=== PATIENT | female | born 1950 | race Caucasian/White ===

== ENCOUNTER → 2019-10-30 | Outpatient (CLI) | payer MEDICARE, OTHER ==
--- NOTE | 2019-10-30 09:54 | FL ---
EXAMINATION TYPE: FL barium swallow DATE OF EXAM: 10/30/2019 CLINICAL HISTORY: History of lap band for years removed 2015 after slippage presents with dysphagia f or 6 months with reflux and heartburn-like symptoms. TECHNIQUE: A double contrast esophagram is performed utilizing air and barium. A total of 37 second s of fluoroscopic time was utilized during procedure. 44 spot images are saved to PACS. COMPARISON: None FINDINGS: The esophagus shows some mild dysmotility with mild diffuse dilatation. There is small to m oderate size sliding type hiatal hernia noted. No stricture or suspicious intraluminal mass. Mild to moderate gastroesophageal reflux noted during real-time performance of study into the distal one half of the esophagus. IMPRESSION: Mild underlying esophageal dysmotility. Small to moderate-sized sliding-type hiatal ty ia. [id number] distal gastroesophageal reflux.
== END | disposition home or self-care (01) ==
LOC: RADUSWWP 08:43
PROVIDERS: ATTEND Surgery
DX: K21.9 Gastro-esophageal reflux disease without esophagitis (principal); K22.4 Dyskinesia of esophagus
CPT/HCPCS: 74220

== ENCOUNTER → 2020-09-21 | Outpatient (CLI) | payer MEDICARE, OTHER ==
--- NOTE | 2020-09-22 09:02 | BD ---
EXAMINATION TYPE: Axial Bone Density DATE OF EXAM: 09/21/2020 COMPARISON: NONE CLINICAL HISTORY: Height: 5 FT 2 IN Weight: 208 FRAX RISK QUESTIONS: Alcohol (3 or more units per day): Family History (Parent hip fracture): NO Glucocorticoids (More than 3mos): NO (Ex: prednisone, prednisolone, methylprednisolone, dexamethasone, and hydrocortisone). History of Fracture in Adulthood: NO Secondary Osteoporosis: 1. Type 1 Diabetes: NO 2. Hyperthyroidism: NO 3. Menopause before 45: YES 4. Malnutrition: NO 5. Chronic liver disease: NO Rheumatoid Arthritis: NO Current Tobacco Use: NO RISK FACTORS HISTORY OF: Surgery to Spine/Hip(right/left)/Wrist (right/left): NO Family History of Osteoporosis: NO Active: YES Diet low in dairy products/other sources of calcium: NO Postmenopausal woman: PART HYST AGE 42 SYMPTOMS THEN ALSO Take estrogen and/or progesterone medications: NONE Lost more than 2 inches in height since high school: NO Poor Health: FAIR MEDICATIONS: Thyroid Medications: YES Which medication: UNSURE NAME How Long: ONE MONTH Additional Medications: METFORMIN, SIMVASTATIN, DULOXETINE, LISINOPRIL,INSULIN, PRILOSEC, THYROID MED S Additional History: GANGLION CYST REMOVED LONG AGO EXAM MEASUREMENTS: Bone mineral densitometry was performed using the salgomed System. Bone mineral density as measured about the Lumbar spine is: ----- L1-L4(G/cm2): 2.004 T Score Values are as follows: ----- L2: 4.8 ----- L3: 8.5 ----- L4: 8.5 ----- L1-L4: 6.9 Bone mineral density has: INCREASED 1.5 % since study of: 2010 Bone mineral density about the R hip (g/cm2): 1.210 Bone mineral density about the L hip (g/cm2): 1.195 T Score values are as follows: -----R Neck: 1.2 -----L Neck: 1.1 -----R Total: 2.3 -----L Total: 2.4 Bone mineral density has: DECREASED -5.2 % since study of: 2010 IMPRESSION: No evidence for osteoporosis or osteopenia. NOTE: T-SCORE=SD OF THE YOUNG ADULT MEAN.
--- NOTE | 2020-09-22 13:30 | MM ---
Reason for exam: screening (asymptomatic). Last mammogram was performed 5 years and 2 months ago. History: Patient is postmenopausal. Family history of breast cancer in maternal aunt, breast cancer in paternal aunt, and breast cancer in maternal cousin. Physical Findings: A clinical breast exam by your physician is recommended on an annual basis and results should be correlated with mammographic findings. MG 3D Screening Mammo W/Cad Bilateral CC and MLO view(s) were taken. Prior study comparison: August 05, 2015, bilateral MG screening mammo w CAD. April 24, 2014, bilateral MG screening mammo w CAD. There are scattered fibroglandular densities. There is no discrete abnormality. No significant changes when compared with prior studies. ASSESSMENT: Negative, BI-RAD 1 RECOMMENDATION: Routine screening mammogram of both breasts in 1 year.
== END | disposition home or self-care (01) ==
LOC: RADMAMWWP 14:57
PROVIDERS: ATTEND Internal Medicine
DX: Z12.31 Encounter for screening mammogram for malignant neoplasm of breast (principal); Z13.820 Encounter for screening for osteoporosis; Z78.0 Asymptomatic menopausal state; Z80.3 Family history of malignant neoplasm of breast
CPT/HCPCS: 77063; 77067; 77080

== ENCOUNTER → 2021-09-13 | Outpatient (CLI) | payer MEDICARE, OTHER ==
--- NOTE | 2021-09-13 12:04 | NM ---
EXAMINATION TYPE: NM gastric emptying static DATE OF EXAM: 09/13/2021 COMPARISON: NONE HISTORY: Following administration of 2.0 mCi Tc 99m Sulfur Colloid with 4 OZ. EGG BEATERS, 1 PC. TOAST W/BUTTE R & JAM, 6 OZ WATER, projection images of the abdomen were obtained 10 minutes post ingestion. Patient Emptying Values 1 Hour 34 % 2 Hours 70 % 3 Hours 96 % 4 Hours 100 % Gastroesophagel reflux: None IMPRESSION: 1. Normal gastric emptying exam. Gastric emptying normal percentage values: 30 minutes: <70% of retention (> 30% emptying) suggests abnormally fast emptying. 60 minutes: <90% retention (>10% emptying) is normal; less than 30% retention (>70% emptying) suggest s abnormally rapid empying. 90 minutes: <65% retention (> 35% emptying) is normal. 120 minutes: <60% retention (> 40% emptying) is normal. 180 minutes: <30% retention (> 70% emptying) is normal. Gastric emptying T-1/2: Solid: The normal range is 60-105 minutes Liquid only: Normal range is 10-45 minutes. Liquid only-children: At 60 minutes, normal range is 44-58 % . Liquid only-infants: At 60 minutes, normal range is 32-64 %. Additional references: Gastric Emptying Scintigraphy [email or web address]://[email or web address]
== END | disposition home or self-care (01) ==
LOC: RADNMMAIN 06:44
PROVIDERS: ATTEND Internal Medicine
DX: R11.2 Nausea with vomiting, unspecified (principal); N18.9 Chronic kidney disease, unspecified
CPT/HCPCS: 78264; A9541

== ENCOUNTER → 2021-09-16 | Outpatient (CLI) | payer MEDICARE, OTHER ==
--- NOTE | 2021-09-16 14:07 | US ---
EXAMINATION TYPE: US kidneys/renal and bladder DATE OF EXAM: 09/16/2021 COMPARISON: NONE CLINICAL HISTORY: R11.2 NAUSEA N18.9 CKD. Abnormal renal labs EXAM MEASUREMENTS: Right Kidney: 8.9 x 4.2 x 4.5 cm Left Kidney: 9.7 x 4.7 x 4.3 cm Right Kidney: Small in size, otherwise appeared wnl Left Kidney: Cyst mid= 2.1 x 1.8 x 2.3 cm Bladder: wnl Bilateral Jets seen: only left jet visualized There is no evidence for hydronephrosis at this point in time. No nephrolithiasis is seen. No solid masses are identified. The urinary bladder is anechoic. Bilateral ureteral jets are seen. IMPRESSION: Diminutive kidneys. Cyst left kidney.
== END | disposition home or self-care (01) ==
LOC: RADUSWWP 13:12
PROVIDERS: ATTEND Internal Medicine
DX: N18.9 Chronic kidney disease, unspecified (principal); N28.1 Cyst of kidney, acquired; N27.1 Small kidney, bilateral
CPT/HCPCS: 76770

== ENCOUNTER 2021-11-24 07:00 | Day surgery (SDC) | payer MEDICARE, OTHER ==
[2021-11-21 14:49] VITALS: BMI 35.8
[~2021-11-24 07:00] MED LIST: LACTATED RINGERS 1,000 ML IV SCH; LIDOCAINE 1% (10MG/ML) FOR IV START INTRADERMA PRN
[2021-11-24 07:35] VITALS: TEMP 97
--- NOTE | 2021-11-24 07:39 | P.GSHP ---
History of Present Illness H&P Date: 11/24/21 CHIEF COMPLAINT: GERD and colon screen HISTORY OF PRESENT ILLNESS: The patient is a 70-year-old female who presents with gastroesophageal reflux disease and need for colon screen. Upper and lower endoscopy were offered for further evaluation and management. PAST MEDICAL HISTORY: Please see list. PAST SURGICAL HISTORY: Please see list. MEDICATIONS: Please see list. ALLERGIES: Please see list. SOCIAL HISTORY: No illicit drug use FAMILY HISTORY: No reports of Crohn disease or ulcerative colitis. REVIEW OF ORGAN SYSTEMS: CONSTITUTIONAL: No reports of fevers or chills. GI: Denies any blood in stools or constipation. PHYSICAL EXAM: VITAL SIGNS: Stable GENERAL: Well-developed pleasant in no acute distress. HEENT: No scleral icterus. Extraocular movements grossly intact. Moist buccal mucosa. NECK: Supple without lymphadenopathy. CHEST: Unlabored respirations. Equal bilateral excursions. CARDIOVASCULAR: Regular rate and rhythm. Distal 2+ pulses. ABDOMEN: Soft, nondistended. MUSCULOSKELETAL: No clubbing, cyanosis, or edema. ASSESSMENT: 1. Gastroesophageal reflux disease 2. Colon screen. PLAN: 1. Recommend proceeding with an upper and lower endoscopy Past Medical History Past Medical History: CVA/TIA, Diabetes Mellitus, Hyperlipidemia, Hypertension, Myocardial Infarction ([place]), Sleep Apnea/CPAP/BIPAP, Thyroid Disorder Last Myocardial Infarction Date:: 2017 History of Any Multi-Drug Resistant Organisms: None Reported Past Surgical History: Bariatric Surgery, Heart Catheterization, Hysterectomy, Orthopedic Surgery Additional Past Surgical History / Comment(s): left ganglion cyst removed. abdominoplasty. D&C Past Anesthesia/Blood Transfusion Reactions: No Reported Reaction Past Psychological History: Depression Smoking Status: Never smoker Past Alcohol Use History: None Reported Past Drug Use History: None Reported Medications and Allergies Home Medications Medication Instructions Recorded Confirmed Type Aspirin [Adult Low Dose Aspirin EC] 81 mg PO DAILY 11/21/21 11/24/21 History Atorvastatin [Lipitor] 80 mg PO HS 11/21/21 11/24/21 History DULoxetine HCL [Cymbalta] 60 mg PO DAILY 11/21/21 11/24/21 History Dapagliflozin Propanediol [Farxiga] 5 mg PO DAILY 11/21/21 11/24/21 History INSULIN LISPRO (humaLOG) [humaLOG] 0 units SQ DIRECTED 11/21/21 11/24/21 History Insulin Glargine [Lantus Vial] 26 unit SQ HS 11/21/21 11/24/21 History Levothyroxine Sodium [Synthroid] 75 mcg PO DAILY 11/21/21 11/24/21 History lisinopriL [Zestril] 20 mg PO DAILY 11/21/21 11/24/21 History Allergies Allergy/AdvReac Type Severity Reaction Status Date / Time amoxicillin Allergy Rash/Hives Verified 11/24/21 07:21 Surgical - Exam Vital Signs Temp Pulse Resp BP Pulse Ox 97.0 F L 75 14 163/75 96 11/24/21 07:29 11/24/21 07:29 11/24/21 07:29 11/24/21 07:29 11/24/21 07:29
[2021-11-24 07:40] LABS: Glucose,Whole Blood 100 mg/dL (70-110)
[2021-11-24] MEDS ORDERED: LIDOCAINE 2% INJ 20 MG/ML (2 ML VIAL) ONE (08:09)
[2021-11-24] MEDS ORDERED: PROPOFOL 10 MG/ML 20 ML VIAL IV ONE (08:09)
--- NOTE | 2021-11-24 08:45 | P.PCN ---
Date of Procedure: 11/24/21 Description of Procedure: PREOPERATIVE DIAGNOSIS: Colonoscopy screening POSTOPERATIVE DIAGNOSIS: Tubular adenoma at cecum Tubular adenoma ascending colon Internal hemorrhoids, grade 3 OPERATION: Colonoscopy to the ileocecal valve and appendiceal orifice, cecum Colonoscopy with cold forceps biopsy SURGEON: Keke Carrasco MD. ANESTHESIA: MAC. INDICATIONS: The patient is an 70-year-old male who presents colonoscopy screening. Last colonoscopy over 10 years ago. Benefits and risks were described and informed consent was obtained. DESCRIPTION OF PROCEDURE: The patient had undergone Sutab prep. The patient had been brought into the operating room and laid in the left lateral decubitus position. After adequate intravenous sedation, the rectum was examined with 2% lidocaine jelly. The prostate was unremarkable. External hemorrhoids were encountered. The rectal tone was within normal limits. No lesions were palpated in the rectal vault. An Olympus colonoscope was advanced until the cecum, ileocecal valve and appendiceal orifice were clearly viewed. The prep was fair. No sigmoid dive rticulosis was encountered. Colonic polyps were found and removed. No evidence of focal colitis was found. Retroflexion of the scope demonstrated grade 2 internal hemorrhoids without active bleeding or inflammation. The colon was desufflated. The patient had tolerated the procedure well. Withdrawal time was over 6 minutes. FINDINGS: Aronchick preparation quality scale 3+ (1-5) Internal hemorrhoids, grade 3 External hemorrhoids, grade 3 No sigmoid diverticulosis Removal of 2 polyps: - Cold forceps biopsy at cecum, 4 mm polyp. - Cold forceps biopsy at ascending colon, 5 mm polyp. No focal colitis. RECOMMENDATIONS: Repeat colonoscopy in one year, 2022 due to high risk polyps and poor prep
--- NOTE | 2021-11-24 08:48 | P.PCN ---
Date of Procedure: 11/24/21 Description of Procedure: PREOPERATIVE DIAGNOSIS: Gastroesophageal reflux disease. Morbid obesity. POSTOPERATIVE DIAGNOSIS: Gastroesophageal reflux disease. Morbid obesity. Gastritis. Diaphragmatic hiatal hernia Erosive esophagitis with esophageal ulcer Duodenal ulcer OPERATION: Esophagogastroduodenoscopy with biopsies along antrum, distal esophagus, duodenum SURGEON: Keke Carrasco MD ANESTHESIA: MAC. INDICATIONS: The patient is a 70-year-old female who presents with reflux disease. Benefits and risks of the procedure were described. Informed consent was obtained. DESCRIPTION: The patient was brought into the endoscopy suite and laid in the left lateral decubitus position. An Olympus gastroscope was passed along the posterior oropharynx down to the distal esophagus where the squamocolumnar junction was encountered at 35 cm from the incisors. The stomach was entered and no bile reflux was found. Additional findings are listed below. Biopsies with cold forceps were obtained of the antrum. The first through third portion of the duodenum was examined. Retroflexion of the scope confirmed Hill grade 2 lower esophageal valve. The squamocolumnar junction demonstrated LA grade B erosive esophagitis. The stomach was desufflated. The patient tolerated the procedure well. FINDINGS: Squamocolumnar junction 35 cm from the incisors. Diaphragmatic hiatus at 38 cm. Hiatal hernia, 3 cm Hill grade 2 lower esophageal valve. LA grade D erosive esophagitis, with active esophageal ulcer, 30 cm to 35 cm 3 columnar erosion. Biopsies obtained Chronic gastritis with biopsies obtained Punctate duodenal ulcer without bleeding at the first portion, 3 mm. Biopsies obtained RECOMMENDATIONS: Omeprazole 40 mg twice a day Carafate 1 g twice a day
[2021-11-24 09:26] VITALS: BP 153/68; PULSE 55; RESP 18
== END 2021-11-24 09:56 | disposition home or self-care (01) ==
LOC: ORWHC2ENDO 07:00
PROVIDERS: ATTEND Surgery Plastic and Reconstructive Surgery
DX: Z12.11 Encounter for screening for malignant neoplasm of colon (principal); D12.2 Benign neoplasm of ascending colon; D12.0 Benign neoplasm of cecum; K21.9 Gastro-esophageal reflux disease without esophagitis; K29.80 Duodenitis without bleeding; K63.89 Other specified diseases of intestine; K29.50 Unspecified chronic gastritis without bleeding; K22.10 Ulcer of esophagus without bleeding; K64.2 Third degree hemorrhoids; K64.4 Residual hemorrhoidal skin tags; E66.01 Morbid (severe) obesity due to excess calories; Z68.35 Body mass index [BMI] 35.0-35.9, adult; K44.9 Diaphragmatic hernia without obstruction or gangrene; I10 Essential (primary) hypertension; E78.5 Hyperlipidemia, unspecified; E11.9 Type 2 diabetes mellitus without complications; E07.9 Disorder of thyroid, unspecified; Z86.73 Personal history of transient ischemic attack (TIA), and cerebral infarction without residual deficits; I25.2 Old myocardial infarction; G47.33 Obstructive sleep apnea (adult) (pediatric); Z98.84 Bariatric surgery status; Z90.710 Acquired absence of both cervix and uterus; Z98.890 Other specified postprocedural states; F32.A Depression, unspecified; Z79.82 Long term (current) use of aspirin; Z79.890 Hormone replacement therapy; Z79.4 Long term (current) use of insulin; Z79.899 Other long term (current) drug therapy; Z88.0 Allergy status to penicillin
CPT/HCPCS: 88305; 88312; 45380; 43239; J2704; J2001

== ENCOUNTER → 2021-11-30 | Outpatient (CLI) | payer MEDICARE, OTHER ==
--- NOTE | 2021-11-30 08:29 | US ---
EXAMINATION TYPE: US gallbladder DATE OF EXAM: 11/30/2021 COMPARISON: NONE CLINICAL HISTORY: R10.11 Right upper quadrant pain. EXAM MEASUREMENTS: Liver Length: 13.2 cm Gallbladder Wall: 0.2 cm CBD: 0.2 cm Right Kidney: 9.9 x 4.0 x 4.6 cm Pancreas: Obscured by bowel gas Liver: Increased attenuation, decreased visualization of vessels suggestive of fatty infiltrate Gallbladder: wnl Evidence for sonographic He's sign: No CBD: wnl Right Kidney: No hydronephrosis or masses seen IMPRESSION: 1. Hepatic steatosis.
== END | disposition home or self-care (01) ==
LOC: RADUSWWP 07:54
PROVIDERS: ATTEND Surgery Plastic and Reconstructive Surgery
DX: K76.0 Fatty (change of) liver, not elsewhere classified (principal)
CPT/HCPCS: 76705

== ENCOUNTER → 2022-02-02 | Day surgery (SDC) | payer MEDICARE, OTHER ==
[2022-01-31 16:16] VITALS: BMI 36.0
[~2022-02-02] MED LIST changes: -LIDOCAINE 1% (10MG/ML) FOR IV START INTRADERMA PRN; +LIDOCAINE 2% INJ 20 MG/ML (2 ML VIAL) ONE; +PROPOFOL 10 MG/ML 20 ML VIAL IV ONE
[2022-02-02 07:08] VITALS: RESP 16; TEMP 97.6
[2022-02-02 07:11] LABS: Glucose,Whole Blood 112 mg/dL (70-110)
--- NOTE | 2022-02-02 07:35 | P.GSHP ---
History of Present Illness H&P Date: 02/02/22 CHIEF COMPLAINT: GERD HISTORY OF PRESENT ILLNESS: The patient is a 71-year-old female who presents reports gastroesophageal reflux disease. Upper endoscopy was offered for further evaluation and management. PAST MEDICAL HISTORY: Please see list. PAST SURGICAL HISTORY: Please see list. MEDICATIONS: Please see list. ALLERGIES: Please see list. SOCIAL HISTORY: No illicit drug use FAMILY HISTORY: No reports of Crohn disease or ulcerative colitis. REVIEW OF ORGAN SYSTEMS: CONSTITUTIONAL: No reports of fevers or chills. GI: Denies any blood in stools or constipation. PHYSICAL EXAM: VITAL SIGNS: Stable GENERAL: Well-developed and pleasant in no acute distress. HEENT: No scleral icterus. Extraocular movements grossly intact. Moist buccal mucosa. NECK: Supple without lymphadenopathy. CHEST: Unlabored respirations. Equal bilateral excursions. CARDIOVASCULAR: Regular rate and rhythm. Distal 2+ pulses. ABDOMEN: Soft, nondistended. MUSCULOSKELETAL: No clubbing, cyanosis, or edema. ASSESSMENT: 1. Gastroesophageal reflux disease PLAN: 1. Recommend proceeding with an upper endoscopy Past Medical History Past Medical History: CVA/TIA, Diabetes Mellitus, GERD/Reflux, Hyperlipidemia, Hypertension, Myocardial Infarction ([place]), Osteoarthritis ([place]), Sleep Apnea/CPAP/BIPAP, Thyroid Disorder Additional Past Medical History / Comment(s): CVA 2009- NO RESIDUAL AFFECTS, C- PAP MACHINE , ARTHRITIS HIPS, EGD 11/24/21 - ESOPHAGEAL & DUODENAL ULCER. Last Myocardial Infarction Date:: 2007 History of Any Multi-Drug Resistant Organisms: None Reported Past Surgical History: Bariatric Surgery, Heart Catheterization, Hysterectomy, Orthopedic Surgery Additional Past Surgical History / Comment(s): left ganglion cyst removed, LAP BAND INSERTED AND REMOVED. abdominoplasty. D&C X2 Past Anesthesia/Blood Transfusion Reactions: No Reported Reaction Past Psychological History: Depression Smoking Status: Never smoker Past Alcohol Use History: None Reported Past Drug Use History: None Reported Medications and Allergies Home Medications Medication Instructions Recorded Confirmed Type Aspirin [Adult Low Dose Aspirin EC] 81 mg PO DAILY 11/21/21 01/31/22 History Atorvastatin [Lipitor] 80 mg PO HS 11/21/21 02/02/22 History DULoxetine HCL [Cymbalta] 60 mg PO DAILY 11/21/21 02/02/22 History Dapagliflozin Propanediol [Farxiga] 5 mg PO DAILY 11/21/21 02/02/22 History INSULIN LISPRO (humaLOG) [humaLOG] 10 units SQ AC-TID 11/21/21 02/02/22 History Insulin Glargine [Lantus Vial] 26 unit SQ HS 11/21/21 02/02/22 History Levothyroxine Sodium [Synthroid] 75 mcg PO DAILY 11/21/21 02/02/22 History lisinopriL [Zestril] 30 mg PO DAILY 11/21/21 02/02/22 History Omeprazole [PriLOSEC] 40 mg PO BID #30 cap 11/24/21 02/02/22 Rx Sucralfate [Carafate] 1 gm PO BID #60 tablet 11/24/21 02/02/22 Rx Allergies Allergy/AdvReac Type Severity Reaction Status Date / Time amoxicillin Allergy Rash/Hives Verified 01/31/22 15:51 Surgical - Exam Vital Signs Temp Pulse Resp BP Pulse Ox 97.6 F 60 16 188/86 98 02/02/22 06:59 02/02/22 06:59 02/02/22 06:59 02/02/22 06:59 02/02/22 06:59 Results - Labs Abnormal Lab Results - Last 24 Hours (Table) 02/02/22 Range/Units 07:06 POC Glucose (mg/dL) 112 H (70-110) mg/dL
--- NOTE | 2022-02-02 07:45 | P.PCN ---
Date of Procedure: 02/02/22 Description of Procedure: PREOPERATIVE DIAGNOSIS: Gastroesophageal reflux disease. Morbid obesity. History of gastric ulcers POSTOPERATIVE DIAGNOSIS: Gastroesophageal reflux disease. Morbid obesity. Gastritis. Diaphragmatic hiatal hernia History of gastric ulcer OPERATION: Esophagogastroduodenoscopy with biopsies along antrum and duodenum SURGEON: Keke Carrasco MD ANESTHESIA: MAC. INDICATIONS: The patient is a 71-year-old female who presents with reflux disease and gastric ulcers. Benefits and risks of the procedure were described. Informed consent was obtained. DESCRIPTION: The patient was brought into the endoscopy suite and laid in the left lateral decubitus position. An Olympus gastroscope was passed along the posterior oropharynx down to the distal esophagus where the squamocolumnar junction was encountered at 35 cm from the incisors. The stomach was entered and no bile reflux was found. Additional findings are listed below. Biopsies with cold forceps were obtained of the antrum. The first through third portion of the duodenum was examined. Retroflexion of the scope confirmed Hill grade 3 lower esophageal valve. The squamocolumnar junction demonstrated LA grade B erosive esophagitis. The stomach was desufflated. The patient tolerated the procedure well. FINDINGS: Squamocolumnar junction 35 cm from the incisors. Diaphragmatic hiatus at 37 cm. Hiatal hernia, 2 cm, sliding diaphragmatic hiatal hernia Hill grade 3+ lower esophageal valve. LA grade B erosive esophagitis. Biopsies obtained of duodenum for celiac disease Chronic gastritis RECOMMENDATIONS: Upper endoscopy as needed Recommend diaphragmatic hiatal hernia repair. Plan - Discharge Summary New Discharge Prescriptions: Continue INSULIN LISPRO (humaLOG) [humaLOG] 10 units SQ AC-TID Dapagliflozin Propanediol [Farxiga] 5 mg PO DAILY Levothyroxine Sodium [Synthroid] 75 mcg PO DAILY Omeprazole [PriLOSEC] 40 mg PO BID #30 cap Insulin Glargine [Lantus Vial] 26 unit SQ HS lisinopriL [Zestril] 30 mg PO DAILY Atorvastatin [Lipitor] 80 mg PO HS DULoxetine HCL [Cymbalta] 60 mg PO DAILY Aspirin [Adult Low Dose Aspirin EC] 81 mg PO DAILY Sucralfate [Carafate] 1 gm PO BID #60 tablet Discharge Medication List Aspirin [Adult Low Dose Aspirin EC] 81 mg PO DAILY 11/21/21 [History] Atorvastatin [Lipitor] 80 mg PO HS 11/21/21 [History] DULoxetine HCL [Cymbalta] 60 mg PO DAILY 11/21/21 [History] Dapagliflozin Propanediol [Farxiga] 5 mg PO DAILY 11/21/21 [History] INSULIN LISPRO (humaLOG) [humaLOG] 10 units SQ AC-TID 11/21/21 [History] Insulin Glargine [Lantus Vial] 26 unit SQ HS 11/21/21 [History] Levothyroxine Sodium [Synthroid] 75 mcg PO DAILY 11/21/21 [History] lisinopriL [Zestril] 30 mg PO DAILY 11/21/21 [History] Omeprazole [PriLOSEC] 40 mg PO BID #30 cap 11/24/21 [Rx] Sucralfate [Carafate] 1 gm PO BID #60 tablet 11/24/21 [Rx] Follow up Appointment(s)/Referral(s): Keke Carrasco MD [STAFF PHYSICIAN] - 02/21/22 Patient Instructions/Handouts: GERD (Gastroesophageal Reflux Disease) (DC) Discharge Disposition: HOME SELF-CARE
[2022-02-02 08:04] VITALS: BP 132/57; PULSE 51
== END | disposition home or self-care (01) ==
LOC: ORWHC2ENDO 06:40
PROVIDERS: ATTEND Surgery Plastic and Reconstructive Surgery
DX: K29.50 Unspecified chronic gastritis without bleeding (principal); K44.9 Diaphragmatic hernia without obstruction or gangrene; K21.00 Gastro-esophageal reflux disease with esophagitis, without bleeding; K90.0 Celiac disease; E66.01 Morbid (severe) obesity due to excess calories; E11.9 Type 2 diabetes mellitus without complications; E78.5 Hyperlipidemia, unspecified; I10 Essential (primary) hypertension; F32.A Depression, unspecified; I25.2 Old myocardial infarction; M19.90 Unspecified osteoarthritis, unspecified site; E07.9 Disorder of thyroid, unspecified; G47.33 Obstructive sleep apnea (adult) (pediatric); Z90.710 Acquired absence of both cervix and uterus; Z98.84 Bariatric surgery status; Z95.1 Presence of aortocoronary bypass graft; Z98.890 Other specified postprocedural states; Z79.82 Long term (current) use of aspirin; Z79.4 Long term (current) use of insulin; Z79.890 Hormone replacement therapy; Z79.891 Long term (current) use of opiate analgesic; Z88.0 Allergy status to penicillin; Z68.41 Body mass index [BMI] 40.0-44.9, adult; Z87.11 Personal history of peptic ulcer disease; Z86.73 Personal history of transient ischemic attack (TIA), and cerebral infarction without residual deficits
CPT/HCPCS: 88305; 43239; J2704; J2001

== ENCOUNTER → 2022-03-20 | Outpatient (CLI) | payer MEDICARE, OTHER ==
--- NOTE | 2022-03-21 16:35 | MM ---
Reason for Exam: Screening (asymptomatic). Last mammogram was performed 1 year(s) and 6 month(s) ago. Patient History: Menarche at age 13. First Full-Term at age 30. Hysterectomy at age 44. Postmenopausal. Maternal cousin had breast cancer. Paternal aunt had breast cancer. Maternal aunt had breast cancer. Risk Values: Darshana 5 year model risk: 2.1%. NCI Lifetime model risk: 6.4%. Prior Study Comparison: 04/24/2014 Bilateral Screening Mammogram, [facility]. 08/05/2015 Bilateral Screening Mammogram, [facility]. 09/21/2020 Bilateral Screening Mammogram, [facility]. Tissue Density: There are scattered fibroglandular densities. Findings: Analyzed By CAD. Benign calcifications in the left breast. No suspicious groups of microcalcifications, spiculated or lobular masses, architectural distortion or other secondary signs of malignancy are mammographically apparent. Overall Assessment: Benign, BI-RAD 2 Management: Screening Mammogram of both breasts in 1 year. A negative mammogram report should not preclude additional follow up of suspicious palpable abnormalities. Patient should continue monthly self breast exam. A clinical breast exam by your physician is recommended on an annual basis and results should be correlated with mammographic findings. Electronically signed and approved by: Noel Adam D.O. Radiologis
== END | disposition home or self-care (01) ==
LOC: RADMAMWWP 07:52
PROVIDERS: ATTEND Internal Medicine
DX: Z12.31 Encounter for screening mammogram for malignant neoplasm of breast (principal); Z78.0 Asymptomatic menopausal state; Z80.3 Family history of malignant neoplasm of breast
CPT/HCPCS: 77063; 77067

== ENCOUNTER → 2022-12-28 | Outpatient (CLI) | payer MEDICARE, OTHER ==
--- NOTE | 2022-12-28 09:34 | US ---
EXAMINATION TYPE: US kidneys/renal and bladder DATE OF EXAM: 12/28/2022 COMPARISON: US CLINICAL INDICATION: Female, 72 years old with history of N18.32 CHRONIC KIDNEY DISEASE, STAGE 3B; CK D EXAM MEASUREMENTS: Right Kidney: 9.1 x 4.7 x 4.9 cm Left Kidney: 9.1 x 5.4 x 4.6 cm Right Kidney: No hydronephrosis or masses seen Left Kidney: No hydronephrosis, cyst mid= 2.4 x 2.1 x 2.5 cm- visualized on prior Bladder: wnl Bilateral Jets seen: No Increased echogenicity of the renal cortex. IMPRESSION: 1. Medical renal disease. 2. No obstructive uropathy. 3. Left renal cyst. Pelvic cyst.
--- NOTE | 2022-12-28 10:30 | XR ---
EXAMINATION TYPE: XR lumbar spine 2 or 3V DATE OF EXAM: 12/28/2022 10:19 AM INDICATION: Patient age:Female; 72 years old; Reason for study: PAIN; COMPARISON: None TECHNIQUE: Frontal, lateral and coned in L5-S1 lateral views of the spine. FINDINGS: No evidence of any acute osseous pathology. No evidence of loss of vertebral body height i s seen. There is normal grade 2 anterolisthesis of L4 and L5 alignment of the lumbar vertebral bodies . Mild scattered disc space narrowing. Multilevel marginal osteophyte formation throughout the visual ized spine. There is facet joint arthropathy throughout the spine. Scattered at least mild neural for aminal stenosis worse at L5-S1. IMPRESSION: 1. No acute fracture. 2. Moderate multilevel disc degeneration. 3. Grade 2 anterolisthesis of L4 and L5 there is at least [id number] spinal canal stenosis. Fu rther evaluation with MRI is recommended.
--- NOTE | 2022-12-28 10:31 | XR ---
EXAMINATION TYPE: XR Hip Bilateral Complete DATE OF EXAM: 12/28/2022 10:19 AM INDICATION: Patient age:Female; 72 years old; Reason for study: PAIN; PHH. COMPARISON: None. TECHNIQUE: The bilateral hips were examined in the frontal and lateral projections and a AP pelvis. FINDINGS: No evidence for acute process, joint dislocation or significant soft tissue swelling. Osteo phyte formation of the superior acetabulum of the hip. Moderate to severe atherosclerosis of the scar rial vasculature. IMPRESSION: 1. No evidence for acute process. 2. Mild to moderate hip osteoarthrosis.
== END | disposition home or self-care (01) ==
LOC: RADUSWWP 08:42
PROVIDERS: ATTEND Internal Medicine
DX: N18.32 Chronic kidney disease, stage 3b (principal); N28.1 Cyst of kidney, acquired; M51.36 Other intervertebral disc degeneration, lumbar region; M43.16 Spondylolisthesis, lumbar region; M48.061 Spinal stenosis, lumbar region without neurogenic claudication; M16.0 Bilateral primary osteoarthritis of hip
CPT/HCPCS: 72100; 73521; 76770

== ENCOUNTER 2023-02-22 17:21 | Emergency (ER) | payer MEDICARE, OTHER ==
[2023-02-22] MEDS ORDERED: ORPHENADRINE 30 MG/ML 2 ML VIAL IM STA (19:21)
[2023-02-22] MEDS ORDERED: DEXAMETHASONE SOD PHOSPHATE 10 MG/ML 1 ML VIAL IM STA (19:21)
[2023-02-22] MEDS ORDERED: LIDOCAINE 5% PATCH TOPICAL SCH (19:30)
--- NOTE | 2023-02-22 20:20 | ED ---
Back Pain HPI - General Chief Complaint: Back Pain/Injury Stated Complaint: Lt side pain Time Seen by Provider: 02/22/23 19:05 Source: patient Limitations: physical limitation - History of Present Illness Initial Comments: 72-year-old female presenting with chief complaint of back pain. Pain is located in the lower back. She has history of chronic lower back pain. Pain radiates into the left leg. No injury or trauma. No loss of bowel or bladder control or saddle paresthesia. Patient states that she recently had x-rays performed and did not find out the results. No dysuria, hematuria, fever, chills, nausea, vomiting. She has been taking Tylenol for her symptoms which has not alleviated the pain. - Related Data Home Medications Medication Instructions Recorded Confirmed Aspirin [Adult Low Dose Aspirin EC] 81 mg PO DAILY 11/21/21 06/16/22 Atorvastatin [Lipitor] 80 mg PO HS 11/21/21 06/16/22 DULoxetine HCL [Cymbalta] 60 mg PO DAILY 11/21/21 06/16/22 INSULIN LISPRO (humaLOG) [humaLOG] 10 units SQ AC-TID 11/21/21 06/16/22 Insulin Glargine [Lantus Vial] 26 unit SQ HS 11/21/21 06/16/22 Levothyroxine Sodium [Synthroid] 75 mcg PO DAILY 11/21/21 06/16/22 lisinopriL [Zestril] 15 mg PO BID 11/21/21 06/16/22 Previous Rx's Medication Instructions Recorded Omeprazole [PriLOSEC] 40 mg PO BID #30 cap 11/24/21 Acetaminophen Tab [Tylenol Tab] 1,000 mg PO Q6HR PRN #30 tablet 06/16/22 Ibuprofen [Motrin] 600 mg PO Q8HR PRN #30 tab 06/16/22 Simethicone [Gas-X] 125 mg PO AC-TID PRN #20 capsule 06/16/22 Cyclobenzaprine [Flexeril] 10 mg PO TID PRN #15 tab 02/22/23 Lidocaine 5% Patch [Lidoderm 5% 1 patch TOPICAL DAILY PRN #30 patch 02/22/23 Patch] Allergies Allergy/AdvReac Type Severity Reaction Status Date / Time amoxicillin Allergy Rash/Hives Verified 02/22/23 17:38 Review of Systems ROS Statement: Those systems with pertinent positive or pertinent negative responses have been documented in the HPI. ROS Other: All systems not noted in ROS Statement are negative. Past Medical History Past Medical History: CVA/TIA, Diabetes Mellitus, Hyperlipidemia, Hypertension, Myocardial Infarction (NM), Sleep Apnea/CPAP/BIPAP, Thyroid Disorder Additional Past Medical History / Comment(s): CVA 2009- NO RESIDUAL AFFECTS, C- PAP MACHINE , ARTHRITIS HIPS, EGD 11/24/21 - ESOPHAGEAL & DUODENAL ULCER. Last Myocardial Infarction Date:: 2007 History of Any Multi-Drug Resistant Organisms: None Reported Past Surgical History: Bariatric Surgery, Heart Catheterization, Hysterectomy, Orthopedic Surgery Additional Past Surgical History / Comment(s): left ganglion cyst removed lap band placed and removed. abdominoplasty. D&C Past Anesthesia/Blood Transfusion Reactions: No Reported Reaction Past Psychological History: Depression Smoking Status: Never smoker General Exam Limitations: physical limitation General appearance: alert, in no apparent distress Head exam: Present: atraumatic, normocephalic, normal inspection Eye exam: Present: normal appearance, EOMI Neck exam: Present: normal inspection, full ROM Respiratory exam: Absent: respiratory distress Back exam: Present: normal inspection Neurological exam: Present: alert, oriented X3 Psychiatric exam: Present: normal affect, normal mood Skin exam: Present: warm, dry Course Vital Signs 02/22/23 02/22/23 17:35 20:38 Temperature 97.5 F L 97.8 F Pulse Rate 67 79 Respiratory 18 16 Rate Blood Pressure 170/73 154/78 O2 Sat by Pulse 98 97 Oximetry Medical Decision Making - Medical Decision Making Was pt. sent in by a medical professional or institution (NEELA Olivares, ROPE CLEANER, urgent care, hospital, or detention...) When possible be specific @ -No Did you speak to anyone other than the patient for history (EMS, parent, family, police, friend...)? What history was obtained from this source @ -No Did you review nursing and triage notes (agree or disagree)? Why? @ -I reviewed and agree with nursing and triage notes Were old charts reviewed (outside hosp., previous admission, EMS record, old EKG, old radiological studies, urgent care reports/EKG's, detention records)? Report findings @ -Recent lumbar spine x-ray reviewed which showed no acute process Differential Diagnosis (chest pain, altered mental status, abdominal pain women, abdominal pain men, vaginal bleeding, weakness, fever, dyspnea, syncope, headache, dizziness, GI bleed, back pain, seizure, CVA, palpatations, mental health, musculoskeletal)? @ - [facility] Differential Back Pain: Strain, zoster, cauda equina syndrome, epidural abscess, vertebral osteomyelitis, discitis, fracture, subluxation, disc herniation, DJD, spinal stenosis, dissection, AAA, pancreatitis, peptic ulcer disease, pyelonephritis, kidney stone… this is not meant to be an all-inclusive list. EKG interpreted by me (3pts min.). @ -As above X-rays interpreted by me (1pt min.). @ -None done CT interpreted by me (1pt min.). @ -None done U/S interpreted by me (1pt. min.). @ -None done What testing was considered but not performed or refused? (CT, X-rays, U/S, labs)? Why? @ -None What meds were considered but not given or refused? Why? @ -None Did you discuss the management of the patient with other professionals (professionals i.e. , PA, ROPE CLEANER, lab, RT, psych nurse, rn social services, battery test engineer, teacher, program officer, case finisher)? Give summary @ -No Was smoking cessation discussed for >3mins.? @ -No Was critical care preformed (if so, how long)? @ -No Were there social determinants of health that impacted care today? How? (Homelessness, low income, unemployed, alcoholism, drug addiction, transportation, low edu. Level, literacy, decrease access to med. care, [facility], rehab)? @ -No Was there de-escalation of care discussed even if they declined (Discuss DNR or withdrawal of care, Hospice)? DNR status @ -No What co-morbidities impacted this encounter? (DM, HTN, Smoking, COPD, CAD, Cancer, CVA, ARF, Chemo, Hep., AIDS, mental health diagnosis, sleep apnea, morbid obesity)? @ -None Was patient admitted / discharged? Hospital course, mention meds given and route, prescriptions, significant lab abnormalities, going to OR and other pertinent info. @ -72-year-old female presenting with chief complaint of back pain. No injury or trauma. No red flag symptoms. There is radiation down the leg. Recent x- rays are reviewed which showed no acute process. Patient reports improvement after pain medication. Follow-up with PCP. Report back to ER with any new or worsening symptoms. Discussed return parameters and answered all questions. Patient conveyed verbal understanding and agreed to the plan. I discussed this case in detail with my attending Dr. Zamudio Undiagnosed new problem with uncertain prognosis? @ -No Drug Therapy requiring intensive monitoring for toxicity (Heparin, Nitro, Insulin, Cardizem)? @ -No Were any procedures done? @ -No Diagnosis/symptom? @ -Mechanical back pain Acute, or Chronic, or Acute on Chronic? @ -Acute Uncomplicated (without systemic symptoms) or Complicated (systemic symptoms)? @ -Uncomplicated Side effects of treatment? @ -No Exacerbation, Progression, or Severe Exacerbation? @ -No Poses a threat to life or bodily function? How? (Chest pain, USA, NM, pneumonia, PE, COPD, DKA, ARF, appy, cholecystitis, CVA, Diverticulitis, Homicidal, Suicidal, threat to staff... and all critical care pts) @ -No Disposition Clinical Impression: Mechanical back pain Disposition: HOME SELF-CARE Condition: Good Instructions (If sedation given, give patient instructions): Acute Low Back Pain (ED) Additional Instructions: Follow-up with PCP. Report back to ER with any new or worsening symptoms. Take medication as prescribed, do not take cyclobenzaprine before driving or operating heavy machinery as it may cause drowsiness Prescriptions: Cyclobenzaprine [Flexeril] 10 mg PO TID PRN #15 tab PRN Reason: Spasms Lidocaine 5% Patch [Lidoderm 5% Patch] 1 patch TOPICAL DAILY PRN #30 patch PRN Reason: Pain Is patient prescribed a controlled substance at d/c from ED?: No Referrals: Deng Church MD [Primary Care Provider] - 1-2 days Time of Disposition: 20:20
[2023-02-22 20:45] VITALS: BP 154/78; PULSE 79; RESP 16; TEMP 97.8
== END 2023-02-22 20:39 | disposition home or self-care (01) ==
LOC: EC 17:21
DX: M54.50 Low back pain, unspecified (principal); E11.9 Type 2 diabetes mellitus without complications; E78.5 Hyperlipidemia, unspecified; G47.30 Sleep apnea, unspecified; I10 Essential (primary) hypertension; I25.2 Old myocardial infarction; F32.A Depression, unspecified; Z79.4 Long term (current) use of insulin; Z79.899 Other long term (current) drug therapy; Z79.82 Long term (current) use of aspirin; Z88.0 Allergy status to penicillin
CPT/HCPCS: 99284; 96372 ×2; J1100; J2360

== ENCOUNTER → 2023-03-03 | Outpatient (CLI) | payer MEDICARE, OTHER ==
--- NOTE | 2023-03-03 20:59 | MR ---
EXAMINATION TYPE: MR lumbar spine wo con DATE OF EXAM: 03/03/2023 1:06 PM CLINICAL INDICATION:Female, 72 years old with history of M51.36 INTERVERTEBRAL DISC DEGENERATION; , Sudden onset lower back pain, radiates into front of left thigh. COMPARISON: None TECHNIQUE: Multi planar, multi sequence imaging was performed utilizing: T1-weighted, T2-weighted, a nd turbo inversion recovery imaging of the lumbar spine. IV Contrast: (None if empty) FINDINGS: Alignment: The lumbar vertebral bodies have preserved heights with grade 2 anterolisthesis of L4 on L 5. Cord: The conus medullaris and the distal spinal cord appear unremarkable with regards to their signa l intensity and morphology. Bones/Discs: Degeneration changes throughout the spine with osteophyte formation and facet arthropath y. There is bony edema at the adjoining endplates of L4 and L5 more pronounced in the L5 superior end plate. T12-L1: No evidence of significant spinal canal stenosis or neural foraminal stenosis. L1-L2: No evidence of significant spinal canal stenosis or neural foraminal stenosis. L2-L3: No evidence of significant spinal canal stenosis or neural foraminal stenosis. L3-L4: Disc material at the level of the L3 vertebral body at in the left subarticular/foraminal hemanth on suggestive extruded sequestrated disc material series 411 image 8 overall this material measures 1 8 x 6 mm and extends near the L2-L3 vertebral disc level. Disc bulge and facet joint arthropathy resu lt in mild spinal canal and moderate to severe bilateral neural foraminal stenosis. L4-L5: Disc uncovering from grade 1 anterolisthesis and facet joint arthropathy with mild spinal siddhartha l stenosis and moderate to severe bilateral neural foraminal stenosis. L5-S1: The disc is rounded posterior morphology without significant spinal canal stenosis. Facet join t arthropathy with mild bilateral neural foraminal stenosis. No significant spinal canal or neural foraminal stenosis in the remainder of the visualized levels. Other findings: None. IMPRESSION: 1. No definitive evidence of significant spinal canal stenosis. 2. Grade 2 anterolisthesis of L4 and L5 reactive bony edema of the L5 superior endplate and to a les ser extent L4 inferior endplate. This results in moderate to severe bilateral neural foraminal stenos is. 3. Sequestered disc material at the level of L3 on the left including the left subarticular left fora alexia locations along with Disc degeneration changes resulting in moderate to severe L3-L4 neural for aminal stenosis bilaterally.
== END | disposition home or self-care (01) ==
LOC: RADMRIMAIN 12:01
PROVIDERS: ATTEND Internal Medicine
DX: M51.16 Intervertebral disc disorders with radiculopathy, lumbar region (principal); M43.16 Spondylolisthesis, lumbar region; M99.73 Connective tissue and disc stenosis of intervertebral foramina of lumbar region
CPT/HCPCS: 72148

== ENCOUNTER 2023-03-05 10:23 | Emergency (ER) | payer MEDICARE, OTHER ==
[2023-03-05 10:45] VITALS: RESP 18; TEMP 98
--- NOTE | 2023-03-05 11:02 | ED ---
General Adult HPI - General Chief complaint: Fall Stated complaint: FALL Time Seen by Provider: 03/05/23 10:46 Source: patient, family, RN notes reviewed Mode of arrival: ambulatory Limitations: no limitations - History of Present Illness Initial comments: Patient is a pleasant 72-year-old female presenting to the emergency department with concerns for fall. Patient states she was getting into her car and put her weight on her left leg when he gave out. Patient states she has had that problem previously. Patient fell and believe she did hit her head. No loss of consciousness. Patient has discomfort left posterior head. Patient also has some neck discomfort. Patient states she did land on her left upper leg and has discomfort there as well. Patient also hurt her ankle. No chest pain. No back pain. No dyspnea or abdominal pain. - Related Data Home Medications Medication Instructions Recorded Confirmed Aspirin [Adult Low Dose Aspirin EC] 81 mg PO DAILY 11/21/21 06/16/22 Atorvastatin [Lipitor] 80 mg PO HS 11/21/21 06/16/22 DULoxetine HCL [Cymbalta] 60 mg PO DAILY 11/21/21 06/16/22 INSULIN LISPRO (humaLOG) [humaLOG] 10 units SQ AC-TID 11/21/21 06/16/22 Insulin Glargine [Lantus Vial] 26 unit SQ HS 11/21/21 06/16/22 Levothyroxine Sodium [Synthroid] 75 mcg PO DAILY 11/21/21 06/16/22 lisinopriL [Zestril] 15 mg PO BID 11/21/21 06/16/22 Previous Rx's Medication Instructions Recorded Omeprazole [PriLOSEC] 40 mg PO BID #30 cap 11/24/21 Acetaminophen Tab [Tylenol Tab] 1,000 mg PO Q6HR PRN #30 tablet 06/16/22 Ibuprofen [Motrin] 600 mg PO Q8HR PRN #30 tab 06/16/22 Simethicone [Gas-X] 125 mg PO AC-TID PRN #20 capsule 06/16/22 Cyclobenzaprine [Flexeril] 10 mg PO TID PRN #15 tab 02/22/23 Lidocaine 5% Patch [Lidoderm 5% 1 patch TOPICAL DAILY PRN #30 patch 02/22/23 Patch] Allergies Allergy/AdvReac Type Severity Reaction Status Date / Time amoxicillin Allergy Rash/Hives Verified 03/05/23 10:26 Review of Systems ROS Statement: Those systems with pertinent positive or pertinent negative responses have been documented in the HPI. ROS Other: All systems not noted in ROS Statement are negative. Constitutional: Denies: fever Eyes: Denies: eye pain ENT: Denies: ear pain Respiratory: Denies: cough, dyspnea Cardiovascular: Denies: chest pain Musculoskeletal: Reports: as per HPI Skin: Denies: rash Neurological: Reports: as per HPI. Denies: weakness, confusion Past Medical History Past Medical History: CVA/TIA, Diabetes Mellitus, Hyperlipidemia, Hypertension, Myocardial Infarction (MT), Sleep Apnea/CPAP/BIPAP, Thyroid Disorder Additional Past Medical History / Comment(s): CVA 2009- NO RESIDUAL AFFECTS, C- PAP MACHINE , ARTHRITIS HIPS, EGD 11/24/21 - ESOPHAGEAL & DUODENAL ULCER. Last Myocardial Infarction Date:: 2007 History of Any Multi-Drug Resistant Organisms: None Reported Past Surgical History: Bariatric Surgery, Heart Catheterization, Hysterectomy, Orthopedic Surgery Additional Past Surgical History / Comment(s): left ganglion cyst removed lap band placed and removed. abdominoplasty. D&C Past Anesthesia/Blood Transfusion Reactions: No Reported Reaction Past Psychological History: Depression Smoking Status: Never smoker Past Alcohol Use History: None Reported Past Drug Use History: None Reported General Exam Limitations: no limitations General appearance: alert, in no apparent distress Head exam: Present: atraumatic Eye exam: Present: normal appearance, PERRL, EOMI Neck exam: Present: normal inspection, tenderness (Mild diffuse cervical spine tenderness) Respiratory exam: Present: normal lung sounds bilaterally Cardiovascular Exam: Present: regular rate, normal rhythm Expanded Peripheral pulses: 2+: Dorsalis Pedis (R), Dorsalis Pedis (L) GI/Abdominal exam: Present: soft. Absent: tenderness Extremities exam: Present: full ROM, tenderness (Mild to moderate tenderness left upper thigh and posterior hip. Mild tenderness left ankle.) Back exam: Present: normal inspection Neurological exam: Present: alert, oriented X3, CN II-XII intact. Absent: motor sensory deficit Psychiatric exam: Present: normal affect, normal mood Skin exam: Present: normal color Course Vital Signs 03/05/23 10:26 Temperature 98 F Pulse Rate 92 Respiratory 18 Rate Blood Pressure 168/98 O2 Sat by Pulse 96 Oximetry Procedures - Orthopedic Splinting/Casting Injury #1 Side: left Lower Extremity Injury Location: short leg Lower Extremity Immobilizer: posterior splint Medical Decision Making - Medical Decision Making Was pt. sent in by a medical professional or institution (NEELA Olivares, FR[employer] WORK INSPECTOR, urgent care, hospital, or assisted...) When possible be specific @ -[No] Did you speak to anyone other than the patient for history (EMS, parent, family, police, friend...)? What history was obtained from this source @ -Family is present and helps provide history. Did you review nursing and triage notes (agree or disagree)? Why? @ -[I reviewed and agree with nursing and triage notes] Were old charts reviewed (outside hosp., previous admission, EMS record, old EKG, old radiological studies, urgent care reports/EKG's, assisted records)? Report findings @ -[No old charts were reviewed] Differential Diagnosis (chest pain, altered mental status, abdominal pain women, abdominal pain men, vaginal bleeding, weakness, fever, dyspnea, syncope, headache, dizziness, GI bleed, back pain, seizure, CVA, palpatations, mental health, musculoskeletal)? @ -Differential Musculoskeletal Muscular strain, contusion, ligament sprain, fracture, arthritis, septic arthritis, bursitis, cellulitis, muscle spasm, nerve compression, DVT, arterial occlusion, herpes zoster, electrolyte abnormality, tumor.... This is not meant to be in all inclusive list EKG interpreted by me (3pts min.). @ -[As above] X-rays interpreted by me (1pt min.). @ -Left femur x-ray shows no evidence of fracture. Left ankle x-ray does show a distal left fibula fracture. CT interpreted by me (1pt min.). @ -[None done] U/S interpreted by me (1pt. min.). @ -[None done] What testing was considered but not performed or refused? (CT, X-rays, U/S, labs)? Why? @ -[None] What meds were considered but not given or refused? Why? @ -[None] Did you discuss the management of the patient with other professionals (prof tabbys i.e. NEELA Olivares, FRESH WORK INSPECTOR, lab, RT, psych nurse, addiction social worker, blasting gang miner, teacher, systems support officer, rn field case manager)? Give summary @ -[No] Was smoking cessation discussed for >3mins.? @ -[No] Was critical care preformed (if so, how long)? @ -[No] Were there social determinants of health that impacted care today? How? (Homelessness, low income, unemployed, alcoholism, drug addiction, transportation, low edu. Level, literacy, decrease access to med. care, [facility], rehab)? @ -[No] Was there de-escalation of care discussed even if they declined (Discuss DNR or withdrawal of care, Hospice)? DNR status @ -[No] What co-morbidities impacted this encounter? (DM, HTN, Smoking, COPD, CAD, Cancer, CVA, ARF, Chemo, Hep., AIDS, mental health diagnosis, sleep apnea, morbid obesity)? @ -[None] Was patient admitted / discharged? Hospital course, mention meds given and route, prescriptions, significant lab abnormalities, going to OR and other pertinent info. @ -Patient reevaluated. Patient and family are updated. Patient is now receptive to medication for pain and will be provided with a shot. Patient will need follow-up with orthopedics. Number provided. Undiagnosed new problem with uncertain prognosis? @ -[No] Drug Therapy requiring intensive monitoring for toxicity (Heparin, Nitro, Insulin, Cardizem)? @ -[No] Were any procedures done? @ -Splint, see above Diagnosis/symptom? @ -Fall, left distal fibula fracture Acute, or Chronic, or Acute on Chronic? @ - acute Uncomplicated (without systemic symptoms) or Complicated (systemic symptoms)? @ -[default] Side effects of treatment? @ -[No] Exacerbation, Progression, or Severe Exacerbation? @ -[No] Poses a threat to life or bodily function? How? (Chest pain, USA, MT, pneumonia, PE, COPD, DKA, ARF, appy, cholecystitis, CVA, Diverticulitis, Homicidal, Suicidal, threat to staff... and all critical care pts) @ -[No] Disposition Clinical Impression: Fall, Fracture of distal fibula Disposition: HOME SELF-CARE Condition: Stable Instructions (If sedation given, give patient instructions): Ankle Fracture (ED) Additional Instructions: Use your crutches. No weightbearing left leg. Please do follow-up with orthopedics in the next couple days for recheck. Ice to affected area. Return for increased pain, foot problems, worsening symptoms or other concerns. Is patient prescribed a controlled substance at d/c from ED?: No Referrals: Deng Church MD [Primary Care Provider] - 1-2 days Marvel Wong DO [Doctor of Osteopathic Medicine] - 1-2 days Time of Disposition: 12:19
--- NOTE | 2023-03-05 11:36 | XR ---
EXAMINATION TYPE: XR ankle complete LT DATE OF EXAM: 03/05/2023 COMPARISON: NONE HISTORY: Trauma TECHNIQUE: 3 views of the left ankle are submitted for evaluation. FINDINGS: Acute nondisplaced oblique fracture of the distal fibular diaphysis. There is surrounding s oft tissue swelling. No dislocation. Tiny plantar calcaneal enthesophyte. IMPRESSION: Acute nondisplaced fracture of the distal fibula.
--- NOTE | 2023-03-05 11:37 | XR ---
EXAMINATION TYPE: XR femur LT DATE OF EXAM: 03/05/2023 11:29 AM INDICATION: Patient age:Female; 72 years old; Reason for study: trauma; COMPARISON: None TECHNIQUE: The left femur was examined in AP and lateral projections. FINDINGS: No evidence of acute osseous pathology, joint dislocation, or soft tissue swelling. Vascul ar sclerosis. IMPRESSION: No acute osseous pathology.
--- NOTE | 2023-03-05 12:01 | CT ---
EXAMINATION TYPE: CT brain cspine wo con CT DLP: 1519.9 mGycm, Automated exposure control for dose reduction was used. DATE OF EXAM: 03/05/2023 11:51 AM COMPARISON: None.. CLINICAL INDICATION:Female, 72 years old with history of trauma; fall TECHNIQUE: Brain: Multiple axial CT images of the brain were obtained without IV contrast. Cspine: Axial CT images from the skull base to the inferior aspect of T2 we obtained without intraven ous contrast. Coronal and sagittal reformatted images were also reviewed. FINDINGS: Brain: Extra-axial spaces: No abnormal extra-axial fluid collections. Ventricular system: Within normal limits Cerebral parenchyma: No acute intraparenchymal hemorrhage or mass effect. The moscoso-white junction is well differentiated. Scattered hypoattenuating areas are seen within the white matter. Cerebellum: Unremarkable. Mass effect: No evidence of midline shift. Intracranial vasculature: Atherosclerotic calcifications of the intracranial vessels. Soft tissues: Normal. Calvarium/osseous structures: No depressed skull fracture. Paranasal sinuses and mastoid air cells: Clear. Visualized orbits: Orbital contents are intact. Cervical spine: Fracture: None. Osseous structures: Multilevel degenerative disc disease changes with endplate spurring and disc oste ophyte complex's. Vertebral alignment: Straightening of the normal lumbar lordosis which may be due to patient position versus muscle spasm. Spinal canal/Neural Foramina: Disc osteophyte complexes at C3-C4, C4-C5, and C6-C7, and C7-T1 with at least mild spinal canal stenosis. Facet joint uncovertebral joint arthropathy scattered throughout t he cervical spine with varying degrees of neural foraminal stenosis. Neck soft tissues: Prevertebral soft tissues are within normal limits. Other: The airway is patent. The lung apices are clear. IMPRESSION: 1. No acute intracranial process. 2. Nonspecific white matter changes, likely secondary to chronic small vessel ischemic disease. 3. No evidence of cervical spine fracture. 4. Mild to moderate multilevel degenerative disc disease.
[2023-03-05] MEDS ORDERED: HYDROmorphone 1 MG/ML 1 ML SYRINGE IM STA (12:16)
[2023-03-05] MEDS ORDERED: ACET/COD 300 MG/30 MG STARTER PACK 6 TAB BTL PO STA (12:19)
[2023-03-05 14:00] VITALS: BP 170/64; PULSE 88
== END 2023-03-05 13:19 | disposition home or self-care (01) ==
LOC: EC 10:23
DX: S82.402A Unspecified fracture of shaft of left fibula, initial encounter for closed fracture (principal); E11.9 Type 2 diabetes mellitus without complications; E78.5 Hyperlipidemia, unspecified; I10 Essential (primary) hypertension; I25.2 Old myocardial infarction; G47.30 Sleep apnea, unspecified; E07.9 Disorder of thyroid, unspecified; Z86.73 Personal history of transient ischemic attack (TIA), and cerebral infarction without residual deficits; Z86.59 Personal history of other mental and behavioral disorders; Z79.890 Hormone replacement therapy; Z79.82 Long term (current) use of aspirin; Z79.4 Long term (current) use of insulin; Z79.899 Other long term (current) drug therapy; Z88.0 Allergy status to penicillin; X50.0XXA Overexertion from strenuous movement or load, initial encounter
CPT/HCPCS: 73552; 73610; 72125; 70450; 99284; 96372; 29515; J1170

== ENCOUNTER → 2023-03-27 | Outpatient (CLI) | payer MEDICARE, OTHER ==
[2023-03-27 19:04] LABS: Basophils # (A) 0.06 X 10*3/uL (0.00-0.10); Eosinophils # (A) 0.14 X 10*3/uL (0.04-0.35); Eosinophils % (A) 2.3 %; HCT 31.7 % (37.2-46.3); HGB 9.7 g/dL (12.0-15.0); Lymphocytes # (A) 1.04 X 10*3/uL (0.90-5.00); Lymphocytes % (A) 16.9 %; MCH 25.4 pg (27.0-32.0); MCHC 30.6 g/dL (32.0-37.0); Mean Platelet Volume 10.3 FL (9.5-12.2); Monocytes % (A) 9.8 %; NRBC Per 100 WBC 0 X 10*3/uL (0.00-0.01); Neutrophils # (A) 4.29 X 10*3/uL (1.80-7.70); Neutrophils % (A) 69.7 %; Platelet Count 332 X 10*3/uL (140-440); RBC 3.82 X 10*6/uL (4.10-5.20); RDW 16.3 % (11.5-14.5); WBC 6.15 X 10*3/uL (4.50-10.00)
[2023-03-28 01:29] LABS: Anion Gap 12.6 mmol/L (4.00-12.00); Carbon Dioxide 23.4 mmol/L (21.6-31.8); Potassium 5.1 mmol/L (3.5-5.5)
== END | disposition home or self-care (01) ==
LOC: LABPAT 11:58
PROVIDERS: ATTEND Orthopaedic Surgery
DX: Z01.812 Encounter for preprocedural laboratory examination (principal); S82.62XA Displaced fracture of lateral malleolus of left fibula, initial encounter for closed fracture; I49.8 Other specified cardiac arrhythmias; I21.09 ST elevation (STEMI) myocardial infarction involving other coronary artery of anterior wall; R94.31 Abnormal electrocardiogram [ECG] [EKG]; Y99.9 Unspecified external cause status
CPT/HCPCS: 80051; 85025; 93005

== ENCOUNTER 2023-03-29 08:33 | Day surgery (SDC) | payer MEDICARE, OTHER ==
--- NOTE | 2023-03-29 01:31 | HP ---
HISTORY AND PHYSICAL DATE OF SURGERY: 03/29/2023. HISTORY OF PRESENT ILLNESS: Amara Pandya is a 72-year-old patient, seen with a displaced left ankle lateral malleolar fracture. I recommended open reduction and internal fixation. I reviewed the procedure, risks, complications, benefits, procedures, the patient was agreeable, consent was obtained. PAST MEDICAL HISTORY: Insulin-dependent diabetes, hypertension, hyperlipidemia, and gastroesophageal reflux disease. PAST SURGICAL HISTORY: Hysterectomy, lap band surgery. MEDICATIONS: 1. Insulin. 2. Lisinopril. 3. Omeprazole. 4. Rosuvastatin. 5. Tylenol. ALLERGIES: Amoxicillin. SOCIAL HISTORY: She denies tobacco use. PHYSICAL EXAMINATION: Physical evaluation of the left ankle, she has limited range of motion. Tenderness along the lateral malleolus. She has a good pulse. Able to move her toes with no pain. Her distal neurovascular exam is intact. IMAGING STUDIES: Radiographs of the left ankle revealed a displaced lateral malleolar fracture. IMPRESSION: 1. Left ankle displaced lateral malleolar fracture. 2. Insulin-dependent diabetes. 3. Hypertension. 4. Hyperlipidemia. PLAN: Open reduction and internal fixation of left ankle lateral malleolus fracture. MMODL / IJN: [id number] /
[2023-03-29] MEDS ORDERED: LACTATED RINGERS 1,000 ML IV ONE (09:39)
[2023-03-29] MEDS ORDERED: ONDANSETRON 4 MG/2 ML VIAL IVP ONE (09:41)
[2023-03-29] MEDS ORDERED: DEXAMETHASONE SOD PHOSPHATE 4 MG/ML 1 ML VIAL IVP ONE (09:41)
[2023-03-29] MEDS ORDERED: ONDANSETRON 4 MG/2 ML VIAL ONE (09:42)
[2023-03-29 09:44] LABS: Glucose,Whole Blood 203 mg/dL (70-110)
[2023-03-29] MEDS ORDERED: MIDAZOLAM 2 MG/2 ML VIAL IVP ONE (09:54)
[2023-03-29] MEDS ORDERED: fentaNYL (PF) 50 MCG/ML 2 ML AMP IVP ONE (09:54)
[2023-03-29] MEDS ORDERED: WATER FOR INJECTION, STERILE 10 ML VIAL IV ONE (10:42)
[2023-03-29] MEDS ORDERED: SODIUM CHLORIDE 0.9% (PF) 10 ML VIAL ONE (10:42)
[2023-03-29] MEDS ORDERED: ePHEDrine 50 MG/ML 1 ML VIAL ONE (10:42)
[2023-03-29] MEDS ORDERED: ROPIVACAINE 5 MG/ML 30 ML VIAL ONE (10:42)
[2023-03-29] MEDS ORDERED: fentaNYL (PF) 50 MCG/ML 2 ML AMP ONE (10:42)
[2023-03-29] MEDS ORDERED: PROPOFOL 10 MG/ML 20 ML VIAL IV ONE (10:42)
[2023-03-29] MEDS ORDERED: LIDOCAINE 1% INJ 10MG/ML (20 ML MDV) ONE (10:42)
[2023-03-29] MEDS ORDERED: SUCCINYLCHOLINE CHLORIDE 200 MG/10 ML VIAL IV ONE (10:42)
[2023-03-29] MEDS ORDERED: PHENYLEPHRINE-0.9% NACL SYG 1,000 MCG/10 ML SYRINGE ONE (10:42)
[2023-03-29] MEDS ORDERED: ROCURONIUM 10 MG/ML (5 ML VIAL) IV ONE (10:42)
[2023-03-29] MEDS ORDERED: SODIUM CHLORIDE 0.9% 100 ML with ceFAZolin 2,000 MG IV ONE ×2 (10:47)
[2023-03-29] MEDS ORDERED: ceFAZolin 1,000 MG VIAL ONE (11:00)
[2023-03-29] MEDS ORDERED: SODIUM CHLORIDE 0.9% 100 ML BAG ONE (11:00)
[2023-03-29] MEDS ORDERED: hydrOXYzine pamoate 25 MG CAP PO PRN (11:50)
[2023-03-29] MEDS ORDERED: HYDROmorphone 0.5 MG/0.5 ML SYRINGE IVP PRN ×3 (11:50)
[2023-03-29] MEDS ORDERED: HYDROcodone/APAP 5-325MG 1 EACH TAB PO PRN (11:50)
--- NOTE | 2023-03-29 11:50 | P.OP ---
Date of Procedure: 03/29/23 Preoperative Diagnosis: Left ankle displaced lateral malleolar fracture Postoperative Diagnosis: Left ankle displaced lateral malleolar fracture Procedure(s) Performed: Open reduction and internal fixation left ankle lateral malleolar fracture Implants: Arthrex one third semitubular 6-hole plate with 3 proximal appropriate length cortical screws and 2 distal appropriate length cancellous screws Anesthesia: LETICIA local Surgeon: Marvel Wong Vacuum Drier Operator #1: Jesus Webster Estimated Blood Loss (ml): 11 Pathology: none sent Condition: stable Disposition: PACU Indications for Procedure: 72-year-old patient who was seen with a displaced left ankle lateral malleolar fracture. After having treatment options discussed, she elected to proceed with open reduction and internal fixation left ankle lateral malleolar fracture. Consent was obtained. Operative Findings: See description of procedure Description of Procedure: Patient was taken to the operative suite. She underwent a general anesthetic by the department of anesthesia. She received preoperative IV antibiotics. A well-padded tourniquet was placed on the proximal left thigh. Left lower extremity was prepped and draped in normal sterile orthopedic fashion. The extremity was elevated and tourniquet was insufflated to 300. I made a standard lateral incision over the area of the lateral malleolus sharply through skin. I dissected down to the lateral malleolus. I used a periosteal elevator to expose the fracture site and lateral malleolus itself. I identified the displaced fracture. I removed some hematoma and scar tissue around the fracture. I reduced the fracture and held in position with a reduction forceps clamp. I now chose a 6-hole one third semitubular plate and appropriate contour at the to fit the contour the lateral malleolus. I secured it to lateral malleolus. I drilled 2 holes distally and 3 holes proximally and introduced 3 proximal appropriate length cortical screws and 2 appropriate length distal cancellus screws which all had good purchase. The clamp was removed. There was reasonable reduction of the fracture and good position of the plate. I brought the C-arm into the operative field and under fluoroscopy noted adequate alignment of the fracture with good positioning of our hardware. The mortise appeared congruent. Spot films were obtained to document this. The C-arm was pulled back. Wound was irrigated with antibiotic irrigant. The subcu soft tissues were approximated with Vicryl suture. The skin repair with skin elissa. The area was infiltrated with quarter percent plain Marcaine for postoperative pain management. Sterile dressings were applied. The tourniquet was now released and immediate capillary refill noted of all the foot and toes. She was now placed into a modified bulky Signh splint with the ankle in neutral position. The patient transferred to a bed and recovery stable condition. Adi KEITA assisted in this procedure.
--- NOTE | 2023-03-29 12:01 | XR ---
Fluoroscopy History: ORIF Left Ankle ORIF LEFT ANKLE FT: 16.7 SECONDS DAP: 0.04242 mGym2
--- NOTE | 2023-03-29 12:05 | P.ANPRN ---
Procedure Note - Anesthesia - Nerve Block Performed Left Popliteal Single Time Out Performed: Yes (0953) Date of Procedure: 03/29/23 Procedure Start Time: 09:54 Procedure Stop Time: 09:57 Location of Patient: PreOp Indication: Acute Post-Operative Pain, Requested by Surgeon Specifically requested for management of pain by DrPeggy: Marvel Wong Sedation Type: Sedate with meaningful contact maintained Preparation: Sterile Prep Position: Right Lateral Catheter: None Needle Types: Pajunk Needle Gauge: 21 Ultrasound used to visualize needle placement: Yes Ultrasound used to observe medication spread: Yes Injectate: 0.5% Ropivacaine (see comment for volume) (15cc +5cc nacl pf) Blood Aspirated: No Pain Paresthesia on Injection Noted: No Resistance on Injection: Normal Image Stored and Saved: Yes Events: Uneventful and Well Tolerated
--- NOTE | 2023-03-29 12:05 | P.ANPRN ---
Procedure Note - Anesthesia - Nerve Block Performed Left Adductor Canal Single Time Out Performed: Yes (0953) Date of Procedure: 03/29/23 Procedure Start Time: 09:58 Procedure Stop Time: 10:00 Location of Patient: PreOp Indication: Acute Post-Operative Pain, Requested by Surgeon Specifically requested for management of pain by DrPeggy: Marvel Wong Sedation Type: Sedate with meaningful contact maintained Preparation: Sterile Prep Position: Supine Catheter: None Needle Types: Pajunk Needle Gauge: 21 Ultrasound used to visualize needle placement: Yes Ultrasound used to observe medication spread: Yes Injectate: 0.5% Ropivacaine (see comment for volume) (15cc +5cc nacl pf) Blood Aspirated: No Pain Paresthesia on Injection Noted: No Resistance on Injection: Normal Image Stored and Saved: Yes Events: Uneventful and Well Tolerated
[2023-03-29 12:44] LABS: Glucose,Whole Blood 204 mg/dL (70-110)
[2023-03-29] MEDS ORDERED: HYDROmorphone 0.5 MG/0.5 ML SYRINGE IVP ONE (12:55)
[2023-03-29] MEDS: LACTATED RINGERS 1,000 ML IV SCH ×2 (13:35→21:30)
[2023-03-29] MEDS: lisinopriL 20 MG TAB PO SCH ×2 (16:52→21:28)
[2023-03-29 16:57] LABS: Glucose,Whole Blood 344 mg/dL (70-110)
[2023-03-29] MEDS: PANTOPRAZOLE 40 MG TABLET PO SCH (17:01)
[2023-03-29] MEDS: INSULIN ASPART (NovoLOG) 100 UNIT/ML VIAL SQ SCH (17:01)
[2023-03-29 20:26] LABS: Glucose,Whole Blood 396 mg/dL (70-110)
[2023-03-29] MEDS ORDERED: lisinopriL 5 MG TAB PO SCH (21:00)
[2023-03-29] MEDS ORDERED: ATORVASTATIN 80 MG TAB PO SCH (21:00)
[2023-03-29] MEDS ORDERED: INSULIN DETEMIR (LEVEMIR) 100 UNIT/ML SYR SQ SCH (21:00)
[2023-03-30] MEDS: HYDROcodone/APAP 5-325MG 1 EACH TAB PO PRN ×2 (05:08→11:43)
[2023-03-30 05:59] LABS: Glucose,Whole Blood 242 mg/dL (70-110)
[2023-03-30] MEDS: INSULIN ASPART (NovoLOG) 100 UNIT/ML VIAL SQ SCH ×2 (06:30→11:44)
[2023-03-30] MEDS: PANTOPRAZOLE 40 MG TABLET PO SCH (06:31)
[2023-03-30] MEDS: lisinopriL 20 MG TAB PO SCH (08:03)
[2023-03-30 08:17] VITALS: BP 124/68; PULSE 63; RESP 14; TEMP 98.1
[2023-03-30] MEDS ORDERED: ENOXAPARIN 40 MG/0.4 ML SYRINGE SQ SCH (09:00)
[2023-03-30] MEDS ORDERED: DEXTROSE 50% SYRINGE 50 ML IVP PRN ×2 (11:10)
[2023-03-30 11:38] LABS: Glucose,Whole Blood 187 mg/dL (70-110)
[2023-03-30] MEDS ORDERED: INSULIN ASPART (NovoLOG) 100 UNIT/ML VIAL SQ SCH (12:30)
--- NOTE | 2023-03-30 13:54 | P.PN ---
Subjective Progress Note Date: 03/30/23 Principal diagnosis: Status post ORIF left ankle lateral malleolus fracture Patient was evaluated today at bedside, she is resting comfortably in her hospital chair. Patient does note some discomfort on the lateral aspect of the ankle. She denies any headaches, lightheadedness, chest pain or shortness of breath Objective - Vital Signs Vital signs: Vital Signs Temp 98.1 F 03/30/23 07:49 Pulse 63 03/30/23 07:49 Resp 14 03/30/23 07:49 BP 124/68 03/30/23 07:49 Pulse Ox 98 03/30/23 07:49 FiO2 Intake & Output 03/29/23 03/30/23 03/30/23 18:59 06:59 18:59 Intake Total 1100 Output Total 11 Balance 1089 Weight 105.1 kg Intake: IV 1100 Output: Estimated Blood Loss 11 Other: # Voids 1 2 - Exam Left lower extremity: Postop splint is in good position and condition. She is able to wiggle the toes is no difficulty. Sensation to light touch both proximal and distal to the splint are intact. - Labs Labs: Abnormal Lab Results - Last 24 Hours (Table) 03/29/23 03/29/23 03/30/23 Range/Units 16:55 20:24 05:57 POC Glucose (mg/dL) 344 H 396 H 242 H (70-110) mg/dL 03/30/23 Range/Units 11:36 POC Glucose (mg/dL) 187 H (70-110) mg/dL Assessment and Plan Assessment: Postoperative day #1 status post ORIF left ankle lateral malleolus fracture Plan: Pain control, plan for discharge home on [place] and stool softeners DVT prophylaxis, aspirin 325 mg daily Nonweightbearing left lower extremity Icing and elevating techniques discussed Stable for discharged home today Time with Patient: Less than 30
--- NOTE | 2023-03-30 13:58 | P.DS ---
Providers Date of admission: 03/29/2023 Expected date of discharge: 03/30/23 Attending physician: Marvel Wong Consults: 03/29/23 11:50 Consult Physician Routine Consulting Provider: Deng Church Consult Reason/Comments: Medical management Do you want consulting provider notified?: Yes Primary care physician: Deng Church Hospital Course: Date of admission: 03/29/2023 Date of discharge: 03/30/2023 Admission diagnosis: Status post ORIF left ankle lateral malleolus fracture Discharge diagnosis: Same Attending physician: Marvin Surgical procedures: ORIF left ankle lateral malleolus fracture Brief history: Patient is a 72-year-old female with a history of a previous fall that resulted in a lateral malleolus fracture of her left ankle. Initial conservative measures were tried, displacement worsened of the fracture, she was scheduled for an elective ORIF of the left ankle. Hospital course: Details of patient's surgery can be found in operative report. Patient tolerated the procedure well and was subsequently transported to orthopedic floor. Patient's orthopeidc and medical care was provided daily. Patient had daily laboratory tests performed for evaluation of overall blood counts. Patient had daily physical therapy to include strengthening range of motion as well as education with walker ambulation. Patient was treated with Lovenox for their postoperative DVT prophylaxis during their inpatient stay. Patient was noted to have a relatively uneventful postoperative course. Patient reported satisfactory pain control with oral pain medications by postoperative day 0. Patient showed satisfactory progress with physical therapy. Patient moved steadily through the program and had no difficulty meeting the goals by postoperative day 1. Given patient's otherwise satisfactory course and having met physical therapy goals, plan is to discharge patient home on postoperative day 1. Discharge condition/disposition: Patient will be discharged home in stable condition. Discharge medications: Instructions are given on resumption of patient's normal daily medications per primary care recommendation, in addition patient will be prescribed [place] 10 mg/325 mg, Keflex 500 mg, aspirin 325 mg. Discharge instructions: 1. Nonweightbearing left lower extremity 2. Keep splint covered while showering 3. Do not remove splint 4. Ice and elevate often 5. Plan [facility] Procedures: Open reduction internal fixation left ankle lateral malleolus fracture Patient Condition at Discharge: Good Plan - Discharge Summary Discharge Rx Participant: No New Discharge Prescriptions: New Aspirin 325 mg PO DAILY #30 tab HYDROcodone/APAP 10-325MG [[place] 10-325] 1 tab PO Q6HR PRN 7 Days #28 tab PRN Reason: Pain Cephalexin [Keflex] 500 mg PO Q6HR 5 Days #20 cap No Action INSULIN LISPRO (humaLOG) [humaLOG] 5 units SQ AC-TID Omeprazole [PriLOSEC] 40 mg PO BID #30 cap Biotin(Unk) 1,000 mg PO DAILY Insulin Glargine [Lantus Vial] 26 unit SQ HS lisinopriL [Zestril] 15 mg PO BID Atorvastatin [Lipitor] 80 mg PO HS DULoxetine HCL [Cymbalta] 60 mg PO DAILY Aspirin [Adult Low Dose Aspirin EC] 60 mg PO DAILY Acetaminophen Tab [Tylenol Tab] 1,000 mg PO Q6HR PRN #30 tablet PRN Reason: Pain Discharge Medication List Aspirin [Adult Low Dose Aspirin EC] 60 mg PO DAILY 11/21/21 [History] Atorvastatin [Lipitor] 80 mg PO HS 11/21/21 [History] DULoxetine HCL [Cymbalta] 60 mg PO DAILY 11/21/21 [History] INSULIN LISPRO (humaLOG) [humaLOG] 5 units SQ AC-TID 11/21/21 [History] Insulin Glargine [Lantus Vial] 26 unit SQ HS 11/21/21 [History] lisinopriL [Zestril] 15 mg PO BID 11/21/21 [History] Omeprazole [PriLOSEC] 40 mg PO BID #30 cap 11/24/21 [Rx] Acetaminophen Tab [Tylenol Tab] 1,000 mg PO Q6HR PRN #30 tablet 06/16/22 [Rx] Biotin(Unk) 1,000 mg PO DAILY 03/27/23 [History] Aspirin 325 mg PO DAILY #30 tab 03/30/23 [Rx] Cephalexin [Keflex] 500 mg PO Q6HR 5 Days #20 cap 03/30/23 [Rx] HYDROcodone/APAP 10-325MG [[place] 10-325] 1 tab PO Q6HR PRN 7 Days #28 tab 03/30/23 [Rx] Follow up Appointment(s)/Referral(s): Jesus Webster PAC [PHYSICIAN QUALITY CONTROL COORDINATOR] - 2 Weeks Activity/Diet/Wound Care/Special Instructions: Orthopedic discharge instructions: 1. Nonweightbearing left lower extremity 2. Do not remove splint 3. Keep covered while showering 4. Ice and elevate often 5. Pain medication as needed 6. Plan for [facility]-up at [facility] weeks, contact office with any acute issues or questions Discharge Disposition: HOME SELF-CARE
== END 2023-03-30 15:14 | disposition home or self-care (01) ==
LOC: OR 08:33 → 4SSUR 11:53 → OR 03-30 15:14
PROVIDERS: ATTEND Orthopaedic Surgery
DX: S82.62XA Displaced fracture of lateral malleolus of left fibula, initial encounter for closed fracture (principal); I10 Essential (primary) hypertension; E78.5 Hyperlipidemia, unspecified; E11.9 Type 2 diabetes mellitus without complications; K21.9 Gastro-esophageal reflux disease without esophagitis; Z79.4 Long term (current) use of insulin; Z88.0 Allergy status to penicillin; X58.XXXA Exposure to other specified factors, initial encounter
CPT/HCPCS: 27792; 94760; 97161; 64447; 64445; 73600; C1713; J2250; J0330; J1100; J0690 ×2; J2405; J2001; J1650; J3010; J2795; J2704; J1170; J2371

== ENCOUNTER → 2023-04-30 | Outpatient (CLI) | payer MEDICARE, OTHER ==
[2023-04-30 14:26] VITALS: BP 164/75; PULSE 81; RESP 16
--- NOTE | 2023-04-30 14:46 | P.PAINPG ---
PQRS Measure Charge Sheet Comment: HISTORY OF PRESENT ILLNESS: A 72 yr old female w at side as a referral from Dr Church presents today w severe and chronic LBP x 2 yrs secondary to DDD, spondylosis and facet arthropathy without myelopathy for evaluation. Pt states pain level is provoked at 10/10 in intensity, constant, localized in the lumbar spine, predominantly axial, sharp in character w occasional shooting pain towards LLE. Pain is provoked by laying supine. Pain is alleviated by heat, ice, medications ([place], Tyl, Ibu), Lidoderm patches, chiropractic treatments x 6 wks until Nov 2022, repositioning and rest. Oswestry axial pain score at 32. PMH: OA, CVA, NIDDM II, Hyperlipidemia, HTN, [place] (2007), ABDULKADIR, Hypothyroid Diso rder, MDD PSH: L Ankle ORIF (Mar 2023), EGD (2021), Bariatric Surgery Lap Band Removal, Heart Catheterization, Hysterectomy, Orthopedic Surgery, Abdominoplasty, D &C, L Ganglion Cystectomy SH: Negative x3 FH: Non contributory All: See list Meds: See list REVIEW OF ORGAN SYSTEMS: CONSTITUTIONAL: No fevers or chills. No recent weight loss. NEUROLOGICAL: + numbness and tingling along the distal extremities. No seizure disorders or headaches. MUSCULOSKELETAL: + pain PSYCHIATRIC: Denies current depression or suicidal thoughts. Physical Examinations : Constitutional : Cooperative , not in acute distress . Neurologic : Cranial nerve II to XII intact. No focal neurological deficits. Psychiatric : alert & oriented x 3. Matching mood & appropriate affect. Judgment & insight intact. Musculoskeletal : Cervical Spine Motor strength in the deltoid and biceps: Normal right side. Normal Left side Motor strength biceps and the wrist extensors: Normal right side . Normal left side Motor strength in the triceps muscle: Normal right side. Normal left side Deep tendon reflexes: Normal at the biceps. Normal at Brachioradialis. Normal at triceps Vertebral body tenderness to deep palpation over Cervical facet loading test: positive bilaterally Spurling test: positive bilaterally Neck distraction test: positive bilaterally Aly sign: positive bilaterally Lumbar spine Motor strength lower extremities ,thigh and legs 5/5 Right side , 5/5 Left side Deep tendon reflexes : Normal Knee Jerk. Normal Ankle Jerk Vertebral body tenderness over L4 Figueroa Test positive Lumbar facet Loading Test: positive Rig ht / positive Left Range of motion of the lumbar spine Flexion 30 degrees, extension 10 degrees Straight Leg Raise test: Left/ Right positive at < 35 degrees Corry test: positive right / positive left. Severe tenderness over the Sacroiliac joint on the Right / Left sides Gaenslen test: positive bilaterally Seated flexion test: positive bilaterally. Sacral spine : Severe tenderness over the Sacroiliac joint: right side / left side Range of motion: Flexion of the lumbar spine <60 degrees Range of motion: Extension of the l umbar spine <20 degrees Gaenslen's Test positive Corry test: positive right side / left side Thigh Thrust Test Sacral Thrust Test Imaging: MRI noncontrast of the lumbar spine from 03/03/23 reviewed Assessment/ Plan : Lumbar DDD Recommendation of EARLINE L4- L5 #1 but will need clearance from orthopedic surgery once L Ankle heals from ORIF from Mar 2023. May need a series of injections for optimal pain relief. Risks, benefits of procedure discussed and patient verbalized understanding. Admits to anti- coagulant use or medical history of diabetes. Protocol for discontinuation/ continuation of medications laura procedure discussed. All questions answered. I have spent greater than 30 minutes on patient care today. Dr Donato was available by phone for the evaluation of this patient. The time was used to review the medical records including relevant urine studies and Prescription history (MAPs), review of the available imaging, evaluation and examination of the patient, coordination of care with the medical staff and if applicable referring physicians, as well as creation of the medical record Home Medications: Ambulatory Orders Aspirin [Adult Low Dose Aspirin EC] 60 mg PO DAILY 11/21/21 Atorvastatin [Lipitor] 80 mg PO HS 11/21/21 DULoxetine HCL [Cymbalta] 60 mg PO DAILY 11/21/21 INSULIN LISPRO (humaLOG) [humaLOG] 5 units SQ AC-TID 11/21/21 Insulin Glargine [Lantus Vial] 26 unit SQ HS 11/21/21 lisinopriL [Zestril] 15 mg PO BID 11/21/21 Omeprazole [PriLOSEC] 40 mg PO BID #30 cap 11/24/21 Acetaminophen Tab [Tylenol Tab] 1,000 mg PO Q6HR PRN #30 tablet 06/16/22 Biotin(Unk) 1,000 mg PO DAILY 11/14/23 Aspirin 325 mg PO DAILY #30 tab 03/30/23 Cephalexin [Keflex] 500 mg PO Q6HR 5 Days #20 cap 03/30/23 HYDROcodone/APAP 10-325MG [[place] 10-325] 1 tab PO Q6HR PRN 7 Days #28 tab Controlled Substance Measures - Controlled Substance Measures Is patient prescribed a controlled substance at discharge?: No
== END ==
LOC: PNWHC3 13:03
PROVIDERS: ATTEND Specialist
DX: M51.36 Other intervertebral disc degeneration, lumbar region (principal); E11.9 Type 2 diabetes mellitus without complications; I10 Essential (primary) hypertension; I25.2 Old myocardial infarction; E78.5 Hyperlipidemia, unspecified; Z79.4 Long term (current) use of insulin; Z79.899 Other long term (current) drug therapy; Z88.0 Allergy status to penicillin; Z79.82 Long term (current) use of aspirin
CPT/HCPCS: 99211

== ENCOUNTER → 2023-10-11 | Outpatient (CLI) | payer MEDICARE, OTHER ==
--- NOTE | 2023-10-11 16:54 | BD ---
EXAMINATION TYPE: Axial Bone Density DATE OF EXAM: 10/11/2023 CLINICAL HISTORY: 72 years old Female. ICD-10 CODE: M810 AGE-RELATED OSTEO Height: 62 Weight: 240 FRAX RISK QUESTIONS: Alcohol (3 or more units per day): no Family History (Parent hip fracture): no Glucocorticoids (More than 3mos): no (Ex: prednisone, prednisolone, methylprednisolone, dexamethasone, and hydrocortisone). History of Fracture in Adulthood: ankle Secondary Osteoporosis: 1. Type 1 Diabetes: no 2. Hyperthyroidism: no 3. Menopause before 45: no 4. Malnutrition: no 5. Chronic liver disease: no Rheumatoid Arthritis: no Current Tobacco Use: no RISK FACTORS HISTORY OF: Hip Fracture (Right/Left): no Spine Fracture: no History of Wrist Fracture: no Surgery to Spine/Hip(right/left)/Wrist (right/left): no MEDICATIONS: Thyroid Medications: no Osteoporosis Medications: no EXAM MEASUREMENTS: Bone mineral densitometry was performed using the [employer] System. Bone mineral density as measured about the Lumbar spine is: ----- L1-L4(G/cm2): 1.946 T Score Values are as follows: ----- L1: 4.0 ----- L2: 4.7 ----- L3: 6.7 ----- L4: 8.6 ----- L1-L4: 6.4 Z Score Values are as follows: ----- L1: 4.5 ----- L2: 5.2 ----- L3: 7.2 ----- L4: 9.1 ----- L1-L4: 6.9 Bone mineral density has: DECREASED -2.9 % since study of: 09/21/2020 Bone mineral density about the R hip (g/cm2): 1.215 Bone mineral density about the L hip (g/cm2): 1.290 T Score values are as follows: -----R Neck: 0.4 -----L Neck: 0.7 -----R Total: 1.6 -----L Total: 2.2 Z Score values are as follows: -----R Neck: 1.4 -----L Neck: 1.6 -----R Total: 2.3 -----L Total: 2.9 Bone mineral density has: decreased -4.1 % since study of: 09/21/2020 FRAX%s: The graph provided illustrates a 9.1 % chance for a major osteoporotic fx and a 0.3% chance f or the hips probability for fx in 10 years time. IMPRESSION: Normal (Values between +1 and -1 indicate normal bone mass). Consider repeating this study in 5 year s or sooner if there is some new clinical indication. NOTE: T-SCORE=SD OF THE YOUNG ADULT MEAN.
--- NOTE | 2023-10-12 17:18 | MM ---
Reason for Exam: Screening (asymptomatic). Last mammogram was performed 1 year(s) and 6 month(s) ago. Patient History: Menarche at age 13. First Full-Term at age 30. Hysterectomy at age 44. Postmenopausal. Maternal cousin had breast cancer. Paternal aunt had breast cancer. Maternal aunt had breast cancer. Risk Values: Darshana 5 year model risk: 2.1%. NCI Lifetime model risk: 6.1%. Prior Study Comparison: 08/05/2015 Bilateral Screening Mammogram, [facility]. 09/21/2020 Bilateral Screening Mammogram, [facility]. 03/20/2022 Bilateral MG 3D screening mammo w/cad, [facility]. Tissue Density: The breasts are almost entirely fatty. Findings: Analyzed By CAD. The pattern is symmetrical. Couple of scattered benign calcifications are within the left breast. No suspicious groups of microcalcifications, spiculated or lobular masses, architectural distortion or other secondary signs of malignancy are mammographically apparent. Overall Assessment: Benign, BI-RAD 2 Management: Screening Mammogram of both breasts in 1 year. A negative mammogram report should not preclude additional follow up of suspicious palpable abnormalities. Patient should continue monthly self breast exam. A clinical breast exam by your physician is recommended on an annual basis and results should be correlated with mammographic findings. Note on Darshana scores and lifetime risk: 1. A Darshana score greater than 3% is considered moderate risk. If this is the case, consider specialist referral to assess eligibility for a risk reducing agent. 2. If overall lifetime risk for the development of breast cancer is 20% or higher, the patient may qualify for future screening with alternating mammogram and breast MRI. Electronically signed and approved by: Noel Adam D.O. Radiologis
== END | disposition home or self-care (01) ==
LOC: RADMAMWWP 13:38
PROVIDERS: ATTEND Internal Medicine
DX: Z12.31 Encounter for screening mammogram for malignant neoplasm of breast (principal); Z78.0 Asymptomatic menopausal state; Z80.3 Family history of malignant neoplasm of breast; M81.0 Age-related osteoporosis without current pathological fracture
CPT/HCPCS: 77063; 77067; 77080

== ENCOUNTER → 2023-10-24 | Outpatient (CLI) | payer MEDICARE, OTHER ==
[2023-10-24 13:39] VITALS: BP 160/63; PULSE 93; RESP 16
--- NOTE | 2023-10-24 14:56 | P.PAINPG ---
PQRS Measure Charge Sheet Comment: HISTORY OF PRESENT ILLNESS: A 72 yr old wheelchair bound female w at side presents today w severe and chronic LBP x 2 yrs secondary to DDD, spondylosis and facet arthropathy without myelopathy for evaluation. Pt states pain level is provoked at 10/10 in intensity, constant, localized in the lumbar spine, predominantly axial, sharp in character w occasional shooting pain towards LLE. Pain is provoked by laying supine. Pain is alleviated by heat, ice, medications, topical, chiropractic treatments x 6 wks until Nov 2022, physician guided stretches daily since Nov 2022, repositioning and rest. Oswestry axial pain score at 33. Interventional procedures include Medications include [place], Tyl, Ibu, Lidoderm REVIEW OF ORGAN SYSTEMS: CONSTITUTIONAL: No fevers or chills. No recent weight loss. NEUROLOGICAL: + numbness and tingling along the distal extremities. No seizure disorders or headaches. MUSCULOSKELETAL: + pain PSYCHIATRIC: Denies current depression or suicidal thoughts. Physical Examinations : Constitutional : Cooperative , not in acute distress . Neurologic : Cranial nerve II to XII intact. No focal neurological deficits. Psychiatric : alert & oriented x 3. Matching mood & appropriate affect. Judgment & insight intact. Musculoskeletal : Cervical Spine Motor strength in the deltoid and bicep s: Normal right side. Normal Left side Motor strength biceps and the wrist extensors: Normal right side . Normal left side Motor strength in the triceps muscle: Normal right side. Normal left side Deep tendon reflexes: Normal at the biceps. Normal at Brachioradialis. Normal at triceps Vertebral body tenderness to deep palpation over Cervical facet loading test: positive bilaterally Spurling test: positive bilaterally Neck distraction test: positive bilaterally Aly sign: positive bilaterally Lumbar spine Motor strength lower extremities ,thigh and legs 5/5 Right side , 5/5 Left side Deep tendon reflexes : Normal Knee Jerk. Normal Ankle Jerk Vertebral body tenderness over L4 Figueroa Test positive Lumbar facet Loading Test: positive Right / positive Left Range of motion of the lumbar spine Flexion 30 degrees, extension 10 degrees Straight Leg Raise test: Left/ Right positive at < 35 degrees Corry test: positive right / positive left. Severe tenderness over the Sacroiliac joint on the Right / Left sides Gaenslen test: positive bilaterally Seated flexion test: positive bilaterally. Sacral spine : Severe tenderness over the Sacroiliac joint: right side / left side Range of motion: Flexion of the lumbar spine <60 degrees Range of motion: Extension of the lumbar spine <20 degrees Gaenslen's Test positive Corry test: positive right side / left side Thigh Thrust Test Sacral Thrust Test Imaging: MRI noncontrast of the lumbar spine from 03/03/23 reviewed Assessment/ Plan : Lumbar DDD Recommendation of EARLINE L4- L5 #1. May need a series of injections for optimal pain relief. Risks, benefits of procedure discussed and patient verbalized understanding. Admits to anti- coagulant use or medical history of diabetes. Protocol for discontinuation/ continuation of medications laura procedure discussed. All questions answered. I have spent greater than 30 minutes on patient care today. Dr Donato was available by phone for the evaluation of this patient. The time was used to review the medical records including relevant urine studies and Prescription history (MAPs), review of the available imaging, evaluation and examination of the patient, coordination of care with the medical staff and if applicable referring physicians, as well as creation of the medical record PQRS Narrative: Hx Alcohol Use (MH) No Home Medications: Ambulatory Orders Aspirin [Adult Low Dose Aspirin EC] 60 mg PO DAILY 11/21/21 Atorvastatin [Lipitor] 80 mg PO HS 11/21/21 DULoxetine HCL [Cymbalta] 60 mg PO DAILY 11/21/21 INSULIN LISPRO (humaLOG) [humaLOG] 5 units SQ AC-TID 11/21/21 Insulin Glargine [Lantus Vial] 26 unit SQ HS 11/21/21 lisinopriL [Zestril] 15 mg PO BID 11/21/21 Omeprazole [PriLOSEC] 40 mg PO BID #30 cap 11/24/21 Acetaminophen Tab [Tylenol Tab] 1,000 mg PO Q6HR PRN #30 tablet 06/16/22 Biotin(Unk) 1,000 mg PO DAILY 03/27/23 Aspirin 325 mg PO DAILY #30 tab 03/30/23 Cephalexin [Keflex] 500 mg PO Q6HR 5 Days #20 cap 03/30/23 HYDROcodone/APAP 10-325MG [[place] 10-325] 1 tab PO Q6HR PRN 7 Days #28 tab 03/30/23 Controlled Substance Measures - Controlled Substance Measures Is patient prescribed a controlled substance at discharge?: No
== END ==
LOC: PNWHC3 13:20
PROVIDERS: ATTEND Specialist
DX: M51.36 Other intervertebral disc degeneration, lumbar region (principal); Z88.0 Allergy status to penicillin
CPT/HCPCS: 99211

== ENCOUNTER 2023-10-30 08:18 | Day surgery (SDC) | payer MEDICARE, OTHER ==
[2023-10-30 08:40] LABS: Glucose,Whole Blood 167 mg/dL (70-110)
[2023-10-30 08:49] VITALS: TEMP 97.7
[2023-10-30] MEDS ORDERED: IOPAMIDOL M200 10 ML VIAL ONE (09:06)
[2023-10-30] MEDS ORDERED: methylPREDNISolone ACETATE 40 MG/ML 1 ML VIAL ONE (09:06)
--- NOTE | 2023-10-30 09:15 | P.PCN ---
Date of Procedure: 10/30/23 Procedure(s) Performed: PREOPERATIVE DIAGNOSIS: 1- Lumbar Degenerative Disc Diseases 2-Lumbar spondylosis with Facet arthropathy without myelopathy. 3-lumbar spinal stenosis POSTOPERATIVE DIAGNOSIS: 1-lumbar degenerative disc disease. 2-lumbar spondylosis with facet arthropathy without myelopathy. 3-lumbar spinal stenosis. PROCEDURE 1. Lumbar epidural steroid injection under fluoroscopic guidance at the L4-5 level. (Fluoroscopy imaging was available in radiology department) 2. Lumbar epidurogram. ANESTHESIA: Lidocaine 1% 3 and then only. EBL: Minimal PROCEDURE INDICATION: The patient with low back pain and radiculitis symptoms unresponsive to conservative treatment. Fluoroscopy was used to optimize visualization of the needle placement and to maximize safety. PROCEDURE DESCRIPTION / TECHNIQUE: The patient was seen and identified in the preoperative area. Risks, benefits, complications including but not limited to infections ,bleeding ,allergic reaction to the medications ,nerve damage and not complete pain releife , and alternatives were discussed with the patient. The patient agreed to proceed with the procedure and signed the consent, and vital signs were stable. Patient was taken to the OR and time out was completed. The patient was placed in the prone position on procedure table and a pillow was placed under the abdomen to reduce lumbar lordosis. The lumbosacral area was prepped and draped in the usual sterile fashion.ere closely monitored during the procedure. Vital signs was monitered during the entire procedure. Using anterior-posterior fluoroscopy, the L4-5 interlaminar space was identified and the skin over this site was marked and then infiltrated with 1% lidocaine subcutaneously. Subsequently, a 20-gauge Tuohy epidural needle was inserted and advanced toward the epidural space using the ``Loss of resistance technique and guided by AP and lateral fluoroscopy. The correct needle position in the epidural space was verified with the injection of 2 mL of the water soluble contrast dye Isovue 200 contrast and observing an excellent epidurogram with the epidural spread of the dye, after negative aspiration for blood and CSF and in the absence of paresthesias. Again after negative aspiration, a 5 ml mixture containing 40 mg of Depo-medrol ( Preservetive Free ), and 2 ml of preservative free Normal Saline, and 2 ml of preservative free lidocaine 1% solution was injected and a washout of epidurogram was seen. Needle was withdrawn intact, ski n was cleansed, and bandages were applied. COMPLICATIONS: None DISPOSITION / PLANS: The patient was placed in a supine position and transferred to the recovery area in a stable condition for observation. There was no evidence of lower extremity motor or sensory deficit after the procedure. Patient was discharged from the recovery room after meeting discharge criteria. Home discharge instructions were given to the patient by the staff. The patient was reexamined prior to discharge. The patient will schedule a follow up in the clinic in 2-4 weeks. lumbar epidural
[2023-10-30 09:37] VITALS: BP 147/84; PULSE 59; RESP 16
--- NOTE | 2023-10-30 10:46 | FL ---
EXAMINATION TYPE: FL guided pain mgmt statistic Intraoperative/procedural fluoroscopic services were provided. Total fluoroscopy time is 3.6 seconds with a total of 1 submitted images to PACS. Please se e the operative/procedural note for further details. DAP: [id number] mGym2
== END 2023-10-30 10:25 | disposition home or self-care (01) ==
LOC: ORPAIN 08:18
PROVIDERS: ATTEND Specialist
DX: M48.061 Spinal stenosis, lumbar region without neurogenic claudication (principal); M47.816 Spondylosis without myelopathy or radiculopathy, lumbar region; M51.36 Other intervertebral disc degeneration, lumbar region; Z79.82 Long term (current) use of aspirin; Z88.0 Allergy status to penicillin
CPT/HCPCS: 62323; Q9966; J1010

== ENCOUNTER → 2023-11-21 | Outpatient (CLI) | payer MEDICARE, OTHER ==
[2023-11-21 12:08] VITALS: BP 149/79; PULSE 92; RESP 16; TEMP 97.6
--- NOTE | 2023-11-21 14:03 | P.PAINPG ---
PQRS Measure Charge Sheet Comment: HISTORY OF PRESENT ILLNESS: A 72 yr old wheelchair bound female w at side presents today w severe and chronic LBP x 2 yrs secondary to DDD, spondylosis and facet arthropathy without myelopathy for evaluation s/p EARLINE L4- L5 #1. Pt states she experienced 80 % pain relief x 1 wks s/p procedure. Pt states pain level is provoked at 8 /10 in intensity, constant, localized in the lumbar spine, predominantly axial, sharp in character without shooting pain. Pain is provoked by walking for periods > 15 min. Pain is alleviated by heat, ice, medications, topical, chiropractic treatments x 6 wks until Nov 2022, physician guided stretches daily since Nov 2022, repositioning and rest. Oswestry axial pain score at 32. Interventional procedures include EARLINE L4- L5 x1 Medications include [place], Tyl, Ibu, Lidoderm, Salon Pas REVIEW OF ORGAN SYSTEMS: CONSTITUTIONAL: No fevers or chills. No recent weight loss. NEUROLOGICAL: + numbness and tingling along the distal extremities. No seizure disorders or headaches. MUSCULOSKELETAL: + pain PSYCHIATRIC: Denies current depression or suicidal thoughts. Physical Examinations : Constitutional : Cooperative , not in acute distress . Neurologic : Cranial nerve II to XII intact. No focal neurological deficits. Psychiatric : alert & oriented x 3. Matching mood & appropriate affect. Judgment & insight intact. Musculoskeletal : Cervical Spine Motor strength in the deltoid and biceps: Normal right side. Normal Left side Motor strength biceps and the wrist extensors: Normal right side . Normal left side Motor strength in the triceps muscle: Normal right side. Normal left side Deep tendon reflexes: Normal at the biceps. Normal at Brachioradialis. Normal at triceps Vertebral body tenderness to deep palpation over Cervical facet loading test: positive bilaterally Spurling test: positive bilaterally Neck distraction test: positive bilaterally Aly sign: positive bilaterally Lumbar spine Motor strength lower extremities ,thigh and legs 5/5 Right side , 5/5 Left side Deep tendon reflexes : Normal Knee Jerk. Normal Ankle Jerk Vertebral body tenderness over L3 Figueroa Test positive L L3-L4 Lumbar facet Loading Test: positive Right / positive Left Range of motion of the lumbar spine Fl exion 30 degrees, extension 10 degrees Straight Leg Raise test: Left/ Right positive at < 35 degrees Corry test: positive right / positive left. Severe tenderness over the Sacroiliac joint on the Right / Left sides Gaenslen test: positive bilaterally Seated flexion test: positive bilaterally. Sacral spine : Severe tenderness over the Sacroiliac joint: right side / left side Range of motion: Flexion of the lumbar spine <60 degrees Range of motion: Extension of the lumbar spine <20 degrees Gaenslen's Test positive Corry test: positive right side / left side Thigh Thrust Test Sacral Thrust Test Imaging: MRI noncontrast of the lumbar spine from 03/03/23 reviewed Assessment/ Plan : Lumbar DDD Recommendation of L TFESI L3-L4. May need a series of injections for optimal pain relief. Risks, benefits of procedure discussed and patient verbalized und erstanding. Admits to anti- coagulant use or medical history of diabetes. Protocol for discontinuation/ continuation of medications laura procedure discussed. All questions answered. I have spent greater than 30 minutes on patient care today. Dr Donato was available by phone for the evaluation of this patient. The time was used to review the medical records including relevant urine studies and Prescription history (MAPs), review of the available imaging, evaluation and examination of the patient, coordination of care with the medical staff and if applicable referring physicians, as well as creation of the medical record PQRS Narrative: Hx Alcohol Use (MH) No Home Medications: Ambulatory Orders Aspirin [Adult Low Dose Aspirin EC] 81 mg PO DAILY 11/21/21 Atorvastatin [Lipitor] 80 mg PO HS 11/21/21 DULoxetine HCL [Cymbalta] 60 mg PO DAILY 11/21/21 INSULIN LISPRO (humaLOG) [humaLOG] 5 units SQ AC-TID 11/21/21 Insulin Glargine [Lantus Vial] 30 unit SQ HS 11/21/21 lisinopriL [Zestril] 15 mg PO BID 11/21/21 Acetaminophen Tab [Tylenol Tab] 1,000 mg PO Q6HR PRN #30 tablet 06/16/22 Biotin(Unk) 500 mg PO DAILY 03/27/23 Cephalexin [Keflex] 500 mg PO Q6HR 5 Days #20 cap 03/30/23 Cholecalciferol [Vitamin D3 (10 Mcg = 400 Iu)] 10 mcg PO DAILY 10/30/23 Omeprazole [PriLOSEC] 40 mg PO DAILY 10/30/23 Tirzepatide [Mounjaro] 2.5 mg SQ WEEKLY 10/30/23 Controlled Substance Measures - Controlled Substance Measures Is patient prescribed a controlled substance at discharge?: Yes When asked, does pt state using other controlled substances?: Yes If prescribed controlled substance>3 days was MAPS reviewed?: Prescribed <3 Days
== END ==
LOC: PNWHC3 11:07
PROVIDERS: ATTEND Specialist
DX: M51.36 Other intervertebral disc degeneration, lumbar region (principal); Z88.0 Allergy status to penicillin
CPT/HCPCS: 99211

== ENCOUNTER 2023-12-07 08:14 | Day surgery (SDC) | payer MEDICARE, OTHER ==
[2023-12-06 09:38] VITALS: BMI 19.5
[~2023-12-07 08:14] MED LIST changes: -LIDOCAINE 2% INJ 20 MG/ML (2 ML VIAL) ONE; -PROPOFOL 10 MG/ML 20 ML VIAL IV ONE
[2023-12-07 08:37] VITALS: TEMP 96.9
[2023-12-07 08:41] LABS: Glucose,Whole Blood 144 mg/dL (70-110)
[2023-12-07] MEDS ORDERED: IOPAMIDOL M200 10 ML VIAL ONE (09:29)
[2023-12-07] MEDS ORDERED: DEXAMETHASONE SOD PHOSPHATE 10 MG/ML 1 ML VIAL ONE (09:29)
--- NOTE | 2023-12-07 09:41 | P.PCN ---
Date of Procedure: 12/07/23 Surgeon: Miranda Guo Pathology: none sent Condition: stable Disposition: PACU Description of Procedure: PREOPERATIVE DIAGNOSIS: Lumbar radiculopathy POSTOPERATIVE DIAGNOSIS: Lumbar radiculopathy PROCEDURE 1. Transforaminal epidural steroid injection under fluoroscopic guidance at L3-4 level on the left side 2. Lumbar epidurogram. SURGEON: Miranda Guo MD ANESTHESIA: Local only with 1% lidocaine EBL: Minimal PROCEDURE INDICATION: The patient with low back pain and radiculopathy symptoms unresponsive to conservative treatment. PROCEDURE DESCRIPTION / TECHNIQUE: The patient was seen and identified in the preoperative area. Risks, benefits, complications, and alternatives were discussed with the patient. The patient agreed to proceed with the procedure and signed the consent. IV was started, and vital signs were stable. Patient was taken to the OR and time out was completed. The patient was placed in the prone position on procedure table and a pillow was placed under the abdomen to reduce lumbar lordosis. The lumbosacral area was prepped and draped in the usual sterile fashion. Critical pause was taken. Vital signs were closely monitored during the procedure. Conscious sedation was used during the procedure to decrease patients anxiety. The vertebral body of the lumbar vertebra L3 was squared off by tilting the C-arm cephalad then the C-arm was tilted to the left oblique position and the target point was at the 6 o'clock position of the pedicle of L3 then skin and deeper tissues were localized with 1% lidocaine. Subsequently, a 22-gauge 5-inch spinal needle was advanced under a tunneled view fluoroscopic guidance just underneath the chin of the Km dog at the . Under lateral fluoroscopy, the needle was then advanced to the middle of the upper one third of the foramen between(L3- L4 ). After negative aspiration of CSF and blood and with no paresthesias, 1 mL of omnipaque contrast dye was injected excellent epidurogram and outlining of the L3 nerve root was identified. Subsequently, 2 mL of block solution containing 10 mg of Decadron and 1 mL of Lidocaine 1% PF was injected. Needle was removed intact . At the end of the procedure, skin was cleansed, and bandages were applied. COMPLICATIONS: None DISPOSITION / PLANS: The patient was placed in a supine position and transferred to the recovery area in a stable condition for observation. There was no evidence of lower extremity motor or sensory deficit after the procedure. Patient was discharged from the recovery room after meeting discharge criteria. Home discharge instructions were given to the patient by the staff.
--- NOTE | 2023-12-07 09:51 | FL ---
Intraoperative/procedural fluoroscopic services were provided for transforaminal epidural steroid inj ection. Total fluoroscopy time is 11.1 seconds with a total of 3 submitted images to PACS. Total DAP [id number] mGym2. Please see the operative note for further details.
[2023-12-07 10:05] VITALS: BP 139/81; PULSE 74; RESP 18
== END 2023-12-07 10:17 | disposition home or self-care (01) ==
LOC: ORPAIN 08:14
PROVIDERS: ATTEND Anesthesiology
DX: M54.16 Radiculopathy, lumbar region (principal); E11.9 Type 2 diabetes mellitus without complications; I10 Essential (primary) hypertension; Z79.82 Long term (current) use of aspirin; Z79.899 Other long term (current) drug therapy; Z88.0 Allergy status to penicillin
CPT/HCPCS: 64483; J1100; Q9966

== ENCOUNTER → 2023-12-26 | Outpatient (CLI) | payer MEDICARE, OTHER ==
--- NOTE | 2024-01-15 12:34 | XR ---
EXAMINATION TYPE: XR Hip Complete LT DATE OF EXAM: 12/26/2023 INDICATION: Patient age:Female; 73 years old; Reason for study: M16.10; [facility]. COMPARISON: Left hip radiograph 12/26/2023 TECHNIQUE: The left hip was examined in the frontal and lateral projections . FINDINGS: No evidence of any acute osseous pathology, joint dislocation, or soft tissue swelling. Med ial joint space narrowing with acetabular sclerosis of the left hip. Vascular sclerosis. IMPRESSION: 1. No acute osseous pathology. 2. Mild osteoarthritic change of the left hip.
== END | disposition home or self-care (01) ==
LOC: RADXRMAIN 14:57
PROVIDERS: ATTEND Specialist
DX: M16.12 Unilateral primary osteoarthritis, left hip (principal)
CPT/HCPCS: 73502

== ENCOUNTER → 2023-12-26 | Outpatient (CLI) | payer MEDICARE, OTHER | LOC: PNWHC3 13:30 | PROVIDERS: ATTEND Specialist | DX: M47.26 Other spondylosis with radiculopathy, lumbar region (principal); Z88.0 Allergy status to penicillin | CPT/HCPCS: 99211 ==

== ENCOUNTER 2024-03-10 07:53 | Day surgery (SDC) | payer MEDICARE, OTHER ==
[2024-03-06 13:44] VITALS: BMI 38.4
[2024-03-10] MEDS ORDERED: LACTATED RINGERS 1,000 ML IV SCH (08:09)
--- NOTE | 2024-03-10 08:17 | P.GSHP ---
History of Present Illness H&P Date: 03/10/24 CHIEF COMPLAINT: GERD and colon screen HISTORY OF PRESENT ILLNESS: The patient is a 73-year-old female who presents with gastroesophageal reflux disease and need for colon screen. Upper and lower endoscopy were offered for further evaluation and management. PAST MEDICAL HISTORY: Please see list. PAST SURGICAL HISTORY: Please see list. MEDICATIONS: Please see list. ALLERGIES: Please see list. SOCIAL HISTORY: No illicit drug use FAMILY HISTORY: No reports of Crohn disease or ulcerative colitis. REVIEW OF ORGAN SYSTEMS: CONSTITUTIONAL: No reports of fevers or chills. GI: Denies any blood in stools or constipation. PHYSICAL EXAM: VITAL SIGNS: Stable GENERAL: Well-developed pleasant in no acute distress. HEENT: No scleral icterus. Extraocular movements grossly intact. Moist buccal mucosa. NECK: Supple without lymphadenopathy. CHEST: Unlabored respirations. Equal bilateral excursions. CARDIOVASCULAR: Regular rate and rhythm. Distal 2+ pulses. ABDOMEN: Soft, nondistended. MUSCULOSKELETAL: No clubbing, cyanosis, or edema. ASSESSMENT: 1. Gastroesophageal reflux disease 2. Colon screen. PLAN: 1. Recommend proceeding with an upper and lower endoscopy Past Medical History Past Medical History: CVA/TIA, Diabetes Mellitus, GERD/Reflux, Hyperlipidemia, Hypertension, Myocardial Infarction (FL), Sleep Apnea/CPAP/BIPAP, Thyroid Disorder Additional Past Medical History / Comment(s): CVA 2009- NO RESIDUAL AFFECTS, C- PAP MACHINE , ARTHRITIS HIPS, EGD 11/24/21 - ESOPHAGEAL & DUODENAL ULCER, leg leg weakness and pain, urinary incontinence, Last Myocardial Infarction Date:: 2007 History of Any Multi-Drug Resistant Organisms: None Reported Past Surgical History: Bariatric Surgery, Heart Catheterization, Hysterectomy, Orthopedic Surgery Additional Past Surgical History / Comment(s): left ganglion cyst left wrist, removed lap band placed and removed. abdominoplasty. broken foot repair to left foot with pins, screws and plate. D&C Past Anesthesia/Blood Transfusion Reactions: Previous Problems w/ Anesthesia Additional Past Anesthesia/Blood Transfusion Reaction / Comment(s): reports "has stopped breathing again after procedures" reintubted once after procedure and SOB after surgery Past Psychological History: Depression Smoking Status: Never smoker Past Alcohol Use History: None Reported Past Drug Use History: None Reported - Past Family History Father Family Medical History: Cancer Additional Family Medical History / Comment(s): colon Mother Family Medical History: Cancer Additional Family Medical History / Comment(s): small cell lung CA Brother(s) Family Medical History: Cancer Additional Family Medical History / Comment(s): lung cancer spread to lymph nodes Sister(s) Family Medical History: Cancer Additional Family Medical History / Comment(s): small cell lung CA Medications and Allergies Home Medications Medication Instructions Recorded Confirmed Type Aspirin [Adult Low Dose Aspirin EC] 81 mg PO DAILY 11/21/21 03/06/24 History Atorvastatin [Lipitor] 80 mg PO HS 11/21/21 03/06/24 History DULoxetine HCL [Cymbalta] 60 mg PO DAILY 11/21/21 03/06/24 History INSULIN LISPRO (humaLOG) [humaLOG] 5 units SQ AC-TID PRN 11/21/21 03/06/24 History lisinopriL [Zestril] 15 mg PO BID 11/21/21 03/06/24 History Biotin 5,000 mcg PO DAILY 03/27/23 03/06/24 History Omeprazole [PriLOSEC] 40 mg PO DAILY 10/30/23 03/06/24 History diazePAM [Valium] 5 mg PO DAILY PRN 1 Days #2 tab 11/21/23 03/06/24 Rx Dapagliflozin Propanediol [Farxiga] 10 mg PO DAILY 12/06/23 03/06/24 History Ezetimibe [Zetia] 10 mg PO DAILY 12/06/23 03/06/24 History Ferrous Sulfate [Feosol] 325 mg PO DAILY 12/06/23 03/06/24 History Tirzepatide [Mounjaro] 5 mg SQ WEEKLY 12/06/23 03/06/24 History Levothyroxine Sodium [Synthroid] 88 mcg PO DAILY 03/06/24 03/06/24 History Vibegron [Gemtesa] 75 mg PO DAILY 03/06/24 03/06/24 History Allergies Allergy/AdvReac Type Severity Reaction Status Date / Time amoxicillin Allergy Rash/Hives Verified 03/06/24 13:46
[2024-03-10] MEDS ORDERED: PROPOFOL 10 MG/ML 20 ML VIAL IV ONE (08:41)
[2024-03-10] MEDS ORDERED: LIDOCAINE 1% INJ 10MG/ML (20 ML MDV) ONE (08:41)
[2024-03-10] MEDS: LACTATED RINGERS 1,000 ML IV ONE ×2 (08:41→08:49)
[2024-03-10 08:42] LABS: Glucose,Whole Blood 157 mg/dL (70-110)
[2024-03-10 08:45] VITALS: TEMP 97.2
--- NOTE | 2024-03-10 09:29 | P.PCN ---
Date of Procedure: 03/10/24 Description of Procedure: PREOPERATIVE DIAGNOSIS: Gastroesophageal reflux disease. Morbid obesity. POSTOPERATIVE DIAGNOSIS: Gastroesophageal reflux disease. Morbid obesity. Gastritis. Diaphragmatic hiatal hernia Wooten's esophagus OPERATION: Esophagogastroduodenoscopy with biopsies along esophagus, antrum and duodenum SURGEON: Keke Carrasco MD ANESTHESIA: MAC. INDICATIONS: The patient is a 73-year-old female who presents with reflux disease. Benefits and risks of the procedure were described. Informed consent was obtained. DESCRIPTION: The patient was brought into the endoscopy suite and laid in the left lateral decubitus position. An Olympus gastroscope was passed along the posterior o ropharynx down to the distal esophagus where the squamocolumnar junction was encountered at 35 cm from the incisors. The stomach was entered and no bile reflux was found. Additional findings are listed below. Biopsies with cold forceps were obtained of the antrum. The first through third portion of the duodenum was examined. Retroflexion of the scope confirmed Hill grade 3 lower esophageal valve. The squamocolumnar junction demonstrated LA grade B erosive esophagitis. The stomach was desufflated. The patient tolerated the procedure well. FINDINGS: Squamocolumnar junction 35 cm from the incisors. Diaphragmatic hiatus at 40 cm. Hiatal hernia, 5 cm Hill grade 2 lower esophageal valve. LA grade D erosive esophagitis with biopsies obtained for Wooten's esophagus Biopsies obtained of the duodenum. Chronic gastritis with biopsies obtained. RECOMMENDATIONS: Repeat upper endoscopy in 3 years, 2026.
--- NOTE | 2024-03-10 09:46 | P.PCN ---
Date of Procedure: 03/10/24 Description of Procedure: PREOPERATIVE DIAGNOSIS: Personal history of colon polyps Colonoscopy screening POSTOPERATIVE DIAGNOSIS: Tubular adenoma ascending colon Internal hemorrhoids, grade 2 OPERATION: Colonoscopy to the ileocecal valve and appendiceal orifice, cecum Colonoscopy with hot snare polypectomy SURGEON: Keke Carrasco MD. ANESTHESIA: MAC. INDICATIONS: The patient is an 73-year-old female who presents personal history of colon polyps. Last colonoscopy 5 years. Benefits and risks were described and informed consent was obtained. DESCRIPTION OF PROCEDURE: The patient had undergone Suprep. The patient had been brought into the operating room and laid in the left lateral decubitus position. After adequate intravenous sedation, the rectum was examined with 2% lidocaine jelly. External hemorrhoids were encountered. The rectal tone was within normal limits. No lesions were palpated in the rectal vault. An Olympus colonoscope was advanced until the cecum was viewed. The prep was good. No large sigmoid diverticulosis was encountered. Colonic polyps were found and removed. No evidence of focal colitis was found. Retroflexion of the scope demonstrated grade 2 internal hemorrhoids without active bleeding or inflammation. The colon was desufflated. The patient had tolerated the procedure well. Withdrawal time was over 6 minutes. FINDINGS: Aronchick preparation quality scale 2 (1-5) Internal hemorrhoids, grade 2 External hemorrhoids, grade 2. No arteriovenous malformations. Moderate retained stool within the cecum prohibiting view of the appendiceal orifice. No large sigmoid diverticulosis Removal of 1 polyps: - Snare polypectomy ascending colon, 6 mm villous adenoma No focal colitis. RECOMMENDATIONS: Repeat colonoscopy 3 years, 2026 Plan - Discharge Summary New Discharge Prescriptions: Continue RX: INSULIN LISPRO (humaLOG) [humaLOG] 5 units SQ AC-TID PRN PRN Reason: scale RX: Biotin 5,000 mcg PO DAILY RX: Ezetimibe [Zetia] 10 mg PO DAILY RX: Levothyroxine Sodium [Synthroid] 88 mcg PO DAILY RX: lisinopriL [Zestril] 15 mg PO BID RX: Atorvastatin [Lipitor] 80 mg PO HS RX: DULoxetine HCL [Cymbalta] 60 mg PO DAILY RX: Aspirin [Adult Low Dose Aspirin EC] 81 mg PO DAILY RX: Omeprazole [PriLOSEC] 40 mg PO DAILY RX: diazePAM [Valium] 5 mg PO DAILY PRN 1 Days #2 tab PRN Reason: Agitation Or Acute Anxiety RX: Dapagliflozin Propanediol [Farxiga] 10 mg PO DAILY RX: Ferrous Sulfate [Feosol] 325 mg PO DAILY RX: Tirzepatide [Mounjaro] 5 mg SQ WEEKLY RX: Vibegron [Gemtesa] 75 mg PO DAILY Discharge Medication List RX: Aspirin [Adult Low Dose Aspirin EC] 81 mg PO DAILY 11/21/21 [History] RX: Atorvastatin [Lipitor] 80 mg PO HS 11/21/21 [History] RX: DULoxetine HCL [Cymbalta] 60 mg PO DAILY 11/21/21 [History] RX: INSULIN LISPRO (humaLOG) [humaLOG] 5 units SQ AC-TID PRN 11/21/21 [History] RX: lisinopriL [Zestril] 15 mg PO BID 11/21/21 [History] RX: Biotin 5,000 mcg PO DAILY 03/27/23 [History] RX: Omeprazole [PriLOSEC] 40 mg PO DAILY 10/30/23 [History] RX: diazePAM [Valium] 5 mg PO DAILY PRN 1 Days #2 tab 11/21/23 [Rx] RX: Dapagliflozin Propanediol [Farxiga] 10 mg PO DAILY 12/06/23 [History] RX: Ezetimibe [Zetia] 10 mg PO DAILY 12/06/23 [History] RX: Ferrous Sulfate [Feosol] 325 mg PO DAILY 12/06/23 [History] RX: Tirzepatide [Mounjaro] 5 mg SQ WEEKLY 12/06/23 [History] RX: Levothyroxine Sodium [Synthroid] 88 mcg PO DAILY 03/06/24 [History] RX: Vibegron [Gemtesa] 75 mg PO DAILY 03/06/24 [History] Follow up Appointment(s)/Referral(s): Keke Carrasco MD [STAFF PHYSICIAN] - 04/01/24 11:00 am Patient Instructions/Handouts: Hiatal Hernia (DC), Colorectal Polyps (GEN) Activity/Diet/Wound Care/Special Instructions: Repeat colonoscopy in 3 years, 2026 Discharge Disposition: HOME SELF-CARE
[2024-03-10 09:52] VITALS: BP 124/79; PULSE 62; RESP 16
== END 2024-03-10 10:18 | disposition home or self-care (01) ==
LOC: ORWHC2ENDO 07:53
PROVIDERS: ATTEND Surgery Plastic and Reconstructive Surgery
CPT/HCPCS: 43239; 45385; 88305

== ENCOUNTER → 2024-03-31 | Outpatient (CLI) | payer MEDICARE, OTHER ==
[2024-03-31 10:07] VITALS: BP 129/62; PULSE 99; RESP 16; TEMP 97.1
--- NOTE | 2024-03-31 15:06 | P.PAINPG ---
PQRS Measure Charge Sheet Comment: HISTORY OF PRESENT ILLNESS: A 73 yr old wheelchair bound female w at side presents today w severe and chronic LBP x 2 yrs secondary to radiculopathy, spondylosis and facet arthropathy without myelopathy, L hip DJD for evaluation s/p L TFESI L3-L4 #2 and review of recent MRI. Pt states she experienced >60 % pain relief x 3 mo s/p procedure. Pt states pain level is provoked at 8 /10 in intensity, constant, localized in the lumbar spine, predominantly axial, sharp in character w occasional LLE shooting pain. Pain is provoked by walking for periods > 15 min. Pain is alleviated by heat, ice, medications, topical, chiropractic treatments x 6 wks until Nov 2022, physician guided stretches daily since Nov 2022, repositioning and rest. Interventional procedures include EARLINE L4- L5 x1, L TFESI L3-L4 x1 Medications include [place], Tyl, Ibu, Lidoderm, Salon Pas REVIEW OF ORGAN SYSTEMS: CONSTITUTIONAL: No fevers or chills. No recent weight loss. NEUROLOGICAL: + numbness and tingling along the distal extremities. No seizure disorders or headaches. MUSCULOSKELETAL: + pain PSYCHIATRIC: Denies current depression or suicidal thoughts. Physical Examinations : Constitutional : Cooperative , not in acute distress . Neurologic : Cranial nerve II to XII intact. No focal neurological deficits. Psychiatric : alert & oriented x 3. Matching mood & appropriate affect. Judgment & insight intact. Musculoskeletal : Cervical Spine Motor strength in the deltoid and biceps: Normal right side. Normal Left side Motor strength biceps and the wrist extensors: Normal right side . Normal left side Motor strength in the triceps muscle: Normal right side. Normal left side Deep tendon reflexes: Normal at the biceps. Normal at Brachioradialis. Normal at triceps Vertebral body tenderness to deep palpation over Cervical facet loading test: positive bilaterally Spurling test: positive bilaterally Neck distraction test: positive bilaterally Aly sign: positive bilaterally Lumbar spine +L Trendelenburg Motor strength lower extremities ,thigh and legs 5/5 Right side , 5/5 Left side Deep tendon reflexes : Normal Knee Jerk. Normal Ankle Jerk Vertebral body tenderness over L3 Figueroa Test positive L L3-L4 Lumbar facet Loading Test: positive Right / positive Left Range of motion of the lumbar spine Flexion 30 degrees, extension 10 degrees Straight Leg Raise test: Left/ Right positive at < 35 degrees Corry test: positive right / positive left. Severe tenderness over the Sacroiliac joint on the Right / Left sides Gaenslen test: positive bilaterally Seated flexion test: positive bilaterally. Sacral spine : Severe tenderness over the Sacroiliac joint: right side / left side Range of motion: Flexion of the lumbar spine <60 degrees Range of motion: Extension of the lumbar spine <20 degrees Gaenslen's Test positive Corry test: positive right side / left side Thigh Thrust Test Sacral Thrust Test Imaging: MRI noncontrast of the lumbar spine from 03/03/23 reviewed MRI non contrast of the R hip from 02/25/24 reviewed Assessment/ Plan : Lumbar radiculopathy, mod L Hip DJD w bursitis Recommendation of L Hip Bursa injection #1. May need a series of injections for optimal pain relief. Risks, benefits of procedure discussed and patient verbalized understanding. Admits to anti- coagulant use or medical history of di abetes. Protocol for discontinuation/ continuation of medications laura procedure discussed. All questions answered. I have spent greater than 30 minutes on patient care today. Dr Donato was available by phone for the evaluation of this patient. The time was used to review the medical records including relevant urine studies and Prescription history (MAPs), review of the available imaging, evaluation and examination of the patient, coordination of care with the medical staff and if applicable referring physicians, as well as creation of the medical record - Pain Location Left Hip Non-Pharmacological Interventions: Elevation, Heat, Ice, Inactivity, Position/Reposition, Relaxation Technique, Sitting PQRS Narrative: Hx Alcohol Use (MH) No Home Medications: Ambulatory Orders Aspirin [Adult Low Dose Aspirin EC] 81 mg PO DAILY 11/21/21 Atorvastatin [Lipitor] 80 mg PO HS 11/21/21 DULoxetine HCL [Cymbalta] 60 mg PO DAILY 11/21/21 INSULIN LISPRO (humaLOG) [humaLOG] 5 units SQ AC-TID PRN 11/21/21 lisinopriL [Zestril] 15 mg PO BID 11/21/21 Biotin 5,000 mcg PO DAILY 03/27/23 Omeprazole [PriLOSEC] 40 mg PO DAILY 10/30/23 diazePAM [Valium] 5 mg PO DAILY PRN 1 Days #2 tab 11/21/23 Dapagliflozin Propanediol [Farxiga] 10 mg PO DAILY 12/06/23 Ezetimibe [Zetia] 10 mg PO DAILY 12/06/23 Ferrous Sulfate [Feosol] 325 mg PO DAILY 12/06/23 Tirzepatide [Mounjaro] 5 mg SQ WEEKLY 12/06/23 Levothyroxine Sodium [Synthroid] 88 mcg PO DAILY 03/06/24 Vibegron [Gemtesa] 75 mg PO DAILY 03/06/24 Controlled Substance Measures - Controlled Substance Measures Is patient prescribed a controlled substance at discharge?: No
== END ==
LOC: PNWHC3 09:34
PROVIDERS: ATTEND Specialist
DX: M51.16 Intervertebral disc disorders with radiculopathy, lumbar region (principal); M16.12 Unilateral primary osteoarthritis, left hip; M70.72 Other bursitis of hip, left hip; Z88.0 Allergy status to penicillin
CPT/HCPCS: 99211

== ENCOUNTER → 2024-04-25 | Outpatient (CLI) | payer MEDICARE, OTHER ==
--- NOTE | 2024-04-29 22:41 | P.PCN ---
Date of Procedure: 04/25/24 Operative Findings: Home sleep study report Date of service is 05/12/2024 History A 73-year-old female patient with known history of obstructive sleep apnea diagnosed many years back and had original diagnosis established in 2001. The patient has been treated with CPAP at a pressure of 12 cm of water. During her last evaluation, the patient was interested in updating her CPAP unit. She was interested in obtaining a newer generation ResMed 11. She was losing weight and she had lost approximately 30 pounds since her original evaluation back in 2001. She is using Mounjaro and she has been successful in losing weight. Based on that, a home sleep study was ordered to reestablish diagnosis and proceed with further treatment if ongoing sleep apnea still present. Comorbid conditions include CAD, CVA, hyperlipidemia, depression, hypertension, osteoarthritis and diabetes mellitus type 2. Physical findings The patient's weight is 212 pounds with a body mass index of 38.8 Technical description The ResMed ApneaLink system was used to complete his home sleep study. This is a type III home sleep study evaluation. The total recording duration was 10 hours and 52 minutes. The study started at 9:52 PM and ended at 8:45 AM. There was a total of 10 hours and 37 minutes of flow monitoring and 9 hours and 5 minutes of oxygen saturation monitoring Results The respiratory analysis showed a total of 34 obstructive apneas and a total of 164 obstructive hypopneas and the resulting AHI was 18.6 consistent with moderate severe ABDULKADIR. Oxygenation analysis The baseline pulse ox while awake was 98%, average pulse ox during sleep was 93% and the lowest pulse ox was 73% and the patient spent approximate 12 minutes of the sleep time with a pulse ox of below 89% Cardiac summary Average heart rate was 60 with a minimum heart rate of 51 and a maximum heart rate of 126 Assessment Obstructive sleep apnea, moderate in severity with an AHI of 18 Mild nocturnal oxygen desaturations Obesity with a BMI of 38.8 Coronary artery disease Hypertension Hyperlipidemia Diabetes mellitus type 2 Depression Previous history of CVA. Plan The patient will be offered a new CPAP unit. The patient will be offered the ResMed 11 model and the patient will be set on APAP mode pressures of 5/15 cm of water. The patient is currently using the dream wisp medium size nasal mask. I also offered her the AirFit P10 small size nasal pillows. The patient was seen back in the office in 30 to 90 days after obtaining her CPAP unit for a compliancy check Encouraged further weight loss and the patient is currently on Mounjaro Optimize sleep hygiene measures Maintain good sleep hygiene principles Will continue to follow
== END ==
LOC: 3 N SLEEP 10:58
PROVIDERS: ATTEND Internal Medicine Critical Care Medicine
DX: G47.33 Obstructive sleep apnea (adult) (pediatric) (principal); G47.36 Sleep related hypoventilation in conditions classified elsewhere; I10 Essential (primary) hypertension; E66.9 Obesity, unspecified; Z68.38 Body mass index [BMI] 38.0-38.9, adult; I25.10 Atherosclerotic heart disease of native coronary artery without angina pectoris; E78.5 Hyperlipidemia, unspecified; E11.9 Type 2 diabetes mellitus without complications; F32.A Depression, unspecified; Z88.0 Allergy status to penicillin; Z79.899 Other long term (current) drug therapy; Z79.85 Long-term (current) use of injectable non-insulin antidiabetic drugs; Z79.4 Long term (current) use of insulin; Z86.73 Personal history of transient ischemic attack (TIA), and cerebral infarction without residual deficits

== ENCOUNTER 2024-05-02 06:57 | Day surgery (SDC) | payer MEDICARE, OTHER ==
[2024-05-01 10:34] VITALS: BMI 36.6
[2024-05-02] MEDS ORDERED: LACTATED RINGERS 1,000 ML IV SCH (07:14)
[2024-05-02 07:38] LABS: Glucose,Whole Blood 128 mg/dL (70-110)
[2024-05-02 07:40] VITALS: TEMP 97.5
[2024-05-02] MEDS ORDERED: methylPREDNISolone ACETATE 80 MG/ML 1 ML VIAL ONE (08:19)
[2024-05-02] MEDS ORDERED: IOPAMIDOL M300 15ML VIAL ONE (08:19)
[2024-05-02] MEDS ORDERED: ROPIVACAINE 5MG/ML 20ML VIAL ONE (08:19)
[2024-05-02 08:39] VITALS: RESP 16
--- NOTE | 2024-05-02 08:43 | P.PCN ---
Description of Procedure: Procedure diagnosis. He had joint osteoarthritis. Postprocedure diagnosis. As above. Procedure done. Left hip joint injection with IV contrast, injection of local anesthetic and steroid under fluoroscopic guidance. Anesthesia. Local anesthetic infiltration in the subcutaneous tissue. Continuous pulse ox, EKG, blood pressure and verbal communication was maintained with the patient. Blood loss. None. Indication. Discussed with the patient the procedure alternatives and possible complications which may include infection bleeding nerve damage blood vessel puncture. Patient understands and all questions were answered. Procedure note. After getting consent patient in OR in supine position. Under fluoroscopic guidance, after infiltration of 5 mL of 1% lidocaine subcutaneously, a 22-gauge spinal needle was introduced under tunnel vision of the fluoroscope at the superior lateral part of the neck of the femur near the junction of the head of the femur. After needle position information with fluoroscopy, and after negative aspiration 1 cc of Isovue-300 contrast was injected which was noted to be inside the hip joint capsule. After negative aspiration 3 cc solution was injected which consists of 2 cc of 0.5% ropivacaine mixed with 1 cc of 80 mg Depo-Medrol. Spinal needle was taken out and bandage was applied. Disposition. Patient tolerated the procedure well. No complication from the procedure. Patient was discharged in stable condition from outpatient.
[2024-05-02 08:50] VITALS: BP 155/65; PULSE 83
--- NOTE | 2024-05-02 09:32 | FL ---
EXAMINATION TYPE: FL guided pain mgmt statistic DATE OF EXAM: 05/02/2024 8:36 AM COMPARISON: Pre Operative Images if available both CT/MRI or plain film CLINICAL INDICATION: Female, 73 years old with history of ERIKA; TECHNIQUE: FL guided pain mgmt statistic, multiple fluoroscopic images provided for procedure. Total fluoroscopy time: 11.8 seconds Total submitted images to PACS: 2 DAP: 0.2767 mGym2 Gycm2 uGym2 cGycm2 or equivalent. FINDINGS: Fluoroscopic images during injection for pain management demonstrate multilevel degeneration changes throughout the spine. No evidence for fracture. No acute process identified. IMPRESSION: 1. No evidence for intraoperative complication. 2. Please see the operative/procedural note for further details. [facility], , 05/02/2024 9:29 AM
== END 2024-05-02 09:09 | disposition home or self-care (01) ==
LOC: ORPAIN 06:57
PROVIDERS: ATTEND Pain Medicine Interventional Pain Medicine
DX: M16.12 Unilateral primary osteoarthritis, left hip (principal); Z88.0 Allergy status to penicillin
CPT/HCPCS: 20610; Q9967; J2795; J1010

== ENCOUNTER → 2024-05-28 | Outpatient (CLI) | payer MEDICARE, OTHER ==
[2024-05-28 10:04] VITALS: BP 108/73; PULSE 73; RESP 18; TEMP 97.6
--- NOTE | 2024-05-28 16:04 | P.PAINPG ---
PQRS Measure Charge Sheet Comment: HISTORY OF PRESENT ILLNESS: A 73 yr old wheelchair bound female w at side presents today w severe and chronic LBP x 2 yrs secondary to radiculopathy, spondylosis and facet arthropathy without myelopathy, L hip DJD for evaluation s/p L Hip Bursa injection #1. Pt states she experienced 100 % pain relief x 1 mo s/p procedure. Pt states pain level is provoked at 8 /10 in intensity, intermittent, localized in the L hip, predominantly axial, sharp in character without shooting pain. Pain is provoked by walking for periods > 20 min. Pain is alleviated by heat, ice, medications, topical, chiropractic treatments x 6 wks until Nov 2022, physician guided stretches daily since Nov 2022, repositioning and rest. Interventional procedures include EARLINE L4- L5 x1, L TFESI L3-L4 x1, L Hip Bursa x1 Medications include [place], Tyl, Ibu, Lidoderm, Salon Pas REVIEW OF ORGAN SYSTEMS: CONSTITUTIONAL: No fevers or chills. No recent weight loss. NEUROLOGICAL: + numbness and tingling along the distal extremities. No seizure disorders or headaches. MUSCULOSKELETAL: + pain PSYCHIATRIC: Denies current depression or suicidal thoughts. Physical Examinations : Constitutional : Cooperative , not in acute distress . Neurologic : Cranial nerve II to XII intact. No focal neurological deficits. Psychiatric : alert & oriented x 3. Matching mood & appropriate affect. Judgment & insight intact. Musculoskeletal : Cervical Spine Motor strength in the deltoid and biceps: Normal right side. Normal Left side Motor strength biceps and the wrist extensors: Normal right side . Normal left side Motor strength in the triceps muscle: Normal right side. Normal left side Deep tendon reflexes: Normal at the biceps. Normal at Brachioradialis. Normal at triceps Vertebral body tenderness to deep palpation over Cervical facet loading test: positive bilaterally Spurling test: positive bilaterally Neck distraction test: positive bilaterally Aly sign: positive bilaterally Lumbar spine +L Trendelenburg Motor strength lower extremities ,thigh and legs 5/5 Right side , 5/5 Left side Deep tendon reflexes : Normal Knee Jerk. Normal Ankle Jerk Vertebral body tenderness over L3 Figueroa Test positive L L3-L4 Lumbar facet Loading Test: positive Right / positive Left Range of motion of the lumbar spine Flexion 30 degrees, extension 10 degrees Straight Leg Raise test: Left/ Right positive at < 35 degrees Corry test: positive right / positive left. Severe tenderness over the Sacroiliac joint on the Right / Left sides Gaenslen test: positive bilaterally Seated flexion test: positive bilaterally. Sacral spine : Severe tenderness over the Sacroiliac joint: right side / left side Range of motion: Flexion of the lumbar spine <60 degrees Range of motion: Extension of the lumbar spine <20 degrees Gaenslen's Test positive Corry test: positive right side / left side Thigh Thrust Test Sacral Thrust Test Imaging: MRI noncontrast of the lumbar spine from 03/03/23 reviewed MRI non contrast of the R hip from 02/25/24 reviewed Assessment/ Plan : Lumbar radiculopathy, mod L Hip DJD w bursitis Recommendation of L Hip Trochanteric injection #2. Risks, benefits of procedure discussed and pt verbalized understanding. All questions answered. I have spent greater than 30 minutes on patient care today. Dr Donato was available by phone for the evaluation of this patient. The time was used to review the medical records including relevant urine studies and Prescription history (MAPs), review of the available imaging, evaluation and examination of the patient, coordination of care with the medical staff and if applicable referring physicians, as well as creation of the medical record - Pain Location Left Hip Non-Pharmacological Interventions: Position/Reposition PQRS Narrative: Hx Alcohol Use (MH) No Home Medications: Ambulatory Orders Aspirin [Adult Low Dose Aspirin EC] 81 mg PO DAILY 11/21/21 Atorvastatin [Lipitor] 80 mg PO HS 11/21/21 DULoxetine HCL [Cymbalta] 60 mg PO DAILY 11/21/21 INSULIN LISPRO (humaLOG) [humaLOG] 5 units SQ AC-TID PRN 11/21/21 lisinopriL [Zestril] 15 mg PO BID 11/21/21 Biotin 5,000 mcg PO DAILY 03/27/23 Omeprazole [PriLOSEC] 40 mg PO DAILY 10/30/23 Dapagliflozin Propanediol [Farxiga] 10 mg PO DAILY 12/06/23 Ezetimibe [Zetia] 10 mg PO DAILY 12/06/23 Tirzepatide [Mounjaro] 7.5 mg SQ TU 12/06/23 diazePAM [Valium] 5 tab PO PRN 05/02/24 Controlled Substance Measures - Controlled Substance Measures Is patient prescribed a controlled substance at discharge?: No
== END ==
LOC: PNWHC3 09:02
PROVIDERS: ATTEND Specialist
DX: M54.16 Radiculopathy, lumbar region (principal); M16.12 Unilateral primary osteoarthritis, left hip; Z88.0 Allergy status to penicillin
CPT/HCPCS: 99211

== ENCOUNTER 2024-06-12 07:30 | Day surgery (SDC) | payer MEDICARE, OTHER ==
[2024-06-10 11:36] VITALS: BMI 35.6
[2024-06-12] MEDS ORDERED: LACTATED RINGERS 1,000 ML IV SCH (07:42)
[2024-06-12 07:55] VITALS: TEMP 97
[2024-06-12 07:58] LABS: Glucose,Whole Blood 145 mg/dL (70-110)
[2024-06-12] MEDS ORDERED: methylPREDNISolone ACETATE 80 MG/ML 1 ML VIAL ONE (09:23)
[2024-06-12] MEDS ORDERED: ROPIVACAINE 5MG/ML 20ML VIAL ONE (09:23)
--- NOTE | 2024-06-12 09:33 | P.PCN ---
Description of Procedure: Pre operative Diagnosis: left Trochanteric Bursitis Postprocedure diagnosis: As above. Procedure: left greater Trochanteric Bursa injection under fluoroscopic guidance Anesthesia: Local: 1% Lidocaine . Complications: none Indications for Procedure: Patient had a history of greater trochanteric bursitis. Tried conservative therapy with minimal response. Came here for intervention procedure. Procedure and Findings: The patient was seen and examined. The written informed consent was obtained after explaining the risks, benefits and alternatives of the procedure to the patient. Patient agreed to proceed for the procedure signed the informed consent. The patient was brought to the procedure room and was placed in lateral position on the operating table. The skin preparation was done with ChloraPrep 1, and draping was done in usual sterile fashion. Sterile technique was observed throughout the procedure. Using fluoroscope in the AP/lateral view, the greater trochanter was identified. The middle of the greater trochanter was targeted for needle placement. 3 ml of 1% Lidocaine was injected with a 25 gauge needle to achieve adequate local anesthesia of the skin and subcutaneous tissue. then 22 gauge 3.5 inch needle was introduced and advanced into the target area under direct fluoroscopic guidance. A bony contact was felt and the needle was withdrawn for about two millimeters. A negative aspiration was confirmed. then total of 10ml solution containing depo-medrol 80 mg and 9 ml of 0.5% preservative-free ropivacaine was injected slowly. The needle was removed intact, area was cleaned and bandage was applied. The patient tolerated the procedure very well. Additional comments: None Disposition : The patient was transferred to the recovery room and remained stable until discharged home. The patient was given detailed discharge instructions for infection, bleeding, increased pain at the injection site, and was advised to seek immediate medical attention should significant side effects develop. Patient was routinely examined by RN before discharging home. The patient will be followed up with Pain Clinic within 3 weeks.
[2024-06-12 09:42] VITALS: RESP 16
[2024-06-12 09:54] VITALS: BP 130/67; PULSE 59
--- NOTE | 2024-06-12 10:05 | FL ---
EXAMINATION TYPE: FL guided pain mgmt statistic DATE OF EXAM: 06/12/2024 FLUOROSCOPY left hip joint inj with pain services. fl time 11.5 secs dap [id number] 1 image is submitted. [facility], , 06/12/2024 10:03 AM
== END 2024-06-12 10:10 | disposition home or self-care (01) ==
LOC: ORPAIN 07:30
PROVIDERS: ATTEND Pain Medicine Interventional Pain Medicine
DX: M70.62 Trochanteric bursitis, left hip (principal); Z88.0 Allergy status to penicillin
CPT/HCPCS: 20610; J2795; J1010

== ENCOUNTER → 2024-07-10 | Outpatient (CLI) | payer MEDICARE, OTHER ==
[2024-07-10 09:51] VITALS: BP 124/82; PULSE 99; RESP 18; TEMP 98.1
--- NOTE | 2024-07-10 14:54 | P.PAINPG ---
PQRS Measure Charge Sheet Comment: HISTORY OF PRESENT ILLNESS: A 73 yr old wheelchair bound female w at side presents today w severe and chronic LBP x 2 yrs secondary to radiculopathy, spondylosis and facet arthropathy without myelopathy, L hip DJD for evaluation s/p L Hip Trochanteric injection #2. Pt states she experienced 0 % pain relief x 1 mo s/p procedure. Pt states pain level is provoked at 8 /10 in intensity, intermittent, localized in the L hip, predominantly axial, sharp in character without shooting pain. Pain is provoked by walking for periods > 20 min. Pain is alleviated by heat, ice, medications, topical, chiropractic treatments x 6 wks until Nov 2022, physician guided stretches daily since Nov 2022, repositioning and rest. Interventional procedures include EARLINE L4- L5 x1, L TFESI L3-L4 x1, L Hip Bursa x2 Medications include [place], Tyl, [place]bu, Lidoderm, Salon Pas REVIEW OF ORGAN SYSTEMS: CONSTITUTIONAL: No fevers or chills. No recent weight loss. NEUROLOGICAL: + numbness and tingling along the distal extremities. No seizure disorders or headaches. MUSCULOSKELETAL: + pain PSYCHIATRIC: Denies current depression or suicidal thoughts. Physical Examinations : Constitutional : Cooperative , not in acute distress . Neurologic : Cranial nerve II to XII intact. No focal neurological deficits. Psychiatric : alert & oriented x 3. Matching mood & appropriate affect. Judgment & insight intact. Musculoskeletal : Cervical Spine Motor strength in the deltoid and biceps: Normal right side. Normal Left side Motor strength biceps and the wrist extensors: Normal right side . Normal left side Motor strength in the triceps muscle: Normal right side. Normal left side Deep tendon reflexes: Normal at the biceps. Normal at Brachioradialis. Normal at triceps Vertebral body tenderness to deep palpation over Cervical facet loading test: positive bilaterally Spurling test: positive bilaterally Neck distraction test: positive bilaterally Aly sign: positive bilaterally Lumbar spine +L Trendelenburg Motor strength lower extremities ,thigh and legs 5/5 Right side , 5/5 Left side Deep tendon reflexes : Normal Knee Jerk. Normal Ankle Jerk Vertebral body tenderness over L3 Figueroa Test positive L L3-L4 Lumbar facet Loading Test: positive Right / positive Left Range of motion of the lumbar spine Flexion 30 degrees, extension 10 degrees Straight Leg Raise test: Left/ Right positive at < 35 degrees Corry test: positive right / positive left. Severe tenderness over the Sacroiliac joint on the Right / Left sides Gaenslen test: positive bilaterally Seated flexion test: positive bilaterally. Sacral spine : Severe tenderness over the Sacroiliac joint: right side / left side Range of motion: Flexion of the lumbar spine <60 degrees Range of motion: Extension of the lumbar spine <20 degrees Gaenslen's Test positive Corry test: positive right side / left side Thigh Thrust Test Sacral Thrust Test Imaging: MRI noncontrast of the lumbar spine from 03/03/23 reviewed MRI non contrast of the R hip from 02/25/24 reviewed Assessment/ Plan : Lumbar radiculopathy, mod L Hip DJD w bursitis Recommendation of PT x 6 wks M54.16, M16.10. All questions answered. , [place] have spent greater than 30 minutes on patient care today. Dr Donato was available by phone for the evaluation of this patient. The time was used to eview the medical records including relevant urine studies and Prescription history (MAPs), review of the available imaging, evaluation and examination of the patient, coordination of care with the medical staff and if applicable referring physicians, as well as creation of the medical record PQRS Narrative: Narcotic Agreement Date Signed 05/28/24 Hx Alcohol Use (MH) No Home Medications: Ambulatory Orders Aspirin [Adult Low Dose Aspirin EC] 81 mg PO DAILY 11/21/21 Atorvastatin [Lipitor] 80 mg PO HS 11/21/21 DULoxetine HCL [Cymbalta] 60 mg PO BID 11/21/21 INSULIN LISPRO (humaLOG) [humaLOG] 5 units SQ AC-TID PRN 11/21/21 lisinopriL [Zestril] 15 mg PO BID 11/21/21 Biotin 5,000 mcg PO DAILY 03/27/23 Omeprazole [PriLOSEC] 40 mg PO DAILY 10/30/23 Dapagliflozin Propanediol [Farxiga] 10 mg PO DAILY 12/06/23 Ezetimibe [Zetia] 10 mg PO DAILY 12/06/23 Tirzepatide [Mounjaro] 7.5 mg SQ MO 12/06/23 diazePAM [Valium] 5 tab PO ONCE 1 Days #2 tab 06/11/24 Controlled Substance Measures - Controlled Substance Measures Is patient prescribed a controlled substance at discharge?: No
== END ==
LOC: PNWHC3 09:27
PROVIDERS: ATTEND Specialist
DX: M54.16 Radiculopathy, lumbar region (principal); M16.12 Unilateral primary osteoarthritis, left hip; M70.72 Other bursitis of hip, left hip; Z88.0 Allergy status to penicillin
CPT/HCPCS: 99211

== ENCOUNTER 2024-07-30 20:49 | Inpatient (IN) | payer MEDICARE, OTHER ==
[2024-07-30 21:04] LABS: Glucose,Whole Blood 164 mg/dL (70-110)
[2024-07-30 21:37] LABS: Prothrombin Time 10.6 sec (10.0-12.5)
[2024-07-30 21:39] LABS: ALT 27 U/L (4-34); AST 57 U/L (14-36); Acetaminophen <10.0 ug/mL; African American GFR (CKD) 49 (>60 ml/min/1.73 sqM); Alcohol <10 mg/dL; Alkaline Phosphatase 108 U/L (38-126); Anion Gap 15 mmol/L; Blood Urea Nitrogen 21 mg/dL (7-17); Calcium 9.9 mg/dL (8.4-10.2); Carbon Dioxide 20 mmol/L (22-30); Chloride 104 mmol/L (98-107); Glucose 178 mg/dL (74-99); Non-African American GFR(CKD) 42 (>60 ml/min/1.73 sqM); Partial Thromboplastin Time 18.5 sec (22.0-30.0); Potassium 3.3 mmol/L (3.5-5.1); Salicylate <1.0 mg/dL; Sodium 139 mmol/L (137-145); Total Bilirubin 1.5 mg/dL (0.2-1.3); Total Protein 7.1 g/dL (6.3-8.2)
--- NOTE | 2024-07-30 21:43 | CT ---
EXAMINATION TYPE: CT brain wo con DATE OF EXAM: 07/30/2024 9:37 PM COMPARISON: Previous CT study dated 03/05/2023. CLINICAL INDICATION: Female, 73 years old with history of Altered mental status, ams, cva TECHNIQUE: Brain: Axial CT images of the brain were obtained with coronal and sagittal reformats created and rev iewed. Contrast used: None. Oral contrast used: None. CT DLP: 2376 mGycm, Automated exposure control for dose reduction was used. FINDINGS: Brain: Extra-axial spaces: No abnormal extra-axial fluid collections. Ventricular system: Dilatation in proportion to cerebral atrophy. Cerebral parenchyma: No acute intraparenchymal hemorrhage or mass effect. Scattered hypoattenuating areas are seen within the white matter. Cerebellum: Unremarkable. Mass effect: No evidence of midline shift. Intracranial vasculature: unremarkable Soft tissues: Normal. Calvarium/osseous structures: No depressed skull fracture. Paranasal sinuses and mastoid air cells: Mild scattered paranasal sinus disease. Visualized orbits: The lenses are surgically removed from the globes. IMPRESSION: No acute intracranial process. [facility], , 07/30/2024 9:41 PM
[2024-07-30 21:44] LABS: Basophils % (A) 0 %; Eosinophils # (A) 0.1 k/uL (0-0.7); Eosinophils % (A) 1 %; HGB 13.1 gm/dL (11.4-16.0); Lymphocytes # (A) 1.5 k/uL (1.0-4.8); Lymphocytes % (A) 17 %; MCH 30.1 pg (25.0-35.0); MCHC 33.6 g/dL (31.0-37.0); MCV 89.5 fL (80.0-100.0); Mean Platelet Volume 8.4; Monocytes # (A) 0.4 k/uL (0-1.0); Monocytes % (A) 5 %; Neutrophils # (A) 6.3 k/uL (1.3-7.7); Neutrophils % (A) 75 %; Platelet Count 253 k/uL (150-450); RBC 4.36 m/uL (3.80-5.40); RDW 14.5 % (11.5-15.5); WBC 8.4 k/uL (3.8-10.6)
--- NOTE | 2024-07-30 21:52 | CT ---
EXAMINATION TYPE: CT angio head neck DATE OF EXAM: 07/30/2024 9:37 PM COMPARISON: None. CLINICAL INDICATION: Female, 73 years old with history of ams; PHH, ams, cva TECHNIQUE: Axially acquired helical CT angiogram of the head and neck was obtained with contrast. Axi al images are supplemented with 3D reconstructions and MIP images which were post-processed at an in dependent workstation. NASCET criteria used. Contrast used:65cc mL of Isovue 370 with IV Contrast, Oral contrast used: None. CT DLP: 620.8 mGycm, Automated exposure control for dose reduction was used. FINDINGS: CTA HEAD: No evidence of acute intracranial hemorrhage, mass effect, or midline shift. The ventricles, sulci, a nd cisterns are unremarkable. Vertebral arteries: Moderate to severe stenosis of the right vertebral artery origin (series 2 image 46) due to dense calcified plaque. The vertebral arteries are otherwise patent. Vertebral artery dominance: Codominant Basilar artery: The basilar artery is intact. The basilar artery bifurcation is normal. Internal Carotid arteries: The cervical, petrous, cavernous and supraclinoid segments are without noemí w-limiting stenosis. ISABELLA: Patent with no evidence of aneurysm. ACOM: Present without evidence of aneurysm. MCA: Patent with no evidence of aneurysm. COGNOS: Patent with no evidence of aneurysm. PCOM: origin of the right COGNOS via large P-comm. Left P-comm is hypoplastic. Dural sinuses: Patent. CTA NECK: Right Carotid System: The common carotid and external carotid arteries are patent. Calcified plaque at the right carotid bi furcation extending into the right proximal ICA causing approximately 50-60 % stenosis. The rest of t he internal carotid artery is patent. Left Carotid System: The common carotid and external carotid arteries are patent. There is less than 25% stenosis at the c arotid bifurcation secondary to calcified/noncalcified plaque. The rest of the internal carotid arter y is patent. Vertebral arteries are patent without evidence hemodynamically significant stenosis. There is a three-vessel aortic arch. The origins of the great vessels are patent. No evidence of hemo dynamically significant stenosis. Upper thorax: IMPRESSION: 1. Approximately 50-60 % stenosis of the right proximal internal carotid artery due to calcified marnie que. 2. No evidence of flow-limiting stenosis in the left common carotid or internal carotid artery. 3. No evidence of intracranial high-grade stenosis or intracranial aneurysm. 4. Partially visualized bulky mediastinal and hilar lymphadenopathy with wall thickening of the thor acic esophagus highly suspicious for malignancy. Recommend CT chest with IV contrast and/or endoscopy for further evaluation. [facility], Workstation: [id number], 07/30/2024 9:49 PM
[2024-07-30 22:00] LABS: Appearance,Urine Clear (Clear); Bilirubin,Urine Negative (Negative); Blood,Urine Trace (Negative); Calcium Oxalate Crystals,Urine Rare /hpf; Color,Urine Colorless; Glucose,Urine (UA) Negative (Negative); Ketones,Urine 1+ (Negative); Leukocyte Esterase,Urine Negative (Negative); Mucus,Urine Rare /hpf; Nitrite,Urine Negative (Negative); PH, Urine 6.5 (5.0-8.0); Protein,Urine Trace (Negative); RBC,Urine 1 /hpf (0-5); Specific Gravity,Urine 1.016 (1.001-1.035); Squamous Epithelial Cell,Urine 1 /hpf (0-4); Urobilinogen,Urine <2.0 mg/dL (<2.0); WBC,Urine 2 /hpf (0-5)
[2024-07-30 22:07] LABS: Amphetamine Screen,Urine Not Detected (NotDetected); Barbiturate Screen,Urine Not Detected (NotDetected); Benzodiazepines Screen,Urine Detected (NotDetected); Cocaine Screen,Urine Not Detected (NotDetected); Methadone Screen, Urine Not Detected (NotDetected); Opiate Screen,Urine Not Detected (NotDetected); Oxycodone Screen, Urine Not Detected (NotDetected); Phencyclidine Screen,Urine Not Detected (NotDetected); Tricyclic Antidepressant,Urine Not Detected (NotDetected); Urn Cannabinoid Scrn Not Detected (NotDetected)
[2024-07-30] MEDS: LORazepam 2 MG/ML INJ IV STA (22:45)
--- NOTE | 2024-07-30 22:58 | XR ---
EXAM: XR Chest, 1 View CLINICAL HISTORY: ITS.REASON XR Reason: altered mental status TECHNIQUE: Frontal view of the chest. COMPARISON: No relevant prior studies available. FINDINGS: Lungs: No consolidation. Pleural space: No pleural effusion or pneumothorax. Heart: No cardiomegaly or pulmonary vascular congestion. Bones/joints: No acute fracture. No dislocation. IMPRESSION: No evidence of acute cardiopulmonary disease.
[2024-07-30] MEDS ORDERED: NALOXONE 0.4 MG/ML 1 ML VIAL IV PRN (22:59)
--- NOTE | 2024-07-30 22:59 | ED ---
Altered Mental Status HPI - General Chief Complaint: Altered Mental Status Stated Complaint: AMS Time Seen by Provider: 07/30/24 20:55 Source: EMS Mode of arrival: EMS Limitations: no limitations - History of Present Illness Initial Comments: 73-year-old female with past medical history of diabetes, CVA in 2009 with no residual deficits, hypertension, hyperlipidemia who presents emergency department with altered mental status. According to EMS the patient has been altered since for the past 4-1/2 hours. Last known well around 430 pm. Family had noted that the patient was demonstrating expressive aphasia. Patient would not follow any commands. does arrive to the hospital and states that the patient had cataract surgery on her left eye 2 days ago. She had a follow- up appointment with her brake drum molder today. She had a normal postop visit. Later in the evening the patient began complaining of a headache and pain behind her eye. She then started having some confusion. She wanted to go lay down. The then checked on her and the patient was completely confused with nonsensical speech. EMS was called at this time. Patient does have a history of stroke without residual deficits. She cannot provide any history at this time. She does have expressive aphasia without lateralizing symptoms. reports that she took 4 Tylenol today and typically she does not take any ismu-jlf-sronofp medications. Remainder of HPI is limited - Related Data Home Medications Medication Instructions Recorded Confirmed Aspirin [Adult Low Dose Aspirin EC] 81 mg PO DAILY 11/21/21 07/31/24 Atorvastatin [Lipitor] 80 mg PO DAILY 11/21/21 07/31/24 DULoxetine HCL [Cymbalta] 60 mg PO BID 11/21/21 07/31/24 Omeprazole [PriLOSEC] 40 mg PO DAILY 10/30/23 07/31/24 Dapagliflozin Propanediol [Farxiga] 10 mg PO DAILY 12/06/23 07/31/24 Biotin [Biotin Disolve] 5,000 mcg PO DAILY 07/31/24 07/31/24 Ergocalciferol (Vitamin D2) 1,250 mcg PO Q7D 07/31/24 07/31/24 [Drisdol (50,000 Iu)] Insulin Aspart [NovoLOG Flexpen] 5 units SQ TID 07/31/24 07/31/24 Ketorolac 0.5% Ophth Soln [Acular 1 drops LEFT EYE BID 07/31/24 07/31/24 0.5%] Levothyroxine Sodium [Synthroid] 88 mcg PO DAILY 07/31/24 07/31/24 Tirzepatide [Mounjaro] 10 mg SQ Q7D 07/31/24 07/31/24 lisinopriL [Zestril] 15 mg PO BID 07/31/24 07/31/24 prednisoLONE ACETATE 1% OPHTH 1 drops LEFT EYE BID 07/31/24 07/31/24 [Pred Forte 1%] Allergies Allergy/AdvReac Type Severity Reaction Status Date / Time amoxicillin Allergy Rash/Hives Verified 07/31/24 09:49 Review of Systems ROS Statement: Those systems with pertinent positive or pertinent negative responses have been documented in the HPI. ROS Other: All systems not noted in ROS Statement are negative. Past Medical History Past Medical History: CVA/TIA, Diabetes Mellitus, GERD/Reflux, Hyperlipidemia, Hypertension, Myocardial Infarction ([place]), Sleep Apnea/CPAP/BIPAP, Thyroid Disorder Additional Past Medical History / Comment(s): CVA 2009, NO RESIDUAL EFFECTS, CPAP MACHINE, ARTHRITIS HIPS, ESOPHAGEAL AND DUODENAL ULCER, leg weakness and pain, urinary incontinence. Last Myocardial Infarction Date:: 2007 History of Any Multi-Drug Resistant Organisms: None Reported Past Surgical History: Bariatric Surgery, Heart Catheterization, Hysterectomy, Orthopedic Surgery Additional Past Surgical History / Comment(s): Left ganglion cyst left wrist, lap band placed and removed, abdominoplasty, broken foot repair to left foot with pins, screws and plate, D&C, EGD, Pain Clinic Procedure. Past Anesthesia/Blood Transfusion Reactions: Previous Problems w/ Anesthesia Additional Past Anesthesia/Blood Transfusion Reaction / Comment(s): "Has stopped breathing after procedures"; reintubted once after procedure and SOB after ruiz rgery. Past Psychological History: Depression Smoking Status: Never smoker Past Alcohol Use History: None Reported Past Drug Use History: None Reported - Past Family History Father Family Medical History: Cancer Additional Family Medical History / Comment(s): Colon cancer. Mother Family Medical History: Cancer Additional Family Medical History / Comment(s): Small cell lung cancer. Brother(s) Family Medical History: Cancer Additional Family Medical History / Comment(s): Lung cancer spread to lymph nodes. Sister(s) Family Medical History: Cancer Additional Family Medical History / Comment(s): Small cell lung cancer. General Exam Limitations: altered mental status General appearance: in distress, other (Agitated) Head exam: Present: atraumatic, normocephalic, normal inspection Eye exam: Present: normal appearance, PERRL, other (Patient appears to have neglect to the right. She does have some ecchymosis underneath both eyes). Absent: scleral icterus, conjunctival injection, periorbital swelling ENT exam: Present: normal exam, mucous membranes moist Neck exam: Present: normal inspection. Absent: tenderness, meningismus, lymphadenopathy Respiratory exam: Present: normal lung sounds bilaterally Cardiovascular Exam: Present: regular rate, normal rhythm, normal heart sounds. Absent: systolic murmur, diastolic murmur, rubs, gallop, clicks GI/Abdominal exam: Present: soft, normal bowel sounds. Absent: distended, tenderness, guarding, rebound, rigid Extremities exam: Present: normal inspection, full ROM, normal capillary refill. Absent: tenderness, pedal edema, joint swelling, calf tenderness Neurological exam: Present: altered, other (Patient is agitated, combative. She does not follow any commands. Patient is moving all 4 extremities spontaneously. She has significant expressive aphasia) Psychiatric exam: Present: agitated Skin exam: Present: warm, dry, intact, normal color. Absent: rash Course Vital Signs 07/30/24 07/30/24 07/30/24 20:51 21:29 22:00 Temperature 97.9 F Pulse Rate 94 90 96 Respiratory 24 18 20 Rate Blood Pressure 135/107 130/108 132/117 O2 Sat by Pulse 100 100 100 Oximetry 07/30/24 07/31/24 07/31/24 23:18 05:00 11:00 Temperature Pulse Rate 116 H 93 81 Respiratory 18 18 18 Rate Blood Pressure 200/138 161/95 136/72 O2 Sat by Pulse 98 94 L 100 Oximetry 07/31/24 07/31/24 07/31/24 16:01 18:11 22:21 Temperature 97.7 F 99.1 F Pulse Rate 72 67 82 Respiratory 19 20 19 Rate Blood Pressure 141/84 118/76 141/78 O2 Sat by Pulse 100 98 96 Oximetry 08/01/24 08/01/24 08/01/24 00:45 03:43 06:41 Temperature 98.7 F Pulse Rate 81 69 80 Respiratory 19 18 18 Rate Blood Pressure 150/67 147/54 131/74 O2 Sat by Pulse 97 96 97 Oximetry 08/01/24 08/01/24 08/01/24 09:01 12:59 17:19 Temperature Pulse Rate 64 81 65 Respiratory 18 18 16 Rate Blood Pressure 132/67 134/61 180/76 O2 Sat by Pulse 97 96 95 Oximetry Medical Decision Making - Medical Decision Making Was pt. sent in by a medical professional or institution (, PA, BOX BUILDER, urgent care, hospital, or long-term...) When possible be specific @ -No Did you speak to anyone other than the patient for history (EMS, parent, family, police, friend...)? What history was obtained from this source @ -Spoke with EMS and for history Did you review nursing and triage notes (agree or disagree)? Why? @ -I reviewed and agree with nursing and triage notes Were old charts reviewed (outside hosp., previous admission, EMS record, old EKG, old radiological studies, urgent care reports/EKG's, long-term records)? Report findings @ -No old charts were reviewed Differential Diagnosis (chest pain, altered mental status, abdominal pain women, abdominal pain men, vaginal bleeding, weakness, fever, dyspnea, syncope, headache, dizziness, GI bleed, back pain, seizure, CVA, palpatations, mental health, musculoskeletal)? @ -Differential Altered Mental Status: Hypoglycemia, DKA, hypercapnia, ETOH, overdose, CO poisoning, trauma, myxedema coma, HTN encephalopathy, infection, encephalitis, psychosis, intercranial hemorrhage, hepatic encephalopathy, meningitis, CVA, this is not meant to be an all-inclusive list EKG interpreted by me (3pts min.). @ -Yes and demonstrates sinus rhythm with a rate of 82. Parable 161. QRS 110. QTc of 402. Intraventricular conduction delay. No acute ST segment elevation X-rays interpreted by me (1pt min.). @ -Yes which demonstrates no acute process CT interpreted by me (1pt min.). @ -Yes which demonstrates no acute process U/S interpreted by me (1pt. min.). @ -None done What testing was considered but not performed or refused? (CT, X-rays, U/S, labs)? Why? @ -None What meds were considered but not given or refused? Why? @ -TNKase was considered however patient presents at 4.5 hours from last known well. Patient also had eye surgery 2 days ago Did you discuss the management of the patient with other professionals (professionals i.e. , PA, BOX BUILDER, lab, RT, psych nurse, social science teacher, test operator, teacher, chief green officer, case management associate)? Give summary @ -Dr. Benitez was made aware of the patient - does not recommend TnKase at the patient is at 4.5 hours of last known well. She also has recent eye surgery 2 days ago Was smoking cessation discussed for >3mins.? @ -No Was critical care preformed (if so, how long)? @ -yes, 40 minutes for code thrombolytic Were there social determinants of health that impacted care today? How? (Homelessness, low income, unemployed, alcoholism, drug addiction, transportation, low edu. Level, literacy, decrease access to med. care, half-way, rehab)? @ -No Was there de-escalation of care discussed even if they declined (Discuss DNR or withdrawal of care, Hospice)? DNR status @ -No What co-morbidities impacted this encounter? (DM, HTN, Smoking, COPD, CAD, Cancer, CVA, ARF, Chemo, Hep., AIDS, mental health diagnosis, sleep apnea, morbid obesity)? @ -previous Cva Was patient admitted / discharged? Hospital course, mention meds given and route, prescriptions, significant lab abnormalities, going to OR and other pertinent info. @ -Upon arrival patient seen and evaluated in trauma 1. Thorough history and physical exam was performed. NIH was assessed and is 11. Last known well was 4.5 hours ago. Patient is taken over for CT. Patient is significantly agitated and combative and therefore she does require 5 mg of Versed for sedation. Patient was taken back to the trauma bay where the family does see the patient. Laboratory studies are conducted. Results of the CT and lab results are discussed with the family. Spoke with Dr. Benitez who does not recommend TNKase due to onset of symptoms being 4.5 hours ago. Patient does require every 2 hours dosing of Ativan for her agitation. She does not return to baseline. Family is notified that there is still a high concern for strokelike symptoms. Recommended admission. I spoke with Dr. Church for the admission. Patient was given rectal aspirin. She is awaiting a bed on the floor with a very guarded prognosis Undiagnosed new problem with uncertain prognosis? @ -Yes Drug Therapy requiring intensive monitoring for toxicity (Heparin, Nitro, Insulin, Cardizem)? @ -No Were any procedures done? @ -No Diagnosis/symptom? @ -Acute expressive aphasia, acute encephalopathy, suspected CVA Acute, or Chronic, or Acute on Chronic? @ -Acute Uncomplicated (without systemic symptoms) or Complicated (systemic symptoms)? @ -Complicated Side effects of treatment? @ -No Exacerbation, Progression, or Severe Exacerbation? @ -No Poses a threat to life or bodily function? How? (Chest pain, [place], [place], pneumonia, PE, COPD, DKA, ARF, appy, cholecystitis, CVA, Diverticulitis, Homicidal, Suicidal, threat to staff... and all critical care pts) @ -Yes this patient was significantly altered from her baseline - Lab Data Result diagrams: 08/02/24 05:58 08/02/24 05:58 Lab Results 07/30/24 07/30/24 07/30/24 Range/Units 21:03 21:05 21:05 WBC 8.4 (3.8-10.6) k/uL RBC 4.36 (3.80-5.40) m/uL Hgb 13.1 (11.4-16.0) gm/dL Hct 39.0 (34.0-46.0) % MCV 89.5 (80.0-100.0) fL MCH 30.1 (25.0-35.0) pg MCHC 33.6 (31.0-37.0) g/dL RDW 14.5 (11.5-15.5) % Plt Count 253 (150-450) k/uL MPV 8.4 Neutrophils % 75 % Lymphocytes % 17 % Monocytes % 5 % Eosinophils % 1 % Basophils % 0 % Neutrophils # 6.3 (1.3-7.7) k/uL Lymphocytes # 1.5 (1.0-4.8) k/uL Monocytes # 0.4 (0-1.0) k/uL Eosinophils # 0.1 (0-0.7) k/uL Basophils # 0.0 (0-0.2) k/uL PT 10.6 (10.0-12.5) sec INR 1.0 (<1.2) APTT 18.5 L (22.0-30.0) sec Sodium (137-145) mmol/L Potassium (3.5-5.1) mmol/L Chloride (98-107) mmol/L Carbon Dioxide (22-30) mmol/L Anion Gap mmol/L BUN (7-17) mg/dL Creatinine (0.52-1.04) mg/dL Est GFR (CKD-EPI)AfAm (>60 ml/min/1.73 sqM) Est GFR (CKD-EPI)NonAf (>60 ml/min/1.73 sqM) Glucose (74-99) mg/dL POC Glucose (mg/dL) 164 H (70-110) mg/dL POC Glu Patent Legal Assistant ID [employer] Calcium (8.4-10.2) mg/dL Total Bilirubin (0.2-1.3) mg/dL AST (14-36) U/L ALT (4-34) U/L Alkaline Phosphatase (38-126) U/L Ammonia (<30) umol/L Troponin I (0.000-0.034) ng/mL Total Protein (6.3-8.2) g/dL Albumin (3.5-5.0) g/dL Urine Color Urine Appearance (Clear) Urine pH (5.0-8.0) Ur Specific [place] (1.001-1.035) Urine Protein (Negative) Urine Glucose (UA) (Negative) Urine Ketones (Negative) Urine Blood (Negative) Urine Nitrite (Negative) Urine Bilirubin (Negative) Urine Urobilinogen (<2.0) mg/dL Ur Leukocyte Esterase (Negative) Urine RBC (0-5) /hpf Urine WBC (0-5) /hpf Ur Squamous Epith Cells (0-4) /hpf Calcium Oxalate Crystal (None) /hpf Urine Mucus (None) /hpf Salicylates mg/dL Urine Opiates Screen (NotDetected) Ur Oxycodone Screen (NotDetected) Urine Methadone Screen (NotDetected) Acetaminophen ug/mL Ur Barbiturates Screen (NotDetected) U Tricyclic Antidepress (NotDetected) Ur Phencyclidine Scrn (NotDetected) Ur Amphetamines Screen (NotDetected) U Methamphetamines Scrn (NotDetected) U Benzodiazepines Scrn (NotDetected) Urine Cocaine Screen (NotDetected) U Marijuana (THC) Screen (NotDetected) Serum Alcohol mg/dL 07/30/24 07/30/24 07/30/24 Range/Units 21:05 21:05 21:28 WBC (3.8-10.6) k/uL RBC (3.80-5.40) m/uL Hgb (11.4-16.0) gm/dL Hct (34.0-46.0) % MCV (80.0-100.0) fL MCH (25.0-35.0) pg MCHC (31.0-37.0) g/dL RDW (11.5-15.5) % Plt Count (150-450) k/uL MPV Neutrophils % % Lymphocytes % % Monocytes % % Eosinophils % % Basophils % % Neutrophils # (1.3-7.7) k/uL Lymphocytes # (1.0-4.8) k/uL Monocytes # (0-1.0) k/uL Eosinophils # (0-0.7) k/uL Basophils # (0-0.2) k/uL PT (10.0-12.5) sec INR (<1.2) APTT (22.0-30.0) sec Sodium 139 (137-145) mmol/L Potassium 3.3 L (3.5-5.1) mmol/L Chloride 104 (98-107) mmol/L Carbon Dioxide 20 L (22-30) mmol/L Anion Gap 15 mmol/L BUN 21 H (7-17) mg/dL Creatinine 1.28 H (0.52-1.04) mg/dL Est GFR (CKD-EPI)AfAm 49 (>60 ml/min/1.73 sqM) Est GFR (CKD-EPI)NonAf 42 (>60 ml/min/1.73 sqM) Glucose 178 H (74-99) mg/dL POC Glucose (mg/dL) (70-110) mg/dL POC Glu Patent Legal Assistant ID Calcium 9.9 (8.4-10.2) mg/dL Total Bilirubin 1.5 H (0.2-1.3) mg/dL AST 57 H (14-36) U/L ALT 27 (4-34) U/L Alkaline Phosphatase 108 (38-126) U/L Ammonia <9 (<30) umol/L Troponin I 0.017 (0.000-0.034) ng/mL Total Protein 7.1 (6.3-8.2) g/dL Albumin 4.0 (3.5-5.0) g/dL Urine Color Urine Appearance (Clear) Urine pH (5.0-8.0) Ur Specific [place] (1.001-1.035) Urine Protein (Negative) Urine Glucose (UA) (Negative) Urine Ketones (Negative) Urine Blood (Negative) Urine Nitrite (Negative) Urine Bilirubin (Negative) Urine Urobilinogen (<2.0) mg/dL Ur Leukocyte Esterase (Negative) Urine RBC (0-5) /hpf Urine WBC (0-5) /hpf Ur Squamous Epith Cells (0-4) /hpf Calcium Oxalate Crystal (None) /hpf Urine Mucus (None) /hpf Salicylates <1.0 mg/dL Urine Opiates Screen (NotDetected) Ur Oxycodone Screen (NotDetected) Urine Methadone Screen (NotDetected) Acetaminophen <10.0 ug/mL Ur Barbiturates Screen (NotDetected) U Tricyclic Antidepress (NotDetected) Ur Phencyclidine Scrn (NotDetected) Ur Amphetamines Screen (NotDetected) U Methamphetamines Scrn (NotDetected) U Benzodiazepines Scrn (NotDetected) Urine Cocaine Screen (NotDetected) U Marijuana (THC) Screen (NotDetected) Serum Alcohol <10 mg/dL 07/30/24 Range/Units 21:47 WBC (3.8-10.6) k/uL RBC (3.80-5.40) m/uL Hgb (11.4-16.0) gm/dL Hct (34.0-46.0) % MCV (80.0-100.0) fL MCH (25.0-35.0) pg MCHC (31.0-37.0) g/dL RDW (11.5-15.5) % Plt Count (150-450) k/uL MPV Neutrophils % % Lymphocytes % % Monocytes % % Eosinophils % % Basophils % % Neutrophils # (1.3-7.7) k/uL Lymphocytes # (1.0-4.8) k/uL Monocytes # (0-1.0) k/uL Eosinophils # (0-0.7) k/uL Basophils # (0-0.2) k/uL PT (10.0-12.5) sec INR (<1.2) APTT (22.0-30.0) sec Sodium (137-145) mmol/L Potassium (3.5-5.1) mmol/L Chloride (98-107) mmol/L Carbon Dioxide (22-30) mmol/L Anion Gap mmol/L BUN (7-17) mg/dL Creatinine (0.52-1.04) mg/dL Est GFR (CKD-EPI)AfAm (>60 ml/min/1.73 sqM) Est GFR (CKD-EPI)NonAf (>60 ml/min/1.73 sqM) Glucose (74-99) mg/dL POC Glucose (mg/dL) (70-110) mg/dL POC Glu Patent Legal Assistant ID Calcium (8.4-10.2) mg/dL Total Bilirubin (0.2-1.3) mg/dL AST (14-36) U/L ALT (4-34) U/L Alkaline Phosphatase (38-126) U/L Ammonia (<30) umol/L Troponin I (0.000-0.034) ng/mL Total Protein (6.3-8.2) g/dL Albumin (3.5-5.0) g/dL Urine Color Colorless Urine Appearance Clear (Clear) Urine pH 6.5 (5.0-8.0) Ur Specific [place] 1.016 (1.001-1.035) Urine Protein Trace H (Negative) Urine Glucose (UA) Negative (Negative) Urine Ketones 1+ H (Negative) Urine Blood Trace H (Negative) Urine Nitrite Negative (Negative) Urine Bilirubin Negative (Negative) Urine Urobilinogen <2.0 (<2.0) mg/dL Ur Leukocyte Esterase Negative (Negative) Urine RBC 1 (0-5) /hpf Urine WBC 2 (0-5) /hpf Ur Squamous Epith Cells 1 (0-4) /hpf Calcium Oxalate Crystal Rare H (None) /hpf Urine Mucus Rare H (None) /hpf Salicylates mg/dL Urine Opiates Screen Not Detected (NotDetected) Ur Oxycodone Screen Not Detected (NotDetected) Urine Methadone Screen Not Detected (NotDetected) Acetaminophen ug/mL Ur Barbiturates Screen Not Detected (NotDetected) U Tricyclic Antidepress Not Detected (NotDetected) Ur Phencyclidine Scrn Not Detected (NotDetected) Ur Amphetamines Screen Not Detected (NotDetected) U Methamphetamines Scrn Not Detected (NotDetected) U Benzodiazepines Scrn Detected H (NotDetected) Urine Cocaine Screen Not Detected (NotDetected) U Marijuana (THC) Screen Not Detected (NotDetected) Serum Alcohol mg/dL Disposition Clinical Impression: CVA (cerebral vascular accident), Expressive aphasia, Dysarthria Disposition[facility] Condition: Serious Is patient prescribed a controlled substance at d/c from ED?: No Time of Disposition: 22:59 Decision to Admit Reason: Admit from EC Decision Date: 07/30/24 Decision Time: 22:59
[2024-07-30] MEDS: ASPIRIN 300 MG SUPP RECTAL SCH (23:15)
[2024-07-31] MEDS ORDERED: LORazepam 2 MG/ML INJ IV PRN (00:39)
[2024-07-31] MEDS: MIDAZOLAM 2 MG/2 ML VIAL IV STA (01:12)
[2024-07-31] MEDS: prednisoLONE ACETATE 1% OPHTH DROPS 5 ML BTL LEFT EYE SCH (01:13)
[2024-07-31] MEDS: MORPHINE SULFATE 4 MG/ML SYRINGE IV PRN (02:28)
[2024-07-31 06:01] LABS: Glucose,Whole Blood 182 mg/dL (70-110)
[2024-07-31 07:54] LABS: African American GFR (CKD) 46 (>60 ml/min/1.73 sqM); Anion Gap 14 mmol/L; Blood Urea Nitrogen 21 mg/dL (7-17); Calcium 9.7 mg/dL (8.4-10.2); Carbon Dioxide 17 mmol/L (22-30); Chloride 106 mmol/L (98-107); Glucose 176 mg/dL (74-99); Non-African American GFR(CKD) 40 (>60 ml/min/1.73 sqM); Potassium 3.6 mmol/L (3.5-5.1); Sodium 137 mmol/L (137-145)
[2024-07-31 08:24] LABS: Basophils % (A) 1 %; Eosinophils % (A) 0 %; HCT 39.4 % (34.0-46.0); HGB 12.6 gm/dL (11.4-16.0); Lymphocytes # (A) 1.3 k/uL (1.0-4.8); Lymphocytes % (A) 15 %; MCH 29.8 pg (25.0-35.0); Mean Platelet Volume 8.1; Monocytes # (A) 0.5 k/uL (0-1.0); Monocytes % (A) 6 %; Neutrophils # (A) 6.9 k/uL (1.3-7.7); Neutrophils % (A) 78 %; Platelet Count 238 k/uL (150-450); RBC 4.24 m/uL (3.80-5.40); RDW 15.1 % (11.5-15.5); WBC 8.9 k/uL (3.8-10.6)
--- NOTE | 2024-07-31 09:38 | US ---
EXAMINATION TYPE: US carotid duplex BILAT DATE OF EXAM: 07/31/2024 COMPARISON: CT 2024 CLINICAL INDICATION: Female, 73 years old with history of Altered mental status changes, rule out CVA ; TECHNIQUE: Grayscale, color Doppler and spectral Doppler evaluation of the bilateral carotid systems and vertebral arteries. Indirect Doppler criteria was utilized. FINDINGS: EXAM MEASUREMENTS: RIGHT: Peak Systolic Velocity (PSV) cm/sec ----- Right CCA: 69.9 ----- Right ICA: 123.6 ----- Right ECA: 130.8 ICA/CCA ratio: 1.8 RIGHT: End Diastole cm/sec ----- Right CCA: 8.4 ----- Right ICA: 18.2 ----- Right ECA: 0.0 LEFT: Peak Systolic Velocity (PSV) cm/sec ----- Left CCA: 55.1 ----- Left ICA: 81.0 ----- Left ECA: 123.1 ICA/CCA ratio: 1.5 LEFT: End Diastole cm/sec ----- Left CCA: 7.0 ----- Left ICA: 15.5 ----- Left ECA: 4.9 VERTEBRALS (direction of flow): Right Vertebral: Antegrade Left Vertebral: Antegrade Rhythm: Normal IMPRESSION: no evidence for hemodynamically significant stenosis Criteria for Assigning % of Stenosis / Diameter reduction (Estimation based on the indirect measurements of the internal carotid artery velocities (ICA PSV). 1. Normal (no stenosis)=ICA PSV < 125 cm/s: ratio < 2.0: ICA EDV<40 cm/s. 2. Less than 50% stenosis=ICA PSV < 125 cm/s: ratio < 2.0: ICA EDV<40 cm/s. 3. 50 to 69% stenosis=ICA PSV of 125 to 230 cm/s: ration 2.0 ? 4.0: ICA EDV 40-100 cm/s. 4. Greater than 70% stenosis to near occlusion= ICA PSV > 230 cm/s: ratio > 4.0: ICA EDV > 100 cm/s. 5. Near occlusion= ICA PSV velocities may be low or undetectable: variable ratio and ICA EDV. 6. Total occlusion=unable to detect flow. [facility], , 07/31/2024 9:36 AM
[2024-07-31] MEDS: SODIUM CHLORIDE 0.9% 1,000 ML IV SCH (11:15)
--- NOTE | 2024-07-31 12:24 | P.GSCN ---
History of Present Illness Consult date: 07/31/24 Reason for Consult: Carotid stenosis Requesting physician: Kaylah Byers History of present illness: This is a 73-year-old female who apparently was brought into the hospital for altered mental status changes. History is being obtained from the chart as patient is alert and oriented to self only. Past medical history includes history of CVA in 2009 with reported no residual effects, diabetes mellitus, GERD, hyperlipidemia, hypertension, myocardial infarction, sleep apnea and thyroid disease. Unclear of patient's symptoms which had brought her in as there is no documentation from the ED report. There is no family present at the bedside. When entering patient's room she was standing up with her Nicole rae ter wrapped around her very disoriented. Patient would respond to her name however when asked what her last name was she was unable to state that or her birthdate. She did not know where she was at. Patient was not following any commands. She had a brain CT with no acute findings. She had a CT angiogram head and neck that reported 50 to 60% stenosis of the right proximal internal carotid artery secondary to plaque. Vascular surgery was consulted for carotid stenosis. Review of Systems ROS unobtainable: due to mental status Past Medical History Past Medical History: CVA/TIA, Diabetes Mellitus, GERD/Reflux, Hyperlipidemia, Hypertension, Myocardial Infarction (MS), Sleep Apnea/CPAP/BIPAP, Thyroid Disorder Additional Past Medical History / Comment(s): CVA 2009, NO RESIDUAL EFFECTS, CPAP MACHINE, ARTHRITIS HIPS, ESOPHAGEAL AND DUODENAL ULCER, leg weakness and pain, urinary incontinence. Last Myocardial Infarction Date:: 2007 History of Any Multi-Drug Resistant Organisms: None Reported Past Surgical History: Bariatric Surgery, Heart Catheterization, Hysterectomy, Orthopedic Surgery Additional Past Surgical History / Comment(s): Left ganglion cyst left wrist, lap band placed and removed, abdominoplasty, broken foot repair to left foot with pins, screws and plate, D&C, EGD, Pain Clinic Procedure. Past Anesthesia/Blood Transfusion Reactions: Previous Problems w/ Anesthesia Additional Past Anesthesia/Blood Transfusion Reaction / Comm: "Has stopped breathing after procedures"; reintubted once after procedure and SOB after ruiz rgery. Past Psychological History: Depression Smoking Status: Never smoker Past Alcohol Use History: None Reported Past Drug Use History: None Reported - Past Family History Father Family Medical History: Cancer Additional Family Medical History / Comment(s): Colon cancer. Mother Family Medical History: Cancer Additional Family Medical History / Comment(s): Small cell lung cancer. Brother(s) Family Medical History: Cancer Additional Family Medical History / Comment(s): Lung cancer spread to lymph nodes. Sister(s) Family Medical History: Cancer Additional Family Medical History / Comment(s): Small cell lung cancer. Medications and Allergies Home Medications Medication Instructions Recorded Confirmed Type Aspirin [Adult Low Dose Aspirin EC] 81 mg PO DAILY 11/21/21 07/31/24 History Atorvastatin [Lipitor] 80 mg PO DAILY 11/21/21 07/31/24 History DULoxetine HCL [Cymbalta] 60 mg PO BID 11/21/21 07/31/24 History Omeprazole [PriLOSEC] 40 mg PO DAILY 10/30/23 07/31/24 History Dapagliflozin Propanediol [Farxiga] 10 mg PO DAILY 12/06/23 07/31/24 History Biotin [Biotin Disolve] 5,000 mcg PO DAILY 07/31/24 07/31/24 History Ergocalciferol (Vitamin D2) 1,250 mcg PO Q7D 07/31/24 07/31/24 History [Drisdol (50,000 Iu)] Insulin Aspart [NovoLOG Flexpen] 5 units SQ TID 07/31/24 07/31/24 History Ketorolac 0.5% Ophth Soln [Acular 1 drops LEFT EYE BID 07/31/24 07/31/24 History 0.5%] Levothyroxine Sodium [Synthroid] 88 mcg PO DAILY 07/31/24 07/31/24 History Tirzepatide [Mounjaro] 10 mg SQ Q7D 07/31/24 07/31/24 History lisinopriL [Zestril] 15 mg PO BID 07/31/24 07/31/24 History prednisoLONE ACETATE 1% OPHTH 1 drops LEFT EYE BID 07/31/24 07/31/24 History [Pred Forte 1%] Allergies Allergy/AdvReac Type Severity Reaction Status Date / Time amoxicillin Allergy Rash/Hives Verified 07/31/24 09:49 Surgical - Exam Vital Signs Temp Pulse Resp BP Pulse Ox 97.9 F 94 24 135/107 100 07/30/24 20:51 07/30/24 20:51 07/30/24 20:51 07/30/24 20:51 07/30/24 20:51 General appearance: The patient is alert, oriented to self, disoriented. HET: Head is normocephalic and atraumatic. Pupils are equal and reactive. Neck: Supple. No audible carotid bruit. Heart: Regular. Lungs: Equal expansion, normal respiratory effort. Abdomen: Soft, nontender, nondistended. Extremities: Normal skin color and turgor. Neurological: Patient is disoriented, confused. Was found standing at end of bed with multiple monitors on. Alert and oriented to first name. Was not following any commands. Results - Labs 07/31/24 07:13 07/31/24 07:13 Abnormal Lab Results - Last 24 Hours (Table) 07/30/24 07/30/24 07/30/24 Range/Units 21:03 21:05 21:05 APTT 18.5 L (22.0-30.0) sec Potassium 3.3 L (3.5-5.1) mmol/L Carbon Dioxide 20 L (22-30) mmol/L BUN 21 H (7-17) mg/dL Creatinine 1.28 H (0.52-1.04) mg/dL Glucose 178 H (74-99) mg/dL POC Glucose (mg/dL) 164 H (70-110) mg/dL Total Bilirubin 1.5 H (0.2-1.3) mg/dL AST 57 H (14-36) U/L Urine Protein (Negative) Urine Ketones (Negative) Urine Blood (Negative) Calcium Oxalate Crystal (None) /hpf Urine Mucus (None) /hpf U Benzodiazepines Scrn (NotDetected) 07/30/24 07/31/24 07/31/24 Range/Units 21:47 05:59 07:13 APTT (22.0-30.0) sec Potassium (3.5-5.1) mmol/L Carbon Dioxide 17 L (22-30) mmol/L BUN 21 H (7-17) mg/dL Creatinine 1.35 H (0.52-1.04) mg/dL Glucose 176 H (74-99) mg/dL POC Glucose (mg/dL) 182 H (70-110) mg/dL Total Bilirubin (0.2-1.3) mg/dL AST (14-36) U/L Urine Protein Trace H (Negative) Urine Ketones 1+ H (Negative) Urine Blood Trace H (Negative) Calcium Oxalate Crystal Rare H (None) /hpf Urine Mucus Rare H (None) /hpf U Benzodiazepines Scrn Detected H (NotDetected) Diabetes panel 07/30/24 07/31/24 Range/Units 21:05 07:13 Sodium 139 137 (137-145) mmol/L Potassium 3.3 L 3.6 (3.5-5.1) mmol/L Chloride 104 106 (98-107) mmol/L Carbon Dioxide 20 L 17 L (22-30) mmol/L BUN 21 H 21 H (7-17) mg/dL Creatinine 1.28 H 1.35 H (0.52-1.04) mg/dL Glucose 178 H 176 H (74-99) mg/dL Calcium 9.9 9.7 (8.4-10.2) mg/dL AST 57 H (14-36) U/L ALT 27 (4-34) U/L Alkaline Phosphatase 108 (38-126) U/L Total Protein 7.1 (6.3-8.2) g/dL Albumin 4.0 (3.5-5.0) g/dL Calcium panel 07/30/24 07/31/24 Range/Units 21:05 07:13 Calcium 9.9 9.7 (8.4-10.2) mg/dL Albumin 4.0 (3.5-5.0) g/dL Pituitary panel 07/30/24 07/31/24 Range/Units 21:05 07:13 Sodium 139 137 (137-145) mmol/L Potassium 3.3 L 3.6 (3.5-5.1) mmol/L Chloride 104 106 (98-107) mmol/L Carbon Dioxide 20 L 17 L (22-30) mmol/L BUN 21 H 21 H (7-17) mg/dL Creatinine 1.28 H 1.35 H (0.52-1.04) mg/dL Glucose 178 H 176 H (74-99) mg/dL Calcium 9.9 9.7 (8.4-10.2) mg/dL Adrenal panel 07/30/24 07/31/24 Range/Units 21:05 07:13 Sodium 139 137 (137-145) mmol/L Potassium 3.3 L 3.6 (3.5-5.1) mmol/L Chloride 104 106 (98-107) mmol/L Carbon Dioxide 20 L 17 L (22-30) mmol/L BUN 21 H 21 H (7-17) mg/dL Creatinine 1.28 H 1.35 H (0.52-1.04) mg/dL Glucose 178 H 176 H (74-99) mg/dL Calcium 9.9 9.7 (8.4-10.2) mg/dL Total Bilirubin 1.5 H (0.2-1.3) mg/dL AST 57 H (14-36) U/L ALT 27 (4-34) U/L Alkaline Phosphatase 108 (38-126) U/L Total Protein 7.1 (6.3-8.2) g/dL Albumin 4.0 (3.5-5.0) g/dL - Imaging Comments: CT angiogram head and neck reports approximately 50 to 60% stenosis of the right proximal internal carotid artery due to calcified plaque. No evidence of flow-limiting stenosis in the left common carotid or internal carotid artery. No evidence of intracranial high-grade stenosis or intracranial aneurysm. Partially visualized bulky mediastinal and hilar lymphadenopathy with wall thickening of the thoracic esophagus highly suspicious for malignancy. Recommend CT chest with IV contrast and or endoscopy for further evaluation. Brain CT with no acute intracranial process Assessment and Plan Assessment: 1. Altered mental status changes 2. No evidence of hemodynamically significant stenosis in bilateral internal carotid arteries 3. History of prior CVA 4. Hypertension 5. Hyperlipidemia 6. Diabetes mellitus Plan: 1. Continue symptomatic and supportive care 2. Discussed with primary care physician recommend sitter at bedside for patient's safety CT angiogram head and neck imaging independently reviewed, right internal carotid artery stenosis closer to 50%. Carotid duplex ordered and reviewed. Again right ICA stenosis more consistent with less than 50% stenosis. Carotid duplex reports no hemodynamically significant stenosis. Continue with workup from medical team. No indication for any vascular surgical intervention. Patient can follow-up as an outpatient with vascular surgery. Thank you for this consultation, we will sign off at this time. The impression and plan of care has been dictated as directed. Dr. Nicole I performed a history and examination of this patient, discussed the same with the dictator. I agree with the dictator's note ,documented as a scribe. Any additional findings or plans will be noted.
[2024-07-31 13:09] LABS: Chol/HDL Ratio 2.62 Ratio; LDL Cholesterol,Calculated 57.2 mg/dL (0.0-131.0)
--- NOTE | 2024-07-31 13:29 | P.HPIM ---
History of Present Illness H&P Date: 07/31/24 Chief Complaint: Acute CVA HISTORY OF PRESENT ILLNESS: This is a 73-year-old female with a previous medical history significant for hypertension and hypertensive cardiovascular disease, mixed hyperlipidemia, diabetes mellitus type 2, insulin requiring, diabetic po lyneuropathy, chronic kidney disease stage IIIb, has been under the care of nephrology, history of hypothyroidism, history of GERD with esophagitis, history of major depressive disorder, patient was brought into the emergency department at [facility] last night because of increased confusion with slurred speech and patient not able to respond very well, initially she was quite combative and agitated in the emergency department, she did receive quite a bit of medication to try to calm her down, she underwent CT scan of the brain without contrast that was negative for acute infarct or bleed, she underwent CT angiography of the carotid and the brain, that was negative as well I did show evidence about 50 to 60% stenosis of the right internal carotid artery, because of the presentation patient was admitted to the hospital for suspicious of an acute ischemic event, she was started on Plavix 75 mg once every day, she was admitted to the hospital with neurology consultation, she was also started on IV fluid resuscitation in the form of normal saline at 100 cc an hour, monitor the patient very closely, neurocheck [id number], she will be admitted to telemetry unit. REVIEW OF SYSTEMS: Constitutional: No documented fever, no chills, no night sweats. No weight change. No weakness, fatigue or lethargy. No daytime sleepiness. EENT: No headache. No blurred vision or double vision, no loss of vision. No loss of Hearing, no ringing in the ears, no dizziness. No nasal drainage or congestion. No epistaxis. No sore throat. Lungs: No shortness of breath, no cough, no sputum production. No wheezing. Reports dyspnea with activity. Cardiovascular: No chest pain, no lower extremity edema. No palpitations. No paroxysmal nocturnal dyspnea. No orthopnea. No lightheadedness or dizziness. No syncopal episodes. Abdominal: Reports no abdominal pain. No nausea, vomiting. No diarrhea. No constipation. No bloody or tarry stools reports loss of appetite. Genitourinary: No dysuria, increased frequency, urgency. No urinary retention. Musculoskeletal: No myalgias. No muscle weakness, no gait dysfunction, no frequent falls. No back pain. No neck pain. Integumentary: No wounds, no lesions. No rash or pruritus. No unusual bruising. No change in hair or nails. Neurologic: No aphasia. No facial droop. positive for change in mentation. No head injury. No headache. No paralysis. No paresthesia. Psychiatric: positive for depression. positive for anxiety. No mood swings. Endocrine: No abnormal blood sugars. No weight change. PAST MEDICAL HISTORY: Hypertension and hypertensive cardiovascular disease. Mixed hyperlipidemia. Diabetes mellitus type 2. Diabetic polyneuropathy. Hypothyroidism. Major depressive disorder. GERD with esophagitis. Chronic kidney disease stage IIIb. Wooten esophagus PAST SURGICAL HISTORY: Lap band placement and removal. Tummy tuck. Lap band insertion. Partial hysterectomy. Left wrist ganglionic cyst removed EGD and colonoscopy 01/22/2017 EGD colonoscopy 11/24/2021 Hernia surgery 07/03/2022 Bilateral cataract surgery last 1 was on Sunday of the left eye. EGD/Colonoscoopy 03/10/2024 SOCIAL HISTORY: Patient is a lifelong non-smoker, she drinks occasionally, she denies any drug use or abuse, she was with her . FAMILY HISTORY: Father at age 66 from colon cancer with metastatic disease to the brain, m other at age 73 from lung cancer and had diabetes and hypertension, patient has 1 brother with lung cancer and had tracheostomy patient has 4 sisters 1 with DVTs, 1 with diabetes on insulin, and the third 1 with diabetes as well, patient has 1 son who lives with them and is healthy. PHYSICAL EXAMINATION: General: 73-year-old female laying down in bed appears to be confused at the time. HEENT: Head is atraumatic, normocephalic, pupils were equal round reactive to light and recommendation, extraocular muscle movement were intact, sclera nonicteric, conjunctivae were pale, mucous membranes of the mouth are somewhat dry. Neck: Supple, no JVP, normal carotid upstroke bilaterally, no lymphadenopathy. Chest: Decreased breath sounds at the bases, few rhonchi, no expiratory wheezes, no chest wall tenderness, no intercostal retractions. Heart: First heart sound is normal, second heart sounds normal Abdomen: Soft, nontender, nondistended, positive bowel sounds. Extremities: There is no edema no calf tenderness DP +2 bilaterally. Neurologic examination: Patient is awake alert and oriented x1, cranial nerves II-12 appear grossly intact, muscle power were 4 out of 5 in upper extremities and 4 out of 5 in bilateral lower extremities, deep tendon reflexes normal bilaterally, Babinski's were flexor bilaterally. [id number] and [id number] could not be performed as the patient is not able to follow much commands. ASSESSMENT AND PLAN: 1. Acute metabolic encephalopathy likely due to ischemic cerebrovascular accident. Initial CT scan of the brain is negative, CT angiography showed evidence of 69% stenosis of the right internal carotid artery, continue neurocheck, continue IV fluid resuscitation in the form of normal saline at 100 cc an hour, monitor the patient blood pressure very closely, permissive hypertension, MRI of the brain with and without juanito, echocardiogram, neurology consultation, start the patient on aspirin 300 mg rectally once every day, will switch to oral aspirin 81 g once a day as well as Plavix 75 mg once every day, continue patient on atorvastatin 80 mg once every day, monitor lipid panel, keep LDL 55-70, physical therapy evaluation, speech therapy evaluation as well, also certified social workers in health care consultation for discharge planning. 2. Hypertension and hypertensive cardiovascular disease. Continue patient on lisinopril 15 mg orally twice every day, continue monitor the patient blood pressure very closely, 3. Mixed hyperlipidemia. Continue patient on atorvastatin 80 mg once every day, monitor lipid panel, keep LDL 55-70. 4. Diabetes mellitus type 2. Continue patient on sliding scale insulin for now, discontinue Mounjaro for now. 5. Hypothyroidism. Continue patient on levothyroxine 88 mcg orally once every day, 6. GERD with esophagitis and Wooten esophagus Continue patient on pantoprazole 40 mg orally once every day.Last EGD 03/10/2024 7. Moderate right ICA disease. Vascular surgery consultation continue aspirin Plavix atorvastatin 80 mg once every day, keep LDL 55-70. 8. DVT prophylaxis. Lovenox 40 mg subcutaneous every 24 hours. 9. GI prophylaxis. Continue patient on PPI. 10. Admit to inpatient. Estimated length of stay 2 midnights. 11. Patient is full code Past Medical History Past Medical History: CVA/TIA, Diabetes Mellitus, GERD/Reflux, Hyperlipidemia, Hypertension, Myocardial Infarction (CT), Sleep Apnea/CPAP/BIPAP, Thyroid Disorder Additional Past Medical History / Comment(s): CVA 2009, NO RESIDUAL EFFECTS, CPAP MACHINE, ARTHRITIS HIPS, ESOPHAGEAL AND DUODENAL ULCER, leg weakness and pain, urinary incontinence. Last Myocardial Infarction Date:: 2007 History of Any Multi-Drug Resistant Organisms: None Reported Past Surgical History: Bariatric Surgery, Heart Catheterization, Hysterectomy, Orthopedic Surgery Additional Past Surgical History / Comment(s): Left ganglion cyst left wrist, lap band placed and removed, abdominoplasty, broken foot repair to left foot with pins, screws and plate, D&C, EGD, Pain Clinic Procedure. Past Anesthesia/Blood Transfusion Reactions: Previous Problems w/ Anesthesia Additional Past Anesthesia/Blood Transfusion Reaction / Comment(s): "Has stopped breathing after procedures"; reintubted once after procedure and SOB after surgery. Past Psychological History: Depression Smoking Status: Never smoker Past Alcohol Use History: None Reported Past Drug Use History: None Reported - Past Family History Father Family Medical History: Cancer Additional Family Medical History / Comment(s): Colon cancer. Mother Family Medical History: Cancer Additional Family Medical History / Comment(s): Small cell lung cancer. Brother(s) Family Medical History: Cancer Additional Family Medical History / Comment(s): Lung cancer spread to lymph nodes. Sister(s) Family Medical History: Cancer Additional Family Medical History / Comment(s): Small cell lung cancer. Medications and Allergies Home Medications Medication Instructions Recorded Confirmed Type Aspirin [Adult Low Dose Aspirin EC] 81 mg PO DAILY 11/21/21 07/31/24 History Atorvastatin [Lipitor] 80 mg PO DAILY 11/21/21 07/31/24 History DULoxetine HCL [Cymbalta] 60 mg PO BID 11/21/21 07/31/24 History Omeprazole [PriLOSEC] 40 mg PO DAILY 10/30/23 07/31/24 History Dapagliflozin Propanediol [Farxiga] 10 mg PO DAILY 12/06/23 07/31/24 History Biotin [Biotin Disolve] 5,000 mcg PO DAILY 07/31/24 07/31/24 History Ergocalciferol (Vitamin D2) 1,250 mcg PO Q7D 07/31/24 07/31/24 History [Drisdol (50,000 Iu)] Insulin Aspart [NovoLOG Flexpen] 5 units SQ TID 07/31/24 07/31/24 History Ketorolac 0.5% Ophth Soln [Acular 1 drops LEFT EYE BID 07/31/24 07/31/24 History 0.5%] Levothyroxine Sodium [Synthroid] 88 mcg PO DAILY 07/31/24 07/31/24 History Tirzepatide [Mounjaro] 10 mg SQ Q7D 07/31/24 07/31/24 History lisinopriL [Zestril] 15 mg PO BID 07/31/24 07/31/24 History prednisoLONE ACETATE 1% OPHTH 1 drops LEFT EYE BID 07/31/24 07/31/24 History [Pred Forte 1%] Allergies Allergy/AdvReac Type Severity Reaction Status Date / Time amoxicillin Allergy Rash/Hives Verified 07/31/24 09:49 Physical Exam Vitals: Vital Signs Temp Pulse Resp BP Pulse Ox 07/31/24 11:00 81 18 136/72 100 07/31/24 05:00 93 18 161/95 94 L 07/30/24 23:18 116 H 18 200/138 98 07/30/24 22:00 96 20 132/117 100 07/30/24 21:29 90 18 130/108 100 07/30/24 20:51 97.9 F 94 24 135/107 100 Intake and Output 07/30/24 07/31/24 07/31/24 22:59 06:59 14:59 Output Total 400 Balance -400 Output: Urine 400 Straight 400 Other: Weight 80.739 kg Results CBC & Chem 7: 08/02/24 05:58 08/02/24 05:58 Labs: Abnormal Lab Results - Last 24 Hours (Table) 07/30/24 07/30/24 07/30/24 Range/Units 21:03 21:05 21:05 APTT 18.5 L (22.0-30.0) sec Potassium 3.3 L (3.5-5.1) mmol/L Carbon Dioxide 20 L (22-30) mmol/L BUN 21 H (7-17) mg/dL Creatinine 1.28 H (0.52-1.04) mg/dL Glucose 178 H (74-99) mg/dL POC Glucose (mg/dL) 164 H (70-110) mg/dL Total Bilirubin 1.5 H (0.2-1.3) mg/dL AST 57 H (14-36) U/L Urine Protein (Negative) Urine Ketones (Negative) Urine Blood (Negative) Calcium Oxalate Crystal (None) /hpf Urine Mucus (None) /hpf U Benzodiazepines Scrn (NotDetected) 07/30/24 07/31/24 07/31/24 Range/Units 21:47 05:59 07:13 APTT (22.0-30.0) sec Potassium (3.5-5.1) mmol/L Carbon Dioxide 17 L (22-30) mmol/L BUN 21 H (7-17) mg/dL Creatinine 1.35 H (0.52-1.04) mg/dL Glucose 176 H (74-99) mg/dL POC Glucose (mg/dL) 182 H (70-110) mg/dL Total Bilirubin (0.2-1.3) mg/dL AST (14-36) U/L Urine Protein Trace H (Negative) Urine Ketones 1+ H (Negative) Urine Blood Trace H (Negative) Calcium Oxalate Crystal Rare H (None) /hpf Urine Mucus Rare H (None) /hpf U Benzodiazepines Scrn Detected H (NotDetected)
--- NOTE | 2024-07-31 14:38 | P.CNNES ---
History of Present Illness Consult date: 07/31/24 Requesting physician: Kaylah Byers Reason for Consult: acute encephalopathy, expressive aphasia, suspected cva History of Present Illness: Patient is a 73-year-old left-handed female, with history of hypertension, diabetes, recent underwent bilateral cataract surgery, came to the hospital by ambulance yesterday at 8:49 PM for speech difficulty. Patient's and patient's sister were both present, who provided mostly with a history. Yesterday she was at her home in her bed and was talking as usual. At around 4:30 PM, she became confused, feeling very tired, and by 5:30 PM, started talking gibberish. She would say "it hurts", but could not tell what it was. She did have a headache, but it went away in 2 hours. There was no facial droop or any focal weakness reported. As per EMS flowsheet when they arrived, found patient sitting by the doorway at the garage, incomprehensible speech, alert and orient x 0 with GCS of 10. Family on the scene reported that she is not making sense and she is normally "sharp as a tack". Patient was not able to follow directions to check for stroke scale. Patient would go from alert, to alert to verbal, and occasionally would look at EMS when her name was said, but not always. Patient has bilateral black eyes, family reported she just had cataract surgery 2 days ago in [place]. She has history of an MO and a stroke and does not take any blood thinners that family is aware of. Patient's last known normal was 4 hours prior, per the patient's . He mentioned that he gave her 2 Tylenol a little while before EMS was called because she was not feeling well. Patient has scripts of Tylenol with codeine and hydrocodone. Patient was assisted to her feet and walked a few steps to the stretcher with assistance and was placed on the stretcher. Patient did proceed to vomit about 500 cc all over EMS, the stretcher and onto the garage floor. Blood glucose 178. Pupils were equal at 2 mm. Patient would withdraw from pain and would groan loudly at EMS occasionally. Patient would occasionally say "all right", or "okay" and it would sound normal. Everything patient stated besides was garbled and did not makes any sense. Her blood pressure was 156/126, pulse rate 119, respiration 24 saturation 98% and blood glucose 178. Patient has been afebrile, blood pressure 135/107. Blood test shows normal CBC, PT PTT, sodium 139 potassium 3.3 BUN 21 creatinine 1.28. AST is 57, with ALT normal 27. UA negative. Urine drug screen positive for benzodiazepine. Blood alcohol level negative. CT head showed no acute intracranial process. I personally reviewed CT head, agree with the findings. Chest x-ray showed no evidence of acute cardiopulmonary disease. EKG showed sinus rhythm with occasional supraventricular premature complexes. Patient's family mentioned that she had a similar episode about 2 months ago when she was at the office of Dr. Peacock for hiatal hernia, when while at her office, she became acutely confused, could not understand what he was talking. She was talking gibberish. It lasted about 30 minutes and then went away. She did not seek any medical attention for that. Patient has history of hypertension, diabetes for last 10 to 15 years. Also has CAD, depression, has never smoked, does not drink alcohol. Home medications include Lipitor 80 mg, aspirin 81 mg, Cymbalta 60 mg twice daily, omeprazole, Farxiga levothyroxine, D insulin, lisinopril, Mounjaro. Patient is compliant with her medications. Family mentioned that patient has history of a stroke 10 years ago, with no residual deficits. No history of seizures. Patient was not a candidate for TNK, because she came 4 hours, 15 minutes after onset of symptoms. Review of Systems All pertinent positive and negative review of systems mentioned in the HPI. Past Medical History Past Medical History: CVA/TIA, Diabetes Mellitus, GERD/Reflux, Hyperlipidemia, Hypertension, Myocardial Infarction (MO), Sleep Apnea/CPAP/BIPAP, Thyroid Disor leandra Additional Past Medical History / Comment(s): CVA 2009, NO RESIDUAL EFFECTS, CPAP MACHINE, ARTHRITIS HIPS, ESOPHAGEAL AND DUODENAL ULCER, leg weakness and pain, urinary incontinence. Last Myocardial Infarction Date:: 2007 History of Any Multi-Drug Resistant Organisms: None Reported Past Surgical History: Bariatric Surgery, Heart Catheterization, Hysterectomy, Orthopedic Surgery Additional Past Surgical History / Comment(s): Left ganglion cyst left wrist, lap band placed and removed, abdominoplasty, broken foot repair to left foot with pins, screws and plate, D&C, EGD, Pain Clinic Procedure. Past Anesthesia/Blood Transfusion Reactions: Previous Problems w/ Anesthesia Additional Past Anesthesia/Blood Transfusion Reaction / Comment(s): "Has stopped breathing after procedures"; reintubted once after procedure and SOB after surgery. Past Psychological History: Depression Smoking Status: Never smoker Past Alcohol Use History: None Reported Past Drug Use History: None Reported - Past Family History Father Family Medical History: Cancer Additional Family Medical History / Comment(s): Colon cancer. Mother Family Medical History: Cancer Additional Family Medical History / Comment(s): Small cell lung cancer. Brother(s) Family Medical History: Cancer Additional Family Medical History / Comment(s): Lung cancer spread to lymph nodes. Sister(s) Family Medical History: Cancer Additional Family Medical History / Comment(s): Small cell lung cancer. Medications and Allergies Home Medications Medication Instructions Recorded Confirmed Type Aspirin [Adult Low Dose Aspirin EC] 81 mg PO DAILY 11/21/21 07/31/24 History Atorvastatin [Lipitor] 80 mg PO DAILY 11/21/21 07/31/24 History DULoxetine HCL [Cymbalta] 60 mg PO BID 11/21/21 07/31/24 History Omeprazole [PriLOSEC] 40 mg PO DAILY 10/30/23 07/31/24 History Dapagliflozin Propanediol [Farxiga] 10 mg PO DAILY 12/06/23 07/31/24 History Biotin [Biotin Disolve] 5,000 mcg PO DAILY 07/31/24 07/31/24 History Ergocalciferol (Vitamin D2) 1,250 mcg PO Q7D 07/31/24 07/31/24 History [Drisdol (50,000 Iu)] Insulin Aspart [NovoLOG Flexpen] 5 units SQ TID 07/31/24 07/31/24 History Ketorolac 0.5% Ophth Soln [Acular 1 drops LEFT EYE BID 07/31/24 07/31/24 History 0.5%] Levothyroxine Sodium [Synthroid] 88 mcg PO DAILY 07/31/24 07/31/24 History Tirzepatide [Mounjaro] 10 mg SQ Q7D 07/31/24 07/31/24 History lisinopriL [Zestril] 15 mg PO BID 07/31/24 07/31/24 History prednisoLONE ACETATE 1% OPHTH 1 drops LEFT EYE BID 07/31/24 07/31/24 History [Pred Forte 1%] Allergies Allergy/AdvReac Type Severity Reaction Status Date / Time amoxicillin Allergy Rash/Hives Verified 07/31/24 09:49 Physical Examination - Vital Signs Vital Signs: Vital Signs Temp Pulse Resp BP Pulse Ox 07/31/24 05:00 93 18 161/95 94 L 07/30/24 23:18 116 H 18 200/138 98 07/30/24 22:00 96 20 132/117 100 07/30/24 21:29 90 18 130/108 100 07/30/24 20:51 97.9 F 94 24 135/107 100 Intake and Output 07/30/24 07/31/24 07/31/24 22:59 06:59 14:59 Output Total 400 Balance -400 Output: Urine 400 Straight 400 Other: Weight 80.739 kg Patient is an elderly female, who appears slightly encephalopathic, but in no obvious distress. She does moan sometimes. Patient during examination became more alert awake. She was able to name most objects like glasses, pen, knuckles, ear but not the earlobe. She can repeat very well. She is able to speak sentences. She is still slightly encephalopathic and somewhat quiet. Patient at present knows the month and the year. Apparently earlier she does not know it. Patient is getting better. Speech and language functions are normal. No aphasia or dysarthria. Attention, concentration is slightly decreased and fund of knowledge is adequate. Patient is improving as I continued to evaluate her. On cranial nerve examination, pupils are equal, round and reacting to light, visual fairchild are full on confrontation, with no neglect on double simultaneous stimulation. Extraocular muscles are intact with no nystagmus. Face is symmetric, tongue protrudes to the midline. Palatal elevation and sensation normal, hearing and shoulder shrug normal, facial sensation normal. Patient has mild bruises in the lower eyelids bilaterally from recent cataract surgery. On muscle strength testing, there is no pronator drift and the strength is normal in arms and legs distally and proximally. Deep tendon reflexes are symmetric 1+ and plantars downgoing. Sensory to touch is equal with no neglect on double simultaneous stimulation. Cerebellar function showed no ataxia for [id number] testing. No dysdiadochokinesia. No ataxia for [id number] testing on either side. Tone and bulk of muscles normal. Patient is somewhat slow to respond. Gait deferred.. On general examination, there is no carotid bruit or murmur, S1-S2 audible. Chest is clear on consultation. Abdomen is soft nontender. No organomegaly, bowel sounds present. Peripheral pulses are present. No peripheral edema. Results - Laboratory Findings CBC and BMP: 08/02/24 05:58 08/02/24 05:58 Abnormal Lab Findings: Abnormal Labs 07/30/24 07/30/24 07/30/24 21:03 21:05 21:05 APTT 18.5 L Potassium 3.3 L Carbon Dioxide 20 L BUN 21 H Creatinine 1.28 H Glucose 178 H POC Glucose (mg/dL) 164 H Total Bilirubin 1.5 H AST 57 H Urine Protein Urine Ketones Urine Blood Calcium Oxalate Crystal Urine Mucus U Benzodiazepines Scrn 07/30/24 07/31/24 07/31/24 21:47 05:59 07:13 APTT Potassium Carbon Dioxide 17 L BUN 21 H Creatinine 1.35 H Glucose 176 H POC Glucose (mg/dL) 182 H Total Bilirubin AST Urine Protein Trace H Urine Ketones 1+ H Urine Blood Trace H Calcium Oxalate Crystal Rare H Urine Mucus Rare H U Benzodiazepines Scrn Detected H Assessment and Plan Assessment: * Acute episode of expressive aphasia, gibberish speech with some encephalopathy. Exact cause uncertain. Rule out stroke/TIA. Patient's blood pressure was 185/136 at the scene, therefore rule out hypertensive ence phalopathy. * Patient had a similar episode (as above), about 2 months ago, that resolved in 30 minutes. Rule out seizures. * Hypertension * Diabetes * History of possible CVA with no residual deficits * Hyperlipidemia * Hypothyroidism * Mild renal insufficiency Plan: * Per nurse report, patient was not able to speak any word at all earlier, but now she is speaking in sentences, and has no dysarthria or aphasia. Current NIH stroke scale is 0. * MRI of the brain with and without contrast, evaluate for acute CVA * 2-D echo with bubble study to rule out PFO * CTA head and neck showed: Approximately 50 to 60% stenosis of the right proximal ICA due to calcified plaque. No evidence of flow-limiting stenosis in the left common carotid or ICA. No evidence of intracranial high-grade stenosis or intracranial aneurysm. Partially visualized bulky mediastinal and hilar lymphadenopathy with wall thickening of the thoracic esophagus, highly suspicious for malignancy. Recommend CT chest with IV contrast and/or endoscopy for further evaluation. We will defer to IM to address. * Carotid Doppler, revealed no evidence for hemodynamically significant sten osis. Antegrade flow in both vertebral arteries. * Vascular surgery has been consulted by primary team. * EEG, rule out epileptiform activity. * Fasting a.m. lipid panel, with cholesterol 126, LDL 57, HDL 48 and triglycerides 104. * Ammonia < 9, B12, folate, TSH * Hemoglobin A1c * Optimize control of blood pressure. * Patient has been compliant on aspirin 81 mg daily. Patient received aspirin 300 mg rectally x 1 dose today in the ER. Plavix 75 mg daily has been added for now. Continue aspirin 81 mg daily. * Neuro checks as per protocol. * Telemetry monitoring rule out any arrhythmia * PT, OT, speech therapy * DVT prophylaxis: Lovenox 40 mg subcu daily * Neurology will continue to follow. Thank you for the consult.
--- NOTE | 2024-07-31 15:00 | MR ---
EXAMINATION TYPE: MR brain wo/w con DATE OF EXAM: 07/31/2024 COMPARISON: CT brain 1 day earlier HISTORY: CVA. Altered mental status. TECHNIQUE: Multiplanar, multisequence images of the brain and brainstem is performed without and with IV contras t, utilizing 8 mL intravenous Gadobutrol . FINDINGS: Diffusion weighted images demonstrate no evidence of a recent infarct or other diffusion ab normality. There is mild ventricular and sulcal prominence redemonstrated. There are scattered focal and confluent areas of T2 hyperintensity throughout the white matter bilaterally most prominent at t he periventricular levels. Midline structures demonstrate normal morphology. The craniocervical junction appears within normal limits. Post contrast images demonstrate no abnormal enhancement. The dural venous sinuses appear pa tent. Bilateral aphakia is redemonstrated. The paranasal sinuses remain grossly clear. Visualized sin uses are clear and the globes are intact. IMPRESSION: 1. No MRI evidence for recent infarct. 2. There is mild diffuse cerebral atrophy and moderate to borderline advanced probable chronic small vessel ischemic change identified. [facility], , 07/31/2024 2:58 PM
[2024-07-31] MEDS: ATORVASTATIN 80 MG TAB PO SCH (16:01)
[2024-07-31] MEDS: ERGOCALCIFEROL 1,250 MCG (50,000 IU) CAPSULE PO SCH (16:07)
[2024-07-31 18:09] LABS: Glucose,Whole Blood 153 mg/dL (70-110)
[2024-07-31] MEDS: INSULIN LISPRO (HumaLOG) 100 UNIT/ML 10 mL VL SQ SCH (19:42)
[2024-07-31] MEDS ORDERED: prednisoLONE ACETATE 1% OPHTH DROPS 5 ML BTL LEFT EYE SCH (21:00)
[2024-07-31] MEDS: DULoxetine HCL 60 MG CAPSULE.DR PO SCH (22:21)
[2024-07-31] MEDS: lisinopriL 5 MG TAB PO SCH (22:28)
[2024-07-31 22:35] LABS: Glucose,Whole Blood 155 mg/dL (70-110)
[2024-08-01] MEDS: KETOROLAC 0.5% OPHTH DROPS 5 ML BTL LEFT EYE SCH (00:54)
--- NOTE | 2024-08-01 01:46 | EEG ---
ELECTROENCEPHALOGRAM REPORT PREAMBLE: This is a 73-year-old female, who has presented with expressive aphasia and altered mental status. The patient had a similar spell a few months ago, but was short lasting. EEG FINDINGS: This is a 21-channel digital EEG recorded with video component, utilizing 10/20 international system with referential and bipolar montages. Background consists of moderately well-developed and regulated mixed frequencies of 7 hertz theta, intermixed with some 1.5 to 2 hertz delta activity in bihemispheric region. Sporadic frontal intermittent rhythmic delta activity was seen. Probable some superimposed focal slowing in the left temporal region, with some sharply contoured waves were seen, which at times appears somewhat generalized with a period of suppression for about 1 second. Photic driving response was not seen. The patient was drowsy during most of the study as well. However, deeper stages of sleep were not clearly seen. No electrographic seizure was recorded. IMPRESSION: 1. This is an abnormal EEG due to background slowing of moderate degree, suggestive of moderate encephalopathy. 2. Sporadic, frontal intermittent rhythmic delta activity was seen, with possible superimposed left temporal slowing, with some left temporal sharply contoured waves, which sometimes generalizes. This may suggest focal, cortical neuronal dysfunction with underlying cortical irritability. Recommend prolonged EEG for further evaluation. No electrographic seizure was recorded. MMODL / IJN: [id number] / TRANG
[2024-08-01] MEDS: LEVOTHYROXINE 88 MCG TAB PO SCH (06:39)
[2024-08-01 07:23] LABS: Basophils % (A) 0 %; Eosinophils # (A) 0.1 k/uL (0-0.7); Eosinophils % (A) 2 %; HCT 36.6 % (34.0-46.0); Lymphocytes # (A) 1.3 k/uL (1.0-4.8); Lymphocytes % (A) 20 %; MCH 30.2 pg (25.0-35.0); MCHC 32.9 g/dL (31.0-37.0); MCV 91.6 fL (80.0-100.0); Mean Platelet Volume 7.6; Monocytes # (A) 0.4 k/uL (0-1.0); Monocytes % (A) 6 %; Neutrophils # (A) 4.7 k/uL (1.3-7.7); Neutrophils % (A) 70 %; Platelet Count 239 k/uL (150-450); RBC 3.99 m/uL (3.80-5.40); RDW 14.5 % (11.5-15.5); WBC 6.6 k/uL (3.8-10.6)
[2024-08-01 07:43] LABS: Glucose,Whole Blood 155 mg/dL (70-110)
[2024-08-01 07:51] LABS: ALT 25 U/L (4-34); AST 63 U/L (14-36); African American GFR (CKD) 45 (>60 ml/min/1.73 sqM); Albumin 3.3 g/dL (3.5-5.0); Alkaline Phosphatase 88 U/L (38-126); Anion Gap 8 mmol/L; Blood Urea Nitrogen 20 mg/dL (7-17); Calcium 9.1 mg/dL (8.4-10.2); Carbon Dioxide 25 mmol/L (22-30); Chloride 106 mmol/L (98-107); Glucose 151 mg/dL (74-99); Non-African American GFR(CKD) 39 (>60 ml/min/1.73 sqM); Potassium 3.8 mmol/L (3.5-5.1); Sodium 139 mmol/L (137-145); Total Bilirubin 1.5 mg/dL (0.2-1.3); Total Protein 6.2 g/dL (6.3-8.2)
[2024-08-01] MEDS: DAPAGLIFLOZIN PROPANEDIOL 10 MG TABLET PO SCH (08:57)
[2024-08-01] MEDS: CLOPIDOGREL 75 MG TAB PO SCH (08:57)
[2024-08-01] MEDS: ASPIRIN 81 MG PO SCH (08:57)
[2024-08-01] MEDS: PANTOPRAZOLE 40 MG TABLET PO SCH (08:57)
[2024-08-01] MEDS: ENOXAPARIN 40 MG/0.4 ML SYRINGE SQ SCH (08:57)
[2024-08-01 12:09] LABS: Glucose,Whole Blood 170 mg/dL (70-110)
--- NOTE | 2024-08-01 16:33 | P.PN ---
Subjective Progress Note Date: 08/01/24 HISTORY OF PRESENT ILLNESS: This is a 73-year-old female with a previous medical history signif icant for hypertension and hypertensive cardiovascular disease, mixed hyperlipidemia, diabetes mellitus type 2, insulin requiring, diabetic polyneuropathy, chronic kidney disease stage IIIb, has been under the care of nephrology, history of hypothyroidism, history of GERD with esophagitis, history of major depressive disorder, patient was brought into the emergency department at [facility] last night because of increased confusion with slurred speech and patient not able to respond very well, initially she was quite combative and agitated in the emergency department, she did receive quite a bit of medication to try to calm her down, she underwent CT scan of the brain without contrast that was negative for acute infarct or bleed, she underwent CT angiography of the carotid and the brain, that was negative as well I did show evidence about 50 to 60% stenosis of the right internal carotid artery, because of the presentation patient was admitted to the hospital for suspicious of an acute ischemic event, she was started on Plavix 75 mg once every day, she was admitted to the hospital with neurology consultation, she was also started on IV fluid resuscitation in the form of normal saline at 100 cc an hour, monitor the patient very closely, neurocheck [id number], she will be admitted to telemetry unit. 08/01: Patient is laying down in bed in no apparent distress, she is more awake and alert today, she denies any headache, she has no chest pain or shortness of breath at this time, she has no abdominal pain, she is moving all her extremities, she appears to be back to baseline, I reviewed with the patient MRI of the brain with and without juanito that was negative for any acute infarct or bleed, did show small vessel disease, ultrasound of the carotid did not show evidence of acute abnormalities, minimal stenosis without hemodynamically significant stenosis, echocardiogram still pending at the time of dictation, EEG showed evidence of metabolic encephalopathy was recommended by neurology to have a prolonged EEG to rule out any seizure activity at this time, there is no evidence of any acute seizure at this point in time, patient will be kept in the hospital for another 24 hours, physical therapy and Occupational Therapy evaluation, increase activity, in view of the CT angio finding of possible thickened esophagus in the thoracic area with bulky lymphadenopathy that is partially viewed we will consult general surgery as well as hematology oncology for opinion patient did have her last EGD and colonoscopy done by Dr. Carrasco 03/10/2024 that showed Wooten's esophagus without dysplasia. REVIEW OF SYSTEMS: Constitutional: No documented fever, no chills, no night sweats. No weight change. No weakness, fatigue or lethargy. No daytime sleepiness. EENT: No headache. No blurred vision or double vision, no loss of vision. No loss of Hearing, no ringing in the ears, no dizziness. No nasal drainage or congestion. No epistaxis. No sore throat. Lungs: No shortness of breath, no cough, no sputum production. No wheezing. Reports dyspnea with activity. Cardiovascular: No chest pain, no lower extremity edema. No palpitations. No paroxysmal nocturnal dyspnea. No orthopnea. No lightheadedness or dizziness. No syncopal episodes. Abdominal: Reports no abdominal pain. No nausea, vomiting. No diarrhea. No constipation. No bloody or tarry stools reports loss of appetite. Genitourinary: No dysuria, increased frequency, urgency. No urinary retention. Musculoskeletal: No myalgias. No muscle weakness, no gait dysfunction, no frequent falls. No back pain. No neck pain. Integumentary: No wounds, no lesions. No rash or pruritus. No unusual bruising. No change in hair or nails. Neurologic: No aphasia. No facial droop. no change in mentation. No head injury. No headache. No paralysis. No paresthesia. Psychiatric: positive for depression. positive for anxiety. No mood swings. Endocrine: No abnormal blood sugars. No weight change. PHYSICAL EXAMINATION: General: 73-year-old female laying down in bed in no apparent distress HEENT: Head is atraumatic, normocephalic, pupils were equal round reactive to light and recommendation, extraocular muscle movement were intact, sclera nonicteric, conjunctivae were pale, mucous membranes of the mouth are somewhat dry. Neck: Supple, no JVP, normal carotid upstroke bilaterally, no lymphadenopathy. Chest: Decreased breath sounds at the bases, few rhonchi, no expiratory wheezes, no chest wall tenderness, no intercostal retractions. Heart: First heart sound is normal, second heart sounds normal there is systolic ejection murmur 2 over systolic in the left sternal border. Abdomen: Soft, nontender, nondistended, positive bowel sounds. Extremities: There is no edema no calf tenderness DP +2 bilaterally. Neurologic examination: Patient is awake alert and oriented x1, cranial nerves II-12 appear grossly intact, muscle power 5 out of 5 in upper and lower extremities bilaterally, deep tendon reflexes were normal, Babinski's were flexor bilaterally. ASSESSMENT AND PLAN: 1. Acute metabolic encephalopathy of unclear etiology possibly TIA patient was ruled out for CVA, her MRI of the brain with and without juanito did not show evidence of any acute infarct or bleed, continue patient on aspirin 81 mg once every day, Plavix 75 mg once every day, atorvastatin 80 mg once every day, monitor the patient symptoms very closely, physical therapy evaluation, Occupational Therapy evaluation, patient did have an EEG that showed evidence of significant metabolic encephalopathy it was recommended by the neurology team to have a prolonged EEG to rule out any seizure activity. 2. Hypertension and hypertensive cardiovascular disease. Continue patient on lisinopril 15 mg orally twice every day, continue monitor the patient blood pressure very closely, 3. Mixed hyperlipidemia. Continue patient on atorvastatin 80 mg once every day, monitor lipid panel, keep LDL 55-70. 4. Diabetes mellitus type 2. Continue patient on sliding scale insulin for now, we will hold off Mounjaro for now. 5. Hypothyroidism. Continue patient on levothyroxine 88 mcg orally once every day, 6. GERD with esophagitis with Wooten's esophagus. Continue patient on pantoprazole 40 mg orally once every day. Last EGD 03/10/2024, in view of her Ct angio results we will get a consult from Surgery and Oncology for opinion and possible repeat EGD with biopsy 7. Moderate right ICA disease. Patient did have a repeated ultrasound of the carotid that did not show any evidence of hemodynamically significant stenosis, will continue current treatment plan. Vascular surgery consultation appreciated. 8. DVT prophylaxis. Lovenox 40 mg subcutaneous every 24 hours. 9. GI prophylaxis. Continue patient on PPI. 10. Increase activity. 11. Prognosis is guarded Objective - Vital Signs Vital signs: Vital Signs Temp 98.7 F 08/01/24 00:45 Pulse 64 08/01/24 09:01 Resp 18 08/01/24 09:01 BP 132/67 08/01/24 09:01 Pulse Ox 97 08/01/24 09:01 FiO2 Intake & Output 07/31/24 08/01/24 08/01/24 18:59 06:59 18:59 Output Total 675 Balance -675 Output: Urine 675 - Labs CBC & Chem 7: 08/02/24 05:58 08/02/24 05:58 Labs: Abnormal Lab Results - Last 24 Hours (Table) 07/31/24 07/31/24 07/31/24 Range/Units 14:44 17:49 22:34 BUN (7-17) mg/dL Creatinine (0.52-1.04) mg/dL Glucose (74-99) mg/dL POC Glucose (mg/dL) 153 H 155 H (70-110) mg/dL Hemoglobin A1c 6.2 H (<=6.0) % Total Bilirubin (0.2-1.3) mg/dL AST (14-36) U/L Total Protein (6.3-8.2) g/dL Albumin (3.5-5.0) g/dL 08/01/24 08/01/24 Range/Units 07:05 07:41 BUN 20 H (7-17) mg/dL Creatinine 1.36 H (0.52-1.04) mg/dL Glucose 151 H (74-99) mg/dL POC Glucose (mg/dL) 155 H (70-110) mg/dL Hemoglobin A1c (<=6.0) % Total Bilirubin 1.5 H (0.2-1.3) mg/dL AST 63 H (14-36) U/L Total Protein 6.2 L (6.3-8.2) g/dL Albumin 3.3 L (3.5-5.0) g/dL
[2024-08-01 17:02] LABS: Glucose,Whole Blood 144 mg/dL (70-110)
[2024-08-01 20:40] LABS: Glucose,Whole Blood 141 mg/dL (70-110)
[2024-08-01] MEDS: lisinopriL 10 MG TAB PO STA (23:58)
--- NOTE | 2024-08-02 03:33 | EEG ---
ELECTROENCEPHALOGRAM REPORT PREAMBLE: This is a 73-year-old female with recurrent episodes of slurred speech and some aphasia and altered mental status. The patient had previously abnormal EEG. This is a followup. EEG FINDINGS: This is a 21-channel digital EEG recorded with video component, utilizing 10/20 international system with referential and bipolar montages. This is a prolonged study performed for 1 hour. The recording start time is 10:42 a.m. on 08/01/2024 and recording end time is 11:42 a.m. on 08/01/2024. The background consists of well-developed, well-regulated, moderate-voltage activity in mixed frequencies of 8 to 9 Hz alpha with some 6 to 7 Hz theta activity seen in bihemispheric region. Background is posterior dominant and is reactive to eye opening and closing. Photic driving response was not seen. Frontal intermittent rhythmic delta activity was seen. Occasionally, this rhythmic activity was preceded with slightly sharply contoured waves. Drowsiness was seen with appearance of bilaterally symmetric theta frequency rhythm. Some stage 2 sleep was also seen with presence of diffuse slow waves and some sleep spindles. No clear-cut focal or generalized epileptiform activity was seen. No electrographic seizure was recorded. IMPRESSION: This is an abnormal electroencephalogram due to presence of frontal intermittent rhythmic delta activity. This is nonspecific abnormality, can be seen with some encephalopathy or may suggest some convulsive tendency. At times, this rhythmic delta activity was preceded with sharply contoured waves. This did not appear clearly epileptiform. However, clinical correlation and a repeat study are recommended, if clinically indicated. No electrographic seizure was recorded. MMODL / IJN: [id number] /
[2024-08-02] MEDS: hydrALAZINE HCL 20 MG/ML 1 ML VIAL IVP PRN (05:19)
[2024-08-02 06:22] LABS: Glucose,Whole Blood 127 mg/dL (70-110)
[2024-08-02 06:47] LABS: Basophils % (A) 0 %; Eosinophils # (A) 0.1 k/uL (0-0.7); Eosinophils % (A) 2 %; HCT 34.9 % (34.0-46.0); HGB 11.4 gm/dL (11.4-16.0); Lymphocytes # (A) 0.9 k/uL (1.0-4.8); Lymphocytes % (A) 18 %; MCH 30.1 pg (25.0-35.0); MCHC 32.7 g/dL (31.0-37.0); Monocytes # (A) 0.3 k/uL (0-1.0); Monocytes % (A) 6 %; Neutrophils # (A) 3.8 k/uL (1.3-7.7); Neutrophils % (A) 72 %; Platelet Count 218 k/uL (150-450); RBC 3.79 m/uL (3.80-5.40); RDW 14.6 % (11.5-15.5); WBC 5.2 k/uL (3.8-10.6)
[2024-08-02 07:01] LABS: ALT 24 U/L (4-34); AST 53 U/L (14-36); African American GFR (CKD) 49 (>60 ml/min/1.73 sqM); Albumin 3.2 g/dL (3.5-5.0); Alkaline Phosphatase 100 U/L (38-126); Anion Gap 8 mmol/L; Blood Urea Nitrogen 18 mg/dL (7-17); Calcium 9.2 mg/dL (8.4-10.2); Carbon Dioxide 22 mmol/L (22-30); Chloride 106 mmol/L (98-107); Glucose 125 mg/dL (74-99); Non-African American GFR(CKD) 42 (>60 ml/min/1.73 sqM); Potassium 3.5 mmol/L (3.5-5.1); Sodium 136 mmol/L (137-145); Total Bilirubin 1.7 mg/dL (0.2-1.3); Total Protein 5.8 g/dL (6.3-8.2)
[2024-08-02] MEDS: amLODIPine 5 MG TAB PO SCH ×2 (07:52→19:47)
[2024-08-02] MEDS: lisinopriL 20 MG TAB PO SCH (07:53)
[2024-08-02] MEDS: ACETAMINOPHEN TAB 325 MG TAB PO PRN (09:07)
--- NOTE | 2024-08-02 09:07 | P.PN ---
Subjective Progress Note Date: 08/01/24 Patient was seen for follow-up. Patient's another sister was present by the bedside. Patient has remarkably improved. Mentation is back to baseline. No further episodes of slurred speech. Objective - Vital Signs Vital signs: Vital Signs Temp 98.3 F 08/02/24 07:49 Pulse 67 08/02/24 07:49 Resp 17 08/02/24 07:49 BP 160/65 08/02/24 07:49 Pulse Ox 96 08/02/24 08:45 FiO2 Intake & Output 08/01/24 08/02/24 08/02/24 18:59 06:59 18:59 Intake Total 10 Output Total 1300 Balance -1300 10 Weight 80.739 kg 81.5 kg Intake: IV 10 Invasive Line 2 10 Output: Urine 1300 Uretheral (Nicole) 650 Other: Voiding Method Indwelling Catheter Toilet # Voids 1 # Bowel Movements 1 - Exam Patient is alert and awake oriented to time place and person. Speech and language functions are normal. Patient knows it is 08/01/2024 and that she is in [facility] and name of the current president. Cranial nerves are all normal. Visual fairchild are full. No neglect. Extraocular muscles intact. Face is symmetric, tongue protrudes the midline. Palatal elevation sensation normal. Hearing appears normal. On muscle strength testing, there is no pronator drift and the strength is normal in arms and legs. No ataxia. Sensory to touch is equal. - Labs CBC & Chem 7: 08/02/24 05:58 08/02/24 05:58 Labs: Abnormal Lab Results - Last 24 Hours (Table) 08/01/24 08/01/24 08/01/24 Range/Units 12:08 17:00 20:36 RBC (3.80-5.40) m/uL Lymphocytes # (1.0-4.8) k/uL Sodium (137-145) mmol/L BUN (7-17) mg/dL Creatinine (0.52-1.04) mg/dL Glucose (74-99) mg/dL POC Glucose (mg/dL) 170 H 144 H 141 H (70-110) mg/dL Total Bilirubin (0.2-1.3) mg/dL AST (14-36) U/L Total Protein (6.3-8.2) g/dL Albumin (3.5-5.0) g/dL 08/02/24 08/02/24 08/02/24 Range/Units 05:58 05:58 06:18 RBC 3.79 L (3.80-5.40) m/uL Lymphocytes # 0.9 L (1.0-4.8) k/uL Sodium 136 L (137-145) mmol/L BUN 18 H (7-17) mg/dL Creatinine 1.28 H (0.52-1.04) mg/dL Glucose 125 H (74-99) mg/dL POC Glucose (mg/dL) 127 H (70-110) mg/dL Total Bilirubin 1.7 H (0.2-1.3) mg/dL AST 53 H (14-36) U/L Total Protein 5.8 L (6.3-8.2) g/dL Albumin 3.2 L (3.5-5.0) g/dL Assessment and Plan Assessment: * Acute episode of expressive aphasia, gibberish speech with some encephal opathy. Exact cause uncertain. Rule out stroke/TIA. Patient's blood pressure was 185/136 at the scene, therefore rule out hypertensive encephalopathy. * Patient had a similar episode (as above), about 2 months ago, that resolved in 30 minutes. Rule out seizures. * Hypertension * Diabetes * History of possible CVA with no residual deficits * Hyperlipidemia * Hypothyroidism * Mild renal insufficiency Plan: * Patient's mentation is back to normal. Current NIH stroke scale is 0. It is uncertain if patient had a TIA, or seizure, or hypertensive encephalopathy or some other etiology. * MRI of the brain with and without contrast, revealed no evidence for recent infarct. There is mild diffuse cerebral atrophy and moderate to borderline a dvanced probable chronic small vessel ischemic change. I personally reviewed MRI agree with the findings. * 2-D echo with bubble study to rule out PFO, completed, results still pending. * CTA head and neck showed: Approximately 50 to 60% stenosis of the right proximal ICA due to calcified plaque. No evidence of flow-limiting stenosis in the left common carotid or ICA. No evidence of intracranial high-grade stenosis or intracranial aneurysm. Partially visualized bulky mediastinal and hilar lymphadenopathy with wall thickening of the thoracic esophagus, highly suspicious for malignancy. Recommend CT chest with IV contrast and/or endoscopy for further evaluation. We will defer to IM to address. * Carotid Doppler, revealed no evidence for hemodynamically significant st enosis. Antegrade flow in both vertebral arteries. * Vascular surgery has seen the patient. They believe the right ICA stenosis is closer to 50%. No indication for any vascular surgical intervention. They have signed off. * Routine EEG 07/31/2024 was abnormal due to background slowing, suggestive of moderate encephalopathy. Sporadic frontal intermittent rhythmic delta activity was seen, with possible superimposed left temporal slowing, with some left temporal sharply contoured waves, which sometimes generalizes. This does suggest focal cortical neuronal dysfunction with underlying cortical irritability. Recommend prolonged EEG for further evaluation. No electrographic seizure was recorded. * Prolonged EEG 08/01/2024 was abnormal due to presence of frontal intermittent rhythmic delta activity. This is nonspecific abnormality, can be seen with some encephalopathy or may suggest some convulsive tendency. At times this rhythmic delta activity was preceded with sharply contour waves. This did not appear to clearly epileptiform. However clinical correlation and repeat study are recommended if clinically indicated. No electrical graphic seizure was recorded. * Patient has abnormal EEG. We discussed about empirically starting antiepileptic medication. However patient has been started on Plavix for presumed TIA. Patient wants to stay with Plavix and hold off on antiepileptic medication for now. If she has any more similar/stereotypical spells, then may be a candidate for AED. * Recommend continuing aspirin 81 mg daily and Plavix 75 mg daily for 21 days, then stop aspirin and continue Plavix. (Patient was on aspirin at home). * Fasting a.m. lipid panel, with cholesterol 126, LDL 57, HDL 48 and triglycerides 104. Continue Lipitor 80 mg daily (home dose) * Ammonia < 9, B12, folate pending, TSH 3.27, normal. * Hemoglobin A1c 6.2, well controlled * Optimize control of blood pressure. * Neuro checks every 4 hours * Telemetry monitoring rule out any arrhythmia * PT, OT, speech therapy * DVT prophylaxis: Lovenox 40 mg subcu daily
--- NOTE | 2024-08-02 09:13 | P.PN ---
Subjective Progress Note Date: 08/02/24 HISTORY OF PRESENT ILLNESS: This is a 73-year-old female with a previous medical history signif icant for hypertension and hypertensive cardiovascular disease, mixed hyperlipidemia, diabetes mellitus type 2, insulin requiring, diabetic polyneuropathy, chronic kidney disease stage IIIb, has been under the care of nephrology, history of hypothyroidism, history of GERD with esophagitis, history of major depressive disorder, patient was brought into the emergency department at [facility] last night because of increased confusion with slurred speech and patient not able to respond very well, initially she was quite combative and agitated in the emergency department, she did receive quite a bit of medication to try to calm her down, she underwent CT scan of the brain without contrast that was negative for acute infarct or bleed, she underwent CT angiography of the carotid and the brain, that was negative as well I did show evidence about 50 to 60% stenosis of the right internal carotid artery, because of the presentation patient was admitted to the hospital for suspicious of an acute ischemic event, she was started on Plavix 75 mg once every day, she was admitted to the hospital with neurology consultation, she was also started on IV fluid resuscitation in the form of normal saline at 100 cc an hour, monitor the patient very closely, neurocheck [id number], she will be admitted to telemetry unit. 08/01: Patient is laying down in bed in no apparent distress, she is more awake and alert today, she denies any headache, she has no chest pain or shortness of breath at this time, she has no abdominal pain, she is moving all her extremities, she appears to be back to baseline, I reviewed with the patient MRI of the brain with and without juanito that was negative for any acute infarct or bleed, did show small vessel disease, ultrasound of the carotid did not show evidence of acute abnormalities, minimal stenosis without hemodynamically significant stenosis, echocardiogram still pending at the time of dictation, EEG showed evidence of metabolic encephalopathy was recommended by neurology to have a prolonged EEG to rule out any seizure activity at this time, there is no evidence of any acute seizure at this point in time, patient will be kept in the hospital for another 24 hours, physical therapy and Occupational Therapy evaluation, increase activity, hopefully home in the next 24 hours. 08/02: Patient sitting up in bed complaining of increased headache, she is crying because of that, her blood pressure is fluctuating, we increased her lisinopril to 20 mg orally twice every day, will start the patient also on amlodipine 5 mg orally once every day added hydralazine 10 mg IV push every 4 hours as needed for systolic greater than 160, she was started on Tylenol 650 mg orally once every day I will keep the patient in the hospital for another 24 hours, to monitor her blood pressure, also there was on the report of a CT angiography diffuse thickening of the esophagus and the thoracic esophagus with bulky lymphadenopathy partially viewed on the CT angiography, it was recommended to have a direct visualization patient was seen by Dr. Carrasco in the past and had EGD that was done in February 2024 that showed Wooten's esophagus, I will consult general surgery Dr. Garcia as well as hematology oncology for further evaluation recommendation likely Dr. Garcia will be able to do EGD hopefully on Sunday, may need to have a CT scan of the chest abdomen pelvis but will wait until after the EGD is done since the patient was exposed to quite a bit of contrast and her GFR is a bit on the lower side. REVIEW OF SYSTEMS: Constitutional: No documented fever, no chills, no night sweats. No weight change. No weakness, fatigue or lethargy. No daytime sleepiness. EENT: No headache. No blurred vision or double vision, no loss of vision. No loss of Hearing, no ringing in the ears, no dizziness. No nasal drainage or congestion. No epistaxis. No sore throat. Lungs: No shortness of breath, no cough, no sputum production. No wheezing. Reports dyspnea with activity. Cardiovascular: No chest pain, no lower extremity edema. No palpitations. No paroxysmal nocturnal dyspnea. No orthopnea. No lightheadedness or dizziness. No syncopal episodes. Abdominal: Reports no abdominal pain. No nausea, vomiting. No diarrhea. No constipation. No bloody or tarry stools reports loss of appetite. Genitourinary: No dysuria, increased frequency, urgency. No urinary retention. Musculoskeletal: No myalgias. No muscle weakness, no gait dysfunction, no fr equent falls. No back pain. No neck pain. Integumentary: No wounds, no lesions. No rash or pruritus. No unusual bruising. No change in hair or nails. Neurologic: No aphasia. No facial droop. no change in mentation. No head injury. Positive headache. No paralysis. No paresthesia. Psychiatric: positive for depression. positive for anxiety. No mood swings. Endocrine: No abnormal blood sugars. No weight change. PHYSICAL EXAMINATION: General: 73-year-old female laying down in bed in no apparent distress HEENT: Head is atraumatic, normocephalic, pupils were equal round reactive to light and recommendation, extraocular muscle movement were intact, sclera nonicteric, conjunctivae were pale, mucous membranes of the mouth are somewhat dry. Neck: Supple, no JVP, normal carotid upstroke bilaterally, no lymphadenopathy. Chest: Decreased breath sounds at the bases, few rhonchi, no expiratory wheezes, no chest wall tenderness, no intercostal retractions. Heart: First heart sound is normal, second heart sounds normal there is systolic ejection murmur 2 over systolic in the left sternal border. Abdomen: Soft, nontender, nondistended, positive bowel sounds. Extremities: There is no edema no calf tenderness DP +2 bilaterally. Neurologic examination: Patient is awake alert and oriented x1, cranial nerves II-12 appear grossly intact, muscle power 5 out of 5 in upper and lower extremities bilaterally, deep tendon reflexes were normal, Babinski's were flexor bilaterally. ASSESSMENT AND PLAN: 1. Acute metabolic encephalopathy of unclear etiology possibly TIA patient was ruled out for CVA, critical related to hypertensive encephalopathy her MRI of the brain with and without juanito did not show evidence of any acute infarct or bleed, continue patient on aspirin 81 mg once every day, Plavix 75 mg once every day, atorvastatin 80 mg once every day, monitor the patient symptoms very closely, physical therapy evaluation, Occupational Therapy evaluation, patient did have an EEG that showed evidence of significant metabolic encephalopathy so far with a prolonged EEG no evidence of seizure activity. 2. Thickened esophagus with bulky lymphadenopathy rule out esophageal cancer. Consult general surgery Dr. Garcia as well as hematology oncology for further recommendation at this time, the plan for the patient to have an EGD hopefully on Sunday. Patient did have a history of Wooten's esophagus and had an EGD done with Dr. Kern back in February 2024. She may need to go for a CT scan of the chest abdomen pelvis down the line I will hold off due to her exposure to dye on the of this month, due to CT angiography as a workup for her stroke. Or can be done as an outpatient. 3. Hypertension and hypertensive cardiovascular disease. Continue patient on l isinopril 20 mg orally twice every day, increase amlodipine to 5 mg orally twice every day, continue hydralazine 10 mg IV push every 4 hours as needed. 4. Mixed hyperlipidemia. Continue patient on atorvastatin 80 mg once every day, monitor lipid panel, keep LDL 55-70. 5. Diabetes mellitus type 2. Continue patient on sliding scale insulin for now, we will hold off Mounjaro for now. 6. Hypothyroidism. Continue patient on levothyroxine 88 mcg orally once every day, 7. GERD with esophagitis with Wooten's esophagus Continue patient on pantoprazole 40 mg orally once every day. Last EGD and colonoscopy were done March 10, [address] Soni that showed Wooten's esophagus with no dysplasia. 8. Moderate right ICA disease. Patient did have a repeated ultrasound of the carotid that did not show any evidence of hemodynamically significant stenosis, will continue current treatment plan. Vascular surgery consultation appreciated. 9. DVT prophylaxis. Lovenox 40 mg subcutaneous every 24 hours. 10. GI prophylaxis. Continue patient on PPI. 11. Increase activity. 12. Guarded prognosis Objective - Vital Signs Vital signs: Vital Signs Temp 98.3 F 08/02/24 07:49 Pulse 67 08/02/24 07:49 Resp 17 08/02/24 07:49 BP 160/65 08/02/24 07:49 Pulse Ox 98 08/02/24 07:49 FiO2 Intake & Output 08/01/24 08/02/24 08/02/24 18:59 06:59 18:59 Intake Total 10 Output Total 1300 Balance -1300 10 Weight 80.739 kg 81.5 kg Intake: IV 10 Invasive Line 2 10 Output: Urine 1300 Uretheral (Nicole) 650 Other: Voiding Method Indwelling Catheter Toilet # Voids 1 # Bowel Movements 1 - Labs CBC & Chem 7: 08/02/24 05:58 08/02/24 05:58 Labs: Abnormal Lab Results - Last 24 Hours (Table) 08/01/24 08/01/24 08/01/24 Range/Units 12:08 17:00 20:36 RBC (3.80-5.40) m/uL Lymphocytes # (1.0-4.8) k/uL Sodium (137-145) mmol/L BUN (7-17) mg/dL Creatinine (0.52-1.04) mg/dL Glucose (74-99) mg/dL POC Glucose (mg/dL) 170 H 144 H 141 H (70-110) mg/dL Total Bilirubin (0.2-1.3) mg/dL AST (14-36) U/L Total Protein (6.3-8.2) g/dL Albumin (3.5-5.0) g/dL 08/02/24 08/02/24 08/02/24 Range/Units 05:58 05:58 06:18 RBC 3.79 L (3.80-5.40) m/uL Lymphocytes # 0.9 L (1.0-4.8) k/uL Sodium 136 L (137-145) mmol/L BUN 18 H (7-17) mg/dL Creatinine 1.28 H (0.52-1.04) mg/dL Glucose 125 H (74-99) mg/dL POC Glucose (mg/dL) 127 H (70-110) mg/dL Total Bilirubin 1.7 H (0.2-1.3) mg/dL AST 53 H (14-36) U/L Total Protein 5.8 L (6.3-8.2) g/dL Albumin 3.2 L (3.5-5.0) g/dL
[2024-08-02] MEDS: HYDROmorphone 0.5 MG/0.5 ML SYRINGE IVP PRN (11:44)
[2024-08-02 12:12] LABS: Glucose,Whole Blood 124 mg/dL (70-110)
--- NOTE | 2024-08-02 15:02 | CA ---
Transthoracic Echo Report Name: Amara Pandya Age: 73 Gender: F : 1950 Exam Date: 08/01/2024 16:06 Exam Location: [place] [facility] Ht (in): 65 Wt (lb): 178 Ordering Physician: Deng Church MD Attending/Referring Phys: Roll Line Operator Zora Mock RDCS Procedure CPT: Indications: CVA Cardiac Hx: Technical Quality: Fair Contrast 1: Total Dose (mL): Contrast 2: Total Dose (mL): MEASUREMENTS (Male / Female) Normal Values 2D ECHO LV Diastolic Diameter PLAX 4.2 cm 4.2 - 5.9 / 3.9 - 5.3 cm LV Systolic Diameter PLAX 2.9 cm IVS Diastolic Thickness 1.1 cm 0.6 - 1.0 / 0.6 - 0.9 cm LVPW Diastolic Thickness 1.2 cm 0.6 - 1.0 / 0.6 - 0.9 cm LV Relative Wall Thickness 0.5 LVOT Diameter 2.0 cm Aortic Root Diameter 2.7 cm LV Diastolic Volume MOD BP 75.5 cm??? 67 - 155 / 56 - 104 cm??? LV Systolic Volume MOD BP 33.8 cm??? 22 - 58 / 19 - 49 cm??? LV Ejection Fraction MOD BP 55.2 % >= 55 % LV Cardiac Index MOD BP 1776.2 cm???/min???m??? LV Diastolic Volume MOD 4C 85.8 cm??? LV Systolic Volume MOD 4C 38.2 cm??? LV Ejection Fraction MOD 4C 55.5 % LV Cardiac Index MOD 4C 2027.5 cm???/min???m??? LV Diastolic Length 4C 7.2 cm LV Systolic Length 4C 5.7 cm LV Diastolic Volume MOD 2C 65.7 cm??? LV Systolic Volume MOD 2C 28.2 cm??? LV Ejection Fraction MOD 2C 57.1 % LV Cardiac Index MOD 2C 1597.8 cm???/min???m??? LV Diastolic Length 2C 7.1 cm LV Systolic Length 2C 6.0 cm Ascending Aorta Diameter 2.8 cm DOPPLER AV Peak Velocity 138.0 cm/s AV Peak Gradient 7.6 mmHg AV Mean Velocity 97.2 cm/s AV Mean Gradient 4.1 mmHg AV Velocity Time Integral 29.4 cm LVOT Peak Velocity 108.6 cm/s LVOT Peak Gradient 4.7 mmHg LVOT Velocity Time Integral 19.7 cm LVOT Stroke Volume 63.5 cm??? LVOT Stroke Volume Index 33.7 ml/m??? LVOT Cardiac Index 2705.6 cm???/min???m??? AV Area Cont Eq vti 2.2 cm??? AV Area Cont Eq pk 2.5 cm??? Mitral E Point Velocity 49.2 cm/s Mitral A Point Velocity 77.4 cm/s Mitral E to A Ratio 0.6 MV Deceleration Time 177.9 ms MV E' Velocity 4.2 cm/s Mitral E to MV E' Ratio 11.8 TR Peak Velocity 239.7 cm/s TR Peak Gradient 23.0 mmHg Right Atrial Pressure 5.0 mmHg Pulmonary Artery Systolic Pressu 28.0 mmHg Right Ventricular Systolic Press 28.0 mmHg PV Peak Velocity 85.3 cm/s PV Peak Gradient 2.9 mmHg FINDINGS Left Ventricle Left ventricular ejection fraction is estimated at 55 %. Mildly increased septal wall thickness. Mildly increased posterior wall thickness. Left ventricular cavity size normal. No obvious regional wall motion abnormalities. Right Ventricle Normal right ventricular size and function. Right ventricular systolic pressure within normal limits. Right Atrium Normal right atrial size. Left Atrium Normal left atrial size. Mitral Valve Structurally normal mitral valve. No mitral stenosis, regurgitation or prolapse. Aortic Valve Trileaflet aortic valve. Aortic valve sclerosis. No aortic valve stenosis or regurgitation. Tricuspid Valve Structurally normal tricuspid valve. No tricuspid stenosis. Mild tricuspid regurgitation. Pulmonic Valve Pulmonic valve not well visualized. No pulmonic stenosis. No pulmonic regurgitation. Pericardium No pericardial effusion. Aorta Normal size aortic root and proximal ascending aorta. CONCLUSIONS Indication: CVA with expressive aphasia and dysarthria Left ventricular ejection fraction of 55% Previewed by: Dr. Roshan Domínguez MD (Electronically Signed) Final Date: 02 August 2024 15:01
[2024-08-02 16:53] LABS: Glucose,Whole Blood 119 mg/dL (70-110)
--- NOTE | 2024-08-02 17:06 | P.CONS ---
History of Present Illness - Reason for Consult Consult date: 08/02/24 mediastinal LAD Requesting physician: Deng Church - Chief Complaint aphasia - History of Present Illness Ms. Pandya is a very pleasant 73 yo female with history of several comorbidities who is here for aphasia and confusion. She had cataract surgery recently, and soon after her post op follow up began having severe headache. she took tylenol without relief. states her family subseqeuntly found her confused and with aphasia, which prompted ED visit. she does not recall any of these events outside of taking tylenol for her headache. still with headache now, just above her eyes. Work up with CT head and MRI brain overall unremarkable. She is being evaluated by neurology. CTA was done, which revealed carotid stenosis as well as esophageal thickening and bulky mediastinal LAD. Pt denies any dysphagia or odynophagia. She has lost weight, 60 pounds since 10/2023, however with Mounjaro and diet and exercise. No unintentional weight loss. She has had EGD on a couple occasions, including a year ago for reflux. Colonoscopy was done a year ago as well. No smoking, alcohol, or drug use. No B symptoms other than intentional weight loss. Family history of lung cancer in brother and sister in their 60's, both smokers. her mother was also a smoker however pt has never smoked. Past Medical History Past Medical History: CVA/TIA, Diabetes Mellitus, GERD/Reflux, Hyperlipidemia, Hypertension, Myocardial Infarction ([place]), Sleep Apnea/CPAP/BIPAP, Thyroid Disorder Additional Past Medical History / Comment(s): CVA 2009, NO RESIDUAL EFFECTS, CPAP MACHINE, ARTHRITIS HIPS, ESOPHAGEAL AND DUODENAL ULCER, leg weakness and pain, urinary incontinence. Last Myocardial Infarction Date:: 2007 History of Any Multi-Drug Resistant Organisms: None Reported Past Surgical History: Bariatric Surgery, Heart Catheterization, Hysterectomy, Orthopedic Surgery Additional Past Surgical History / Comment(s): Left ganglion cyst left wrist, lap band placed and removed, abdominoplasty, broken foot repair to left foot with pins, screws and plate, D&C, EGD, Pain Clinic Procedure. Past Anesthesia/Blood Transfusion Reactions: Previous Problems w/ Anesthesia Additional Past Anesthesia/Blood Transfusion Reaction / Comm: "Has stopped breathing after procedures"; reintubted once after procedure and SOB after surgery. Past Psychological History: Depression Smoking Status: Never smoker Past Alcohol Use History: None Reported Past Drug Use History: None Reported - Past Family History Father Family Medical History: Cancer Additional Family Medical History / Comment(s): Colon cancer. Mother Family Medical History: Cancer Additional Family Medical History / Comment(s): Small cell lung cancer. Brother(s) Family Medical History: Cancer Additional Family Medical History / Comment(s): Lung cancer spread to lymph nodes. Sister(s) Family Medical History: Cancer Additional Family Medical History / Comment(s): Small cell lung cancer. Medications and Allergies Home Medications Medication Instructions Recorded Confirmed Type Aspirin [Adult Low Dose Aspirin EC] 81 mg PO DAILY 11/21/21 07/31/24 History Atorvastatin [Lipitor] 80 mg PO DAILY 11/21/21 07/31/24 History DULoxetine HCL [Cymbalta] 60 mg PO BID 11/21/21 07/31/24 History Omeprazole [PriLOSEC] 40 mg PO DAILY 10/30/23 07/31/24 History Dapagliflozin Propanediol [Farxiga] 10 mg PO DAILY 12/06/23 07/31/24 History Biotin [Biotin Disolve] 5,000 mcg PO DAILY 07/31/24 07/31/24 History Ergocalciferol (Vitamin D2) 1,250 mcg PO Q7D 07/31/24 07/31/24 History [Drisdol (50,000 Iu)] Insulin Aspart [NovoLOG Flexpen] 5 units SQ TID 07/31/24 07/31/24 History Ketorolac 0.5% Ophth Soln [Acular 1 drops LEFT EYE BID 07/31/24 07/31/24 History 0.5%] Levothyroxine Sodium [Synthroid] 88 mcg PO DAILY 07/31/24 07/31/24 History Tirzepatide [Mounjaro] 10 mg SQ Q7D 07/31/24 07/31/24 History lisinopriL [Zestril] 15 mg PO BID 07/31/24 07/31/24 History prednisoLONE ACETATE 1% OPHTH 1 drops LEFT EYE BID 07/31/24 07/31/24 History [Pred Forte 1%] Allergies Allergy/AdvReac Type Severity Reaction Status Date / Time amoxicillin Allergy Rash/Hives Verified 07/31/24 09:49 Physical Exam Vitals: Vital Signs Temp Pulse Pulse Resp BP BP Pulse Ox 08/02/24 15:24 98.2 F 62 17 129/62 96 08/02/24 11:39 98 F 76 17 175/67 97 08/02/24 08:45 96 08/02/24 07:49 98.3 F 67 17 160/65 98 08/02/24 06:30 148/62 08/02/24 05:09 98.0 F 59 L 14 174/75 99 08/02/24 00:00 98.5 F 59 L 12 187/68 99 08/01/24 20:00 98.0 F 65 14 166/70 99 08/01/24 18:30 98.3 F 67 16 148/77 97 08/01/24 17:19 65 16 180/76 95 Intake and Output 08/02/24 08/02/24 08/02/24 06:59 14:59 22:59 Intake Total 680 Output Total 650 Balance -650 680 Intake: IV 20 Invasive Line 2 20 Oral 660 Output: Urine 650 Uretheral (Nicole) 650 Other: Voiding Method Toilet Toilet # Voids 1 Weight 81.5 kg Patient is in no acute distress. she has couple bruises near her eyes bilaterally due to recent cateract surgery. some bruising on her arms. no large areas of ecchymosis. Alert and oriented x 3. Results CBC & Chem 7: 08/02/24 05:58 08/02/24 05:58 Labs: Abnormal Lab Results - Last 24 Hours (Table) 08/01/24 08/01/24 08/02/24 Range/Units 17:00 20:36 05:58 RBC 3.79 L (3.80-5.40) m/uL Lymphocytes # 0.9 L (1.0-4.8) k/uL Sodium (137-145) mmol/L BUN (7-17) mg/dL Creatinine (0.52-1.04) mg/dL Glucose (74-99) mg/dL POC Glucose (mg/dL) 144 H 141 H (70-110) mg/dL Total Bilirubin (0.2-1.3) mg/dL AST (14-36) U/L Total Protein (6.3-8.2) g/dL Albumin (3.5-5.0) g/dL 08/02/24 08/02/2425 Range/Units 05:58 06:18 12:11 RBC (3.80-5.40) m/uL Lymphocytes # (1.0-4.8) k/uL Sodium 136 L (137-145) mmol/L BUN 18 H (7-17) mg/dL Creatinine 1.28 H (0.52-1.04) mg/dL Glucose 125 H (74-99) mg/dL POC Glucose (mg/dL) 127 H 124 H (70-110) mg/dL Total Bilirubin 1.7 H (0.2-1.3) mg/dL AST 53 H (14-36) U/L Total Protein 5.8 L (6.3-8.2) g/dL Albumin 3.2 L (3.5-5.0) g/dL Comments: CTA head/neck reviewed CT Scan - head: report reviewed MRI - head: report reviewed Assessment and Plan Assessment: 1. CVA/TIA 2. LAD, esophageal thickening 3. Headache 4. Confusion Plan: Ms. Pandya is a very pleasant 73 yo female who is here for altered mentation and aphasia soon after headache, found to have esophageal thickening and bulky LAD on CTA head/neck. - Neurology and vascular on board regarding neurologic complaints, MRI brain negative, CTA with carotid stenosis, mentation back to baseline - Bulky mediastinal LAD and esophageal thickening, unclear etiology, asymptomatic and pt states had recent EGD/colonoscopy (EGD for reflux) - Need CT CAP and agree with EGD to better assess - Flow cytometry ordered Discussed with pt and she was agreeable. All questions answered.
[2024-08-02 20:05] LABS: Glucose,Whole Blood 109 mg/dL (70-110)
[2024-08-03 05:53] LABS: Glucose,Whole Blood 137 mg/dL (70-110)
[2024-08-03 06:32] LABS: Basophils % (A) 0 %; Eosinophils # (A) 0.1 k/uL (0-0.7); Eosinophils % (A) 2 %; HCT 34.4 % (34.0-46.0); HGB 11.6 gm/dL (11.4-16.0); Lymphocytes # (A) 0.8 k/uL (1.0-4.8); Lymphocytes % (A) 12 %; MCH 30.5 pg (25.0-35.0); MCHC 33.6 g/dL (31.0-37.0); MCV 90.8 fL (80.0-100.0); Mean Platelet Volume 7.7; Monocytes # (A) 0.3 k/uL (0-1.0); Monocytes % (A) 5 %; Neutrophils % (A) 79 %; Platelet Count 243 k/uL (150-450); RBC 3.79 m/uL (3.80-5.40); RDW 14.5 % (11.5-15.5); WBC 6.3 k/uL (3.8-10.6)
[2024-08-03 06:55] LABS: ALT 22 U/L (4-34); AST 39 U/L (14-36); African American GFR (CKD) 48 (>60 ml/min/1.73 sqM); Albumin 3.2 g/dL (3.5-5.0); Alkaline Phosphatase 86 U/L (38-126); Anion Gap 7 mmol/L; Blood Urea Nitrogen 20 mg/dL (7-17); Calcium 9.2 mg/dL (8.4-10.2); Carbon Dioxide 22 mmol/L (22-30); Chloride 103 mmol/L (98-107); Glucose 142 mg/dL (74-99); Non-African American GFR(CKD) 42 (>60 ml/min/1.73 sqM); Potassium 3.4 mmol/L (3.5-5.1); Sodium 132 mmol/L (137-145); Total Bilirubin 1.4 mg/dL (0.2-1.3); Total Protein 5.9 g/dL (6.3-8.2)
--- NOTE | 2024-08-03 08:42 | P.PN ---
Subjective Progress Note Date: 08/02/24 Patient was seen for follow-up. Patient is laying comfortably in the bed. Patient states that lasted 2 AM she had a bad headache. She was given Tylenol, which did not work. After she received Dilaudid, it got rid of the headache. At present she has no headache. Patient tells me that last 07/29/2024, she had cataract surgery. She went to the sales support specialist to have the eye patch out. And that the she had a terrible headache. She does not have history of migraines, does not drink coffe e. She does have some sinus congestion, but MRI and CT head showed no evidence of sinus disease. Objective - Vital Signs Vital signs: Vital Signs Temp 98.2 F 08/02/24 15:24 Pulse 62 08/02/24 15:24 Resp 17 08/02/24 15:24 BP 129/62 08/02/24 15:24 Pulse Ox 96 08/02/24 15:24 FiO2 Intake & Output 08/01/24 08/02/24 08/02/24 18:59 06:59 18:59 Intake Total 680 Output Total 1300 Balance -1300 680 Weight 80.739 kg 81.5 kg Intake: IV 20 Invasive Line 2 20 Oral 660 Output: Urine 1300 Uretheral (Nicole) 650 Other: Voiding Method Indwelling Catheter Toilet Toilet # Voids 1 # Bowel Movements 1 - Exam Patient is alert and awake oriented to time place and person. Speech and language functions are normal. Patient knows it is 08/02/2024 and that she is in [facility] and name of the current president. Cranial nerves are all normal. Visual fairchild are full. No neglect. Extraocular muscles intact. Face is symmetric, tongue protrudes the midline. Palatal elevation sensation normal. Hearing appears normal. On muscle strength testing, there is no pronator drift and the strength is normal in arms and legs. No ataxia. Sensory to touch is equal. - Labs CBC & Chem 7: 08/03/24 06:02 08/03/24 06:02 Labs: Abnormal Lab Results - Last 24 Hours (Table) 08/01/24 08/01/24 08/02/24 Range/Units 17:00 20:36 05:58 RBC 3.79 L (3.80-5.40) m/uL Lymphocytes # 0.9 L (1.0-4.8) k/uL Sodium (137-145) mmol/L BUN (7-17) mg/dL Creatinine (0.52-1.04) mg/dL Glucose (74-99) mg/dL POC Glucose (mg/dL) 144 H 141 H (70-110) mg/dL Total Bilirubin (0.2-1.3) mg/dL AST (14-36) U/L Total Protein (6.3-8.2) g/dL Albumin (3.5-5.0) g/dL 08/02/24 08/02/24 08/02/24 Range/Units 05:58 06:18 12:11 RBC (3.80-5.40) m/uL Lymphocytes # (1.0-4.8) k/uL Sodium 136 L (137-145) mmol/L BUN 18 H (7-17) mg/dL Creatinine 1.28 H (0.52-1.04) mg/dL Glucose 125 H (74-99) mg/dL POC Glucose (mg/dL) 127 H 124 H (70-110) mg/dL Total Bilirubin 1.7 H (0.2-1.3) mg/dL AST 53 H (14-36) U/L Total Protein 5.8 L (6.3-8.2) g/dL Albumin 3.2 L (3.5-5.0) g/dL Assessment and Plan Assessment: * Acute episode of expressive aphasia, gibberish speech with some encephalopathy. Exact cause uncertain. Rule out stroke/TIA. Patient's blood pressure was 185/136 at the scene, therefore rule out hypertensive encephalopathy. Rule out metabolic encephalopathy. * Patient had a similar episode (as above), about 2 months ago, that resolved in 30 minutes. Rule out seizures. * Hypertension * Diabetes * History of possible CVA with no residual deficits * Hyperlipidemia * Hypothyroidism * Mild renal insufficiency Plan: * Patient's mentation is back to normal. Current NIH stroke scale is 0. It is uncertain if patient had a TIA, or seizure, or hypertensive encephalopathy or some other etiology. * MRI of the brain with and without contrast, revealed no evidence for recent infarct. There is mild diffuse cerebral atrophy and moderate to borderline advanced probable chronic small vessel ischemic change. I personally reviewed MRI agree with the findings. * 2-D echo revealed LV EF 55%. Mildly increased septal wall thickness. Mildly increased posterior wall thickness. No obvious regional wall motion abnormalities. Normal right and left atrial sizes. No valvular abnorma lities. * CTA head and neck showed: Approximately 50 to 60% stenosis of the right proximal ICA due to calcified plaque. No evidence of flow-limiting stenosis in the left common carotid or ICA. No evidence of intracranial high-grade stenosis or intracranial aneurysm. Partially visualized bulky mediastinal and hilar lymphadenopathy with wall thickening of the thoracic esophagus, highly suspicious for malignancy. Recommend CT chest with IV contrast and/or endoscopy for further evaluation. We will defer to IM to address. * Patient undergoing consultation with Gen. surgery and hematology oncology for above abnormality. * Carotid Doppler, revealed no evidence for hemodynamically significant stenosis. Antegrade flow in both vertebral arteries. * Vascular surgery has seen the patient. They believe the right ICA stenosis is closer to 50%. No indication for any vascular surgical intervention. They have signed off. * Routine EEG 07/31/2024 was abnormal due to background slowing, suggestive of moderate encephalopathy. Sporadic frontal intermittent rhythmic delta act ivity was seen, with possible superimposed left temporal slowing, with some left temporal sharply contoured waves, which sometimes generalizes. This does suggest focal cortical neuronal dysfunction with underlying cortical irritability. Recommend prolonged EEG for further evaluation. No electrogr aphic seizure was recorded. * Prolonged EEG 08/01/2024 was abnormal due to presence of frontal intermittent rhythmic delta activity. This is nonspecific abnormality, can be seen with some encephalopathy or may suggest some convulsive tendency. At times this rhythmic delta activity was preceded with sharply contour waves. This did not appear to clearly epileptiform. However clinical correlation and repeat study are recommended if clinically indicated. No electrical graphic seizure was recorded. * Patient has abnormal EEG. We discussed about empirically starting antiepileptic medication. However patient has been started on Plavix for presumed TIA. Patient wants to stay with Plavix and hold off on antiepileptic medication for now. If she has any more similar/stereotypical spells, then may be a candidate for AED. * Recommend continuing aspirin 81 mg daily and Plavix 75 mg daily for 21 days, then stop aspirin and continue Plavix. (Patient was on aspirin at home). * Fasting a.m. lipid panel, with cholesterol 126, LDL 57, HDL 48 and triglycerides 104. Continue Lipitor 80 mg daily (home dose) * Ammonia < 9, B12, folate pending, TSH 3.27, normal. * Hemoglobin A1c 6.2, well controlled * Optimize control of blood pressure. * Neuro checks every 4 hours * Telemetry monitoring rule out any arrhythmia * PT, OT, speech therapy * DVT prophylaxis: Lovenox 40 mg subcu daily * Dr. Ildefonso Muñiz to start neurology service on the morning.
--- NOTE | 2024-08-03 10:09 | P.GSCN ---
History of Present Illness Consult date: 08/03/24 Reason for Consult: Esophageal thickening History of present illness: 73-year-old female brought to the hospital because of mental status changes. As part of her workup a CAT scan angio was performed showing some mediastinal adenopathy and esophageal thickening. Patient with history of known hiatal hernia. Denies any significant reflux symptoms. No dysphagia. History of previous lap band and subsequent Lap-Band removal. Underwent most recent EGD last February. 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 Patient states she is not taking antiacids at home however her home medication list shows Prilosec 40 mg once daily. Past Medical History Past Medical History: CVA/TIA, Diabetes Mellitus, GERD/Reflux, Hyperlipidemia, Hypertension, Myocardial Infarction ([place]), Sleep Apnea/CPAP/BIPAP, Thyroid Disorder Additional Past Medical History / Comment(s): CVA 2009, NO RESIDUAL EFFECTS, CPAP MACHINE, ARTHRITIS HIPS, ESOPHAGEAL AND DUODENAL ULCER, leg weakness and pain, urinary incontinence. Last Myocardial Infarction Date:: 2007 History of Any Multi-Drug Resistant Organisms: None Reported Past Surgical History: Bariatric Surgery, Heart Catheterization, Hysterectomy, Orthopedic Surgery Additional Past Surgical History / Comment(s): Left ganglion cyst left wrist, l ap band placed and removed, abdominoplasty, broken foot repair to left foot with pins, screws and plate, D&C, EGD, Pain Clinic Procedure. Past Anesthesia/Blood Transfusion Reactions: Previous Problems w/ Anesthesia Additional Past Anesthesia/Blood Transfusion Reaction / Comm: "Has stopped breathing after procedures"; reintubted once after procedure and SOB after surgery. Past Psychological History: Depression Smoking Status: Never smoker Past Alcohol Use History: None Reported Past Drug Use History: None Reported - Past Family History Father Family Medical History: Cancer Additional Family Medical History / Comment(s): Colon cancer. Mother Family Medical History: Cancer Additional Family Medical History / Comment(s): Small cell lung cancer. Brother(s) Family Medical History: Cancer Additional Family Medical History / Comment(s): Lung cancer spread to lymph nodes. Sister(s) Family Medical History: Cancer Additional Family Medical History / Comment(s): Small cell lung cancer. Medications and Allergies Home Medications Medication Instructions Recorded Confirmed Type Aspirin [Adult Low Dose Aspirin EC] 81 mg PO DAILY 11/21/21 07/31/24 History Atorvastatin [Lipitor] 80 mg PO DAILY 11/21/21 07/31/24 History DULoxetine HCL [Cymbalta] 60 mg PO BID 11/21/21 07/31/24 History Omeprazole [PriLOSEC] 40 mg PO DAILY 10/30/23 07/31/24 History Dapagliflozin Propanediol [Farxiga] 10 mg PO DAILY 12/06/23 07/31/24 History Biotin [Biotin Disolve] 5,000 mcg PO DAILY 07/31/24 07/31/24 History Ergocalciferol (Vitamin D2) 1,250 mcg PO Q7D 07/31/24 07/31/24 History [Drisdol (50,000 Iu)] Insulin Aspart [NovoLOG Flexpen] 5 units SQ TID 07/31/24 07/31/24 History Ketorolac 0.5% Ophth Soln [Acular 1 drops LEFT EYE BID 07/31/24 07/31/24 History 0.5%] Levothyroxine Sodium [Synthroid] 88 mcg PO DAILY 07/31/24 07/31/24 History Tirzepatide [Mounjaro] 10 mg SQ Q7D 07/31/24 07/31/24 History lisinopriL [Zestril] 15 mg PO BID 07/31/24 07/31/24 History prednisoLONE ACETATE 1% OPHTH 1 drops LEFT EYE BID 07/31/24 07/31/24 History [Pred Forte 1%] Allergies Allergy/AdvReac Type Severity Reaction Status Date / Time amoxicillin Allergy Rash/Hives Verified 07/31/24 09:49 Surgical - Exam Vital Signs Temp Pulse Resp BP Pulse Ox 97.9 F 94 24 135/107 100 07/30/24 20:51 07/30/24 20:51 07/30/24 20:51 07/30/24 20:51 07/30/24 20:51 Physical exam: General: Well-developed, well-nourished HEENT: Normocephalic, sclerae nonicteric Abdomen: Nontender, nondistended Extremities: No edema Neuro: Alert and oriented Results - Labs 08/03/24 06:02 08/03/24 06:02 Abnormal Lab Results - Last 24 Hours (Table) 08/02/24 08/02/24 08/03/24 Range/Units 12:11 16:52 05:52 RBC (3.80-5.40) m/uL Lymphocytes # (1.0-4.8) k/uL Sodium (137-145) mmol/L Potassium (3.5-5.1) mmol/L BUN (7-17) mg/dL Creatinine (0.52-1.04) mg/dL Glucose (74-99) mg/dL POC Glucose (mg/dL) 124 H 119 H 137 H (70-110) mg/dL Total Bilirubin (0.2-1.3) mg/dL AST (14-36) U/L Total Protein (6.3-8.2) g/dL Albumin (3.5-5.0) g/dL 08/03/24 08/03/24 Range/Units 06:02 06:02 RBC 3.79 L (3.80-5.40) m/uL Lymphocytes # 0.8 L (1.0-4.8) k/uL Sodium 132 L (137-145) mmol/L Potassium 3.4 L (3.5-5.1) mmol/L BUN 20 H (7-17) mg/dL Creatinine 1.30 H (0.52-1.04) mg/dL Glucose 142 H (74-99) mg/dL POC Glucose (mg/dL) (70-110) mg/dL Total Bilirubin 1.4 H (0.2-1.3) mg/dL AST 39 H (14-36) U/L Total Protein 5.9 L (6.3-8.2) g/dL Albumin 3.2 L (3.5-5.0) g/dL Diabetes panel 08/03/24 Range/Units 06:02 Sodium 132 L (137-145) mmol/L Potassium 3.4 L (3.5-5.1) mmol/L Chloride 103 (98-107) mmol/L Carbon Dioxide 22 (22-30) mmol/L BUN 20 H (7-17) mg/dL Creatinine 1.30 H (0.52-1.04) mg/dL Glucose 142 H (74-99) mg/dL Calcium 9.2 (8.4-10.2) mg/dL AST 39 H (14-36) U/L ALT 22 (4-34) U/L Alkaline Phosphatase 86 (38-126) U/L Total Protein 5.9 L (6.3-8.2) g/dL Albumin 3.2 L (3.5-5.0) g/dL Calcium panel 08/03/24 Range/Units 06:02 Calcium 9.2 (8.4-10.2) mg/dL Albumin 3.2 L (3.5-5.0) g/dL Pituitary panel 08/03/24 Range/Units 06:02 Sodium 132 L (137-145) mmol/L Potassium 3.4 L (3.5-5.1) mmol/L Chloride 103 (98-107) mmol/L Carbon Dioxide 22 (22-30) mmol/L BUN 20 H (7-17) mg/dL Creatinine 1.30 H (0.52-1.04) mg/dL Glucose 142 H (74-99) mg/dL Calcium 9.2 (8.4-10.2) mg/dL Adrenal panel 08/03/24 Range/Units 06:02 Sodium 132 L (137-145) mmol/L Potassium 3.4 L (3.5-5.1) mmol/L Chloride 103 (98-107) mmol/L Carbon Dioxide 22 (22-30) mmol/L BUN 20 H (7-17) mg/dL Creatinine 1.30 H (0.52-1.04) mg/dL Glucose 142 H (74-99) mg/dL Calcium 9.2 (8.4-10.2) mg/dL Total Bilirubin 1.4 H (0.2-1.3) mg/dL AST 39 H (14-36) U/L ALT 22 (4-34) U/L Alkaline Phosphatase 86 (38-126) U/L Total Protein 5.9 L (6.3-8.2) g/dL Albumin 3.2 L (3.5-5.0) g/dL Assessment and Plan (1) Esophageal thickening Narrative/Plan: Will proceed with upper endoscopy tomorrow. Continue antiacids. Current Visit: Yes Status: Acute Code(s): K22.89 - OTHER SPECIFIED DISEASE OF ESOPHAGUS SNOMED Code(s): 69769169
--- NOTE | 2024-08-03 10:26 | P.PN ---
Subjective Progress Note Date: 08/03/24 HISTORY OF PRESENT ILLNESS: This is a 73-year-old female with a previous medical history signif icant for hypertension and hypertensive cardiovascular disease, mixed hyperlipidemia, diabetes mellitus type 2, insulin requiring, diabetic polyneuropathy, chronic kidney disease stage IIIb, has been under the care of nephrology, history of hypothyroidism, history of GERD with esophagitis, history of major depressive disorder, patient was brought into the emergency department at [facility] last night because of increased confusion with slurred speech and patient not able to respond very well, initially she was quite combative and agitated in the emergency department, she did receive quite a bit of medication to try to calm her down, she underwent CT scan of the brain without contrast that was negative for acute infarct or bleed, she underwent CT angiography of the carotid and the brain, that was negative as well I did show evidence about 50 to 60% stenosis of the right internal carotid artery, because of the presentation patient was admitted to the hospital for suspicious of an acute ischemic event, she was started on Plavix 75 mg once every day, she was admitted to the hospital with neurology consultation, she was also started on IV fluid resuscitation in the form of normal saline at 100 cc an hour, monitor the patient very closely, neurocheck [id number], she will be admitted to telemetry unit. 08/01: Patient is laying down in bed in no apparent distress, she is more awake and alert today, she denies any headache, she has no chest pain or shortness of breath at this time, she has no abdominal pain, she is moving all her extremities, she appears to be back to baseline, I reviewed with the patient MRI of the brain with and without juanito that was negative for any acute infarct or bleed, did show small vessel disease, ultrasound of the carotid did not show evidence of acute abnormalities, minimal stenosis without hemodynamically significant stenosis, echocardiogram still pending at the time of dictation, EEG showed evidence of metabolic encephalopathy was recommended by neurology to have a prolonged EEG to rule out any seizure activity at this time, there is no evidence of any acute seizure at this point in time, patient will be kept in the hospital for another 24 hours, physical therapy and Occupational Therapy evaluation, increase activity, hopefully home in the next 24 hours. 08/02: Patient sitting up in bed complaining of increased headache, she is crying because of that, her blood pressure is fluctuating, we increased her lisinopril to 20 mg orally twice every day, will start the patient also on amlodipine 5 mg orally once every day added hydralazine 10 mg IV push every 4 hours as needed for systolic greater than 160, she was started on Tylenol 650 mg orally once every day I will keep the patient in the hospital for another 24 hours, to monitor her blood pressure, also there was on the report of a CT angiography diffuse thickening of the esophagus and the thoracic esophagus with bulky lymphadenopathy partially viewed on the CT angiography, it was recommended to have a direct visualization patient was seen by Dr. Carrasco in the past and had EGD that was done in February 2024 that showed Wooten's esophagus, I will consult general surgery Dr. Garcia as well as hematology oncology for further evaluation recommendation likely Dr. Garcia will be able to do EGD hopefully on Sunday, may need to have a CT scan of the chest abdomen pelvis but will wait until after the EGD is done since the patient was exposed to quite a bit of contrast and her GFR is a bit on the lower side. 08/03: Patient is sitting up in bed in no apparent distress, she is feeling a lot better today, she denies any chest pain, shortness of breath, she has no d ifficulty in swallowing, she has no significant heartburn, discussed with Dr. Garcia the need for EGD and he was scheduled tomorrow morning, continue patient on PPI, her last colonoscopy and EGD was done March 10, 2024 that showed evidence of Wooten's esophagus without dysplasia normal colonoscopy at that time, she was seen yesterday in consultation by hematology oncology for lymphadenopathy in the mediastinum was recommended for the patient to have a CT chest abdomen and pelvis as an outpatient, flow cytometry was ordered, will continue to follow very closely, laboratory evaluation reviewed, mild hypokalemia will replace, discussed with the nursing staff that her blood pressure is very well-controlled we will continue current treatment plan. REVIEW OF SYSTEMS: Constitutional: No documented fever, no chills, no night sweats. No weight change. No weakness, fatigue or lethargy. No daytime sleepiness. EENT: No headache. No blurred vision or double vision, no loss of vision. No loss of Hearing, no ringing in the ears, no dizziness. No nasal drainage or congestion. No epistaxis. No sore throat. Lungs: No shortness of breath, no cough, no sputum production. No wheezing. Reports dyspnea with activity. Cardiovascular: No chest pain, no lower extremity edema. No palpitations. No paroxysmal nocturnal dyspnea. No orthopnea. No lightheadedness or dizziness. No syncopal episodes. Abdominal: Reports no abdominal pain. No nausea, vomiting. No diarrhea. No constipation. No bloody or tarry stools reports loss of appetite. Genitourinary: No dysuria, increased frequency, urgency. No urinary retention. Musculoskeletal: No myalgias. No muscle weakness, no gait dysfunction, no frequent falls. No back pain. No neck pain. Integumentary: No wounds, no lesions. No rash or pruritus. No unusual bruising. No change in hair or nails. Neurologic: No aphasia. No facial droop. no change in mentation. No head injury. Positive headache. No paralysis. No paresthesia. Psychiatric: positive for depression. positive for anxiety. No mood swings. Endocrine: No abnormal blood sugars. No weight change. PHYSICAL EXAMINATION: General: 73-year-old female laying down in bed in no apparent distress HEENT: Head is atraumatic, normocephalic, pupils were equal round reactive to light and recommendation, extraocular muscle movement were intact, sclera nonict lidia, conjunctivae were pale, mucous membranes of the mouth are somewhat dry. Neck: Supple, no JVP, normal carotid upstroke bilaterally, no lymphadenopathy. Chest: Decreased breath sounds at the bases, few rhonchi, no expiratory wheezes, no chest wall tenderness, no intercostal retractions. Heart: First heart sound is normal, second heart sounds normal there is systolic ejection murmur 2 over systolic in the left sternal border. Abdomen: Soft, nontender, nondistended, positive bowel sounds. Extremities: There is no edema no calf tenderness DP +2 bilaterally. Neurologic examination: Patient is awake alert and oriented x1, cranial nerves II-12 appear grossly intact, muscle power 5 out of 5 in upper and lower extremities bilaterally, deep tendon reflexes were normal, Babinski's were flexor bilaterally. ASSESSMENT AND PLAN: 1. Acute metabolic encephalopathy of unclear etiology possibly TIA patient was ruled out for CVA, critical related to hypertensive encephalopathy her MRI of the brain with and without juanito did not show evidence of any acute infarct or bleed, continue patient on aspirin 81 mg once every day, Plavix 75 mg once every day, atorvastatin 80 mg once every day, monitor the patient symptoms very closely, physical therapy evaluation, Occupational Therapy evaluation, patient did have an EEG that showed evidence of significant metabolic encephalopathy so far with a prolonged EEG no evidence of seizure activity. 2. Thickened esophagus with bulky lymphadenopathy rule out esophageal cancer in a patient with a prior history of Wooten's esophagus. Patient is scheduled to go for EGD tomorrow morning she was seen in consultation by hematology oncology who recommended CT chest abdomen pelvis with contrast as an outpatient, flow cytometry was obtained, follow-up with the patient very closely. 3. Hypertension and hypertensive cardiovascular disease. Continue patient on lisinopril 20 mg orally twice every day, increase amlodipine to 5 mg orally twice every day, continue hydralazine 10 mg IV push every 4 hours as needed. Blood pressure much better. 4. Mixed hyperlipidemia. Continue patient on atorvastatin 80 mg once every day, monitor lipid panel, keep LDL 55-70. 5. Diabetes mellitus type 2. Continue patient on sliding scale insulin for now, we will hold off Mounjaro for now. 6. Hypothyroidism. Continue patient on levothyroxine 88 mcg orally once every day, 7. GERD with esophagitis with Wooten's esophagus Continue patient on pantoprazole 40 mg orally once every day. Last EGD and colonoscopy were done March 10, [address] Soni that showed Wooten's esophagus with no dysplasia. 8. Moderate right ICA disease. Patient did have a repeated ultrasound of the carotid that did not show any evidence of hemodynamically significant stenosis, will continue current treatment plan. Vascular surgery consultation appreciated. 9. DVT prophylaxis. Lovenox 40 mg subcutaneous every 24 hours. 10. GI prophylaxis. Continue patient on PPI. 11. Increase activity. 12. Guarded prognosis 13. Home after EGD tomorrow. Objective - Vital Signs Vital signs: Vital Signs Temp 98.5 F 08/02/24 20:00 Pulse 73 08/03/24 03:20 Resp 16 08/03/24 03:20 BP 166/61 08/03/24 03:20 Pulse Ox 98 08/03/24 03:20 FiO2 Intake & Output 08/02/24 08/03/24 08/03/24 18:59 06:59 18:59 Intake Total 800 540 Balance 800 540 Weight 81.9 kg Intake: IV 20 Invasive Line 2 20 Oral 780 540 Other: Voiding Method Toilet Toilet # Voids 3 1 - Labs CBC & Chem 7: 08/03/24 06:02 08/03/24 06:02 Labs: Abnormal Lab Results - Last 24 Hours (Table) 08/02/24 08/02/24 08/03/24 Range/Units 12:11 16:52 05:52 RBC (3.80-5.40) m/uL Lymphocytes # (1.0-4.8) k/uL Sodium (137-145) mmol/L Potassium (3.5-5.1) mmol/L BUN (7-17) mg/dL Creatinine (0.52-1.04) mg/dL Glucose (74-99) mg/dL POC Glucose (mg/dL) 124 H 119 H 137 H (70-110) mg/dL Total Bilirubin (0.2-1.3) mg/dL AST (14-36) U/L Total Protein (6.3-8.2) g/dL Albumin (3.5-5.0) g/dL 08/03/24 08/03/24 Range/Units 06:02 06:02 RBC 3.79 L (3.80-5.40) m/uL Lymphocytes # 0.8 L (1.0-4.8) k/uL Sodium 132 L (137-145) mmol/L Potassium 3.4 L (3.5-5.1) mmol/L BUN 20 H (7-17) mg/dL Creatinine 1.30 H (0.52-1.04) mg/dL Glucose 142 H (74-99) mg/dL POC Glucose (mg/dL) (70-110) mg/dL Total Bilirubin 1.4 H (0.2-1.3) mg/dL AST 39 H (14-36) U/L Total Protein 5.9 L (6.3-8.2) g/dL Albumin 3.2 L (3.5-5.0) g/dL
[2024-08-03] MEDS: LOSARTAN 50 MG TAB PO SCH (11:17)
[2024-08-03 11:32] LABS: Glucose,Whole Blood 135 mg/dL (70-110)
[2024-08-03] MEDS: POTASSIUM CHLORIDE ER 20 MEQ TAB.ER PO STA (12:48)
--- NOTE | 2024-08-03 13:18 | P.PN ---
Subjective Progress Note Date: 08/03/24 I am seeing the patient for the first time during this hospital visit. Please refer to Dr. Liu's note for further details. Seems the patient had episodes of confusion with gibberish speech expressive aphasia and she had MRI of the brain which was negative for any acute process. She also had 2 routine EEG because of her repeated confusion and there is no seizure. According to the who is at bedside patient is less confused today as well as the nurse feels like she is doing better. Patient feels she is doing better overall. Objective - Vital Signs Vital signs: Vital Signs Temp 98.1 F 08/03/24 12:00 Pulse 66 08/03/24 12:00 Resp 17 08/03/24 12:00 BP 138/56 08/03/24 12:00 Pulse Ox 100 08/03/24 12:00 FiO2 Intake & Output 08/02/24 08/03/24 08/03/24 18:59 06:59 18:59 Intake Total 800 540 490 Balance 800 540 490 Weight 81.9 kg Intake: IV 20 10 Invasive Line 2 20 10 Oral 780 540 480 Other: Voiding Method Toilet Toilet Toilet # Voids 3 1 - Exam General Patient is lying in bed and is not in acute distress Neuro: Patient is awake alert oriented to self place and time. Is following simple commands. No aphasia. No facial weakness. No dysarthria. Motor: Strength is 5 out of 5 throughout. - Labs CBC & Chem 7: 08/03/24 06:02 08/03/24 06:02 Labs: Abnormal Lab Results - Last 24 Hours (Table) 08/02/24 08/03/24 08/03/24 Range/Units 16:52 05:52 06:02 RBC 3.79 L (3.80-5.40) m/uL Lymphocytes # 0.8 L (1.0-4.8) k/uL Sodium (137-145) mmol/L Potassium (3.5-5.1) mmol/L BUN (7-17) mg/dL Creatinine (0.52-1.04) mg/dL Glucose (74-99) mg/dL POC Glucose (mg/dL) 119 H 137 H (70-110) mg/dL Total Bilirubin (0.2-1.3) mg/dL AST (14-36) U/L Total Protein (6.3-8.2) g/dL Albumin (3.5-5.0) g/dL 08/03/24 08/03/24 Range/Units 06:02 11:28 RBC (3.80-5.40) m/uL Lymphocytes # (1.0-4.8) k/uL Sodium 132 L (137-145) mmol/L Potassium 3.4 L (3.5-5.1) mmol/L BUN 20 H (7-17) mg/dL Creatinine 1.30 H (0.52-1.04) mg/dL Glucose 142 H (74-99) mg/dL POC Glucose (mg/dL) 135 H (70-110) mg/dL Total Bilirubin 1.4 H (0.2-1.3) mg/dL AST 39 H (14-36) U/L Total Protein 5.9 L (6.3-8.2) g/dL Albumin 3.2 L (3.5-5.0) g/dL Assessment and Plan Assessment: * Acute episode of expressive aphasia, gibberish speech with some encephalopathy. Exact cause uncertain. Rule out stroke/TIA. Patient's blood pressure was 185/136 at the scene, therefore rule out hypertensive encephalopathy. Patient's mentation is back to normal. Current NIH stroke sca le is 0. It is uncertain if patient had a TIA, or seizure, or hypertensive encephalopathy or some other etiology. * Patient had a similar episode (as above), about 2 months ago, that resolved in 30 minutes. Rule out seizures. * Hypertension * Diabetes * History of possible CVA with no residual deficits * Hyperlipidemia * Hypothyroidism * Mild renal insufficiency Plan: * MRI of the brain with and without contrast, revealed no evidence for recent infarct. There is mild diffuse cerebral atrophy and moderate to borderline advanced probable chronic small vessel ischemic change. I personally reviewed MRI agree with the findings. * 2-D echo revealed LV EF 55%. Mildly increased septal wall thickness. Mildly increased posterior wall thickness. No obvious regional wall motion abnormalities. Normal right and left atrial sizes. No valvular abnormali ties. * CTA head and neck showed: Approximately 50 to 60% stenosis of the right proximal ICA due to calcified plaque. No evidence of flow-limiting stenosis in the left common carotid or ICA. No evidence of intracranial high-grade stenosis or intracranial aneurysm. Partially visualized bulky mediastinal and hilar lymphadenopathy with wall thickening of the thoracic esophagus, highly suspicious for malignancy. Recommend CT chest with IV contrast and/or endoscopy for further evaluation. We will defer to IM to address. * Patient undergoing consultation with Gen. surgery and hematology oncology for above abnormality. * Carotid Doppler, revealed no evidence for hemodynamically significant stenos is. Antegrade flow in both vertebral arteries. * Vascular surgery has seen the patient. They believe the right ICA stenosis is closer to 50%. No indication for any vascular surgical intervention. They have signed off. * Routine EEG 07/31/2024 was abnormal due to background slowing, suggestive of moderate encephalopathy. Sporadic frontal intermittent rhythmic delta activity was seen, with possible superimposed left temporal slowing, with some left temporal sharply contoured waves, which sometimes generalizes. This does suggest focal cortical neuronal dysfunction with underlying cortical i rritability. Recommend prolonged EEG for further evaluation. No electrographic seizure was recorded. * Prolonged EEG 08/01/2024 was abnormal due to presence of frontal intermittent rhythmic delta activity. This is nonspecific abnormality, can be seen with some encephalopathy or may suggest some convulsive tendency. At times this rhythmic delta activity was preceded with sharply contour waves. This did not appear to clearly epileptiform. However clinical correlation and repeat study are recommended if clinically indicated. No electrical graphic seizure was recorded. * Patient has abnormal EEG. Dr. Liu discussed about empirically starting antiepileptic medication, however patient has been started on Plavix for presumed TIA and patient wants to stay with Plavix and hold off on antiepi leptic medication for now. If she has any more similar/stereotypical spells, then may be a candidate for AED. * Per Dr. Liu, recommend continuing aspirin 81 mg daily and Plavix 75 mg daily for 21 days, then stop aspirin and continue Plavix. (Patient was on aspirin at home). * Fasting a.m. lipid panel, with cholesterol 126, LDL 57, HDL 48 and triglycerides 104. Continue Lipitor 80 mg daily (home dose) * Ammonia < 9, B12, folate pending, TSH 3.27, normal. * Hemoglobin A1c 6.2, well controlled * Optimize control of blood pressure. * Neuro checks every 4 hours * Telemetry monitoring rule out any arrhythmia * PT, OT, speech therapy * DVT prophylaxis: Lovenox 40 mg subcu daily Time with Patient: Less than 30
[2024-08-03] MEDS ORDERED: ARTIFICIAL TEARS-HYPROMELLOSE DROPS 15 ML BTL BOTH EYES PRN (16:10)
[2024-08-03 16:57] LABS: Glucose,Whole Blood 109 mg/dL (70-110)
[2024-08-03] MEDS: TROPICAMIDE 1% OPHTH DROPS 2 ML BTL BOTH EYES ONE (17:55)
[2024-08-03] MEDS: PHENYLEPHRINE 2.5% OPHTH DRP 2ML BOTH EYES SCH (17:55)
[2024-08-03] MEDS: PROPARACAINE 0.5% OPHTH DROPS 15 ML BTL BOTH EYES STA (17:56)
--- NOTE | 2024-08-03 18:32 | P.CON ---
Consult Note - . Consult date: 08/03/24 Assessment/Plan:: This is a 73 y/o female patient with a history of amblyopia as a child in the right eye, who has undergone cataract and implant surgery in June 2024. As the result of a good outcome, she returned for lens implant surgery of the left eye on Jul,. Both surgeries were performed with intracameral antiobiotic at the end of the case, and she remains on ketorolac and prednisolone drops for each of here eyes at this time. On day 1 after cataract implant surgery of the left eye, she was seen in the office and was apparently doing well, however, she felt her vision was not quite as good day 1 as compared to the vision for the weaker right eye, at the same point in time. Apparently later in the day, she began to experience increasing left brow pain of 10/10. Additionally, she was suspected of having a possible stroke at the time of presentation to ER after being transported by EMS. Workup over the last few days has shown improvement in her sensorium and brow discomfort which had intermittently required using Demerol to control the pain. Today, day 5 of admission, she has begun to notice colored globes and color changing symptoms when looking at objects. The images are definitely only in the left eye, they are seen in the dark. She denied the typically floaters and shadows normally seen, at this stage of life. She is also claiming some binocular diplopia, not seen prior to surgery. I have been asked to evaluate for the new onset symptoms in this pleasant and coherent lady. Exam: Va: w/o correction: 20/30 -3 OD, 20/20 +2 OS Ext: binocular ecchymosis of the lower eyelids. There is no focal tenderness or mass noted. Eyelids open and close appropriately EOM: full D&V Pupils without APD CF: Full OU IOP: Tonopen: 14 mm Hg OD, 15 mm Hg OS @ 1730 SLE: conj: OD white & quite, OS subconjunctival heme 1+ sup & inferior, no chemosis K: clear OU, -Susi AC: D&Q OU Iris: without pathology Dilated @ 1735 w/ 2.5 neosynephrine & 1% tropicamide - typically last about 6-9 hours. Vitreous: normal PVD, OU Optic nerve: S/F/P 0.1 OU Mac: flat FLR with milde RPE change, OD; dim FLR, OS, no DM or CSME changes Vessels: mild attenuation and crossing changes, scattered throughout Periphery: normal intact 360 A: 1) brow pain left eye, unknown etiology 2) loss of awareness for unknown etiology 3) ecchymosis OU - retrobulbar injection, OU - typical 4) PC IOL, OU, post cataract surgery 5) esotropia - old history, images uncrossed per patient 6) light sensation and color shifting, unknown, possible relationship to recovering from local block anesthetic 7) early adult vitelliform dystrophy OD P: Expectations of full recovery from all of the above as noted, there will be a persistence of the amblyopia, as this is long standing. The most recent vision changes of color shifting and colored objects from left eye are most likely related to the recent anesthetic exposure and is recovering. Recommend follow upp with Dr. Acosta as planned for updates and continuing ophthalmic care. Thank you for this consultation.
[2024-08-03] MEDS: lisinopriL 20 MG TAB PO SCH (20:16)
[2024-08-03 20:31] LABS: Glucose,Whole Blood 142 mg/dL (70-110)
[2024-08-04 05:16] LABS: Basophils % (A) 0 %; Eosinophils # (A) 0.2 k/uL (0-0.7); Eosinophils % (A) 3 %; HCT 38.4 % (34.0-46.0); HGB 12.3 gm/dL (11.4-16.0); Hypochromasia Slight; Lymphocytes # (A) 1.2 k/uL (1.0-4.8); Lymphocytes % (A) 23 %; MCH 29.9 pg (25.0-35.0); MCV 93.5 fL (80.0-100.0); Mean Platelet Volume 7.7; Monocytes # (A) 0.3 k/uL (0-1.0); Monocytes % (A) 6 %; Neutrophils # (A) 3.4 k/uL (1.3-7.7); Neutrophils % (A) 66 %; Platelet Count 230 k/uL (150-450); RBC 4.11 m/uL (3.80-5.40); RDW 14.2 % (11.5-15.5); WBC 5.1 k/uL (3.8-10.6)
[2024-08-04 05:37] LABS: ALT 23 U/L (4-34); AST 36 U/L (14-36); African American GFR (CKD) 43 (>60 ml/min/1.73 sqM); Albumin 3.6 g/dL (3.5-5.0); Alkaline Phosphatase 107 U/L (38-126); Anion Gap 13 mmol/L; Blood Urea Nitrogen 19 mg/dL (7-17); Calcium 9.7 mg/dL (8.4-10.2); Carbon Dioxide 18 mmol/L (22-30); Chloride 103 mmol/L (98-107); Glucose 136 mg/dL (74-99); Magnesium 1.8 mg/dL (1.6-2.3); Non-African American GFR(CKD) 37 (>60 ml/min/1.73 sqM); Potassium 3.3 mmol/L (3.5-5.1); Sodium 134 mmol/L (137-145); Total Bilirubin 1.4 mg/dL (0.2-1.3); Total Protein 6.5 g/dL (6.3-8.2)
[2024-08-04 06:08] LABS: Glucose,Whole Blood 110 mg/dL (70-110)
[2024-08-04] MEDS ORDERED: POTASSIUM CHLORIDE 10 MEQ in WATER FOR INJECTION 1 100ML.BAG IVPB SCH (08:00)
[2024-08-04] MEDS: LACTATED RINGERS 1,000 ML IV ONE (08:57)
[2024-08-04] MEDS ORDERED: PROPOFOL 10 MG/ML 20 ML VIAL IV ONE (08:58)
[2024-08-04] MEDS ORDERED: LIDOCAINE 1% INJ 10MG/ML (20 ML MDV) ONE (08:58)
--- NOTE | 2024-08-04 09:25 | P.PCN ---
Date of Procedure: 08/04/24 Procedure(s) Performed: Preoperative Dx: Esophageal thickening, mediastinal adenopathy Postoperative Dx: Wooten's esophagus, mild distal esophagitis, small hiatal hernia, retained food contents likely related to GLP-1 agonist Procedure: EGD with Bx Anesthesia: Sedation Endoscopist: Dr. Garcia Specimens: Wooten's esophagus Endoscopic Procedure: The patient was on the endoscopy table in the left decubitus position. The Olympus gastroscope was inserted into the oropharynx and passed under direct visualization to the region of the third portion of the duodenum. From that point the scope was slowly withdrawn inspecting all surfaces carefully. There were no neoplastic inflammatory or polypoid lesions throughout the duodenum. The pylorus was widely patent. The stomach was carefully inspected. There was a large volume of retained food particles within the stomach. This limited our visualization of the stomach mucosa particularly in the fundus and body of the stomach. There was no obvious inflammatory changes present. No biopsy of the stomach took place. Retroflexion showed a small fixed hiatal hernia. The esophagus was then carefully examined. The patient had mild inflammatory changes of the Wooten's esophagus above the GE junction. Numerous biopsies of the Wooten's esophagus took place. There was no ulcerations or nodularity to suggest the presence of neoplastic changes. The length of the Wooten's esophagus was 4 to 5 cm. The proximal and midesophagus appeared normal. The patient was then taken to the recovery room in stable condition per anesthesia guidelines. Recommendations: Continue antiacid therapy. Await biopsy results. Continue workup of mediastinal adenopathy. This does not appear to be related to esophageal malignancy at this time. Recommend repeat EGD 2 to 3 years.
[2024-08-04 09:56] VITALS: BP 147/71; PULSE 68; RESP 16; TEMP 97.8
[2024-08-04] MEDS: POTASSIUM CHLORIDE ER 20 MEQ TAB.ER PO STA (10:01)
--- NOTE | 2024-08-04 10:04 | P.PN ---
Subjective Progress Note Date: 08/04/24 HISTORY OF PRESENT ILLNESS: This is a 73-year-old female with a previous medical history signif icant for hypertension and hypertensive cardiovascular disease, mixed hyperlipidemia, diabetes mellitus type 2, insulin requiring, diabetic polyneuropathy, chronic kidney disease stage IIIb, has been under the care of nephrology, history of hypothyroidism, history of GERD with esophagitis, history of major depressive disorder, patient was brought into the emergency department at [facility] last night because of increased confusion with slurred speech and patient not able to respond very well, initially she was quite combative and agitated in the emergency department, she did receive quite a bit of medication to try to calm her down, she underwent CT scan of the brain without contrast that was negative for acute infarct or bleed, she underwent CT angiography of the carotid and the brain, that was negative as well I did show evidence about 50 to 60% stenosis of the right internal carotid artery, because of the presentation patient was admitted to the hospital for suspicious of an acute ischemic event, she was started on Plavix 75 mg once every day, she was admitted to the hospital with neurology consultation, she was also started on IV fluid resuscitation in the form of normal saline at 100 cc an hour, monitor the patient very closely, neurocheck [id number], she will be admitted to telemetry unit. 08/01: Patient is laying down in bed in no apparent distress, she is more awake and alert today, she denies any headache, she has no chest pain or shortness of breath at this time, she has no abdominal pain, she is moving all her extremities, she appears to be back to baseline, I reviewed with the patient MRI of the brain with and without juanito that was negative for any acute infarct or bleed, did show small vessel disease, ultrasound of the carotid did not show evidence of acute abnormalities, minimal stenosis without hemodynamically significant stenosis, echocardiogram still pending at the time of dictation, EEG showed evidence of metabolic encephalopathy was recommended by neurology to have a prolonged EEG to rule out any seizure activity at this time, there is no evidence of any acute seizure at this point in time, patient will be kept in the hospital for another 24 hours, physical therapy and Occupational Therapy evaluation, increase activity, hopefully home in the next 24 hours. 08/02: Patient sitting up in bed complaining of increased headache, she is crying because of that, her blood pressure is fluctuating, we increased her lisinopril to 20 mg orally twice every day, will start the patient also on amlodipine 5 mg orally once every day added hydralazine 10 mg IV push every 4 hours as needed for systolic greater than 160, she was started on Tylenol 650 mg orally once every day I will keep the patient in the hospital for another 24 hours, to monitor her blood pressure, also there was on the report of a CT angiography diffuse thickening of the esophagus and the thoracic esophagus with bulky lymphadenopathy partially viewed on the CT angiography, it was recommended to have a direct visualization patient was seen by Dr. Carrasco in the past and had EGD that was done in February 2024 that showed Wooten's esophagus, I will consult general surgery Dr. Garcia as well as hematology oncology for further evaluation recommendation likely Dr. Garcia will be able to do EGD hopefully on Sunday, may need to have a CT scan of the chest abdomen pelvis but will wait until after the EGD is done since the patient was exposed to quite a bit of contrast and her GFR is a bit on the lower side. 08/03: Patient is sitting up in bed in no apparent distress, she is feeling a lot better today, she denies any chest pain, shortness of breath, she has no d ifficulty in swallowing, she has no significant heartburn, discussed with Dr. Garcia the need for EGD and he was scheduled tomorrow morning, continue patient on PPI, her last colonoscopy and EGD was done March 10, 2024 that showed evidence of Wooten's esophagus without dysplasia normal colonoscopy at that time, she was seen yesterday in consultation by hematology oncology for lymphadenopathy in the mediastinum was recommended for the patient to have a CT chest abdomen and pelvis as an outpatient, flow cytometry was ordered, will continue to follow very closely, laboratory evaluation reviewed, mild hypokalemia will replace, discussed with the nursing staff that her blood pressure is very well-controlled we will continue current treatment plan. 08/04: Patient sitting up in bed in no apparent distress, her potassium was a bit on the lower side, she will be given potassium chloride 20 mill equivalent IV piggyback x 1 patient underwent an EGD that was done by Dr. Flores showed evidence of Wooten's esophagus, and retained food in the stomach, multiple biopsies were obtained, no evidence of any esophageal carcinoma at this point in time, therefore the patient can be discharged home later on today and follow-up with me as an outpatient next week, awaiting the final result of the flow cytometry, and possibly repeating CT scan of the chest abdomen pelvis as an outpatient she may follow-up with Dr. Pardo after that REVIEW OF SYSTEMS: Constitutional: No documented fever, no chills, no night sweats. No weight change. No weakness, fatigue or lethargy. No daytime sleepiness. EENT: No headache. No blurred vision or double vision, no loss of vision. No loss of Hearing, no ringing in the ears, no dizziness. No nasal drainage or congestion. No epistaxis. No sore throat. Lungs: No shortness of breath, no cough, no sputum production. No wheezing. Reports dyspnea with activity. Cardiovascular: No chest pain, no lower extremity edema. No palpitations. No paroxysmal nocturnal dyspnea. No orthopnea. No lightheadedness or dizziness. No syncopal episodes. Abdominal: Reports no abdominal pain. No nausea, vomiting. No diarrhea. No constipation. No bloody or tarry stools reports loss of appetite. Genitourinary: No dysuria, increased frequency, urgency. No urinary retention. Musculoskeletal: No myalgias. No muscle weakness, no gait dysfunction, no frequent falls. No back pain. No neck pain. Integumentary: No wounds, no lesions. No rash or pruritus. No unusual bruising. No change in hair or nails. Neurologic: No aphasia. No facial droop. no change in mentation. No head injury. Positive headache. No paralysis. No paresthesia. Psychiatric: positive for depression. positive for anxiety. No mood swings. Endocrine: No abnormal blood sugars. No weight change. PHYSICAL EXAMINATION: General: 73-year-old female laying down in bed in no apparent distress HEENT: Head is atraumatic, normocephalic, pupils were equal round reactive to light and recommendation, extraocular muscle movement were intact, sclera nonicteric, conjunctivae were pale, mucous membranes of the mouth are somewhat dry. Neck: Supple, no JVP, normal carotid upstroke bilaterally, no lymphadenopathy. Chest: Decreased breath sounds at the bases, few rhonchi, no expiratory wheezes, no chest wall tenderness, no intercostal retractions. Heart: First heart sound is normal, second heart sounds normal there is systolic ejection murmur 2 over systolic in the left sternal border. Abdomen: Soft, nontender, nondistended, positive bowel sounds. Extremities: There is no edema no calf tenderness DP +2 bilaterally. Neurologic examination: Patient is awake alert and oriented x1, cranial nerves II-12 appear grossly intact, muscle power 5 out of 5 in upper and lower extremit ies bilaterally, deep tendon reflexes were normal, Babinski's were flexor bilaterally. ASSESSMENT AND PLAN: 1. Acute metabolic encephalopathy of unclear etiology possibly TIA patient was ruled out for CVA, critical related to hypertensive encephalopathy her MRI of the brain with and without juanito did not show evidence of any acute infarct or bleed, continue patient on aspirin 81 mg once every day, Plavix 75 mg once every day, atorvastatin 80 mg once every day, monitor the patient symptoms very closely, physical therapy evaluation, Occupational Therapy evaluation, patient did have an EEG that showed evidence of significant metabolic encephalopathy so far with a prolonged EEG no evidence of seizure activity. 2. Thickened esophagus with bulky lymphadenopathy rule out esophageal cancer in a patient with a prior history of Wooten's esophagus. Patient is scheduled to go for EGD tomorrow morning she was seen in consultation by hematology oncology who recommended CT chest abdomen pelvis with contrast as an outpatient, flow cytometry was obtained, follow-up with the patient very closely. 3. Hypertension and hypertensive cardiovascular disease. Continue patient on lisinopril 20 mg orally twice every day, increase amlodipine to 5 mg orally twice every day, continue hydralazine 10 mg IV push every 4 hours as needed. Blood pressure much better. 4. Mixed hyperlipidemia. Continue patient on atorvastatin 80 mg once every day, monitor lipid panel, keep LDL 55-70. 5. Diabetes mellitus type 2. Continue patient on sliding scale insulin for now, we will hold off Mounjaro for now. 6. Hypothyroidism. Continue patient on levothyroxine 88 mcg orally once every day, 7. GERD with esophagitis with Wooten's esophagus Continue patient on pantoprazole 40 mg orally once every day. Last EGD and colonoscopy were done March 10, [address] Soni that showed Wooten's esophagus with no dysplasia. 8. Moderate right ICA disease. Patient did have a repeated ultrasound of the carotid that did not show any evidence of hemodynamically significant stenosis, will continue current treatment plan. Vascular surgery consultation appreciated. 9. DVT prophylaxis. Lovenox 40 mg subcutaneous every 24 hours. 10. GI prophylaxis. Continue patient on PPI. 11. Increase activity. 12. Guarded prognosis 13. Hypokalemia status post replacement. 14. Hopefully home this afternoon if the EGD is okay. Objective - Vital Signs Vital signs: Vital Signs Temp 98.0 F 08/04/24 04:03 Pulse 64 08/04/24 04:03 Resp 17 08/04/24 04:03 BP 153/48 08/04/24 04:03 Pulse Ox 98 08/04/24 04:03 FiO2 Intake & Output 08/03/24 08/04/24 08/04/24 18:59 06:59 18:59 Intake Total 1040 20 Balance 1040 20 Weight 80.7 kg Intake: IV 20 20 Invasive Line 2 20 20 Oral 1020 Other: Voiding Method Toilet Toilet # Voids 4 1 - Labs CBC & Chem 7: 08/04/24 04:47 08/04/24 04:47 Labs: Abnormal Lab Results - Last 24 Hours (Table) 08/03/24 08/03/24 08/04/24 Range/Units 11:28 20:29 04:47 Sodium 134 L (137-145) mmol/L Potassium 3.3 L (3.5-5.1) mmol/L Carbon Dioxide 18 L (22-30) mmol/L BUN 19 H (7-17) mg/dL Creatinine 1.42 H (0.52-1.04) mg/dL Glucose 136 H (74-99) mg/dL POC Glucose (mg/dL) 135 H 142 H (70-110) mg/dL Total Bilirubin 1.4 H (0.2-1.3) mg/dL
--- NOTE | 2024-08-04 10:06 | P.DS ---
Providers Date of admission: 07/30/24 23:02 Expected date of discharge: 08/04/24 Attending physician: Deng Church Consults: 07/30/24 22:59 Consult Physician Urgent Consulting Provider: Jah Liu Consult Reason/Comments: acute encephalopathy, expressive aphasia, suspected cva Do you want consulting provider notified?: Yes 08/02/24 10:53 Consult Physician Routine Consulting Provider: Randall Garcia Consult Reason/Comments: esophagitis, EGD Do you want consulting provider notified?: Yes 08/02/24 10:54 Consult Physician Routine Consulting Provider: Amrit Pardo Consult Reason/Comments: mediastinal lymphadenopathy Do you want consulting provider notified?: Yes 08/03/24 13:04 Consult Physician Routine Consulting Provider: Saleem Reza Consult Reason/Comments: cataract sx 1 week ago, vision changes Do you want consulting provider notified?: Yes Primary care physician: Deng Church Hospital Course: HISTORY OF PRESENT ILLNESS: This is a 73-year-old female with a previous medical history significant for hypertension and hypertensive cardiovascular disease, mixed hyperlipidemia, diabetes mellitus type 2, insulin requiring, diabetic polyneuropathy, chronic kidney disease stage IIIb, has been under the care of nephrology, history of hypothyroidism, history of GERD with esophagitis, history of major depressive disorder, patient was brought into the emergency department at [facility] last night because of increased confusion with slurred speech and patient not able to respond very well, initially she was quite combative and agitated in the emergency department, she did receive quite a bit of medication to try to calm her down, she underwent CT scan of the brain without contrast that was negative for acute infarct or bleed, she underwent CT angiography of the carotid and the brain, that was negative as well I did show evidence about 50 to 60% stenosis of the right internal carotid artery, because of the presentation patient was admitted to the hospital for suspicious of an acute ischemic event, she was started on Plavix 75 mg once every day, she was admitted to the hospital with neurology consultation, she was also started on IV fluid resuscitation in the form of normal saline at 100 cc an hour, monitor the patient very closely, neurocheck [id number], she will be admitted to telemetry unit. 08/01: Patient is laying down in bed in no apparent distress, she is more awake and alert today, she denies any headache, she has no chest pain or shortness of breath at this time, she has no abdominal pain, she is moving all her extremities, she appears to be back to baseline, I reviewed with the patient MRI of the brain with and without juanito that was negative for any acute infarct or bleed, did show small vessel disease, ultrasound of the carotid did not show evidence of acute abnormalities, minimal stenosis without hemodynamically significant stenosis, echocardiogram still pending at the time of dictation, EEG showed evidence of metabolic encephalopathy was recommended by neurology to have a prolonged EEG to rule out any seizure activity at this time, there is no evidence of any acute seizure at this point in time, patient will be kept in the hospital for another 24 hours, physical therapy and Occupational Therapy evaluation, increase activity, hopefully home in the next 24 hours. 08/02: Patient sitting up in bed complaining of increased headache, she is crying because of that, her blood pressure is fluctuating, we increased her lisinopril to 20 mg orally twice every day, will start the patient also on amlodipine 5 mg orally once every day added hydralazine 10 mg IV push every 4 hours as needed for systolic greater than 160, she was started on Tylenol 650 mg orally once every day I will keep the patient in the hospital for another 24 hours, to monitor her blood pressure, also there was on the report of a CT angiography diffuse thickening of the esophagus and the thoracic esophagus with bulky lympha denopathy partially viewed on the CT angiography, it was recommended to have a direct visualization patient was seen by Dr. Carrasco in the past and had EGD that was done in February 2024 that showed Wooten's esophagus, I will consult general surgery Dr. Garcia as well as hematology oncology for further evaluation recommendation likely Dr. Garcia will be able to do EGD hopefully on Sunday, may need to have a CT scan of the chest abdomen pelvis but will wait until after the EGD is done since the patient was exposed to quite a bit of contrast and her GFR is a bit on the lower side. 08/03: Patient is sitting up in bed in no apparent distress, she is feeling a lot better today, she denies any chest pain, shortness of breath, she has no difficulty in swallowing, she has no significant heartburn, discussed with Dr. Garcia the need for EGD and he was scheduled tomorrow morning, continue patient on PPI, her last colonoscopy and EGD was done March 10, 2024 that showed evidence of Wooten's esophagus without dysplasia normal colonoscopy at that time, she was seen yesterday in consultation by hematology oncology for lymphadenopathy in the mediastinum was recommended for the patient to have a CT chest abdomen and pelvis as an outpatient, flow cytometry was ordered, will continue to follow very closely, laboratory evaluation reviewed, mild hypokalemia will replace, discussed with the nursing staff that her blood pressure is very well-controlled we will continue current treatment plan. 08/04: Patient sitting up in bed in no apparent distress, her potassium was a bit on the lower side, she will be given potassium chloride 20 mill equivalent IV piggyback x 1 patient underwent an EGD that was done by Dr. Flores showed evidence of Wooten's esophagus, and retained food in the stomach, multiple biopsies were obtained, no evidence of any esophageal carcinoma at this point in time, therefore the patient can be discharged home later on today and follow-up with me as an outpatient next week, awaiting the final result of the flow cytometry, and possibly repeating CT scan of the chest abdomen pelvis as an outpatient she may follow-up with Dr. Pardo after that Discharge diagnoses: 1. Acute metabolic encephalopathy of unclear etiology possibly TIA patient was ruled out for CVA, likely related to hypertensive encephalopathy 2. Thickened esophagus with bulky lymphadenopathy status post EGD that showed Wooten's esophagus with mild inflammation no evidence of carcinoma multiple biopsies were obtained. 3. Hypertension and hypertensive cardiovascular disease. 4. Mixed hyperlipidemia. Continue patient on atorvastatin 80 mg once every day, monitor lipid panel, keep LDL 55-70. 5. Diabetes mellitus type 2. 6. Hypothyroidism. 7. GERD with esophagitis with Wooten's esophagus 8. Moderate right ICA disease. 9. Mediastinal lymphadenopathy. Was initially seen in the hospital by hematology oncology flow cytometry ordered, and patient will need to have a CT scan of chest abdomen pelvis as an outpatient and follow-up with Dr. Pardo as an outpatient as well. Patient Condition at Discharge: Stable Plan - Discharge Summary Discharge Rx Participant: No New Discharge Prescriptions: No Action Ketorolac 0.5% Ophth Soln [Acular 0.5%] 1 drops LEFT EYE BID Levothyroxine Sodium [Synthroid] 88 mcg PO DAILY Ergocalciferol (Vitamin D2) [Drisdol (50,000 Iu)] 1,250 mcg PO Q7D Atorvastatin [Lipitor] 80 mg PO DAILY DULoxetine HCL [Cymbalta] 60 mg PO BID Aspirin [Adult Low Dose Aspirin EC] 81 mg PO DAILY Omeprazole [PriLOSEC] 40 mg PO DAILY Dapagliflozin Propanediol [Farxiga] 10 mg PO DAILY prednisoLONE ACETATE 1% OPHTH [Pred Forte 1%] 1 drops LEFT EYE BID Insulin Aspart [NovoLOG Flexpen] 5 units SQ TID Biotin [Biotin Disolve] 5,000 mcg PO DAILY lisinopriL [Zestril] 15 mg PO BID Tirzepatide [Mounjaro] 10 mg SQ Q7D Discharge Medication List Aspirin [Adult Low Dose Aspirin EC] 81 mg PO DAILY 11/21/21 [History] Atorvastatin [Lipitor] 80 mg PO DAILY 11/21/21 [History] DULoxetine HCL [Cymbalta] 60 mg PO BID 11/21/21 [History] Omeprazole [PriLOSEC] 40 mg PO DAILY 10/30/23 [History] Dapagliflozin Propanediol [Farxiga] 10 mg PO DAILY 12/06/23 [History] Biotin [Biotin Disolve] 5,000 mcg PO DAILY 07/31/24 [History] Ergocalciferol (Vitamin D2) [Drisdol (50,000 Iu)] 1,250 mcg PO Q7D 07/31/24 [History] Insulin Aspart [NovoLOG Flexpen] 5 units SQ TID 07/31/24 [History] Ketorolac 0.5% Ophth Soln [Acular 0.5%] 1 drops LEFT EYE BID 07/31/24 [History] Levothyroxine Sodium [Synthroid] 88 mcg PO DAILY 07/31/24 [History] Tirzepatide [Mounjaro] 10 mg SQ Q7D 07/31/24 [History] lisinopriL [Zestril] 15 mg PO BID 07/31/24 [History] prednisoLONE ACETATE 1% OPHTH [Pred Forte 1%] 1 drops LEFT EYE BID 07/31/24 [History] Follow up Appointment(s)/Referral(s): Deng Church MD [Primary Care Provider] - 1-2 days
--- NOTE | 2024-08-06 08:52 | CDI ---
Documentation Clarification Form Date: 08/06/24 From: Bailey Treviño Admit Date: 07/30/2024 11:02:00 PM Patient Name: Amara Pandya Visit Number: [id number] Discharge Date: 08/04/2024 12:56:00 PM ATTENTION: The Clinical Documentation Specialists (CDI) and [facility] Coding Staff appreciate your assistance in clarifying documentation. Please respond to the clarification below the line at the bottom and electronically sign. The CDI & [facility] Coding staff will review the response and follow-up if needed. Please note: Queries are made part of the Legal Health Record. If you have any questions, please contact the author of this message via ITS. Doctor/Provider: Emad Lynnette, Metabolic and hypertensive encephalopathy is documented 08/01 progress note. Additional clarification regarding the type of encephalopathy is requested. History/Risk Factors: Hx of TIA, hypertensive cardiovascular disease without heart failure but with CKD 3b, T2DM with CKD & polyneuropathy, major depression, GERD w esophagitis & Barretts Clinical Indicators: Presents with expressive aphasia, gibberish speech and headache. 08/03 Labs: Sodium 132, Potassium 3.4, Cr 1.30, Total Bilirubin 1.4, AST 39 EE/20: This is anabnormal EEGdue to background slowing of moderate degree, suggestive ofmoderateencephalopathy. Sporadic, frontal intermittent rhythmic delta activity was seen, with possible superimposed left temporal slowing, with some left temporal sharply contoured waves, which sometimes generalizes. This may suggest focal, cortical neuronaldysfunctionwith underlying corticalirritability. Recommendprolonged EEGfor furtherevaluation.Noelectrographicseizurewas recorded. 08/02: This is anabnormalelectroencephalogramdue to presence of frontal intermittent rhythmic delta activity. This is nonspecificabnormality, can be seen with some encephalopathyor may suggest someconvulsivetendency. At times, this rhythmic delta activity was preceded with sharply contoured waves. This did not appear clearly epileptiform. However, clinical correlation and a repeatstudyarerecommended, if clinically indicated. Noelectrographicseizurewas recorded. CT/MRI Brain: 07/30: No acute intracranial process. 07/31: 1.NoMRIevidence for recentinfarct. There is mild diffusecerebral atrophyand moderate to borderline advanced probablechronic small vesselischemicchange identified. Treatment: CT/MRI of brain, EEG, numerous consults, Plavix, ASA, Lisinoprol Consults: Neurology, Surgery, Oncology & Ophthalmology Please clarify the type of encephalopathy, if known: [ x ] Hypertensive Encephalopathy due to __Uncontrolled hypertension [ ] Metabolic Encephalopathy due to [ ] Other, please specify [ ] Unable to determine MTDD
--- NOTE | 2024-08-11 06:33 | CDI ---
Documentation Clarification Form Date: 08/11/2024 12:00:00 AM From: Bailey Treviño Phone: Admit Date: 07/30/2024 11:02:00 PM Patient Name: Amara Pandya Visit Number: [id number] Discharge Date: 08/04/2024 12:56:00 PM ATTENTION: The Clinical Documentation Specialists (CDI) and [facility] Coding Staff appreciate your assistance in clarifying documentation. Please respond to the clarification below the line at the bottom and electronically sign. The CDI & [facility] Coding staff will review the response and follow-up if needed. Please note: Queries are made part of the Legal Health Record. If you have any questions, please contact the author of this message via ITS. Doctor/Provider: Deng Church, Hypertension is documented [insert date, location]. Additional specificity related to the hypertension diagnosis is requested. History/Risk Factors: History of TIA,hypertensivecardiovascular diseasewithout heart failurebut withCKD 3b,[id number],major depression,GERD w esophagitisBarretts Clinical Indicators: Altered mental status. General appearance in distress & agitated. BP: In ED 135/107, 130/108, 132/117, 200/138 Treatment: CT head & neck, CT brain, cardiac consult ordered Lorazepam 2 mg IV stat, EEG, Hydralazine 10 mg IV, Amlodipine 5 mg po, increased Lisinopril, Plavix, ASA Please further clarify hypertension, if known: [x ] Hypertensive Emergency [ ] Hypertensive Urgency [ ] Other Condition, please specify [ ] Unable to determine Clinical Definitions: Hypertensive Urgency SBP > 180 or DBP > 120 without symptoms or with headache Hypertensive Emergency SBP > 180 or DBP > 120 with chest pain or end organ damage MTDD
== END 2024-08-04 12:56 | disposition home or self-care (01) | DRG 305 ==
LOC: EC 20:49 → 3SCARD 23:02
PROVIDERS: ADMIT Internal Medicine; ATTEND Internal Medicine
PROC: 0DB28ZX Excision of Middle Esophagus, Via Natural or Artificial Opening Endoscopic, Diagnostic (ICD-10-PCS; principal; 2024-08-04 08:15)
DX: I16.1 Hypertensive emergency (principal); I67.4 Hypertensive encephalopathy; I67.89 Other cerebrovascular disease; R47.01 Aphasia; E11.22 Type 2 diabetes mellitus with diabetic chronic kidney disease; N18.32 Chronic kidney disease, stage 3b; E03.9 Hypothyroidism, unspecified; F32.9 Major depressive disorder, single episode, unspecified; I65.21 Occlusion and stenosis of right carotid artery; E11.42 Type 2 diabetes mellitus with diabetic polyneuropathy; Z79.4 Long term (current) use of insulin; I13.10 Hypertensive heart and chronic kidney disease without heart failure, with stage 1 through stage 4 chronic kidney disease, or unspecified chronic kidney disease; E78.2 Mixed hyperlipidemia; I25.2 Old myocardial infarction; K21.00 Gastro-esophageal reflux disease with esophagitis, without bleeding; K22.70 Barrett's esophagus without dysplasia; K44.9 Diaphragmatic hernia without obstruction or gangrene; R47.1 Dysarthria and anarthria; E87.6 Hypokalemia; G47.30 Sleep apnea, unspecified; R59.0 Localized enlarged lymph nodes; I25.10 Atherosclerotic heart disease of native coronary artery without angina pectoris; H35.54 Dystrophies primarily involving the retinal pigment epithelium; H53.009 Unspecified amblyopia, unspecified eye; R32 Unspecified urinary incontinence; Z79.82 Long term (current) use of aspirin; Z79.84 Long term (current) use of oral hypoglycemic drugs; Z79.890 Hormone replacement therapy; Z79.85 Long-term (current) use of injectable non-insulin antidiabetic drugs; Z79.899 Other long term (current) drug therapy; Z86.73 Personal history of transient ischemic attack (TIA), and cerebral infarction without residual deficits; Z98.84 Bariatric surgery status; Z88.0 Allergy status to penicillin
CPT/HCPCS: 36415; 43239; 70450; 70496; 70498; 70553; 71045; 80048; 80053; 80061; 80143; 80179; 80306; 80320; 81001; 82140; 82378; 82607; 82746; 83036; 83735; 84443; 84484; 85025; 85610; 85652; 85730; 88305; 93005; 93306; 93880; 94760; 95813; 95819; 96361; 96372; 96374; 96375; 99291

== ENCOUNTER → 2024-09-04 | Outpatient (CLI) | payer MEDICARE, OTHER ==
[2024-09-04 15:03] LABS: Basophils # (A) 0.07 X 10*3/uL (0.00-0.10); Basophils % (A) 0.7 %; Eosinophils # (A) 0.06 X 10*3/uL (0.04-0.35); Eosinophils % (A) 0.6 %; HCT 41.8 % (37.2-46.3); HGB 13.7 g/dL (12.0-15.0); Lymphocytes # (A) 1.05 X 10*3/uL (0.90-5.00); Lymphocytes % (A) 9.8 %; MCH 30.1 pg (27.0-32.0); MCHC 32.8 g/dL (32.0-37.0); MCV 91.9 FL (80.0-97.0); Monocytes # (A) 0.48 X 10*3/uL (0.20-1.00); Monocytes % (A) 4.5 %; NRBC Per 100 WBC 0 X 10*3/uL (0.00-0.01); Neutrophils # (A) 9.02 X 10*3/uL (1.80-7.70); Platelet Count 313 X 10*3/uL (140-440); RBC 4.55 X 10*6/uL (4.10-5.20); RDW 14.4 % (11.5-14.5); WBC 10.72 X 10*3/uL (4.50-10.00)
[2024-09-04 20:19] LABS: ALT 23 U/L (8-44); AST 37 U/L (13-35); Albumin 3.8 g/dL (3.8-4.9); Albumin/Globulin Ratio 1.23 Ratio (1.60-3.17); Alkaline Phosphatase 109 U/L (41-126); BUN/Creat Ratio 10.94 Ratio (12.00-20.00); Blood Urea Nitrogen 18.6 mg/dL (9.0-27.0); Calcium 9.6 mg/dL (8.7-10.3); Carbon Dioxide 17.2 mmol/L (21.6-31.8); Chloride 102 mmol/L (96-109); Globulin 3.1 g/dL (1.6-3.3); Glucose 161 mg/dL (70-110); Potassium 3.5 mmol/L (3.5-5.5); Sodium 139 mmol/L (135-145); Total Bilirubin 0.9 mg/dL (0.3-1.2); Total Protein 6.9 g/dL (6.2-8.2)
== END | disposition home or self-care (01) ==
LOC: LABWHC1 11:18
PROVIDERS: ATTEND Internal Medicine
DX: R53.1 Weakness (principal)
CPT/HCPCS: 36415; 80053; 82533; 85025; 85379

== ENCOUNTER → 2024-09-04 | Outpatient (CLI) | payer MEDICARE, OTHER ==
[2024-09-04 17:12] LABS: African American GFR (CKD) 32 (>60 ml/min/1.73 sqM); Blood Urea Nitrogen 21 mg/dL (7-17); Non-African American GFR(CKD) 28 (>60 ml/min/1.73 sqM)
--- NOTE | 2024-09-04 17:33 | US ---
EXAMINATION TYPE: US venous doppler duplex LE BI DATE OF EXAM: 09/04/2024 5:03 PM COMPARISON: NONE CLINICAL INDICATION: Female, 73 years old with history of [id number] ELEVATED D DIMER; Patient on blood th inners TECHNIQUE: The lower extremity deep venous system is examined utilizing real time linear array sonog sorin with graded compression, color doppler sonography, and spectral doppler. SIDE PERFORMED: Bilateral FINDINGS: VESSELS IMAGED: Common Femoral Vein Deep Femoral Vein Greater Saphenous Vein * Femoral Vein Popliteal Vein Small Saphenous Vein * Proximal Calf Veins (* superficial vessels) Right Leg: Appears negative for DVT Left Leg: Appears negative for DVT IMPRESSION: 1. Bilateral lower extremity ultrasound negative for deep venous thrombosis [facility], , 09/04/2024 5:31 PM
== END | disposition home or self-care (01) ==
LOC: RADUSWWP 16:03
PROVIDERS: ATTEND Internal Medicine
DX: R79.89 Other specified abnormal findings of blood chemistry (principal); Z79.01 Long term (current) use of anticoagulants
CPT/HCPCS: 82565; 84520; 93970

== ENCOUNTER → 2024-09-05 | Outpatient (CLI) | payer MEDICARE, OTHER ==
--- NOTE | 2024-09-05 16:20 | NM ---
EXAMINATION TYPE: NM pul vent and perfuse DATE OF EXAM: 09/05/2024 CLINICAL INDICATION: Female, 73 years old with history of R79.89 OTHER SPECIFIED ABNORMAL FINDINGS O F BLOOD; COMPARISON: Chest radiograph 09/05/2024 TECHNIQUE: Utilizing inhalation of 38.0 mCi Tc 99m DTPA aerosol and intravenous injection of 5.1 mCi of Tc 99m MAA, ventilation and perfusion images are acquired post injection in multiple projections. FINDINGS: Normal radiotracer distribution is noted in the lungs. There is no evidence of mismatched defects. IMPRESSION: Normal. No perfusion defects identified. [facility], , 09/05/2024 4:17 PM
== END | disposition home or self-care (01) ==
LOC: RADNMMAIN 14:27
PROVIDERS: ATTEND Internal Medicine
DX: R79.89 Other specified abnormal findings of blood chemistry (principal)
CPT/HCPCS: 78582; A9540; A9567

== ENCOUNTER → 2024-09-05 | Outpatient (CLI) | payer MEDICARE, OTHER ==
--- NOTE | 2024-09-05 12:34 | XR ---
EXAMINATION TYPE: XR chest 2V DATE OF EXAM: 09/05/2024 12:26 PM COMPARISON: Chest radiographs from 07/30/2024 TECHNIQUE: XR chest 2V Frontal and lateral views of the chest. CLINICAL INDICATION:Female, 73 years old with history of R79.1 ABNORMAL COAGULATION PROFILE; FINDINGS: Lungs/Pleura: There is no evidence of pleural effusion, focal consolidation, or pneumothorax. Pulmonary vascularity: Unremarkable. Heart/mediastinum: Cardiomediastinal silhouette is unremarkable. Atherosclerotic calcifications are seen in the aorta. Musculoskeletal: Multiple level degenerative disc disease changes seen throughout the spine. IMPRESSION: No acute cardiopulmonary disease/process. [facility], , 09/05/2024 12:32 PM
== END | disposition home or self-care (01) ==
LOC: RADXRMAIN 12:12
PROVIDERS: ATTEND Internal Medicine
DX: R79.1 Abnormal coagulation profile (principal)
CPT/HCPCS: 71046

== ENCOUNTER → 2024-09-09 | Outpatient (CLI) | payer MEDICARE, OTHER ==
--- NOTE | 2024-09-11 16:05 | MR ---
EXAMINATION TYPE: MR lumbar spine wo/w con DATE OF EXAM: 09/09/2024 8:53 PM COMPARISON: MRI lumbar spine 03/03/2023, lumbar spine radiograph 12/28/2022 CLINICAL INDICATION: Female, 73 years old with history of M51.362, Legs go numb and give out since (day after being released from [facility], IV Contrast: 8 cc Gadobutrol TECHNIQUE: Multiplanar, multisequence images of the lumbar spine were acquired without and with 8 mL intravenous Gadobutrol gadolinium contrast. FINDINGS: Alignment: The lumbar vertebral bodies have preserved heights. Grade 1 anterolisthesis of L3 on L4 an d grade 2 anterolisthesis of L4 on L5 with bilateral pars defects at these levels. Cord: The conus medullaris and the distal spinal cord appear unremarkable with regards to their signa l intensity and morphology. Bones/Discs: T1/T2 hypointense benign bone island within the L2 vertebral body again. Multilevel ante rior osteophytosis. Small multilevel Schmorl's nodes without edema. Multilevel disc desiccation. Prom inent disc height loss at L4-L5. Increased enhancement identified within the L4-L5 disc herniations. Type II and type III Modic changes involving the endplates around the L4-L5 disc. T12-L1: No significant disc pathology. Spinal canal is patent. The neural foramen are patent. L1-L2: No significant disc pathology. Spinal canal is patent. The neural foramen are patent. L2-L3: No significant disc pathology. Spinal canal is patent. Bilateral facet arthropathy. The neural foramen are patent. L3-L4: Grade 1 anterolisthesis with uncovering of the disc. Broad-based disc bulge with ligamentum fl avum buckling of advanced bilateral facet arthropathy contribute to mild central canal stenosis. Prev iously seen extruded disc material along the left subarticular/foraminal region is not well visualize d in today's exam. There is associated edema of the bilateral facet joints. Moderate to severe bilate ral neural foraminal stenosis. L4-L5: Grade 2 anterolisthesis with uncovering of the disc. Broad-based disc bulge with ligamentum fl avum buckling and advanced bilateral facet arthropathy with right-sided edema. There is again cranial extrusion of disc material approximately 1 cm along the posterior cortex of the L4 vertebral body. A dditionally there is caudal extrusion of disc material along the anterior cortex of the L5 vertebral body approximately 7 mm. There is mild spinal canal stenosis. Moderate to severe bilateral neural for aminal stenosis with reactive edema. L5-S1: The disc has rounded posterior morphology without significant spinal canal stenosis. Facet francisco nt arthropathy with mild bilateral neural foraminal stenosis. Other findings: Left renal sinus T2 hyperintense/T1 hypointense thin wall nonenhancing simple cyst m easuring up to 2.8 cm. No follow-up is recommended. IMPRESSION: 1. No definitive evidence significant spinal canal stenosis with multilevel degenerative disc diseas e. Lower lumbar mild spinal canal stenosis. 2. Redemonstration of grade 2 anterolisthesis of L4 on L5 with disc extrusion cranially along the po sterior cortex of the L4 vertebral body and additional disc extrusion caudally along the anterior cor kristie of the L5 vertebral body. Reactive edema involving bilateral facet arthropathy at L3-L4 and L4-L5 . Additional similar grade 1 anterolisthesis of L3 on L4. Moderate to severe bilateral neural foramin al stenosis at L3-L4 and L4-L5. [facility], , 09/11/2024 4:03 PM
== END | disposition home or self-care (01) ==
LOC: RADMRIMAIN 20:15
PROVIDERS: ATTEND Internal Medicine
DX: M51.362 Other intervertebral disc degeneration, lumbar region with discogenic back pain and lower extremity pain (principal); M43.16 Spondylolisthesis, lumbar region; M47.816 Spondylosis without myelopathy or radiculopathy, lumbar region; M48.061 Spinal stenosis, lumbar region without neurogenic claudication; M51.26 Other intervertebral disc displacement, lumbar region; M99.73 Connective tissue and disc stenosis of intervertebral foramina of lumbar region
CPT/HCPCS: 72158; A9585

== ENCOUNTER → 2024-09-19 | Outpatient (CLI) | payer MEDICARE, OTHER ==
--- NOTE | 2024-09-20 13:44 | PE ---
EXAMINATION TYPE: PET CT fusion skull to thigh DATE OF EXAM: 09/19/2024 CLINICAL INDICATION:Female, 73 years old with history of R59.0 LOCALIZED ENLARGED LYMPH NODES; TECHNIQUE: Following the intravenous administration of 12.07 mCi of F-18 FDG, whole body images are performed from the skull base to the Mid thigh. Images are reviewed on the computer in the coronal, axial, and sagittal planes. Reconstructed rotating images are created on independent workstation an d reviewed on the computer. A non-contrast CT is performed in conjunction with the PET scan. Glucos e level 137 mg/dL CT DLP: 873 mGycm, Automated exposure control for dose reduction was used. COMPARISON: CT None, PET/CT None, MRI: 09/09/2024. FINDINGS: Mediastinal SUV mean is 2.6. Hepatic parenchyma SUV mean is 3.2. SKULL BASE AND NECK: Suspicious uptake identified examples include: * Right neck lymph nodes measuring up to 8 mm in short axis max SUV 11.2. * Left neck lymph node measuring up to 5 mm Max SUV 6.8. CHEST, MEDIASTINUM, AND HILAR REGION: Diffuse mediastinal lymphadenopathy with FDG activity. * Prevascular space lymph node measuring 7 mm Max SUV 10.1. * Right paratracheal measuring 10 mm and max SUV 9.6. * Left pulmonary hilum max SUV 8.3. Right pulmonary hilum max SUV 10.5. * Subcarinal max SUV 13.88 which may include the esophagus suggesting possible primary source * Epicardial fat lymph nodes bilaterally with increased uptake which are subcentimeter. ABDOMEN AND PELVIS: Suspicious uptake identified; examples include: * Josiane hepatis lymph nodes with increased metabolic activity max SUV in this region 15.7 measuring 9 mm in short axis. * Retroperitoneal lymph nodes with increased metabolic activity. Example includes near the right erick al artery measuring 6 mm Max SUV 5.6. * Right common iliac lymph node max SUV 5.4 measuring 5 mm. MUSCULOSKELETAL STRUCTURES: No suspicious radiotracer activity. OTHER CT: At this facility vascular. The uterus is not visualized and may be surgically absent. Moderate amount stool in the colon. Appendix is normal. Small hiatal hernia. Surgical clips in the up per abdomen present. Moderate to severe coronary artery atherosclerosis. Trace pericardial effusion. IMPRESSION: Scattered FDG avid lymphadenopathy compatible with malignancy. There is intense uptake within the eso phagus correlate for esophageal primary with metastatic disease to mediastinum neck and abdominal lym ph nodes. Consider bronchoscopy with mediastinal lymph node tissue sampling. [facility], , 09/20/2024 1:42 PM
== END | disposition home or self-care (01) ==
LOC: RADPETMAIN 15:09
PROVIDERS: ATTEND Internal Medicine Hematology & Oncology
DX: R59.1 Generalized enlarged lymph nodes (principal)
CPT/HCPCS: 78815; A9552

== ENCOUNTER 2024-11-26 17:46 | Inpatient (IN) | payer MEDICARE, OTHER ==
--- NOTE | 2024-11-26 19:07 | ED ---
General Adult HPI - General Chief complaint: Shortness of Breath Stated complaint: SOB Time Seen by Provider: 11/26/24 18:11 Source: patient, RN notes reviewed Mode of arrival: wheelchair Limitations: no limitations - History of Present Illness Initial comments: 73-year-old female presents to the emergency department for evaluation of cough and shortness of breath. Patient states that she had underwent a lymph node biopsy October 09. She reports that since then she has had cough, shortness of breath and discomfort in her chest. She states that she followed up with pulmonology recently for the symptoms. She is started on an antibiotic and a steroid. She does not recall which antibiotic she was on. She completed this course about 1 week ago. She states that this did not help her symptoms to any extent. She denies any fever, chills. Denies any lower extremity edema. - Related Data Home Medications Medication Instructions Recorded Confirmed Atorvastatin [Lipitor] 80 mg PO HS 11/21/21 11/27/24 DULoxetine HCL [Cymbalta] 60 mg PO BID 11/21/21 11/27/24 Dapagliflozin Propanediol [Farxiga] 10 mg PO DAILY 12/06/23 11/27/24 Levothyroxine Sodium [Synthroid] 88 mcg PO DAILY 07/31/24 11/27/24 Biotin 6000mcg 1 tab PO DAILY 11/27/24 11/27/24 Metoprolol Succinate (ER) [Toprol 25 mg PO DAILY 11/27/24 11/27/24 Xl] Pantoprazole [Protonix] 40 mg PO AC-[id number] 11/27/24 11/27/24 Previous Rx's Medication Instructions Recorded Clopidogrel [Plavix] 75 mg PO DAILY #90 tab 08/04/24 lisinopriL [Zestril] 20 mg PO BID #180 tab 08/04/24 Allergies Allergy/AdvReac Type Severity Reaction Status Date / Time amoxicillin Allergy Rash/Hives Verified 11/27/24 08:29 Review of Systems ROS Statement: Those systems with pertinent positive or pertinent negative responses have been documented in the HPI. ROS Other: All systems not noted in ROS Statement are negative. Past Medical History Past Medical History: CVA/TIA, Diabetes Mellitus, GERD/Reflux, Hyperlipidemia, Hypertension, Myocardial Infarction ([place]), Sleep Apnea/CPAP/BIPAP, Thyroid Disorder Additional Past Medical History / Comment(s): CVA 2010, NO RESIDUAL EFFECTS, CPAP MACHINE, ARTHRITIS HIPS, ESOPHAGEAL AND DUODENAL ULCER, leg weakness and pain, urinary incontinence, ""enlarged lymph node between lungs" Last Myocardial Infarction Date:: 2007 History of Any Multi-Drug Resistant Organisms: None Reported Past Surgical History: Bariatric Surgery, Heart Catheterization, Hysterectomy, Orthopedic Surgery Additional Past Surgical History / Comment(s): Left ganglion cyst left wrist, lap band placed and removed, abdominoplasty, broken foot repair to left foot with pins, screws and plate, D&C, EGD, Pain Clinic Procedure. Past Anesthesia/Blood Transfusion Reactions: Previous Problems w/ Anesthesia Additional Past Anesthesia/Blood Transfusion Reaction / Comment(s): "Has stopped breathing after procedures"; reintubted once after procedure and SOB after surgery. Past Psychological History: Depression Smoking Status: Never smoker - Past Family History Father Family Medical History: Cancer Additional Family Medical History / Comment(s): Colon cancer. Mother Family Medical History: Cancer Additional Family Medical History / Comment(s): Small cell lung cancer. Brother(s) Family Medical History: Cancer Additional Family Medical History / Comment(s): Lung cancer spread to lymph nodes. Sister(s) Family Medical History: Cancer Additional Family Medical History / Comment(s): Small cell lung cancer. General Exam Limitations: no limitations General appearance: alert, in no apparent distress Head exam: Present: atraumatic, normocephalic, normal inspection Eye exam: Present: normal appearance, PERRL, EOMI. Absent: scleral icterus, conjunctival injection, periorbital swelling Respiratory exam: Present: normal lung sounds bilaterally. Absent: respiratory distress, wheezes, rales, rhonchi, stridor Cardiovascular Exam: Present: regular rate, normal rhythm, normal heart sounds. Absent: systolic murmur, diastolic murmur, rubs, gallop, clicks Extremities exam: Present: normal inspection, full ROM, normal capillary refill. Absent: tenderness, pedal edema, joint swelling, calf tenderness Back exam: Present: normal inspection Neurological exam: Present: alert, oriented X3 Psychiatric exam: Present: normal affect, normal mood Skin exam: Present: warm, dry, intact, normal color. Absent: rash Course Vital Signs 11/26/24 11/26/24 11/26/24 17:47 18:24 20:00 Temperature 98.1 F Pulse Rate 61 85 50 L Respiratory 18 18 24 Rate Blood Pressure 172/98 167/82 O2 Sat by Pulse 98 95 100 Oximetry 11/26/24 11/26/24 11/27/24 21:00 23:00 00:04 Temperature 98.5 F Pulse Rate 54 L 57 L Respiratory 18 20 Rate Blood Pressure 178/80 166/88 O2 Sat by Pulse 96 96 Oximetry Medical Decision Making - Medical Decision Making Was pt. sent in by a medical professional or institution (, PA, GOLF RANGE ATTENDANT, urgent care, hospital, or jail...) When possible be specific @ -No Did you speak to anyone other than the patient for history (EMS, parent, family, police, friend...)? What history was obtained from this source @ -No Did you review nursing and triage notes (agree or disagree)? Why? @ -I reviewed and agree with nursing and triage notes Were old charts reviewed (outside hosp., previous admission, EMS record, old EKG, old radiological studies, urgent care reports/EKG's, jail records)? Report findings @ -No old charts were reviewed Differential Diagnosis (chest pain, altered mental status, abdominal pain women, abdominal pain men, vaginal bleeding, weakness, fever, dyspnea, syncope, headache, dizziness, GI bleed, back pain, seizure, CVA, palpatations, mental health, musculoskeletal)? @ -Differential Dyspnea: Coronary syndrome, arrhythmia, tamponade, asthma, COPD, pulmonary embolism, pneumonia, pneumothorax, pulmonary effusion, anaphylaxis, diabetic ketoacidosis, flailed chest, pulmonary contusion, diaphragmatic rupture, anemia, neuromuscular, this is not meant to be an all-inclusive list. EKG interpreted by me (3pts min.). @ -EKG@1915 shows sinus bradycardia with sinus arrhythmia rate of 52, NM 164, QRS 96, QT/QTc 436/416 X-rays interpreted by me (1pt min.). @ -Chest x-ray reveals no acute process CT interpreted by me (1pt min.). @ -Chest CTA reveals no evidence of acute pulmonary emboli, lymphadenopathy an Right perihilar mass with large soft tissue mass measuring 6.9 x 3.8 in the subcarinal region U/S interpreted by me (1pt. min.). @ -None done What testing was considered but not performed or refused? (CT, X-rays, U/S, labs)? Why? @ -None What meds were considered but not given or refused? Why? @ -None Did you discuss the management of the patient with other professionals (professionals i.e. , PA, GOLF RANGE ATTENDANT, lab, RT, psych nurse, socially responsible investment adviser, metal pattern maker, teacher, corporation officer, case management assistant)? Give summary @ -Case discussed with Dr. Church who is agreeable to admit the patient Was smoking cessation discussed for >3mins.? @ -No Was critical care preformed (if so, how long)? @ -No Were there social determinants of health that impacted care today? How? (Homelessness, low income, unemployed, alcoholism, drug addiction, transportation, low edu. Level, literacy, decrease access to med. care, shelter, rehab)? @ -No Was there de-escalation of care discussed even if they declined (Discuss DNR or withdrawal of care, Hospice)? DNR status @ -No What co-morbidities impacted this encounter? (DM, HTN, Smoking, COPD, CAD, Cancer, CVA, ARF, Chemo, Hep., AIDS, mental health diagnosis, sleep apnea, morbid obesity)? @ -None Was patient admitted / discharged? Hospital course, mention meds given and route, prescriptions, significant lab abnormalities, going to OR and other pertinent info. @ -Admitted patient presented emergency department for evaluation of shortness of breathLaboratory studies revealed no significant leukocytosis, hemoglobin 11.2; elevated D-dimer at 6.5; negative troponin. Patient underwent a CTA of the chest revealing no evidence of PE patient does have the prior hilar mass which she is undergoing outpatient workup for. Patient will be admitted to the hospital for symptomatic treatment and consult to pulmonology. She is unde rstanding agreeable with plan. Case discussed with Dr. Church who is accepting of the admission. Case discussed with Dr. Scott Undiagnosed new problem with uncertain prognosis? @ -No Drug Therapy requiring intensive monitoring for toxicity (Heparin, Nitro, Insulin, Cardizem)? @ -No Were any procedures done? @ -No Diagnosis/symptom? @ -Shortness of breath, postop complication Acute, or Chronic, or Acute on Chronic? @ -Acute Uncomplicated (without systemic symptoms) or Complicated (systemic symptoms)? @ -Default Side effects of treatment? @ -No Exacerbation, Progression, or Severe Exacerbation? @ -No Poses a threat to life or bodily function? How? (Chest pain, [place], [place], pneumonia, PE, COPD, DKA, ARF, appy, cholecystitis, CVA, Diverticulitis, Homicidal, Suicidal, threat to staff... and all critical care pts) @ -No - Lab Data Result diagrams: 12/02/24 10:27 12/02/24 10:27 Lab Results 11/26/24 11/26/24 11/26/24 Range/Units 19:17 19:17 19:17 WBC 6.97 (4.50-10.00) 10*3/uL RBC 3.73 L (4.10-5.20) 10*6/uL Hgb 11.2 L (12.0-15.0) g/dL Hct 34.1 L (37.2-46.3) % MCV 91.4 (80.0-97.0) fL MCH 30.0 (27.0-32.0) pg MCHC 32.8 (32.0-37.0) g/dL RDW (11.5-14.5) % Plt Count 377 (140-440) 10*3/uL MPV 10.0 (9.5-12.2) fL Immature Gran % (Auto) 1.3 % Absolute Nucleated RBC % Neutrophils % 79.4 % Lymphocytes % 11.8 % Monocytes % 6.0 % Eosinophils % 0.9 % Basophils % 0.6 % Immature Gran # 0.09 H (0.00-0.04) 10*3/uL Neutrophils # 5.54 (1.80-7.70) 10*3/uL Lymphocytes # 0.82 L (0.90-5.00) 10*3/uL Monocytes # 0.42 (0.20-1.00) 10*3/uL Eosinophils # 0.06 (0.04-0.35) 10*3/uL Basophils # 0.04 (0.00-0.10) 10*3/uL NRBC/100 WBC Diff (0.00-0.01) X 10*3/uL PT 10.1 (10.0-12.5) sec INR 0.9 (<1.2) APTT 23.1 (22.0-30.0) sec D-Dimer 6.50 H (<0.60) mg/L FEU Sodium 133 L (137-145) mmol/L Potassium 4.2 (3.5-5.1) mmol/L Chloride 103 (98-107) mmol/L Carbon Dioxide 14 L (22-30) mmol/L Anion Gap 16 mmol/L BUN 37 H (7-17) mg/dL Creatinine 1.10 H (0.52-1.04) mg/dL Est GFR (CKD-EPI) (>=60) Est GFR (CKD-EPI)AfAm 58 (>60 ml/min/1.73 sqM) Est GFR (CKD-EPI)NonAf 51 (>60 ml/min/1.73 sqM) BUN/Creatinine Ratio (12.00-20.00) Ratio Glucose 371 H (74-99) mg/dL POC Glucose (mg/dL) (70-110) mg/dL POC Glu Astronautical Engineer ID Estimated Ave Glu mg/dL mg/dL Hemoglobin A1c (<=6.0) % Calcium 9.5 (8.4-10.2) mg/dL Total Bilirubin 0.8 (0.2-1.3) mg/dL AST 23 (14-36) U/L ALT 16 (4-34) U/L Alkaline Phosphatase 149 H (38-126) U/L Troponin I (0.000-0.034) ng/mL Total Protein 6.7 (6.3-8.2) g/dL Albumin 3.5 (3.5-5.0) g/dL Globulin (1.6-3.3) g/dL Albumin/Globulin Ratio (1.60-3.17) Ratio Angiotensin Convert Enz (8-52) U/L 11/26/24 11/26/24 11/27/24 Range/Units 19:17 19:17 00:09 WBC (4.50-10.00) 10*3/uL RBC (4.10-5.20) 10*6/uL Hgb (12.0-15.0) g/dL Hct (37.2-46.3) % MCV (80.0-97.0) fL MCH (27.0-32.0) pg MCHC (32.0-37.0) g/dL RDW (11.5-14.5) % Plt Count (140-440) 10*3/uL MPV (9.5-12.2) fL Immature Gran % (Auto) % Absolute Nucleated RBC % Neutrophils % % Lymphocytes % % Monocytes % % Eosinophils % % Basophils % % Immature Gran # (0.00-0.04) 10*3/uL Neutrophils # (1.80-7.70) 10*3/uL Lymphocytes # (0.90-5.00) 10*3/uL Monocytes # (0.20-1.00) 10*3/uL Eosinophils # (0.04-0.35) 10*3/uL Basophils # (0.00-0.10) 10*3/uL NRBC/100 WBC Diff (0.00-0.01) X 10*3/uL PT (10.0-12.5) sec INR (<1.2) APTT (22.0-30.0) sec D-Dimer (<0.60) mg/L FEU Sodium (137-145) mmol/L Potassium (3.5-5.1) mmol/L Chloride (98-107) mmol/L Carbon Dioxide (22-30) mmol/L Anion Gap mmol/L BUN (7-17) mg/dL Creatinine (0.52-1.04) mg/dL Est GFR (CKD-EPI) (>=60) Est GFR (CKD-EPI)AfAm (>60 ml/min/1.73 sqM) Est GFR (CKD-EPI)NonAf (>60 ml/min/1.73 sqM) BUN/Creatinine Ratio (12.00-20.00) Ratio Glucose (74-99) mg/dL POC Glucose (mg/dL) 312 H (70-110) mg/dL POC Glu Astronautical Engineer ID Jeff Linares Estimated [address] Glu mg/dL mg/dL Hemoglobin A1c (<=6.0) % Calcium (8.4-10.2) mg/dL Total Bilirubin (0.2-1.3) mg/dL AST (14-36) U/L ALT (4-34) U/L Alkaline Phosphatase (38-126) U/L Troponin I <0.012 (0.000-0.034) ng/mL Total Protein (6.3-8.2) g/dL Albumin (3.5-5.0) g/dL Globulin (1.6-3.3) g/dL Albumin/Globulin Ratio (1.60-3.17) Ratio Angiotensin Convert Enz 3 L (8-52) U/L 11/27/24 11/27/24 11/27/24 Range/Units 07:07 12:17 17:15 WBC (4.50-10.00) 10*3/uL RBC (4.10-5.20) 10*6/uL Hgb (12.0-15.0) g/dL Hct (37.2-46.3) % MCV (80.0-97.0) fL MCH (27.0-32.0) pg MCHC (32.0-37.0) g/dL RDW (11.5-14.5) % Plt Count (140-440) 10*3/uL MPV (9.5-12.2) fL Immature Gran % (Auto) % Absolute Nucleated RBC % Neutrophils % % Lymphocytes % % Monocytes % % Eosinophils % % Basophils % % Immature Gran # (0.00-0.04) 10*3/uL Neutrophils # (1.80-7.70) 10*3/uL Lymphocytes # (0.90-5.00) 10*3/uL Monocytes # (0.20-1.00) 10*3/uL Eosinophils # (0.04-0.35) 10*3/uL Basophils # (0.00-0.10) 10*3/uL NRBC/100 WBC Diff (0.00-0.01) X 10*3/uL PT (10.0-12.5) sec INR (<1.2) APTT (22.0-30.0) sec D-Dimer (<0.60) mg/L FEU Sodium (137-145) mmol/L Potassium (3.5-5.1) mmol/L Chloride (98-107) mmol/L Carbon Dioxide (22-30) mmol/L Anion Gap mmol/L BUN (7-17) mg/dL Creatinine (0.52-1.04) mg/dL Est GFR (CKD-EPI) (>=60) Est GFR (CKD-EPI)AfAm (>60 ml/min/1.73 sqM) Est GFR (CKD-EPI)NonAf (>60 ml/min/1.73 sqM) BUN/Creatinine Ratio (12.00-20.00) Ratio Glucose (74-99) mg/dL POC Glucose (mg/dL) 216 H 103 128 H (70-110) mg/dL POC Glu Astronautical Engineer ID Adelfo Scott Estimated [address] Glu mg/dL mg/dL Hemoglobin A1c (<=6.0) % Calcium (8.4-10.2) mg/dL Total Bilirubin (0.2-1.3) mg/dL AST (14-36) U/L ALT (4-34) U/L Alkaline Phosphatase (38-126) U/L Troponin I (0.000-0.034) ng/mL Total Protein (6.3-8.2) g/dL Albumin (3.5-5.0) g/dL Globulin (1.6-3.3) g/dL Albumin/Globulin Ratio (1.60-3.17) Ratio Angiotensin Convert Enz (8-52) U/L 11/27/24 11/28/24 11/28/24 Range/Units 19:57 05:49 05:49 WBC 5.38 (4.50-10.00) 10*3/uL RBC 3.44 L (4.10-5.20) 10*6/uL Hgb 10.4 L (12.0-15.0) g/dL Hct 32.0 L (37.2-46.3) % MCV 93.0 (80.0-97.0) fL MCH 30.2 (27.0-32.0) pg MCHC 32.5 (32.0-37.0) g/dL RDW 13.9 (11.5-14.5) % Plt Count 375 (140-440) 10*3/uL MPV 10.1 (9.5-12.2) fL Immature Gran % (Auto) 1.30 % Absolute Nucleated RBC 0 % Neutrophils % 73.1 % Lymphocytes % 13.4 % Monocytes % 10.4 % Eosinophils % 1.1 % Basophils % 0.7 % Immature Gran # 0.07 H (0.00-0.04) 10*3/uL Neutrophils # 3.93 (1.80-7.70) 10*3/uL Lymphocytes # 0.72 L (0.90-5.00) 10*3/uL Monocytes # 0.56 (0.20-1.00) 10*3/uL Eosinophils # 0.06 (0.04-0.35) 10*3/uL Basophils # 0.04 (0.00-0.10) 10*3/uL NRBC/100 WBC Diff 0 (0.00-0.01) X 10*3/uL PT (10.0-12.5) sec INR (<1.2) APTT (22.0-30.0) sec D-Dimer (<0.60) mg/L FEU Sodium (137-145) mmol/L Potassium (3.5-5.1) mmol/L Chloride (98-107) mmol/L Carbon Dioxide (22-30) mmol/L Anion Gap mmol/L BUN (7-17) mg/dL Creatinine (0.52-1.04) mg/dL Est GFR (CKD-EPI) (>=60) Est GFR (CKD-EPI)AfAm (>60 ml/min/1.73 sqM) Est GFR (CKD-EPI)NonAf (>60 ml/min/1.73 sqM) BUN/Creatinine Ratio (12.00-20.00) Ratio Glucose (74-99) mg/dL POC Glucose (mg/dL) 224 H (70-110) mg/dL POC Glu Astronautical Engineer ID Michelle Glover Estimated [address] Glu mg/dL 306 mg/dL Hemoglobin A1c 12.3 H (<=6.0) % Calcium (8.4-10.2) mg/dL Total Bilirubin (0.2-1.3) mg/dL AST (14-36) U/L ALT (4-34) U/L Alkaline Phosphatase (38-126) U/L Troponin I (0.000-0.034) ng/mL Total Protein (6.3-8.2) g/dL Albumin (3.5-5.0) g/dL Globulin (1.6-3.3) g/dL Albumin/Globulin Ratio (1.60-3.17) Ratio Angiotensin Convert Enz (8-52) U/L 11/28/24 11/28/24 Range/Units 05:49 07:13 WBC (4.50-10.00) 10*3/uL RBC (4.10-5.20) 10*6/uL Hgb (12.0-15.0) g/dL Hct (37.2-46.3) % MCV (80.0-97.0) fL MCH (27.0-32.0) pg MCHC (32.0-37.0) g/dL RDW (11.5-14.5) % Plt Count (140-440) 10*3/uL MPV (9.5-12.2) fL Immature Gran % (Auto) % Absolute Nucleated RBC % Neutrophils % % Lymphocytes % % Monocytes % % Eosinophils % % Basophils % % Immature Gran # (0.00-0.04) 10*3/uL Neutrophils # (1.80-7.70) 10*3/uL Lymphocytes # (0.90-5.00) 10*3/uL Monocytes # (0.20-1.00) 10*3/uL Eosinophils # (0.04-0.35) 10*3/uL Basophils # (0.00-0.10) 10*3/uL NRBC/100 WBC Diff (0.00-0.01) X 10*3/uL PT (10.0-12.5) sec INR (<1.2) APTT (22.0-30.0) sec D-Dimer (<0.60) mg/L FEU Sodium 137 (137-145) mmol/L Potassium 4.0 (3.5-5.1) mmol/L Chloride 109 (98-107) mmol/L Carbon Dioxide 18.3 L (22-30) mmol/L Anion Gap 9.70 mmol/L BUN 18.0 (7-17) mg/dL Creatinine 1.2 (0.52-1.04) mg/dL Est GFR (CKD-EPI) 48 L (>=60) Est GFR (CKD-EPI)AfAm (>60 ml/min/1.73 sqM) Est GFR (CKD-EPI)NonAf (>60 ml/min/1.73 sqM) BUN/Creatinine Ratio 15.00 (12.00-20.00) Ratio Glucose 452 H (74-99) mg/dL POC Glucose (mg/dL) 434 H (70-110) mg/dL POC Glu Astronautical Engineer ID Adi Mcgee Estimated Ave Glu mg/dL mg/dL Hemoglobin A1c (<=6.0) % Calcium 8.3 L (8.4-10.2) mg/dL Total Bilirubin 0.3 (0.2-1.3) mg/dL AST 17 (14-36) U/L ALT 13 (4-34) U/L Alkaline Phosphatase 141 H (38-126) U/L Troponin I (0.000-0.034) ng/mL Total Protein 5.6 L (6.3-8.2) g/dL Albumin 3.0 L (3.5-5.0) g/dL Globulin 2.6 (1.6-3.3) g/dL Albumin/Globulin Ratio 1.15 L (1.60-3.17) Ratio Angiotensin Convert Enz (8-52) U/L Disposition Clinical Impression: Lymphadenopathy, Shortness of breath Disposition: ADMITTED IP TO THIS HOSP Condition: Stable Is patient prescribed a controlled substance at d/c from ED?: No
--- NOTE | 2024-11-26 19:29 | XR ---
EXAMINATION TYPE: XR chest 2V DATE OF EXAM: 11/26/2024 7:25 PM COMPARISON: Chest radiographs from 09/05/2024 CLINICAL INDICATION: Female, 73 years old with history of difficulty breathing; TECHNIQUE: XR chest 2V Frontal and lateral views of the chest. FINDINGS: Lungs/Pleura: There is no evidence of pleural effusion, focal consolidation, or pneumothorax. Pulmonary vascularity: Unremarkable. Heart/mediastinum: Cardiomediastinal silhouette is unremarkable. Musculoskeletal: No acute osseous pathology. IMPRESSION: No acute cardiopulmonary disease/process. [facility], , 11/26/2024 7:27 PM
[2024-11-26 19:46] LABS: Basophils # (A) 0.04 10*3/uL (0.00-0.10); Basophils % (A) 0.6 %; Eosinophils # (A) 0.06 10*3/uL (0.04-0.35); Eosinophils % (A) 0.9 %; HCT 34.1 % (37.2-46.3); HGB 11.2 g/dL (12.0-15.0); Lymphocytes # (A) 0.82 10*3/uL (0.90-5.00); Lymphocytes % (A) 11.8 %; MCH 30.0 pg (27.0-32.0); MCHC 32.8 g/dL (32.0-37.0); MCV 91.4 fL (80.0-97.0); Monocytes # (A) 0.42 10*3/uL (0.20-1.00); Monocytes % (A) 6.0 %; Neutrophils # (A) 5.54 10*3/uL (1.80-7.70); Neutrophils % (A) 79.4 %; Platelet Count 377 10*3/uL (140-440); RBC 3.73 10*6/uL (4.10-5.20); RDW 13.2 % (11.5-14.5); WBC 6.97 10*3/uL (4.50-10.00)
[2024-11-26 19:59] LABS: Potassium 4.2 mmol/L (3.5-5.1)
[2024-11-26 20:00] LABS: ALT 16 U/L (4-34); AST 23 U/L (14-36); African American GFR (CKD) 58 (>60 ml/min/1.73 sqM); Albumin 3.5 g/dL (3.5-5.0); Alkaline Phosphatase 149 U/L (38-126); Anion Gap 16 mmol/L; Blood Urea Nitrogen 37 mg/dL (7-17); Calcium 9.5 mg/dL (8.4-10.2); Carbon Dioxide 14 mmol/L (22-30); Chloride 103 mmol/L (98-107); Glucose 371 mg/dL (74-99); Non-African American GFR(CKD) 51 (>60 ml/min/1.73 sqM); Sodium 133 mmol/L (137-145); Total Protein 6.7 g/dL (6.3-8.2)
[2024-11-26 20:04] LABS: INR 0.9 (<1.2); Partial Thromboplastin Time 23.1 sec (22.0-30.0); Prothrombin Time 10.1 sec (10.0-12.5)
--- NOTE | 2024-11-26 20:50 | CT ---
EXAMINATION TYPE: CT chest angio for PE DATE OF EXAM: 11/26/2024 8:39 PM COMPARISON: Chest radiograph from same day. CLINICAL INDICATION: Female, 73 years old with history of pain, dyspnea, elevated dimer; ELEVATED DIM ER, COUGH TECHNIQUE/CONTRAST: CTA scan of the thorax is performed with IV Contrast, patient injected with 80 mL of Isovue 370, MIP images are created and reviewed these are created on a separate workstation.. CT DLP: 294.2 mGycm, Automated exposure control for dose reduction was used. FINDINGS: Lungs/Pleura: Right posterior costophrenic angle 9 mm pulmonary nodule series 411 image 113. No evide nce of focal consolidation, pleural effusion or pneumothorax. Airway: Large airways are patent. Heart: Size within normal limits. No significant coronary artery calcifications. Vasculature: There is no evidence for a filling defect within the pulmonary vasculature to suggest ac [place] pulmonary embolism. The pulmonary artery is of normal size. Mediastinum: Subcarinal soft tissue mass measuring 6.9 x 3.8 cm. Other extensive lymph nodes are seen throughout the mediastinum. Right AP window lymph node measuring 7 mm in short axis prevascular spac e lymph nodes present measuring up to 8 mm in short axis. Right perihilar fullness.. Small hiatal her lex is present. Musculoskeletal: No acute osseous abnormalities Soft Tissues/lymph nodes: Unremarkable. Lower neck: Suspicious low neck lymph nodes which are suspicious but nonenlarged measuring 8 mm on th e left and on the right measuring 8 mm Abdomen: Left simple appearing renal cysts. No follow-up recommended. Josiane hepatis lymph node measur ing up to 12 mm in short axis. IMPRESSION: 1. No evidence of pulmonary embolism. 2. Right perihilar mass soft tissue mass with large soft tissue mass measuring 6.9 x 3.8 cm In the ruiz bcarinal region and lymphadenopathy throughout the mediastinum. Additional right lower lobe posterior costophrenic angle pulmonary nodule measuring 9 mm in known bilateral neck lymph nodes present. Find ings compatible with malignancy. 3. Indeterminate josiane hepatis lymph node measuring 12 mm in short axis. 4. Small hiatal hernia is present. [facility], , 11/26/2024 8:47 PM
[2024-11-26] MEDS: SODIUM CHLORIDE 0.9% 1,000 ML IV ONE (21:22)
[2024-11-26] MEDS ORDERED: NALOXONE 0.4 MG/ML 1 ML VIAL IV PRN (22:57)
[2024-11-26] MEDS ORDERED: MORPHINE SULFATE 4 MG/ML SYRINGE IV PRN (22:57)
[2024-11-27 00:10] LABS: Glucose,Whole Blood 312 mg/dL (70-110)
[2024-11-27] MEDS ORDERED: DEXTROSE 50% SYRINGE 50 ML IVP PRN ×2 (00:11)
[2024-11-27] MEDS: SODIUM CHLORIDE 0.9% 1,000 ML IV SCH (01:12)
[2024-11-27] MEDS: INSULIN LISPRO (HumaLOG) 100 UNIT/ML 10 mL VL SQ SCH (01:13)
--- NOTE | 2024-11-27 02:24 | P.CNPUL ---
History of Present Illness Consult date: 11/27/24 Requesting physician: Luz Marina Carrillo Reason for consult: dyspnea Chief complaint: Shortness of breath History of present illness: Patient is a 74-year-old female with past medical history significant for hypertension, hyperlipidemia, CVA/TIA, carotid artery stenosis, CAD, diabetes mellitus, chronic kidney disease, ABDULKADIR with CPAP, hiatal hernia, GERD and with esophagitis. Of note, did undergo EGD with biopsies July,, and pathology remarkable for benign squamaglandular mucosa with focal acute esophagitis and mucosal reactive changes. No intestinal metaplasia. More recently, worked up on outpatient basis for mediastinal lymphadenopathy. PET scan done Sep, 2024 showing scattered FDG avid lymphadenopathy. Intense uptake within the esophagus, mediastinal lymph nodes, and abdominal lymph nodes. Did undergo EBUS and transbronchial needle aspiration of station 7 and 10 lymph nodes on 10/09/[address] Ta. Pathology nondiagnostic for neoplasm or other pathological process. Patient presented to emergency room last night complaining of shortness of breath, cough, chest discomfort. Workup in the including an elevated CT angiogram which did not show any evidence of pulmonary embolism. There is right perihilar soft tissue mass measuring 6.9 x 3.8 cm in the subcarinal region with lymphadenopathy throughout the mediastinum. Additional, right lower lobe posterior costophrenic angle pulmonary nodule measuring 9 mm indeterminant bing hepatis lymph node measuring 12 mm. Small hiatal hernia. CBC unremarkable. CMP sodium 133, potassium 4.2, chloride 103, serum bicarb 14, BUN 37, creatinine 1.1, glucose 371. Troponin less than 0.012. She is being evaluated the on the fifth floor. on room air. Resting comfortably, in no respiratory distress. States that she has had ongoing issues since her bronchoscopy. Nonproductive cough, substernal chest discomfort with i nhalation, and feels like she cannot take a deep breath. She was treated outpatient basis with Z-Leo and prednisone burst taper. Persistent nonproductive cough without any improvement. She denies any sputum production, hemoptysis. Denies any fevers or chills. She did have a 70 pound weight loss o fern the last year, she was on Mounjaro. Denies any dysphagia or odynophagia. Never tobacco smoker. Denies any personal history of malignancy. She has a significant family history of cancer including her mother and sister having lung cancer. Her brother of colon cancer. Her other brother had neck cancer. One of her remaining sisters has sarcoidosis. Vital signs: Temperature 98.5 F, rate 57 bpm, blood pressure 166/88 mmHg, nontachypneic, SpO2 recorded 96% on room air. Review of Systems Constitutional: Reports weight loss (Intentional, while on Mounjaro), Denies chills, Denies fatigue, Denies fever, Denies night sweats, Denies poor appetite, Denies weight gain Ears, nose, mouth and throat: Denies dysphagia, Denies headache, Denies nasal congestion, Denies nasal discharge, Denies odynophagia, Denies post-nasal drip, Denies sinus pain, Denies sinus pressure, Denies sore throat Cardiovascular: Reports chest pain, Denies lightheadedness, Denies orthopnea, Denies palpitations, Denies paroxysmal nocturnal dyspnea, Denies syncope Respiratory: Reports as per HPI Gastrointestinal: Denies abdominal pain, Denies coffee ground emesis, Denies constipation, Denies diarrhea, Denies hematemesis, Denies hematochezia, Denies indigestion, Denies loss of appetite, Denies melena, Denies nausea, Denies vomiting Genitourinary: Denies dysuria Musculoskeletal: Denies limitation of motion Integumentary: Denies rash Neurological: Denies seizures, Denies syncope Psychiatric: Reports depression, Denies anxiety, Denies suicidal ideation Hematologic/Lymphatic: Reports lymphadenopathy, Denies easy bleeding Past Medical History Past Medical History: CVA/TIA, Diabetes Mellitus, GERD/Reflux, Hyperlipidemia, Hypertension, Myocardial Infarction ([place]), Sleep Apnea/CPAP/BIPAP, Thyroid Disorder Additional Past Medical History / Comment(s): CVA 2009, NO RESIDUAL EFFECTS, CPAP MACHINE, ARTHRITIS HIPS, ESOPHAGEAL AND DUODENAL ULCER, leg weakness and pain, urinary incontinence, ""enlarged lymph node between lungs" Last Myocardial Infarction Date:: 2007 History of Any Multi-Drug Resistant Organisms: None Reported Past Surgical History: Bariatric Surgery, Heart Catheterization, Hysterectomy, Orthopedic Surgery Additional Past Surgical History / Comment(s): Left ganglion cyst left wrist, lap band placed and removed, abdominoplasty, broken foot repair to left foot with pins, screws and plate, D&C, EGD, Pain Clinic Procedure. Past Anesthesia/Blood Transfusion Reactions: Previous Problems w/ Anesthesia Additional Past Anesthesia/Blood Transfusion Reaction / Comment(s): "Has stopped breathing after procedures"; reintubted once after procedure and SOB after surgery. Past Psychological History: Depression Smoking Status: Never smoker - Past Family History Father Family Medical History: Cancer Additional Family Medical History / Comment(s): Colon cancer. Mother Family Medical History: Cancer Additional Family Medical History / Comment(s): Small cell lung cancer. Brother(s) Family Medical History: Cancer Additional Family Medical History / Comment(s): Lung cancer spread to lymph nodes. Sister(s) Family Medical History: Cancer Additional Family Medical History / Comment(s): Small cell lung cancer. Medications and Allergies Home Medications Medication Instructions Recorded Confirmed Type Atorvastatin [Lipitor] 80 mg PO HS 11/21/21 11/27/24 History DULoxetine HCL [Cymbalta] 60 mg PO BID 11/21/21 11/27/24 History Dapagliflozin Propanediol [Farxiga] 10 mg PO DAILY 12/06/23 11/27/24 History Levothyroxine Sodium [Synthroid] 88 mcg PO DAILY 07/31/24 11/27/24 History Clopidogrel [Plavix] 75 mg PO DAILY #90 tab 08/04/24 11/27/24 Rx lisinopriL [Zestril] 20 mg PO BID #180 tab 08/04/24 11/27/24 Rx Biotin 6000mcg 1 tab PO DAILY 11/27/24 11/27/24 History Metoprolol Succinate (ER) [Toprol 25 mg PO DAILY 11/27/24 11/27/24 History Xl] Pantoprazole [Protonix] 40 mg PO AC-BRKFST 11/27/24 11/27/24 History Allergies Allergy/AdvReac Type Severity Reaction Status Date / Time amoxicillin Allergy Rash/Hives Verified 11/27/24 08:29 Physical Exam Vitals: Vital Signs Temp Pulse Resp BP Pulse Ox 11/27/24 00:04 98.5 F 11/26/24 23:00 57 L 20 166/88 96 11/26/24 21:00 54 L 18 178/80 96 11/26/24 20:00 50 L 24 100 11/26/24 18:24 85 18 167/82 95 11/26/24 17:47 98.1 F 61 18 172/98 98 Intake and Output 11/26/24 11/26/24 11/27/24 14:59 22:59 06:59 Other: Weight 77.111 kg GENERAL EXAM: Alert, 75-year-old female, well-nourished, comfortable in no ap parent distress. HEAD: Normocephalic and atraumatic EYES: Normal reaction of pupils, equal size. NOSE: Clear with pink turbinates. THROAT: No erythema or exudates. NECK: No masses, no JVD. CHEST: No chest wall deformity. LUNGS: Equal air entry with no crackles, wheeze, rhonchi or dullness. On room air. No conversational dyspnea or accessory muscle use.. CVS: S1 and S2 normal with no audible murmur, regular rhythm. No extra heart sounds ABDOMEN: No hepatosplenomegaly, active bowel sounds, no guarding or rigidity. SPINE: No scoliosis or deformity SKIN: No rashes CENTRAL NERVOUS SYSTEM: No focal deficits, tone is normal in all 4 extremities. EXTREMITIES: There is no peripheral edema, clubbing, or cyanosis. Peripheral pulses are intact. Results - Laboratory Findings CBC and BMP: 11/26/24 19:17 11/26/24 19:17 PT/INR, D-dimer PT 10.1 sec (10.0-12.5) 11/26/24 19:17 INR 0.9 (<1.2) 11/26/24 19:17 D-Dimer 6.50 mg/L FEU (<0.60) H 11/26/24 19:17 Abnormal lab findings: Abnormal Labs 11/26/24 11/26/24 11/26/24 19:17 19:17 19:17 RBC 3.73 L Hgb 11.2 L Hct 34.1 L Immature Gran # 0.09 H Lymphocytes # 0.82 L D-Dimer 6.50 H Sodium 133 L Carbon Dioxide 14 L BUN 37 H Creatinine 1.10 H Glucose 371 H POC Glucose (mg/dL) Alkaline Phosphatase 149 H 11/27/24 00:09 RBC Hgb Hct Immature Gran # Lymphocytes # D-Dimer Sodium Carbon Dioxide BUN Creatinine Glucose POC Glucose (mg/dL) 312 H Alkaline Phosphatase - Diagnostic Findings Chest x-ray: image reviewed CT scan - chest: image reviewed Assessment and Plan Assessment: Right perihilar soft tissue mass measuring 6.9 x 3.8 cm Mediastinal lymphadenopathy, PET scan done Sep, 2024 showing scattered FDG avid lymphadenopathy. Intense uptake within the esophagus, mediastinal lymph nodes, and abdominal lymph nodes. Did undergo EBUS and transbronchial needle aspiration of stations 7 and 10 lymph nodes on 10/09/[address] Ta. Pathology nondiagnostic for neoplasm or other pathological process. History of GERD with esophagitis, EGD with biopsies performed on July,, pathology remarkable for benign squamaglandular mucosa with focal acute esophagitis and mucosal reactive changes. No significant intestinal metaplasia. History of hiatal hernia Right posterior costophrenic 9 mm pulmonary nodule Obstructive sleep apnea with home CPAP Anion gap metabolic acidosis Chronic kidney disease stage IIIa Diabetes mellitus type 2, with hyperglycemia Hypertension History of hyperlipidemia Sinus bradycardia with sinus arrhythmia History of carotid artery disease History of CVA/TIA Obesity, with a BMI of 31.1 kg/m, on Mounjaro Plan: Chest CT angiogram reviewed, concerns for enlarging right perihilar soft tissue mass, now measuring 6.9 x 3.8 cm with concern for malignancy. Case will reviewed with Dr. Ta, further recommendations to follow I have personally seen and examined the patient, performed the documentation and the assessment and plan as written. Number of minutes spent on the visit:20 Plan: This is a joint evaluation that was done along with the nurse practitioner. This evaluation was done and 35 minutes. Case was discussed with primary care. Case was also discussed with the patient and the at the bedside. The patient has extensive mediastinal lymphadenopathy and the patient presented to the hospital because of increased shortness of breath and coughing. The patient has had a previous bronchoscopy and endobronchial ultrasound and biopsy of the mediastinal lymph nodes yielded no significant pathology. No evidence of any carcinoma. No evidence of any lymphoma. Based on ongoing symptoms, a CT of the chest was done and the patient was found to have a 6.9 x 3.8 cm subcarinal lymph there was a 9 mm right lower lobe posterior costophrenic angle nodule. There is also bilateral neck lymph nodes that are not palpable on examination. Small hiatal hernia is also present. The patient is currently on room air oxygen. electrolytes show a component of dynamic metabolic acidosis with a serum bicarb of 14 and a gap of 16. BUN 37 with a creatinine of 1.1. The white cell count is at 6.7 with a hemoglobin 11.2. Currently on normal citrate of 75 cc an hour. Node in addition to be sternal lymphadenopathy and there was lymph nodes throughout the mediastinum in addition to that The plan is to repeat the endobronchial ultrasound and send samples for flow cy tometry. Carcinoma is doubtful. Possibility of lymphoma cannot be completely ruled out. If the repeat endobronchial ultrasound and biopsies are negative, the patient will need a mediastinoscopy Time with Patient: Greater than 30
[2024-11-27 07:09] LABS: Glucose,Whole Blood 216 mg/dL (70-110)
[2024-11-27] MEDS ORDERED: INSULIN LISPRO (HumaLOG) 100 UNIT/ML 10 mL VL SQ SCH (07:30)
[2024-11-27] MEDS: DULoxetine HCL 60 MG CAPSULE.DR PO SCH (10:34)
[2024-11-27] MEDS: METOPROLOL SUCCINATE (ER) 25 MG TAB.ER.24H PO SCH (11:01)
[2024-11-27] MEDS: PANTOPRAZOLE 40 MG TABLET PO SCH (11:01)
--- NOTE | 2024-11-27 11:39 | P.HPIM ---
History of Present Illness H&P Date: 11/27/24 Chief Complaint: Of breath/right perihilar soft tissue mass 6.9 x 3.8 cm HISTORY OF PRESENT ILLNESS: This is a 74-year-old female with a previous medical history si gnificant for hypertension and hypertensive cardiovascular disease, mixed hyperlipidemia, diabetes mellitus type 2, insulin requiring, diabetic polyneuropathy, chronic kidney disease stage IIIa, has been under the care of nephrology, history of hypothyroidism, history of GERD with esophagitis, history of major depressive disorder, was last hospitalized at [facility] for urine in July 2024 after she was admitted for expressive aphasia with mental status changes, at that time she was discovered to have significant issue thickened esophagus with enlarged lymph node, at that time she underwent EGD with biopsy that was negative for any carcinoma at that time, patient ended up seen by hematology oncology at that admission, and flow cytometry was obtained, and the patient was sent to follow-up with hematology oncology as well as by pulmonary medicine because of the lymphadenopathy that she has underwent PET scan in September 2024 that was positive for lymphadenopathy, then underwent EBUS with and a biopsy was nondiagnostic at that time, patient was brought into the emergency department yesterday because of increased shortness of breath, not feeling well, her D-dimer was elevated, she ended up going for CT angiography of the chest that was negative for pulm embolism but did show perihilar mass of 6.9 x 3.8 cm with mediastinal lymphadenopathy and a 9 mm nodule in the right lower lobe, with bilateral neck lymphadenopathy suggestive of malignancy, she was admitted to the hospital with hematology oncology consultation as well as pulmonary consultation REVIEW OF SYSTEMS: Constitutional: No documented fever, no chills, no night sweats. No weight change. No weakness, fatigue or lethargy. No daytime sleepiness. EENT: No headache. No blurred vision or double vision, no loss of vision. No loss of Hearing, no ringing in the ears, no dizziness. No nasal drainage or congestion. No epistaxis. No sore throat. Lungs: Positive for shortness of breath, cough, no sputum production. No wheezing. Reports dyspnea with activity. Cardiovascular: No chest pain, no lower extremity edema. No palpitations. No paroxysmal nocturnal dyspnea. No orthopnea. No lightheadedness or dizziness. No syncopal episodes. Abdominal: Reports no abdominal pain. No nausea, vomiting. No diarrhea. No constipation. No bloody or tarry stools reports loss of appetite. Genitourinary: No dysuria, increased frequency, urgency. No urinary retention. Musculoskeletal: No myalgias. No muscle weakness, no gait dysfunction, no frequent falls. No back pain. No neck pain. Integumentary: No wounds, no lesions. No rash or pruritus. No unusual bruising. No change in hair or nails. Neurologic: No aphasia. No facial droop. positive for change in mentation. No head injury. No headache. No paralysis. No paresthesia. Psychiatric: positive for depression. positive for anxiety. No mood swings. Endocrine: No abnormal blood sugars. No weight change. PAST MEDICAL HISTORY: Hypertension and hypertensive cardiovascular disease. Mixed hyperlipidemia. Diabetes mellitus type 2. Diabetic polyneuropathy. Hypothyroidism. Major depressive disorder. GERD with esophagitis. Chronic kidney disease stage IIIb. Wooten esophagus PAST SURGICAL HISTORY: Lap band placement and removal. Tummy tuck. Lap band insertion. Partial hysterectomy. Left wrist ganglionic cyst removed EGD and colonoscopy 01/22/2017 EGD colonoscopy 11/24/2021 Hernia surgery 07/03/2022 Bilateral cataract surgery last 1 was on Sunday of the left eye. EGD/Colonoscoopy 03/10/2024 SOCIAL HISTORY: Patient is a lifelong non-smoker, she drinks occasionally, she denies any drug use or abuse, she was with her . FAMILY HISTORY: Father at age 66 from colon cancer with metastatic disease to the brain, mother at age 73 from lung cancer and had diabetes and hypertension, patient has 1 brother with lung cancer and had tracheostomy patient has 4 sisters 1 with DVTs, 1 with diabetes on insulin, and the third 1 with diabetes as well, patient has 1 son who lives with them and is healthy. PHYSICAL EXAMINATION: General: 73-year-old female laying down in bed in no apparent distress HEENT: Head is atraumatic, normocephalic, pupils were equal round reactive to light and recommendation, extraocular muscle movement were intact, sclera nonicteric, conjunctivae were pale, mucous membranes of the mouth are somewhat dry. Neck: Supple, no JVP, normal carotid upstroke bilaterally, bilateral cervical l ymphadenopathy Chest: Decreased breath sounds at the bases, few rhonchi, no expiratory wheezes, no chest wall tenderness, no intercostal retractions. Heart: First heart sound is normal, second heart sounds normal there are systolic ejection murmur 2/6 located left sternal border Abdomen: Soft, nontender, nondistended, positive bowel sounds. Extremities: There is no edema no calf tenderness DP +2 bilaterally. Neurologic examination: Patient is awake alert and oriented x1, cranial nerves II-12 appear grossly intact, muscle power were 4 out of 5 in upper extremities and 4 out of 5 in bilateral lower extremities, deep tendon reflexes normal bilaterally, Babinski's were flexor bilaterally. [id number] and [id number] could not be performed as the patient is not able to follow much commands. ASSESSMENT AND PLAN: 1. Perihilar mass 6.9 x 3.8 cm with mediastinal lymphadenopathy suggestive of malignancy. Point in time for further plan of action, patient did have a recent pet scan as well as EBUS with biopsy that was nondiagnostic. So hematology oncology as well as pulmonary medicine 2. Hypertension and hypertensive cardiovascular disease. Continue patient on lisinopril 20 mg orally twice every day, continue monitor the patient blood pressure very closely, 3. Mixed hyperlipidemia. Continue patient on atorvastatin 80 mg once every day, monitor lipid panel, keep LDL 55-70. 4. Diabetes mellitus type 2. Continue patient on sliding scale insulin for now, I will add Lantus 12 units at bedtime 5. Hypothyroidism. Continue patient on levothyroxine 88 mcg orally once every day, 6. GERD with esophagitis and Wooten esophagus Continue patient on pantoprazole 40 mg orally once every day.Last EGD 07/2024 7. Moderate right ICA disease. Vascular surgery consultation continue Plavix 75 mg po daily atorvastatin 80 mg once every day, keep LDL 55-70. 8. DVT prophylaxis. Lovenox 40 mg subcutaneous every 24 hours. 9. GI prophylaxis. Continue patient on Protonix 40 mg orally once every day 10. Admit to inpatient. Estimated length of stay 2 midnights. 11. Patient is full code Past Medical History Past Medical History: CVA/TIA, Diabetes Mellitus, GERD/Reflux, Hyperlipidemia, Hypertension, Myocardial Infarction ([place]), Sleep Apnea/CPAP/BIPAP, Thyroid Disorder Additional Past Medical History / Comment(s): CVA 2009, NO RESIDUAL EFFECTS, CPAP MACHINE, ARTHRITIS HIPS, ESOPHAGEAL AND DUODENAL ULCER, leg weakness and pain, urinary incontinence, ""enlarged lymph node between lungs" Last Myocardial Infarction Date:: 2007 History of Any Multi-Drug Resistant Organisms: None Reported Past Surgical History: Bariatric Surgery, Heart Catheterization, Hysterectomy, Orthopedic Surgery Additional Past Surgical History / Comment(s): Left ganglion cyst left wrist, lap band placed and removed, abdominoplasty, broken foot repair to left foot with pins, screws and plate, D&C, EGD, Pain Clinic Procedure. Past Anesthesia/Blood Transfusion Reactions: Previous Problems w/ Anesthesia Additional Past Anesthesia/Blood Transfusion Reaction / Comment(s): "Has stopped breathing after procedures"; reintubted once after procedure and SOB after surgery. Past Psychological History: Depression Smoking Status: Never smoker - Past Family History Father Family Medical History: Cancer Additional Family Medical History / Comment(s): Colon cancer. Mother Family Medical History: Cancer Additional Family Medical History / Comment(s): Small cell lung cancer. Brother(s) Family Medical History: Cancer Additional Family Medical History / Comment(s): Lung cancer spread to lymph nodes. Sister(s) Family Medical History: Cancer Additional Family Medical History / Comment(s): Small cell lung cancer. Medications and Allergies Home Medications Medication Instructions Recorded Confirmed Type Atorvastatin [Lipitor] 80 mg PO HS 11/21/21 11/27/24 History DULoxetine HCL [Cymbalta] 60 mg PO BID 11/21/21 11/27/24 History Dapagliflozin Propanediol [Farxiga] 10 mg PO DAILY 12/06/23 11/27/24 History Levothyroxine Sodium [Synthroid] 88 mcg PO DAILY 07/31/24 11/27/24 History Clopidogrel [Plavix] 75 mg PO DAILY #90 tab 08/04/24 11/27/24 Rx lisinopriL [Zestril] 20 mg PO BID #180 tab 08/04/24 11/27/24 Rx Biotin 6000mcg 1 tab PO DAILY 11/27/24 11/27/24 History Metoprolol Succinate (ER) [Toprol 25 mg PO DAILY 11/27/24 11/27/24 History Xl] Pantoprazole [Protonix] 40 mg PO AC-BRKFST 11/27/24 11/27/24 History Allergies Allergy/AdvReac Type Severity Reaction Status Date / Time amoxicillin Allergy Rash/Hives Verified 11/27/24 08:29 Physical Exam Vitals: Vital Signs Temp Pulse Pulse Resp BP BP Pulse Ox 11/27/24 07:58 98.5 F 51 L 20 141/50 96 11/27/24 00:53 97.7 F 57 L 16 145/76 96 11/27/24 00:41 57 L 16 11/27/24 00:04 98.5 F 11/26/24 23:00 57 L 20 166/88 96 11/26/24 21:00 54 L 18 178/80 96 11/26/24 20:00 50 L 24 100 11/26/24 18:24 85 18 167/82 95 11/26/24 17:47 98.1 F 61 18 172/98 98 Intake and Output 11/26/24 11/27/24 11/27/24 22:59 06:59 14:59 Other: Voiding Method Toilet Toilet # Voids 1 Weight 77.111 kg 77.111 kg Results CBC & Chem 7: 11/26/24 19:17 11/26/24 19:17 Labs: Abnormal Lab Results - Last 24 Hours (Table) 11/26/24 11/26/24 11/26/24 Range/Units 19:17 19:17 19:17 RBC 3.73 L (4.10-5.20) 10*6/uL Hgb 11.2 L (12.0-15.0) g/dL Hct 34.1 L (37.2-46.3) % Immature Gran # 0.09 H (0.00-0.04) 10*3/uL Lymphocytes # 0.82 L (0.90-5.00) 10*3/uL D-Dimer 6.50 H (<0.60) mg/L FEU Sodium 133 L (137-145) mmol/L Carbon Dioxide 14 L (22-30) mmol/L BUN 37 H (7-17) mg/dL Creatinine 1.10 H (0.52-1.04) mg/dL Glucose 371 H (74-99) mg/dL POC Glucose (mg/dL) (70-110) mg/dL Alkaline Phosphatase 149 H (38-126) U/L 11/27/24 11/27/24 Range/Units 00:09 07:07 RBC (4.10-5.20) 10*6/uL Hgb (12.0-15.0) g/dL Hct (37.2-46.3) % Immature Gran # (0.00-0.04) 10*3/uL Lymphocytes # (0.90-5.00) 10*3/uL D-Dimer (<0.60) mg/L FEU Sodium (137-145) mmol/L Carbon Dioxide (22-30) mmol/L BUN (7-17) mg/dL Creatinine (0.52-1.04) mg/dL Glucose (74-99) mg/dL POC Glucose (mg/dL) 312 H 216 H (70-110) mg/dL Alkaline Phosphatase (38-126) U/L Thrombosis Risk Factor Assmnt - Choose All That Apply Any of the Below Risk Factors Present?: No Other Risk Factors: Yes Each Risk Factor Represents 2 Points: Age 61-74 years Thrombosis Risk Factor Assessment Total Risk Factor Score: 2 Thrombosis Risk Factor Assessment Level: Low Risk
[2024-11-27 12:19] LABS: Glucose,Whole Blood 103 mg/dL (70-110)
[2024-11-27] MEDS: DAPAGLIFLOZIN PROPANEDIOL 10 MG TABLET PO SCH (12:28)
[2024-11-27] MEDS: CLOPIDOGREL 75 MG TAB PO SCH (16:48)
[2024-11-27 17:17] LABS: Glucose,Whole Blood 128 mg/dL (70-110)
[2024-11-27] MEDS: ENOXAPARIN 40 MG/0.4 ML SYRINGE SQ SCH (19:00)
[2024-11-27 19:58] LABS: Glucose,Whole Blood 224 mg/dL (70-110)
[2024-11-27] MEDS: ATORVASTATIN 80 MG TAB PO SCH (20:39)
[2024-11-27] MEDS: INSULIN GLARGINE (LANTUS) 100 UNIT/ML SYR SQ SCH (20:43)
[2024-11-28] MEDS: LEVOTHYROXINE 88 MCG TAB PO SCH (05:49)
[2024-11-28 07:15] LABS: Glucose,Whole Blood 434 mg/dL (70-110)
[2024-11-28 08:01] LABS: Basophils # (A) 0.04 X 10*3/uL (0.00-0.10); Basophils % (A) 0.7 %; Eosinophils # (A) 0.06 X 10*3/uL (0.04-0.35); Eosinophils % (A) 1.1 %; HCT 32.0 % (37.2-46.3); HGB 10.4 g/dL (12.0-15.0); Immature Grans, Automated 1.30 %; Lymphocytes # (A) 0.72 X 10*3/uL (0.90-5.00); Lymphocytes % (A) 13.4 %; MCH 30.2 pg (27.0-32.0); MCHC 32.5 g/dL (32.0-37.0); MCV 93.0 FL (80.0-97.0); Monocytes # (A) 0.56 X 10*3/uL (0.20-1.00); Monocytes % (A) 10.4 %; NRBC Per 100 WBC 0 X 10*3/uL (0.00-0.01); Neutrophils # (A) 3.93 X 10*3/uL (1.80-7.70); Neutrophils % (A) 73.1 %; Platelet Count 375 X 10*3/uL (140-440); RBC 3.44 X 10*6/uL (4.10-5.20); RDW 13.9 % (11.5-14.5); WBC 5.38 X 10*3/uL (4.50-10.00)
[2024-11-28 08:05] LABS: ALT 13 U/L (8-44); AST 17 U/L (13-35); Albumin 3.0 g/dL (3.8-4.9); Albumin/Globulin Ratio 1.15 Ratio (1.60-3.17); Alkaline Phosphatase 141 U/L (41-126); Anion Gap 9.70 mmol/L (4.00-12.00); BUN/Creat Ratio 15.00 Ratio (12.00-20.00); Blood Urea Nitrogen 18.0 mg/dL (9.0-27.0); Calcium 8.3 mg/dL (8.7-10.3); Carbon Dioxide 18.3 mmol/L (21.6-31.8); Chloride 109 mmol/L (96-109); Globulin 2.6 g/dL (1.6-3.3); Glucose 452 mg/dL (70-110); Potassium 4.0 mmol/L (3.5-5.5); Sodium 137 mmol/L (135-145); Total Protein 5.6 g/dL (6.2-8.2)
--- NOTE | 2024-11-28 09:38 | P.CONS ---
History of Present Illness - Reason for Consult Consult date: 11/27/24 perihilar mass Requesting physician: Luz Marina Carrillo - Chief Complaint SOB, cough - History of Present Illness Patient is a 74 year old female who follows with Dr. Lindsay. She initially presented with aphadia and confusion shortly after cataract surgery to [facility] in July/2024, as part of her work up,she had CTA neck/head which showed evidence of mediastinal nodes. Her brain MRI was unremarkable. She did have an EGD during her admission which showed esophagitis,no malignancy. She was supposed to have a CT chest/abdomen/pelvis however,it was not done due to her CKD. On 09/19/2024,PET scan showed scattered FDG avid generalized lymphadenopathies compatible with malignancy with intense mediatinal nodes. After discussing her case with IR and pulmonary,it was felt that she best undergo EBUS for tissue diagnosis,she met with Dr Ta and underwent EBUS on 10/09/2024, morphologically her LN looked normal (as per september discussion with Dr Ta), FNA of station 7 showed lymphoid tissues showed no malignancy, FNA of 10 R was non diagnostic. Her abdominal LN are very small for a CT guided biopsy. As recommended by Dr Ta, plan was to have a follow up CT scan in 3 months. Patient presented to the emergency room at the direction of her pot sander for persisting shortness of breath and cough. Patient states she had recently completed course of antibiotics and steroids a couple weeks ago but symptoms have persisted causing her to present for further evaluation. On admit chest x- ray showed no acute cardiopulmonary processes. CTA chest negative for PE. Right perihilar mass with large soft tissue mass measuring 6.9 x 3.8 cm in the subcarinal region and lymphadenopathy throughout the mediastinum. Additional right lower lobe posterior costophrenic angle pulmonary nodule measuring 9 mm and known bilateral neck lymph nodes noted. Indeterminate bing hepatis lymph node measuring 12 mm. WBC 6.9, hemoglobin 11.2, platelets 377,000. Creatinine 1.10, GFR 51. Patient is afebrile, SPO2 96% on room air. Review of Systems 10 point ROS is negative except as stated in the HPI Past Medical History Past Medical History: CVA/TIA, Diabetes Mellitus, GERD/Reflux, Hyperlipidemia, Hypertension, Myocardial Infarction (DE), Sleep Apnea/CPAP/BIPAP, Thyroid Disorder Additional Past Medical History / Comment(s): CVA 2010, NO RESIDUAL EFFECTS, CPAP MACHINE, ARTHRITIS HIPS, ESOPHAGEAL AND DUODENAL ULCER, leg weakness and pain, urinary incontinence, ""enlarged lymph node between lungs" Last Myocardial Infarction Date:: 2007 History of Any Multi-Drug Resistant Organisms: None Reported Past Surgical History: Bariatric Surgery, Heart Catheterization, Hysterectomy, Orthopedic Surgery Additional Past Surgical History / Comment(s): Left ganglion cyst left wrist, lap band placed and removed, abdominoplasty, broken foot repair to left foot with pins, screws and plate, D&C, EGD, Pain Clinic Procedure. Past Anesthesia/Blood Transfusion Reactions: Previous Problems w/ Anesthesia Additional Past Anesthesia/Blood Transfusion Reaction / Comm: "Has stopped breathing after procedures"; reintubted once after procedure and SOB after surgery. Past Psychological History: Depression Smoking Status: Never smoker - Past Family History Father Family Medical History: Cancer Additional Family Medical History / Comment(s): Colon cancer. Mother Family Medical History: Cancer Additional Family Medical History / Comment(s): Small cell lung cancer. Brother(s) Family Medical History: Cancer Additional Family Medical History / Comment(s): Lung cancer spread to lymph nodes. Sister(s) Family Medical History: Cancer Additional Family Medical History / Comment(s): Small cell lung cancer. Medications and Allergies Home Medications Medication Instructions Recorded Confirmed Type Atorvastatin [Lipitor] 80 mg PO HS 11/21/21 11/27/24 History DULoxetine HCL [Cymbalta] 60 mg PO BID 11/21/21 11/27/24 History Dapagliflozin Propanediol [Farxiga] 10 mg PO DAILY 12/06/23 11/27/24 History Levothyroxine Sodium [Synthroid] 88 mcg PO DAILY 07/31/24 11/27/24 History Clopidogrel [Plavix] 75 mg PO DAILY #90 tab 08/04/24 11/27/24 Rx lisinopriL [Zestril] 20 mg PO BID #180 tab 08/04/24 11/27/24 Rx Biotin 6000mcg 1 tab PO DAILY 11/27/24 11/27/24 History Metoprolol Succinate (ER) [Toprol 25 mg PO DAILY 11/27/24 11/27/24 History Xl] Pantoprazole [Protonix] 40 mg PO AC-BRKFST 11/27/24 11/27/24 History Allergies Allergy/AdvReac Type Severity Reaction Status Date / Time amoxicillin Allergy Rash/Hives Verified 11/27/24 08:29 Physical Exam Vitals: Vital Signs Temp Pulse Pulse Resp BP BP Pulse Ox 11/27/24 07:58 98.5 F 51 L 20 141/50 96 11/27/24 00:53 97.7 F 57 L 16 145/76 96 11/27/24 00:41 57 L 16 11/27/24 00:04 98.5 F 11/26/24 23:00 57 L 20 166/88 96 11/26/24 21:00 54 L 18 178/80 96 11/26/24 20:00 50 L 24 100 11/26/24 18:24 85 18 167/82 95 11/26/24 17:47 98.1 F 61 18 172/98 98 Intake and Output 11/26/24 11/27/24 11/27/24 22:59 06:59 14:59 Other: Voiding Method Toilet Toilet # Voids 1 Weight 77.111 kg 77.111 kg - Constitutional General appearance: no acute distress - EENT Eyes: anicteric sclerae, EOMI ENT: hearing grossly normal - Respiratory inspiratory stridor RML - Cardiovascular Rhythm: regular - Gastrointestinal General gastrointestinal: soft, no tenderness - Integumentary Integumentary: no cyanotic - Psychiatric Psychiatric: A&O x's 3 Results CBC & Chem 7: 11/28/24 05:49 11/28/24 05:49 Labs: Abnormal Lab Results - Last 24 Hours (Table) 11/26/24 11/26/24 11/26/24 Range/Units 19:17 19:17 19:17 RBC 3.73 L (4.10-5.20) 10*6/uL Hgb 11.2 L (12.0-15.0) g/dL Hct 34.1 L (37.2-46.3) % Immature Gran # 0.09 H (0.00-0.04) 10*3/uL Lymphocytes # 0.82 L (0.90-5.00) 10*3/uL D-Dimer 6.50 H (<0.60) mg/L FEU Sodium 133 L (137-145) mmol/L Carbon Dioxide 14 L (22-30) mmol/L BUN 37 H (7-17) mg/dL Creatinine 1.10 H (0.52-1.04) mg/dL Glucose 371 H (74-99) mg/dL POC Glucose (mg/dL) (70-110) mg/dL Alkaline Phosphatase 149 H (38-126) U/L 11/27/24 11/27/24 Range/Units 00:09 07:07 RBC (4.10-5.20) 10*6/uL Hgb (12.0-15.0) g/dL Hct (37.2-46.3) % Immature Gran # (0.00-0.04) 10*3/uL Lymphocytes # (0.90-5.00) 10*3/uL D-Dimer (<0.60) mg/L FEU Sodium (137-145) mmol/L Carbon Dioxide (22-30) mmol/L BUN (7-17) mg/dL Creatinine (0.52-1.04) mg/dL Glucose (74-99) mg/dL POC Glucose (mg/dL) 312 H 216 H (70-110) mg/dL Alkaline Phosphatase (38-126) U/L Chest x-ray: report reviewed CT scan - chest: report reviewed Assessment and Plan (1) Lymphadenopathy Current Visit: Yes Status: Acute Priority: High Code(s): R59.1 - GENERALIZED ENLARGED LYMPH NODES SNOMED Code(s): 97135836 (2) Shortness of breath Current Visit: Yes Status: Acute Priority: High Code(s): R06.02 - SHORTNESS OF BREATH SNOMED Code(s): 723416424 Plan: Abnormal Lymphadenopathy: -History as dictated in the HPI. PET showed concerning intense uptake within medstinal nodes. Underwent EBUS on 10/09/[address] Ta, FNA of station 7 showed lymphoid tissues showed no malignancy, FNA of 10 R was non diagnostic. Plan was to have a follow up CT scan in 3 months. Of note, pt does report sister has history of sarcoidosis -CTA chest on admit revealed right perihilar mass with large soft tissue mass measuring 6.9 x 3.8 cm in the subcarinal region and lymphadenopathy throughout the mediastinum. Additional right lower lobe posterior costophrenic angle pulmonary nodule measuring 9 mm and known bilateral neck lymph nodes noted. Indeterminate bing hepatis lymph node measuring 12 mm. -Pulmonology is following, plan for repeat EBUS today with Dr. Ta. -Will continue to follow and await pathology results Doctor attests: I performed a history and physical examination of this patient, developed impression and plan of care. Discussed with dictator. I agree with dictators note, documented as a scribe.
[2024-11-28] MEDS ORDERED: GLYCOPYRROLATE 0.2 MG/ML 2 ML VIAL ONE (10:19)
[2024-11-28] MEDS ORDERED: fentaNYL (PF) 50 MCG/ML 2 ML AMP ONE (10:19)
[2024-11-28] MEDS ORDERED: ROCURONIUM 10 MG/ML (5 ML VIAL) IV ONE (10:19)
[2024-11-28] MEDS ORDERED: PROPOFOL 10 MG/ML 20 ML VIAL IV ONE (10:19)
[2024-11-28] MEDS ORDERED: LIDOCAINE 1% INJ 10MG/ML (20 ML MDV) ONE (10:19)
[2024-11-28] MEDS ORDERED: NEOSTIGMINE 1 MG/ML 10 ML VIAL ONE (10:19)
[2024-11-28] MEDS: IV FLUID CONTINUATION 1,000 ML IV ONE ×2 (10:27→11:44)
[2024-11-28] MEDS: EPINEPHrine 10 ML SYRINGE (0.1 MG/ML) MISCELLANE ONE (10:35)
[2024-11-28] MEDS: IPRATROPIUM-ALBUTEROL 3 ML NEB INHALATION STA (12:05)
[2024-11-28] MEDS: methylPREDNISolone SOD SUCCI 125 MG/2 ML VIAL IV SCH (13:01)
[2024-11-28 13:04] LABS: Glucose,Whole Blood 127 mg/dL (70-110)
--- NOTE | 2024-11-28 14:19 | P.PCN ---
Date of Procedure: 11/28/24 Preoperative Diagnosis: Bulky mediastinal lymphadenopathy Postoperative Diagnosis: Mediastinal lymphadenopathy Extrinsic compression of the bronchus intermedius with endobronchial tumor invading the bronchus intermedius causing significant narrowing of the airway. Procedure(s) Performed: Flexible bronchoscopy Endobronchial biopsy of tumor noted in the bronchus intermedius along with bronchioloalveolar lavage Endobronchial ultrasound Transbronchial needle aspirate of the subcarinal lymph node. Anesthesia: MAC Surgeon: Claudette Ta Estimated Blood Loss (ml): 0 Pathology: other Condition: stable Disposition: floor Operative Findings: This procedure was done in the endoscopy room. The patient was intubated and placed on mechanical ventilator by the anesthesia team in the usual fashion. Postintubation, the flex bronchoscope was introduced through the orotracheal tub e and airway inspection was done. Distal trachea was normal. Anayeli was sharp in the midline. Bilateral mainstem bronchi were patent. However, it was noted that the distal right mainstem bronchus being tapered and there was endobronchial tumor/growth causing narrowing of the bronchus intermedius. In fact, the bronchus centimeters was significantly tapered and this was essentially due to extrinsic compression from the bulky mediastinal lymphadenopathy and endobronchial tumor extending into the bronchus intermedius. I was able to pass the flexible bronchoscope and visualize the various segments of the right lower lobe. Right middle lobe was extensively impressed. Following that, the bronchoscope was moved to the right upper lobe and this was trifurcated and it was within normal limits. Examination of the left side included the left mainstem bronchus, left upper lobe bronchus and left lower bronchus and the various segments on the left and those were within normal limits. The bronchoscope was then moved to the bronchus intermedius and endobronchial biopsies were obtained. The tumor was quite vascular and friable and multiple biopsies were obtained. Limited bleeding was encountered and this spontaneously resolved. Following that, I performed a bronchial lavage of the bronchus intermedius and a total of 60 cc of fluid was infused and 15 to 20 cc was aspirated and the aspirate was bloody. The flexible bronchoscope was removed and endobronchial ultrasound was inserted. Under EBUS evaluation, there was a very bulky subcarinal lymph node that had various echogenic densities within and the areas seem to be quite heterogeneous in echodensity. Several other lymph nodes were also noted along the subcarinal area which was matted to the main bulky lymph nodes. The lymph node was estimated to be at least 4 cm in size. In addition, there was some smaller lymph nodes around the hilar area including station 10R. Using a 22-gauge needle, multiple biopsies of the subcarinal lymph node was done. The aspirate was cloudy, somewhat necrotic and at times felt to be purulent. Direct inspection was done by pathology at the bedside. There was significant amount of inflammatory cells noted. At the same time, there was some lesional cells identified. I performed at least 8 passes in the various lymph nodes identified within the subcarinal area including the bulky necrotic station 7 lymph node. The endobronchial ultrasound was removed. The flexible bronchoscope was reinserted and therapeutic airway suctioning was done. The procedure was terminated and the patient was extubated and transferred to recovery in stable condition. Awaiting final pathology report from samples obtained during this current bronchoscopy.
--- NOTE | 2024-11-28 14:22 | P.PN ---
Subjective Progress Note Date: 11/28/24 Patient is a 74-year-old female with past medical history significant for hypertension, hyperlipidemia, CVA/TIA, carotid artery stenosis, CAD, diabetes mellitus, chronic kidney disease, ABDULKADIR with CPAP, hiatal hernia, GERD and with esophagitis. Of note, did undergo EGD with biopsies July,, and pathology remarkable for benign squamaglandular mucosa with focal acute esophagitis and mucosal reactive changes. No intestinal metaplasia. More recently, worked up on outpatient basis for mediastinal lymphadenopathy. PET scan done Sep, 2024 showing scattered FDG avid lymphadenopathy. Intense uptake within the esophagus, mediastinal lymph nodes, and abdominal lymph nodes. Did undergo EBUS and transbronchial needle aspiration of station 7 and 10 lymph nodes on 10/09/[address] Ta. Pathology nondiagnostic for neoplasm or other pathological process. Patient presented to emergency room last night complaining of shortness of breath, cough, chest discomfort. Workup in the including an elevated CT angiogram which did not show any evidence of pulmonary embolism. There is right perihilar soft tissue mass measuring 6.9 x 3.8 cm in the subcarinal region with lymphadenopathy throughout the mediastinum. Additional, right lower lobe posterior costophrenic angle pulmonary nodule measuring 9 mm indeterminant bing hepatis lymph node measuring 12 mm. Small hiatal hernia. CBC unremarkable. CMP sodium 133, potassium 4.2, chloride 103, serum bicarb 14, BUN 37, creatinine 1.1, glucose 371. Troponin less than 0.012. She is being evaluated the on the fifth floor. on room air. Resting comfortably, in no respiratory distress. States that she has had ongoing issues since her bronchoscopy. Nonproductive cough, substernal chest discomfort with inhalation, and feels like she cannot take a deep breath. She was treated outpatient basis with Z-Leo and prednisone burst taper. Persistent nonproductive cough without any improvement. She denies any sputum production, hemoptysis. Denies any fevers or chills. She did have a 70 pound weight loss over the last year, she was on Mounjaro. Denies any dysphagia or odynophagia. Never tobacco smoker. Denies any personal history of malignancy. She has a significant family history of cancer including her mother and sister having lung cancer. Her brother of colon cancer. Her other brother had neck cancer. One of her remaining sisters has sarcoidosis. Vital signs: Temperature 98.5 F, rate 57 bpm, blood pressure 166/88 mmHg, nontachypneic, SpO2 recorded 96% on room air. on today's evaluation of 11/28/2024, the patient continues to be short of breath and she is having frequent coughing episodes. She is on 3 L of oxygen by nasal cannula with pulse ox of 90%. The plan is to proceed with a bronchoscopy today as planned including an endobronchial ultrasound and rapid onsite cytologic evaluation will be done at the time of the procedure. The white cell count is 5.3 with a hemoglobin of 10.4 and platelet count of 375. BUN is 18 with a creatinine of 1.2. Sodium is at 137. No other complaints otherwise for now. The patient remains on normal saline at rate of 75 cc an hour. Rest of the home medication resumed. Plavix is currently on hold. Objective - Vital Signs Vital signs: Vital Signs Temp 97.6 F 11/28/24 11:47 Pulse 72 11/28/24 12:30 Resp 18 11/28/24 12:30 BP 129/57 11/28/24 12:30 Pulse Ox 92 L 11/28/24 12:30 FiO2 Intake & Output 11/27/24 11/28/24 11/28/24 18:59 06:59 18:59 Intake Total 810 700 Balance 810 700 Intake: IV 700 Oral 810 Other: Voiding Method Toilet Toilet Toilet - Exam GENERAL EXAM: Alert, 75-year-old female, well-nourished, comfortable in no apparent distress. HEAD: Normocephalic and atraumatic EYES: Normal reaction of pupils, equal size. NOSE: Clear with pink turbinates. THROAT: No erythema or exudates. NECK: No masses, no JVD. CHEST: No chest wall deformity. LUNGS: Equal air entry with no crackles, wheeze, rhonchi or dullness. On room air. No conversational dyspnea or accessory muscle use.. CVS: S1 and S2 normal with no audible murmur, regular rhythm. No extra heart sounds ABDOMEN: No hepatosplenomegaly, active bowel sounds, no guarding or rigidity. SPINE: No scoliosis or deformity SKIN: No rashes CENTRAL NERVOUS SYSTEM: No focal deficits, tone is normal in all 4 extremities. EXTREMITIES: There is no peripheral edema, clubbing, or cyanosis. Peripheral pulses are intact. Results - Labs CBC & Chem 7: 11/28/24 05:49 11/28/24 05:49 Labs: Abnormal Lab Results - Last 24 Hours (Table) 11/27/24 11/27/24 11/28/24 Range/Units 17:15 19:57 05:49 RBC (4.10-5.20) X 10*6/uL Hgb (12.0-15.0) g/dL Hct (37.2-46.3) % Immature Gran # (0.00-0.04) X 10*3/uL Lymphocytes # (0.90-5.00) X 10*3/uL Carbon Dioxide (21.6-31.8) mmol/L Est GFR (CKD-EPI) (>=60) Glucose (70-110) mg/dL POC Glucose (mg/dL) 128 H 224 H (70-110) mg/dL Hemoglobin A1c 12.3 H (<=6.0) % Calcium (8.7-10.3) mg/dL Alkaline Phosphatase (41-126) U/L Total Protein (6.2-8.2) g/dL Albumin (3.8-4.9) g/dL Albumin/Globulin Ratio (1.60-3.17) Ratio 11/28/24 11/28/24 11/28/24 Range/Units 05:49 05:49 07:13 RBC 3.44 L (4.10-5.20) X 10*6/uL Hgb 10.4 L (12.0-15.0) g/dL Hct 32.0 L (37.2-46.3) % Immature Gran # 0.07 H (0.00-0.04) X 10*3/uL Lymphocytes # 0.72 L (0.90-5.00) X 10*3/uL Carbon Dioxide 18.3 L (21.6-31.8) mmol/L Est GFR (CKD-EPI) 48 L (>=60) Glucose 452 H (70-110) mg/dL POC Glucose (mg/dL) 434 H (70-110) mg/dL Hemoglobin A1c (<=6.0) % Calcium 8.3 L (8.7-10.3) mg/dL Alkaline Phosphatase 141 H (41-126) U/L Total Protein 5.6 L (6.2-8.2) g/dL Albumin 3.0 L (3.8-4.9) g/dL Albumin/Globulin Ratio 1.15 L (1.60-3.17) Ratio Assessment and Plan Plan: = Bulky mediastinal lymphadenopathy measuring 6.9 x 3.8 cm in size in addition to several other smaller lymph nodes in the AP window, paratracheal area and some abdominal lymph nodes as stated on the CAT scan of the chest on previous PET/CT. The patient has significant narrowing of the bronchus intermedius and the patie nt is awaiting a flex bronchoscopy endobronchial ultrasound. Currently NPO. Off Plavix. Mediastinal lymphadenopathy, PET scan done Sep, 2024 showing scattered FDG avid lymphadenopathy. Intense uptake within the esophagus, mediastinal lymph nodes, and abdominal lymph nodes. Did undergo EBUS and transbronchial needle aspiration of stations 7 and 10 lymph nodes on 10/09/[address] Ta. Pathology nondiagnostic for neoplasm or other pathological process. History of GERD with esophagitis, EGD with biopsies performed on July,, pathology remarkable for benign squamaglandular mucosa with focal acute esophagitis and mucosal reactive changes. No significant intestinal metaplasia. History of hiatal hernia Right posterior costophrenic 9 mm pulmonary nodule Obstructive sleep apnea with home CPAP Anion gap metabolic acidosis Chronic kidney disease stage IIIa Diabetes mellitus type 2, with hyperglycemia Hypertension History of hyperlipidemia Sinus bradycardia with sinus arrhythmia History of carotid artery disease History of CVA/TIA Obesity, with a BMI of 31.1 kg/m, on Mounjaro Plan: The patient has extensive mediastinal lymphadenopathy and the patient presented to the hospital because of increased shortness of breath and coughing. The patient has had a previous bronchoscopy and endobronchial ultrasound and biopsy of the mediastinal lymph nodes yielded no significant pathology. No evidence of any carcinoma. No evidence of any lymphoma. Based on ongoing symptoms, a CT of the chest was done and the patient was found to have a 6.9 x 3.8 cm subcarinal lymph there was a 9 mm right lower lobe posterior costophrenic angle nodule. There is also bilateral neck lymph nodes that are not palpable on examination. Small hiatal hernia is also present. Will repeat bronchoscopy, currently NPO. High suspicion for malignancy.
--- NOTE | 2024-11-28 15:17 | P.PN ---
Subjective Progress Note Date: 11/28/24 HISTORY OF PRESENT ILLNESS: This is a 74-year-old female with a previous medical history signif icant for hypertension and hypertensive cardiovascular disease, mixed hyperlipidemia, diabetes mellitus type 2, insulin requiring, diabetic polyneuropathy, chronic kidney disease stage IIIa, has been under the care of nephrology, history of hypothyroidism, history of GERD with esophagitis, history of major depressive disorder, was last hospitalized at [facility] for urine in July 2024 after she was admitted for expressive aphasia with mental status changes, at that time she was discovered to have significant issue thickened esophagus with enlarged lymph node, at that time she underwent EGD with biopsy that was negative for any carcinoma at that time, patient ended up seen by hematology oncology at that admission, and flow cytometry was obtained, and the patient was sent to follow-up with hematology oncology as well as by pulmonary medicine because of the lymphadenopathy that she has underwent PET scan in September 2024 that was positive for lymphadenopathy, then underwent EBUS with and a biopsy was nondiagnostic at that time, patient was brought into the emergency department yesterday because of increased shortness of breath, not feeling well, her D-dimer was elevated, she ended up going for CT angiography of the chest that was negative for pulm embolism but did show perihilar mass of 6.9 x 3.8 cm with mediastinal lymphadenopathy and a 9 mm nodule in the right lower lobe, with bilateral neck lymphadenopathy suggestive of malignancy, she was admitted to the hospital with hematology oncology consultation as well as pulmonary consultation. 11/28: Patient is scheduled to go for EBUS with Dr. Landrum today to obtain tissue pathology because of the soft tissue mass that is pressing against the right mainstem bronchus, with the lymphadenopathy that she has intermittent st anding, rule out sarcoidosis this time, rule out malignancy at this point in time, patient is being on nothing per mouth at this point in time, follow-up with the patient very closely, she continues to be hyperglycemic, she did receive Lantus last night, will continue that continue with a sliding scale insulin for now, follow-up with the patient very closely, further recommendations to follow the farm service consultant recommendations. REVIEW OF SYSTEMS: Constitutional: No documented fever, no chills, no night sweats. No weight change. No weakness, fatigue or lethargy. No daytime sleepiness. EENT: No headache. No blurred vision or double vision, no loss of vision. No loss of Hearing, no ringing in the ears, no dizziness. No nasal drainage or congestion. No epistaxis. No sore throat. Lungs: Positive for shortness of breath, cough, no sputum production. No wheezing. Reports dyspnea with activity. Cardiovascular: No chest pain, no lower extremity edema. No palpitations. No paroxysmal nocturnal dyspnea. No orthopnea. No lightheadedness or dizziness. No syncopal episodes. Abdominal: Reports no abdominal pain. No nausea, vomiting. No diarrhea. No constipation. No bloody or tarry stools reports loss of appetite. Genitourinary: No dysuria, increased frequency, urgency. No urinary retention. Musculoskeletal: No myalgias. No muscle weakness, no gait dysfunction, no frequent falls. No back pain. No neck pain. Integumentary: No wounds, no lesions. No rash or pruritus. No unusual bruising. No change in hair or nails. Neurologic: No aphasia. No facial droop. positive for change in mentation. No head injury. No headache. No paralysis. No paresthesia. Psychiatric: positive for depression. positive for anxiety. No mood swings. Endocrine: No abnormal blood sugars. No weight change. PHYSICAL EXAMINATION: General: 73-year-old female laying down in bed in no apparent distress HEENT: Head is atraumatic, normocephalic, pupils were equal round reactive to light and recommendation, extraocular muscle movement were intact, sclera nonicteric, conjunctivae were pale, mucous membranes of the mouth are somewhat dry. Neck: Supple, no JVP, normal carotid upstroke bilaterally, bilateral cervical lymphadenopathy Chest: Decreased breath sounds at the bases, few rhonchi, no expiratory wheezes, no chest wall tenderness, no intercostal retractions. Heart: First heart sound is normal, second heart sounds normal there are systolic ejection murmur 2/6 located left sternal border Abdomen: Soft, nontender, nondistended, positive bowel sounds. Extremities: There is no edema no calf tenderness DP +2 bilaterally. Neurologic examination: Patient is awake alert and oriented x1, cranial nerves II-12 appear grossly intact, muscle power were 4 out of 5 in upper extremities and 4 out of 5 in bilateral lower extremities, deep tendon reflexes normal bilaterally, Babinski's were flexor bilaterally. [id number] and [id number] could not be performed as the patient is not able to follow much commands. ASSESSMENT AND PLAN: 1. Perihilar mass 6.9 x 3.8 cm with mediastinal lymphadenopathy suggestive of malignancy. Point in time for further plan of action, patient did have a recent pet scan as well as EBUS with biopsy that was nondiagnostic. We will consult hematology oncology along with pulmonary medicine, she is scheduled for EBUS today and await the final result of the pathology, likely the patient will stay in the hospital due to the fact that the soft tissue mass is pressing against the right mainstem bronchus. 2. Hypertension and hypertensive cardiovascular disease. Continue patient on lisinopril 20 mg orally twice every day, continue monitor the patient blood pressure very closely, 3. Mixed hyperlipidemia. Continue patient on atorvastatin 80 mg once every day, monitor lipid panel, keep LDL 55-70. 4. Diabetes mellitus type 2. Continue patient on Lantus 12 units at bedtime along with a sliding scale insulin, continue with Farxiga 10 mg orally once every day monitor the patient blood glucose before each meal and at bedtime. 5. Hypothyroidism. Continue patient on levothyroxine 88 mcg orally once every day, 6. GERD with esophagitis and Wooten esophagus Continue patient on pantoprazole 40 mg orally once every day.Last EGD 07/2024 7. Moderate right ICA disease. Vascular surgery consultation continue Plavix 75 mg po daily atorvastatin 80 mg once every day, keep LDL 55-70. 8. DVT prophylaxis. Lovenox 40 mg subcutaneous every 24 hours. 9. GI prophylaxis. Continue patient on Protonix 40 mg orally once every day 10. Prognosis is very guarded. Objective - Vital Signs Vital signs: Vital Signs Temp 98.1 F 11/28/24 07:10 Pulse 57 L 11/28/24 07:10 Resp 15 11/28/24 07:10 BP 161/74 11/28/24 07:10 Pulse Ox 93 L 11/28/24 07:10 FiO2 Intake & Output 11/27/24 11/28/24 11/28/24 18:59 06:59 18:59 Intake Total 810 Balance 810 Intake: Oral 810 Other: Voiding Method Toilet Toilet - Labs CBC & Chem 7: 11/29/24 04:34 11/29/24 04:34 Labs: Abnormal Lab Results - Last 24 Hours (Table) 11/27/24 11/27/24 11/28/24 Range/Units 17:15 19:57 05:49 RBC (4.10-5.20) X 10*6/uL Hgb (12.0-15.0) g/dL Hct (37.2-46.3) % Immature Gran # (0.00-0.04) X 10*3/uL Lymphocytes # (0.90-5.00) X 10*3/uL Carbon Dioxide (21.6-31.8) mmol/L Est GFR (CKD-EPI) (>=60) Glucose (70-110) mg/dL POC Glucose (mg/dL) 128 H 224 H (70-110) mg/dL Hemoglobin A1c 12.3 H (<=6.0) % Calcium (8.7-10.3) mg/dL Alkaline Phosphatase (41-126) U/L Total Protein (6.2-8.2) g/dL Albumin (3.8-4.9) g/dL Albumin/Globulin Ratio (1.60-3.17) Ratio 11/28/24 11/28/24 11/28/24 Range/Units 05:49 05:49 07:13 RBC 3.44 L (4.10-5.20) X 10*6/uL Hgb 10.4 L (12.0-15.0) g/dL Hct 32.0 L (37.2-46.3) % Immature Gran # 0.07 H (0.00-0.04) X 10*3/uL Lymphocytes # 0.72 L (0.90-5.00) X 10*3/uL Carbon Dioxide 18.3 L (21.6-31.8) mmol/L Est GFR (CKD-EPI) 48 L (>=60) Glucose 452 H (70-110) mg/dL POC Glucose (mg/dL) 434 H (70-110) mg/dL Hemoglobin A1c (<=6.0) % Calcium 8.3 L (8.7-10.3) mg/dL Alkaline Phosphatase 141 H (41-126) U/L Total Protein 5.6 L (6.2-8.2) g/dL Albumin 3.0 L (3.8-4.9) g/dL Albumin/Globulin Ratio 1.15 L (1.60-3.17) Ratio
--- NOTE | 2024-11-28 16:43 | P.PN ---
Subjective Progress Note Date: 11/28/24 Pt underwent EBUS with BAL this morning with Dr. Ta. Biopsies and cytology obtained. Pt reporting she is feeling at baseline, c/o persisting cough Objective - Vital Signs Vital signs: Vital Signs Temp 97.5 F L 11/28/24 12:59 Pulse 74 11/28/24 12:59 Resp 16 11/28/24 12:59 BP 118/71 11/28/24 12:59 Pulse Ox 90 L 11/28/24 12:59 FiO2 Intake & Output 11/27/24 11/28/24 11/28/24 18:59 06:59 18:59 Intake Total 810 700 Balance 810 700 Intake: IV 700 Oral 810 Other: Voiding Method Toilet Toilet Toilet - Constitutional General appearance: Present: no acute distress - EENT Eyes: Present: anicteric sclerae, EOMI ENT: Present: hearing grossly normal - Respiratory Details: breathing is even and unlabored - Cardiovascular Details: skin warm and dry - Integumentary Integumentary: Absent: cyanotic, jaundiced - Psychiatric Psychiatric: Present: A&O x's 3 - Labs CBC & Chem 7: 11/28/24 05:49 11/28/24 05:49 Labs: Abnormal Lab Results - Last 24 Hours (Table) 11/27/24 11/27/24 11/28/24 Range/Units 17:15 19:57 05:49 RBC (4.10-5.20) X 10*6/uL Hgb (12.0-15.0) g/dL Hct (37.2-46.3) % Immature Gran # (0.00-0.04) X 10*3/uL Lymphocytes # (0.90-5.00) X 10*3/uL Carbon Dioxide (21.6-31.8) mmol/L Est GFR (CKD-EPI) (>=60) Glucose (70-110) mg/dL POC Glucose (mg/dL) 128 H 224 H (70-110) mg/dL Hemoglobin A1c 12.3 H (<=6.0) % Calcium (8.7-10.3) mg/dL Alkaline Phosphatase (41-126) U/L Total Protein (6.2-8.2) g/dL Albumin (3.8-4.9) g/dL Albumin/Globulin Ratio (1.60-3.17) Ratio 11/28/24 11/28/24 11/28/24 Range/Units 05:49 05:49 07:13 RBC 3.44 L (4.10-5.20) X 10*6/uL Hgb 10.4 L (12.0-15.0) g/dL Hct 32.0 L (37.2-46.3) % Immature Gran # 0.07 H (0.00-0.04) X 10*3/uL Lymphocytes # 0.72 L (0.90-5.00) X 10*3/uL Carbon Dioxide 18.3 L (21.6-31.8) mmol/L Est GFR (CKD-EPI) 48 L (>=60) Glucose 452 H (70-110) mg/dL POC Glucose (mg/dL) 434 H (70-110) mg/dL Hemoglobin A1c (<=6.0) % Calcium 8.3 L (8.7-10.3) mg/dL Alkaline Phosphatase 141 H (41-126) U/L Total Protein 5.6 L (6.2-8.2) g/dL Albumin 3.0 L (3.8-4.9) g/dL Albumin/Globulin Ratio 1.15 L (1.60-3.17) Ratio 11/28/24 Range/Units 13:02 RBC (4.10-5.20) X 10*6/uL Hgb (12.0-15.0) g/dL Hct (37.2-46.3) % Immature Gran # (0.00-0.04) X 10*3/uL Lymphocytes # (0.90-5.00) X 10*3/uL Carbon Dioxide (21.6-31.8) mmol/L Est GFR (CKD-EPI) (>=60) Glucose (70-110) mg/dL POC Glucose (mg/dL) 127 H (70-110) mg/dL Hemoglobin A1c (<=6.0) % Calcium (8.7-10.3) mg/dL Alkaline Phosphatase (41-126) U/L Total Protein (6.2-8.2) g/dL Albumin (3.8-4.9) g/dL Albumin/Globulin Ratio (1.60-3.17) Ratio Assessment and Plan (1) Lymphadenopathy Current Visit: Yes Status: Acute Priority: High Code(s): R59.1 - GENERALIZED ENLARGED LYMPH NODES SNOMED Code(s): 69493583 (2) Shortness of breath Current Visit: Yes Status: Acute Priority: High Code(s): R06.02 - SHORTNESS OF BREATH SNOMED Code(s): 598646894 Plan: Abnormal Lymphadenopathy: -History as dictated in the HPI. PET showed concerning intense uptake within medstinal nodes. Underwent EBUS on 10/09/[address] Ta, FNA of station 7 showed lymphoid tissues showed no malignancy, FNA of 10 R was non diagnostic. Plan was to have a follow up CT scan in 3 months. Of note, pt does report sister has history of sarcoidosis -CTA chest on admit revealed right perihilar mass with large soft tissue mass measuring 6.9 x 3.8 cm in the subcarinal region and lymphadenopathy throughout the mediastinum. Additional right lower lobe posterior costophrenic angle pulmonary nodule measuring 9 mm and known bilateral neck lymph nodes noted. Indeterminate bing hepatis lymph node measuring 12 mm. -Pulmonology is following. Pt underwent EBUS with BAL this morning with Dr. Ta. Friable mass noted within bronchus intermedius. Biopsies and cytology obtained. -Will continue to follow and await pathology/cytology results. Further recs forthcoming pending workup Doctor attests: I performed a history and physical examination of this patient, developed impression and plan of care. Discussed with dictator. I agree with dictators note, documented as a scribe.
[2024-11-28 17:14] LABS: Glucose,Whole Blood 286 mg/dL (70-110)
[2024-11-28] MEDS: ALPRAZolam 0.25 MG TAB PO PRN (18:26)
[2024-11-28 20:26] LABS: Glucose,Whole Blood 384 mg/dL (70-110)
[2024-11-28] MEDS: BENZONATATE 100 MG CAP PO PRN (20:45)
[2024-11-28] MEDS: HYDROmorphone 0.5 MG/0.5 ML SYRINGE IVP PRN (23:05)
[2024-11-29 07:06] LABS: Glucose,Whole Blood 388 mg/dL (70-110)
[2024-11-29 08:55] LABS: Basophils # (A) 0.02 X 10*3/uL (0.00-0.10); Basophils % (A) 0.2 %; Eosinophils # (A) 0 X 10*3/uL (0.04-0.35); Eosinophils % (A) 0 %; HCT 32.8 % (37.2-46.3); HGB 10.4 g/dL (12.0-15.0); Immature Grans, Automated 1.00 %; Lymphocytes # (A) 0.55 X 10*3/uL (0.90-5.00); Lymphocytes % (A) 5.8 %; MCH 29.8 pg (27.0-32.0); MCHC 31.7 g/dL (32.0-37.0); MCV 94.0 FL (80.0-97.0); Monocytes # (A) 0.08 X 10*3/uL (0.20-1.00); Monocytes % (A) 0.8 %; NRBC Per 100 WBC 0 X 10*3/uL (0.00-0.01); Neutrophils # (A) 8.81 X 10*3/uL (1.80-7.70); Neutrophils % (A) 92.2 %; Platelet Count 405 X 10*3/uL (140-440); RBC 3.49 X 10*6/uL (4.10-5.20); RDW 13.8 % (11.5-14.5); WBC 9.56 X 10*3/uL (4.50-10.00)
[2024-11-29 09:02] LABS: ALT 18 U/L (8-44); AST 25 U/L (13-35); Albumin 3.1 g/dL (3.8-4.9); Albumin/Globulin Ratio 0.94 Ratio (1.60-3.17); Alkaline Phosphatase 133 U/L (41-126); Anion Gap 14.20 mmol/L (4.00-12.00); BUN/Creat Ratio 15.43 Ratio (12.00-20.00); Blood Urea Nitrogen 21.6 mg/dL (9.0-27.0); Calcium 8.4 mg/dL (8.7-10.3); Carbon Dioxide 14.8 mmol/L (21.6-31.8); Chloride 102 mmol/L (96-109); Globulin 3.3 g/dL (1.6-3.3); Glucose 406 mg/dL (70-110); Potassium 4.4 mmol/L (3.5-5.5); Sodium 131 mmol/L (135-145); Total Protein 6.4 g/dL (6.2-8.2)
[2024-11-29 12:14] LABS: Glucose,Whole Blood 488 mg/dL (70-110)
[2024-11-29 12:55] VITALS: BMI 31.1
--- NOTE | 2024-11-29 16:03 | P.PN ---
Subjective Progress Note Date: 11/29/24 HISTORY OF PRESENT ILLNESS: This is a 74-year-old female with a previous medical history signif icant for hypertension and hypertensive cardiovascular disease, mixed hyperlipidemia, diabetes mellitus type 2, insulin requiring, diabetic polyneuropathy, chronic kidney disease stage IIIa, has been under the care of nephrology, history of hypothyroidism, history of GERD with esophagitis, history of major depressive disorder, was last hospitalized at [facility] for urine in July 2024 after she was admitted for expressive aphasia with mental status changes, at that time she was discovered to have significant issue thickened esophagus with enlarged lymph node, at that time she underwent EGD with biopsy that was negative for any carcinoma at that time, patient ended up seen by hematology oncology at that admission, and flow cytometry was obtained, and the patient was sent to follow-up with hematology oncology as well as by pulmonary medicine because of the lymphadenopathy that she has underwent PET scan in September 2024 that was positive for lymphadenopathy, then underwent EBUS with and a biopsy was nondiagnostic at that time, patient was brought into the emergency department yesterday because of increased shortness of breath, not feeling well, her D-dimer was elevated, she ended up going for CT angiography of the chest that was negative for pulm embolism but did show perihilar mass of 6.9 x 3.8 cm with mediastinal lymphadenopathy and a 9 mm nodule in the right lower lobe, with bilateral neck lymphadenopathy suggestive of malignancy, she was admitted to the hospital with hematology oncology consultation as well as pulmonary consultation. 11/28: Patient is scheduled to go for EBUS with Dr. Landrum today to obtain tissue pathology because of the soft tissue mass that is pressing against the right mainstem bronchus, with the lymphadenopathy that she has intermittent st anding, rule out sarcoidosis this time, rule out malignancy at this point in time, patient is being on nothing per mouth at this point in time, follow-up with the patient very closely, she continues to be hyperglycemic, she did receive Lantus last night, will continue that continue with a sliding scale insulin for now, follow-up with the patient very closely, further recommendations to follow the bridal sales consultant recommendations. 11/29: Patient underwent EGD by his yesterday by and multiple biopsies were taken, this is quite suspicious for malignancy at this point in time, however cannot rule out sarcoidosis even though it is less likely, patient was started on Solu-Medrol 60 mg a push every 6 hours [id number], will continue that, angiotensin-converting enzyme level was obtained, follow-up with the patient very closely at this point in time, patient did have multiple biopsies and stated yesterday, she is feeling a bit short of breath, she continued to have some coughing no phlegm production at this time, no hemoptysis, she appears to be a bit more short of breath, she is currently on oxygen, I will start the patient on nebulized treatment as well continue Tessalon Perles, monitor the patient's symptoms very closely, keep the patient in the hospital because of the possibility of possible collapsing of the right mainstem bronchus and I put her in respiratory failure, patient blood glucose is quite elevated at this time, will adjust based on her Solu-Medrol REVIEW OF SYSTEMS: Constitutional: No documented fever, no chills, no night sweats. No weight change. No weakness, fatigue or lethargy. No daytime sleepiness. EENT: No headache. No blurred vision or double vision, no loss of vision. No loss of Hearing, no ringing in the ears, no dizziness. No nasal drainage or congestion. No epistaxis. No sore throat. Lungs: Positive for shortness of breath, positive for cough cough, no sputum production. No wheezing. Reports dyspnea with activity. Cardiovascular: No chest pain, no lower extremity edema. No palpitations. No paroxysmal nocturnal dyspnea. No orthopnea. No lightheadedness or dizziness. No syncopal episodes. Abdominal: Reports no abdominal pain. No nausea, vomiting. No diarrhea. No constipation. No bloody or tarry stools reports loss of appetite. Genitourinary: No dysuria, increased frequency, urgency. No urinary retention. Musculoskeletal: No myalgias. No muscle weakness, no gait dysfunction, no frequent falls. No back pain. No neck pain. Integumentary: No wounds, no lesions. No rash or pruritus. No unusual bruising. No change in hair or nails. Neurologic: No aphasia. No facial droop. positive for change in mentation. No head injury. No headache. No paralysis. No paresthesia. Psychiatric: positive for depression. positive for anxiety. No mood swings. Endocrine: No abnormal blood sugars. No weight change. PHYSICAL EXAMINATION: General: 74-year-old female laying down in bed in minimal distress HEENT: Head is atraumatic, normocephalic, pupils were equal round reactive to light and recommendation, extraocular muscle movement were intact, sclera nonicteric, conjunctivae were pale, mucous membranes of the mouth are somewhat dry. Neck: Supple, no JVP, normal carotid upstroke bilaterally, bilateral cervical lymphadenopathy Chest: Decreased breath sounds at the bases, few rhonchi, minimal expiratory wheezes, no chest wall tenderness, no intercostal retractions. Heart: First heart sound is normal, second heart sounds normal there are systolic ejection murmur 2/6 located left sternal border Abdomen: Soft, nontender, nondistended, positive bowel sounds. Extremities: There is no edema no calf tenderness DP +2 bilaterally. Neurologic examination: Patient is awake alert and oriented x1, cranial nerves II-12 appear grossly intact, muscle power were 4 out of 5 in upper extremities and 4 out of 5 in bilateral lower extremities, deep tendon reflexes normal bilaterally, Babinski's were flexor bilaterally. [id number] and [id number] could not be performed as the patient is not able to follow much commands. ASSESSMENT AND PLAN: 1. Perihilar mass 6.9 x 3.8 cm with mediastinal lymphadenopathy suggestive of malignancy status post EBUS with multiple biopsies obtained, rule out malignancy, rule out sarcoidosis, ODELL level is still pending, continue Solu- Medrol 60 mg a push every 6 hours, adjust insulin for steroid-induced hyperglycemia, continue on oxygen support awaiting final result of the biopsy. 2. Hypertension and hypertensive cardiovascular disease. Continue patient on lisinopril 20 mg orally twice every day, hold metoprolol at this point in time due to bradycardia twelve-lead EKG was reviewed showed sinus bradycardia no evidence of heart block 3. Mixed hyperlipidemia. Continue patient on atorvastatin 80 mg once every day, monitor lipid panel, keep LDL 55-70. 4. Diabetes mellitus type 2 with steroid-induced hyperglycemia continue patient on Lantus and increase the dose to 24 units at bedtime along with a sliding scale insulin, also add Humalog 7 units before each meal 3 times every day continue with Farxiga 10 mg orally once every day monitor the patient blood glucose before each meal and at bedtime. 5. Hypothyroidism. Continue patient on levothyroxine 88 mcg orally once every day, 6. GERD with esophagitis and Wooten esophagus Continue patient on pantoprazole 40 mg orally once every day.Last EGD 07/2024 7. Moderate right ICA disease. Vascular surgery consultation continue Plavix 75 mg po daily atorvastatin 80 mg once every day, keep LDL 55-70. 8. DVT prophylaxis. Lovenox 40 mg subcutaneous every 24 hours. 9. GI prophylaxis. Continue patient on Protonix 40 mg orally once every day 10. Prognosis is very guarded. Objective - Vital Signs Vital signs: Vital Signs Temp 97.4 F L 11/29/24 12:10 Pulse 46 L 11/29/24 12:10 Resp 16 11/29/24 12:10 BP 180/77 11/29/24 12:10 Pulse Ox 97 11/29/24 15:53 FiO2 Intake & Output 11/28/24 11/29/24 11/29/24 18:59 06:59 18:59 Intake Total 2320 118 Balance 2320 118 Weight 77.111 kg Intake: IV 700 Oral 1620 118 Other: Voiding Method Toilet Toilet Toilet # Voids 3 2 - Labs CBC & Chem 7: 11/29/24 04:34 11/29/24 04:34 Labs: Abnormal Lab Results - Last 24 Hours (Table) 11/28/24 11/28/24 11/29/24 Range/Units 17:12 20:24 04:34 RBC 3.49 L (4.10-5.20) X 10*6/uL Hgb 10.4 L (12.0-15.0) g/dL Hct 32.8 L (37.2-46.3) % MCHC 31.7 L (32.0-37.0) g/dL Immature Gran # 0.10 H (0.00-0.04) X 10*3/uL Neutrophils # 8.81 H (1.80-7.70) X 10*3/uL Lymphocytes # 0.55 L (0.90-5.00) X 10*3/uL Monocytes # 0.08 L (0.20-1.00) X 10*3/uL Eosinophils # 0 L (0.04-0.35) X 10*3/uL Sodium (135-145) mmol/L Carbon Dioxide (21.6-31.8) mmol/L Anion Gap (4.00-12.00) mmol/L Est GFR (CKD-EPI) (>=60) Glucose (70-110) mg/dL POC Glucose (mg/dL) 286 H 384 H (70-110) mg/dL Calcium (8.7-10.3) mg/dL Total Bilirubin (0.3-1.2) mg/dL Alkaline Phosphatase (41-126) U/L Albumin (3.8-4.9) g/dL Albumin/Globulin Ratio (1.60-3.17) Ratio 11/29/24 11/29/24 11/29/24 Range/Units 04:34 07:04 12:13 RBC (4.10-5.20) X 10*6/uL Hgb (12.0-15.0) g/dL Hct (37.2-46.3) % MCHC (32.0-37.0) g/dL Immature Gran # (0.00-0.04) X 10*3/uL Neutrophils # (1.80-7.70) X 10*3/uL Lymphocytes # (0.90-5.00) X 10*3/uL Monocytes # (0.20-1.00) X 10*3/uL Eosinophils # (0.04-0.35) X 10*3/uL Sodium 131 L (135-145) mmol/L Carbon Dioxide 14.8 L (21.6-31.8) mmol/L Anion Gap 14.20 H (4.00-12.00) mmol/L Est GFR (CKD-EPI) 40 L (>=60) Glucose 406 H (70-110) mg/dL POC Glucose (mg/dL) 388 H 488 H (70-110) mg/dL Calcium 8.4 L (8.7-10.3) mg/dL Total Bilirubin 0.2 L (0.3-1.2) mg/dL Alkaline Phosphatase 133 H (41-126) U/L Albumin 3.1 L (3.8-4.9) g/dL Albumin/Globulin Ratio 0.94 L (1.60-3.17) Ratio
[2024-11-29 17:10] LABS: Glucose,Whole Blood 329 mg/dL (70-110)
[2024-11-29] MEDS: INSULIN LISPRO (HumaLOG) 100 UNIT/ML 10 mL VL SQ SCH (17:40)
[2024-11-29 20:22] LABS: Glucose,Whole Blood 356 mg/dL (70-110)
[2024-11-29] MEDS: INSULIN GLARGINE (LANTUS) 100 UNIT/ML SYR SQ SCH (20:34)
[2024-11-29] MEDS ORDERED: INSULIN GLARGINE (LANTUS) 100 UNIT/ML SYR SQ SCH (21:00)
--- NOTE | 2024-11-29 21:22 | P.PN ---
Subjective Progress Note Date: 11/29/24 Patient is a 74-year-old female with past medical history significant for hypertension, hyperlipidemia, CVA/TIA, carotid artery stenosis, CAD, diabetes mellitus, chronic kidney disease, ABDULKADIR with CPAP, hiatal hernia, GERD and with esophagitis. Of note, did undergo EGD with biopsies July,, and pathology remarkable for benign squamaglandular mucosa with focal acute esophagitis and mucosal reactive changes. No intestinal metaplasia. More recently, worked up on outpatient basis for mediastinal lymphadenopathy. PET scan done Sep, 2024 showing scattered FDG avid lymphadenopathy. Intense uptake within the esophagus, mediastinal lymph nodes, and abdominal lymph nodes. Did undergo EBUS and transbronchial needle aspiration of station 7 and 10 lymph nodes on 10/09/[address] Ta. Pathology nondiagnostic for neoplasm or other pathological process. Patient presented to emergency room last night complaining of shortness of breath, cough, chest discomfort. Workup in the including an elevated CT angiogram which did not show any evidence of pulmonary embolism. There is right perihilar soft tissue mass measuring 6.9 x 3.8 cm in the subcarinal region with lymphadenopathy throughout the mediastinum. Additional, right lower lobe posterior costophrenic angle pulmonary nodule measuring 9 mm indeterminant bing hepatis lymph node measuring 12 mm. Small hiatal hernia. CBC unremarkable. CMP sodium 133, potassium 4.2, chloride 103, serum bicarb 14, BUN 37, creatinine 1.1, glucose 371. Troponin less than 0.012. She is being evaluated the on the fifth floor. on room air. Resting comfortably, in no respiratory distress. States that she has had ongoing issues since her bronchoscopy. Nonproductive cough, substernal chest discomfort with inhalation, and feels like she cannot take a deep breath. She was treated outpatient basis with Z-Leo and prednisone burst taper. Persistent nonproductive cough without any improvement. She denies any sputum production, hemoptysis. Denies any fevers or chills. She did have a 70 pound weight loss over the last year, she was on Mounjaro. Denies any dysphagia or odynophagia. Never tobacco smoker. Denies any personal history of malignancy. She has a significant family history of cancer including her mother and sister having lung cancer. Her brother of colon cancer. Her other brother had neck cancer. One of her remaining sisters has sarcoidosis. Vital signs: Temperature 98.5 F, rate 57 bpm, blood pressure 166/88 mmHg, nontachypneic, SpO2 recorded 96% on room air. on today's evaluation of 11/28/2024, the patient continues to be short of breath and she is having frequent coughing episodes. She is on 3 L of oxygen by nasal cannula with pulse ox of 90%. The plan is to proceed with a bronchoscopy today as planned including an endobronchial ultrasound and rapid onsite cytologic evaluation will be done at the time of the procedure. The white cell count is 5.3 with a hemoglobin of 10.4 and platelet count of 375. BUN is 18 with a creatinine of 1.2. Sodium is at 137. No other complaints otherwise for now. The patient remains on normal saline at rate of 75 cc an hour. Rest of the home medication resumed. Plavix is currently on hold. On 11/29/2024, the patient is post bronchoscopy. Endobronchial biopsies of the bronchus the medial treatment was done and the patient also had transbronchial needle aspirate of subcarinal lymph node. Pathology still pending for now. The patient remains on liters of oxygen by nasal cannula. Continues to be short of breath and continues to have cough and congestion. No hemoptysis at this point in time. The patient is feeling short of breath and she continues to have frequent coughing episodes. Started on IV Solu-Medrol. Sodium is at 131, potassium is at 4.4, serum bicarb is at 15, BUN is 21 with a creatinine of 1.4. Patient is currently on Lantus insulin 23 units nightly and NovoLog 7 units with meals + scale coverage for blood sugar control. The patient is also on Farxiga. Rest of the medications remain unchanged. Objective - Vital Signs Vital signs: Vital Signs Temp 97.6 F 11/29/24 18:44 Pulse 50 L 11/29/24 18:44 Resp 17 11/29/24 18:44 BP 156/80 11/29/24 18:44 Pulse Ox 97 11/29/24 18:44 FiO2 Intake & Output 11/29/24 11/29/24 11/30/24 06:59 18:59 06:59 Intake Total 118 1620 300 Balance 118 1620 300 Weight 77.111 kg Intake: Oral 118 1620 300 Other: Voiding Method Toilet Toilet Toilet # Voids 2 3 - Exam GENERAL EXAM: Alert, 75-year-old female, well-nourished, comfortable in no apparent distress. HEAD: Normocephalic and atraumatic EYES: Normal reaction of pupils, equal size. NOSE: Clear with pink turbinates. THROAT: No erythema or exudates. NECK: No masses, no JVD. CHEST: No chest wall deformity. LUNGS: Equal air entry with no crackles, wheeze, rhonchi or dullness. On room air. No conversational dyspnea or accessory muscle use.. CVS: S1 and S2 normal with no audible murmur, regular rhythm. No extra heart sounds ABDOMEN: No hepatosplenomegaly, active bowel sounds, no guarding or rigidity. SPINE: No scoliosis or deformity SKIN: No rashes CENTRAL NERVOUS SYSTEM: No focal deficits, tone is normal in all 4 extremities. EXTREMITIES: There is no peripheral edema, clubbing, or cyanosis. Peripheral pulses are intact. Results - Labs CBC & Chem 7: 11/29/24 04:34 11/29/24 04:34 Labs: Abnormal Lab Results - Last 24 Hours (Table) 11/29/24 11/29/24 11/29/24 Range/Units 04:34 04:34 07:04 RBC 3.49 L (4.10-5.20) X 10*6/uL Hgb 10.4 L (12.0-15.0) g/dL Hct 32.8 L (37.2-46.3) % MCHC 31.7 L (32.0-37.0) g/dL Immature Gran # 0.10 H (0.00-0.04) X 10*3/uL Neutrophils # 8.81 H (1.80-7.70) X 10*3/uL Lymphocytes # 0.55 L (0.90-5.00) X 10*3/uL Monocytes # 0.08 L (0.20-1.00) X 10*3/uL Eosinophils # 0 L (0.04-0.35) X 10*3/uL Sodium 131 L (135-145) mmol/L Carbon Dioxide 14.8 L (21.6-31.8) mmol/L Anion Gap 14.20 H (4.00-12.00) mmol/L Est GFR (CKD-EPI) 40 L (>=60) Glucose 406 H (70-110) mg/dL POC Glucose (mg/dL) 388 H (70-110) mg/dL Calcium 8.4 L (8.7-10.3) mg/dL Total Bilirubin 0.2 L (0.3-1.2) mg/dL Alkaline Phosphatase 133 H (41-126) U/L Albumin 3.1 L (3.8-4.9) g/dL Albumin/Globulin Ratio 0.94 L (1.60-3.17) Ratio 11/29/24 11/29/24 11/29/24 Range/Units 12:13 17:08 20:20 RBC (4.10-5.20) X 10*6/uL Hgb (12.0-15.0) g/dL Hct (37.2-46.3) % MCHC (32.0-37.0) g/dL Immature Gran # (0.00-0.04) X 10*3/uL Neutrophils # (1.80-7.70) X 10*3/uL Lymphocytes # (0.90-5.00) X 10*3/uL Monocytes # (0.20-1.00) X 10*3/uL Eosinophils # (0.04-0.35) X 10*3/uL Sodium (135-145) mmol/L Carbon Dioxide (21.6-31.8) mmol/L Anion Gap (4.00-12.00) mmol/L Est GFR (CKD-EPI) (>=60) Glucose (70-110) mg/dL POC Glucose (mg/dL) 488 H 329 H 356 H (70-110) mg/dL Calcium (8.7-10.3) mg/dL Total Bilirubin (0.3-1.2) mg/dL Alkaline Phosphatase (41-126) U/L Albumin (3.8-4.9) g/dL Albumin/Globulin Ratio (1.60-3.17) Ratio Assessment and Plan Plan: = Bulky mediastinal lymphadenopathy measuring 6.9 x 3.8 cm in size in addition to several other smaller lymph nodes in the AP window, paratracheal area and some abdominal lymph nodes as stated on the CAT scan of the chest on previous PET/CT. The patient has significant narrowing of the bronchus intermedius. 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 Noted the airways involved with endobronchial tumor and and 16 compression. Biopsies of the right mainstem endobronchial lesion was performed. Please refer to the detailed bronchoscopy report. Patient also underwent endobronchial ultrasound and transbronchial needle aspirate of the subcarinal mass.. Mediastinal lymphadenopathy, PET scan done Sep, 2024 showing scattered FDG avid lymphadenopathy. Intense uptake within the esophagus, mediastinal lymph nodes, and abdominal lymph nodes. Did undergo EBUS and transbronchial needle aspiration of stations 7 and 10 lymph nodes on 10/09/[address] Ta. Pathology nondiagnostic for neoplasm or other pathological process. Repeat bronchoscopy was done. Please refer to the reports. Acute hypoxic respiratory failure currently on 3 L of O2 nasal cannula History of GERD with esophagitis, EGD with biopsies performed on July,, pathology remarkable for benign squamaglandular mucosa with focal acute esophagitis and mucosal reactive changes. No significant intestinal metaplasia. History of hiatal hernia Right posterior costophrenic 9 mm pulmonary nodule Obstructive sleep apnea with home CPAP Anion gap metabolic acidosis Chronic kidney disease stage IIIa Diabetes mellitus type 2, with hyperglycemia Hypertension History of hyperlipidemia Sinus bradycardia with sinus arrhythmia History of carotid artery disease History of CVA/TIA Obesity, with a BMI of 31.1 kg/m, on Mounjaro Plan: The patient has extensive mediastinal lymphadenopathy and the patient presented to the hospital because of increased shortness of breath and coughing. Repeat bronchoscopy was done. Awaiting results from biopsy of the endobronchial tumor involving the bronchus intermedius and the subcarinal lymph node/mass. Continue steroids Continue Lantus insulin for blood sugar control Continue oxygen supplementation to maintain saturation above 90%, currently on 3 L Awaiting final pathology. Recommended mediastinoscopy for tissue diagnosis if the biopsy results come back nondiagnostic. High suspicion for malignancy. Time with Patient: Greater than 30
--- NOTE | 2024-11-30 07:04 | XR ---
EXAMINATION TYPE: XR chest 1V DATE OF EXAM: 11/30/2024 6:11 AM COMPARISON: Chest radiographs from 11/26/2024, CTA chest 11/26/2024 TECHNIQUE: XR chest 1V Portable AP radiograph of the chest. CLINICAL INDICATION:Female, 74 years old with history of cough; FINDINGS: Lungs/Pleura: No pleural effusion or pneumothorax . Medial right basilar patchy airspace opacities. Pulmonary vascularity: Unremarkable. Heart/mediastinum: Cardiomediastinal silhouette is enlarged and stable. Musculoskeletal: No acute osseous pathology. IMPRESSION: Medial right basilar patchy airspace opacities favored to represent postobstructive atelectasis due t o known mediastinal mass. [facility], , 11/30/2024 7:02 AM
[2024-11-30 07:14] LABS: Glucose,Whole Blood 464 mg/dL (70-110)
[2024-11-30] MEDS ORDERED: hydrALAZINE HCL 20 MG/ML 1 ML VIAL IVP PRN (07:42)
[2024-11-30] MEDS: LOSARTAN-HCTZ 50-12.5 MG 1 EACH TAB PO SCH (08:14)
[2024-11-30] MEDS: LOSARTAN 50 MG TAB PO SCH (08:14)
--- NOTE | 2024-11-30 08:50 | P.PN ---
Subjective Progress Note Date: 11/30/24 HISTORY OF PRESENT ILLNESS: This is a 74-year-old female with a previous medical history signif icant for hypertension and hypertensive cardiovascular disease, mixed hyperlipidemia, diabetes mellitus type 2, insulin requiring, diabetic polyneuropathy, chronic kidney disease stage IIIa, has been under the care of nephrology, history of hypothyroidism, history of GERD with esophagitis, history of major depressive disorder, was last hospitalized at [facility] for urine in July 2024 after she was admitted for expressive aphasia with mental status changes, at that time she was discovered to have significant issue thickened esophagus with enlarged lymph node, at that time she underwent EGD with biopsy that was negative for any carcinoma at that time, patient ended up seen by hematology oncology at that admission, and flow cytometry was obtained, and the patient was sent to follow-up with hematology oncology as well as by pulmonary medicine because of the lymphadenopathy that she has underwent PET scan in September 2024 that was positive for lymphadenopathy, then underwent EBUS with and a biopsy was nondiagnostic at that time, patient was brought into the emergency department yesterday because of increased shortness of breath, not feeling well, her D-dimer was elevated, she ended up going for CT angiography of the chest that was negative for pulm embolism but did show perihilar mass of 6.9 x 3.8 cm with mediastinal lymphadenopathy and a 9 mm nodule in the right lower lobe, with bilateral neck lymphadenopathy suggestive of malignancy, she was admitted to the hospital with hematology oncology consultation as well as pulmonary consultation. 11/28: Patient is scheduled to go for EBUS with Dr. Landrum today to obtain tissue pathology because of the soft tissue mass that is pressing against the right mainstem bronchus, with the lymphadenopathy that she has intermittent st anding, rule out sarcoidosis this time, rule out malignancy at this point in time, patient is being on nothing per mouth at this point in time, follow-up with the patient very closely, she continues to be hyperglycemic, she did receive Lantus last night, will continue that continue with a sliding scale insulin for now, follow-up with the patient very closely, further recommendations to follow the design sales consultant recommendations. 11/30: Patient sitting up in bed she continues to be on 3 L nasal cannula, her blood glucose levels were 443, I adjusted her insulin yesterday, decrease her Solu-Medrol to 40 mg IV push every 8 hours, if her blood glucose is not coming down in 2 hours, patient will be started on insulin drip, discontinue lisinopril, due to her hypertensive urgency, start the patient on losartan 100/12.5 mg once every day, also hydralazine 10 mg IV push every 4 hours as needed for systolic greater than 160, follow-up with the patient very closely, patient is to stay in the hospital because of the risk of respiratory failure due to the mass pushing against the right mainstem bronchus that could lead to a respiratory failure, await the final result of the biopsy, repeat labs today, follow-up with the patient very closely. REVIEW OF SYSTEMS: Constitutional: No documented fever, no chills, no night sweats. No weight change. No weakness, fatigue or lethargy. No daytime sleepiness. EENT: No headache. No blurred vision or double vision, no loss of vision. No loss of Hearing, no ringing in the ears, no dizziness. No nasal drainage or congestion. No epistaxis. No sore throat. Lungs: Positive for shortness of breath, cough, no sputum production. No wheezing. Reports dyspnea with activity. Cardiovascular: No chest pain, no lower extremity edema. No palpitations. No paroxysmal nocturnal dyspnea. No orthopnea. No lightheadedness or dizziness. No syncopal episodes. Abdominal: Reports no abdominal pain. No nausea, vomiting. No diarrhea. No constipation. No bloody or tarry stools reports loss of appetite. Genitourinary: No dysuria, increased frequency, urgency. No urinary retention. Musculoskeletal: No myalgias. No muscle weakness, no gait dysfunction, no frequent falls. No back pain. No neck pain. Integumentary: No wounds, no lesions. No rash or pruritus. No unusual bruising. No change in hair or nails. Neurologic: No aphasia. No facial droop. positive for change in mentation. No head injury. No headache. No paralysis. No paresthesia. Psychiatric: positive for depression. positive for anxiety. No mood swings. Endocrine: No abnormal blood sugars. No weight change. PHYSICAL EXAMINATION: General: 73-year-old female laying down in bed in no apparent distress HEENT: Head is atraumatic, normocephalic, pupils were equal round reactive to light and recommendation, extraocular muscle movement were intact, sclera nonict lidia, conjunctivae were pale, mucous membranes of the mouth are somewhat dry. Neck: Supple, no JVP, normal carotid upstroke bilaterally, bilateral cervical lymphadenopathy Chest: Decreased breath sounds at the bases, few rhonchi, no expiratory wheezes, no chest wall tenderness, no intercostal retractions. Heart: First heart sound is normal, second heart sounds normal there are systolic ejection murmur 2/6 located left sternal border Abdomen: Soft, nontender, nondistended, positive bowel sounds. Extremities: There is no edema no calf tenderness DP +2 bilaterally. Neurologic examination: Patient is awake alert and oriented x1, cranial nerves II-12 appear grossly intact, muscle power were 4 out of 5 in upper extremities and 4 out of 5 in bilateral lower extremities, deep tendon reflexes normal bilaterally, Babinski's were flexor bilaterally. [id number] and [id number] could not be performed as the patient is not able to follow much commands. ASSESSMENT AND PLAN: 1. Perihilar mass 6.9 x 3.8 cm with mediastinal lymphadenopathy suggestive of malignancy. Point in time for further plan of action, patient did have a recent pet scan as well as EBUS with biopsy that was nondiagnostic. We will consult hematology oncology along with pulmonary medicine, she is scheduled for EBUS to day and await the final result of the pathology, likely the patient will stay in the hospital due to the fact that the soft tissue mass is pressing against the right mainstem bronchus, decrease Solu-Medrol to 40 mg IV push every 8 hours, await the result of ODELL level. Await the result of the biopsy. 2. Hypertension and hypertensive cardiovascular disease with accelerated hypertension. discontinue lisinopril, start the patient on losartan 100/12.5 mg once every day, start hydralazine 20 mg IV push every 4 hours as needed for systolic greater than 160. Monitor the patient blood pressure very closely. 3. Mixed hyperlipidemia. Continue patient on atorvastatin 80 mg once every day, monitor lipid panel, keep LDL 55-70. 4. Diabetes mellitus type 2. Lantus was increased to 24 units at bedtime along with 7 units before each meal and sliding scale insulin, continue Farxiga 10 mg once every day, follow-up with the patient very closely. Check blood glucose level in the next 2 hours, if still high switch to insulin drip. 5. Hypothyroidism. Continue patient on levothyroxine 88 mcg orally once every day, 6. GERD with esophagitis and Wooten esophagus Continue patient on pantopra zole 40 mg orally once every day.Last EGD 07/2024 7. Moderate right ICA disease. Vascular surgery consultation continue Plavix 75 mg po daily atorvastatin 80 mg once every day, keep LDL 55-70. 8. DVT prophylaxis. Lovenox 40 mg subcutaneous every 24 hours. 9. GI prophylaxis. Continue patient on Protonix 40 mg orally once every day 10. Prognosis is very guarded. Objective - Vital Signs Vital signs: Vital Signs Temp 97.8 F 11/30/24 08:39 Pulse 60 11/30/24 08:39 Resp 16 11/30/24 08:39 BP 197/70 11/30/24 08:39 Pulse Ox 97 11/30/24 08:39 FiO2 Intake & Output 11/29/24 11/30/24 11/30/24 18:59 06:59 18:59 Intake Total 1620 300 Balance 1620 300 Weight 77.111 kg Intake: Oral 1620 300 Other: Voiding Method Toilet Toilet # Voids 3 2 - Labs CBC & Chem 7: 11/30/24 04:22 11/30/24 10:23 Labs: Abnormal Lab Results - Last 24 Hours (Table) 11/29/24 11/29/24 11/29/24 Range/Units 04:34 04:34 12:13 RBC 3.49 L (4.10-5.20) X 10*6/uL Hgb 10.4 L (12.0-15.0) g/dL Hct 32.8 L (37.2-46.3) % MCHC 31.7 L (32.0-37.0) g/dL Immature Gran # 0.10 H (0.00-0.04) X 10*3/uL Neutrophils # 8.81 H (1.80-7.70) X 10*3/uL Lymphocytes # 0.55 L (0.90-5.00) X 10*3/uL Monocytes # 0.08 L (0.20-1.00) X 10*3/uL Eosinophils # 0 L (0.04-0.35) X 10*3/uL Sodium 131 L (135-145) mmol/L Carbon Dioxide 14.8 L (21.6-31.8) mmol/L Anion Gap 14.20 H (4.00-12.00) mmol/L Est GFR (CKD-EPI) 40 L (>=60) Glucose 406 H (70-110) mg/dL POC Glucose (mg/dL) 488 H (70-110) mg/dL Calcium 8.4 L (8.7-10.3) mg/dL Total Bilirubin 0.2 L (0.3-1.2) mg/dL Alkaline Phosphatase 133 H (41-126) U/L Albumin 3.1 L (3.8-4.9) g/dL Albumin/Globulin Ratio 0.94 L (1.60-3.17) Ratio 11/29/24 11/29/24 11/30/24 Range/Units 17:08 20:20 07:07 RBC (4.10-5.20) X 10*6/uL Hgb (12.0-15.0) g/dL Hct (37.2-46.3) % MCHC (32.0-37.0) g/dL Immature Gran # (0.00-0.04) X 10*3/uL Neutrophils # (1.80-7.70) X 10*3/uL Lymphocytes # (0.90-5.00) X 10*3/uL Monocytes # (0.20-1.00) X 10*3/uL Eosinophils # (0.04-0.35) X 10*3/uL Sodium (135-145) mmol/L Carbon Dioxide (21.6-31.8) mmol/L Anion Gap (4.00-12.00) mmol/L Est GFR (CKD-EPI) (>=60) Glucose (70-110) mg/dL POC Glucose (mg/dL) 329 H 356 H 464 H (70-110) mg/dL Calcium (8.7-10.3) mg/dL Total Bilirubin (0.3-1.2) mg/dL Alkaline Phosphatase (41-126) U/L Albumin (3.8-4.9) g/dL Albumin/Globulin Ratio (1.60-3.17) Ratio
[2024-11-30 09:03] LABS: Glucose,Whole Blood 535 mg/dL (70-110)
[2024-11-30 09:06] LABS: Basophils # (A) 0.01 X 10*3/uL (0.00-0.10); Basophils % (A) 0.1 %; Eosinophils # (A) 0 X 10*3/uL (0.04-0.35); Eosinophils % (A) 0 %; HCT 30.7 % (37.2-46.3); HGB 9.8 g/dL (12.0-15.0); Immature Grans, Automated 1.30 %; Lymphocytes # (A) 0.43 X 10*3/uL (0.90-5.00); Lymphocytes % (A) 4.1 %; MCH 29.6 pg (27.0-32.0); MCHC 31.9 g/dL (32.0-37.0); MCV 92.7 FL (80.0-97.0); Monocytes # (A) 0.23 X 10*3/uL (0.20-1.00); Monocytes % (A) 2.2 %; NRBC Per 100 WBC 0 X 10*3/uL (0.00-0.01); Neutrophils # (A) 9.74 X 10*3/uL (1.80-7.70); Neutrophils % (A) 92.3 %; Platelet Count 440 X 10*3/uL (140-440); RBC 3.31 X 10*6/uL (4.10-5.20); RDW 13.8 % (11.5-14.5); WBC 10.55 X 10*3/uL (4.50-10.00)
[2024-11-30] MEDS ORDERED: DEXTROSE 50% SYRINGE 50 ML IVP PRN ×2 (09:37)
[2024-11-30 09:48] LABS: ALT 19 U/L (8-44); AST 23 U/L (13-35); Albumin 3.2 g/dL (3.8-4.9); Albumin/Globulin Ratio 1.19 Ratio (1.60-3.17); Alkaline Phosphatase 160 U/L (41-126); Anion Gap 11.80 mmol/L (4.00-12.00); BUN/Creat Ratio 19.40 Ratio (12.00-20.00); Blood Urea Nitrogen 29.1 mg/dL (9.0-27.0); Calcium 9.0 mg/dL (8.7-10.3); Carbon Dioxide 18.2 mmol/L (21.6-31.8); Chloride 103 mmol/L (96-109); Globulin 2.7 g/dL (1.6-3.3); Glucose 532 mg/dL (70-110); Potassium 4.8 mmol/L (3.5-5.5); Sodium 133 mmol/L (135-145); Total Protein 5.9 g/dL (6.2-8.2)
[2024-11-30 10:56] LABS: African American GFR (CKD) 53 (>60 ml/min/1.73 sqM); Anion Gap 14 mmol/L; Blood Urea Nitrogen 28 mg/dL (7-17); Calcium 9.2 mg/dL (8.4-10.2); Carbon Dioxide 12 mmol/L (22-30); Chloride 105 mmol/L (98-107); Non-African American GFR(CKD) 46 (>60 ml/min/1.73 sqM); Potassium 4.3 mmol/L (3.5-5.1); Sodium 131 mmol/L (137-145)
[2024-11-30 11:03] LABS: Glucose 569 mg/dL (74-99)
[2024-11-30] MEDS: INSULIN REGULAR 100 UNIT in SODIUM CHLORIDE 0.9% 100 ML IV SCH (11:59)
[2024-11-30 12:04] LABS: Glucose,Whole Blood 534 mg/dL (70-110)
--- NOTE | 2024-11-30 12:50 | P.PN ---
Subjective Progress Note Date: 11/30/24 Patient is a 74-year-old female with past medical history significant for hypertension, hyperlipidemia, CVA/TIA, carotid artery stenosis, CAD, diabetes mellitus, chronic kidney disease, ABDULKADIR with CPAP, hiatal hernia, GERD and with esophagitis. Of note, did undergo EGD with biopsies July,, and pathology remarkable for benign squamaglandular mucosa with focal acute esophagitis and mucosal reactive changes. No intestinal metaplasia. More recently, worked up on outpatient basis for mediastinal lymphadenopathy. PET scan done Sep, 2024 showing scattered FDG avid lymphadenopathy. Intense uptake within the esophagus, mediastinal lymph nodes, and abdominal lymph nodes. Did undergo EBUS and transbronchial needle aspiration of station 7 and 10 lymph nodes on 10/09/[address] Ta. Pathology nondiagnostic for neoplasm or other pathological process. Patient presented to emergency room last night complaining of shortness of breath, cough, chest discomfort. Workup in the including an elevated CT angiogram which did not show any evidence of pulmonary embolism. There is right perihilar soft tissue mass measuring 6.9 x 3.8 cm in the subcarinal region with lymphadenopathy throughout the mediastinum. Additional, right lower lobe posterior costophrenic angle pulmonary nodule measuring 9 mm indeterminant bing hepatis lymph node measuring 12 mm. Small hiatal hernia. CBC unremarkable. CMP sodium 133, potassium 4.2, chloride 103, serum bicarb 14, BUN 37, creatinine 1.1, glucose 371. Troponin less than 0.012. She is being evaluated the on the fifth floor. on room air. Resting comfortably, in no respiratory distress. States that she has had ongoing issues since her bronchoscopy. Nonproductive cough, substernal chest discomfort with inhalation, and feels like she cannot take a deep breath. She was treated outpatient basis with Z-Leo and prednisone burst taper. Persistent nonproductive cough without any improvement. She denies any sputum production, hemoptysis. Denies any fevers or chills. She did have a 70 pound weight loss over the last year, she was on Mounjaro. Denies any dysphagia or odynophagia. Never tobacco smoker. Denies any personal history of malignancy. She has a significant family history of cancer including her mother and sister having lung cancer. Her brother of colon cancer. Her other brother had neck cancer. One of her remaining sisters has sarcoidosis. Vital signs: Temperature 98.5 F, rate 57 bpm, blood pressure 166/88 mmHg, nontachypneic, SpO2 recorded 96% on room air. on today's evaluation of 11/28/2024, the patient continues to be short of breath and she is having frequent coughing episodes. She is on 3 L of oxygen by nasal cannula with pulse ox of 90%. The plan is to proceed with a bronchoscopy today as planned including an endobronchial ultrasound and rapid onsite cytologic evaluation will be done at the time of the procedure. The white cell count is 5.3 with a hemoglobin of 10.4 and platelet count of 375. BUN is 18 with a creatinine of 1.2. Sodium is at 137. No other complaints otherwise for now. The patient remains on normal saline at rate of 75 cc an hour. Rest of the home medication resumed. Plavix is currently on hold. On 11/29/2024, the patient is post bronchoscopy. Endobronchial biopsies of the bronchus the medial treatment was done and the patient also had transbronchial needle aspirate of subcarinal lymph node. Pathology still pending for now. The patient remains on liters of oxygen by nasal cannula. Continues to be short of breath and continues to have cough and congestion. No hemoptysis at this point in time. The patient is feeling short of breath and she continues to have frequent coughing episodes. Started on IV Solu-Medrol. Sodium is at 131, potassium is at 4.4, serum bicarb is at 15, BUN is 21 with a creatinine of 1.4. Patient is currently on Lantus insulin 23 units nightly and NovoLog 7 units with meals + scale coverage for blood sugar control. The patient is also on Farxiga. Rest of the medications remain unchanged. 11/30/2024, the patient is being seen for a follow-up. Bronchoscopy and endobronchial ultrasound was completed. Please refer to the full report. Awaiting final pathology. Meanwhile, the patient got transferred to telemetry as the patient has developed significant hyperglycemia while being on steroids. Blood sugar was in the 500 range and t the patient was accordingly was transferred to telemetry for blood sugar management. She continues to have a congested cough. Unable to bring up any sputum. Remains on IV Solu-Medrol. Rest of the medications are essentially unchanged. Currently on Lantus insulin. Follow-up chest x-ray from this morning shows right basilar patchy airspace disease with volume loss probably related to the underlying mediastinal mass and the significant obstruction noted in the bronchus intermedius. Oxygenation is stable and the patient is currently on 3 L of oxygen by nasal cannula with pulse ox of 97%. Objective - Vital Signs Vital signs: Vital Signs Temp 97.8 F 11/30/24 07:04 Pulse 53 L 11/30/24 07:04 Resp 18 11/30/24 07:04 BP 204/82 11/30/24 07:04 Pulse Ox 96 11/30/24 07:04 FiO2 Intake & Output 11/29/24 11/30/24 11/30/24 18:59 06:59 18:59 Intake Total 1620 300 Balance 1620 300 Weight 77.111 kg Intake: Oral 1620 300 Other: Voiding Method Toilet Toilet # Voids 3 2 - Exam GENERAL EXAM: Alert, 75-year-old female, well-nourished, comfortable in no apparent distress. HEAD: Normocephalic and atraumatic EYES: Normal reaction of pupils, equal size. NOSE: Clear with pink turbinates. THROAT: No erythema or exudates. NECK: No masses, no JVD. CHEST: No chest wall deformity. LUNGS: Equal air entry with no crackles, wheeze, rhonchi or dullness. On room air. No conversational dyspnea or accessory muscle use.. CVS: S1 and S2 normal with no audible murmur, regular rhythm. No extra heart sounds ABDOMEN: No hepatosplenomegaly, active bowel sounds, no guarding or rigidity. SPINE: No scoliosis or deformity SKIN: No rashes CENTRAL NERVOUS SYSTEM: No focal deficits, tone is normal in all 4 extremities. EXTREMITIES: There is no peripheral edema, clubbing, or cyanosis. Peripheral pulses are intact. Results - Labs CBC & Chem 7: 11/30/24 04:22 11/30/24 10:23 Labs: Abnormal Lab Results - Last 24 Hours (Table) 11/29/24 11/29/24 11/29/24 Range/Units 04:34 04:34 12:13 RBC 3.49 L (4.10-5.20) X 10*6/uL Hgb 10.4 L (12.0-15.0) g/dL Hct 32.8 L (37.2-46.3) % MCHC 31.7 L (32.0-37.0) g/dL Immature Gran # 0.10 H (0.00-0.04) X 10*3/uL Neutrophils # 8.81 H (1.80-7.70) X 10*3/uL Lymphocytes # 0.55 L (0.90-5.00) X 10*3/uL Monocytes # 0.08 L (0.20-1.00) X 10*3/uL Eosinophils # 0 L (0.04-0.35) X 10*3/uL Sodium 131 L (135-145) mmol/L Carbon Dioxide 14.8 L (21.6-31.8) mmol/L Anion Gap 14.20 H (4.00-12.00) mmol/L Est GFR (CKD-EPI) 40 L (>=60) Glucose 406 H (70-110) mg/dL POC Glucose (mg/dL) 488 H (70-110) mg/dL Calcium 8.4 L (8.7-10.3) mg/dL Total Bilirubin 0.2 L (0.3-1.2) mg/dL Alkaline Phosphatase 133 H (41-126) U/L Albumin 3.1 L (3.8-4.9) g/dL Albumin/Globulin Ratio 0.94 L (1.60-3.17) Ratio 11/29/24 11/29/24 11/30/24 Range/Units 17:08 20:20 07:07 RBC (4.10-5.20) X 10*6/uL Hgb (12.0-15.0) g/dL Hct (37.2-46.3) % MCHC (32.0-37.0) g/dL Immature Gran # (0.00-0.04) X 10*3/uL Neutrophils # (1.80-7.70) X 10*3/uL Lymphocytes # (0.90-5.00) X 10*3/uL Monocytes # (0.20-1.00) X 10*3/uL Eosinophils # (0.04-0.35) X 10*3/uL Sodium (135-145) mmol/L Carbon Dioxide (21.6-31.8) mmol/L Anion Gap (4.00-12.00) mmol/L Est GFR (CKD-EPI) (>=60) Glucose (70-110) mg/dL POC Glucose (mg/dL) 329 H 356 H 464 H (70-110) mg/dL Calcium (8.7-10.3) mg/dL Total Bilirubin (0.3-1.2) mg/dL Alkaline Phosphatase (41-126) U/L Albumin (3.8-4.9) g/dL Albumin/Globulin Ratio (1.60-3.17) Ratio Assessment and Plan Plan: = Bulky mediastinal lymphadenopathy measuring 6.9 x 3.8 cm in size in addition to several other smaller lymph nodes in the AP window, paratracheal area and some abdominal lymph nodes as stated on the CAT scan of the chest on previous PET/CT. The patient has significant narrowing of the bronchus intermedius. 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 Noted the airways involved with endobronchial tumor and and 16 compression. Biopsies of the right mainstem endobronchial lesion was performed. Please refer to the detailed bronchoscopy report. Patient also underwent endobronchial ultrasound and transbronchial needle aspirate of the subcarinal mass.. Mediastinal lymphadenopathy, PET scan done Sep, 2024 showing scattered FDG avid lymphadenopathy. Intense uptake within the esophagus, mediastinal lymph nodes, and abdominal lymph nodes. Did undergo EBUS and transbronchial needle aspiration of stations 7 and 10 lymph nodes on 10/09/[address] Ta. Pathology nondiagnostic for neoplasm or other pathological process. Repeat bronchoscopy was done. Please refer to the reports. Right basilar pulmonary atelectatic changes related to the endobronchial tumor and the bronchus intermedius. Acute hypoxic respiratory failure currently on 3 L of O2 nasal cannula History of GERD with esophagitis, EGD with biopsies performed on July,, pathology remarkable for benign squamaglandular mucosa with focal acute esophagitis and mucosal reactive changes. No significant intestinal metaplasia. History of hiatal hernia Right posterior costophrenic 9 mm pulmonary nodule Obstructive sleep apnea with home CPAP Anion gap metabolic acidosis Chronic kidney disease stage IIIa Diabetes mellitus type 2, with hyperglycemia related to steroids Hypertension History of hyperlipidemia Sinus bradycardia with sinus arrhythmia History of carotid artery disease History of CVA/TIA Obesity, with a BMI of 31.1 kg/m, on Mounjaro Plan: The patient has extensive mediastinal lymphadenopathy and the patient presented to the hospital because of increased shortness of breath and coughing. Repeat bronchoscopy was done. Awaiting results from biopsy of the endobronchial tumor involving the bronchus intermedius and the subcarinal lymph node/mass. Continue steroids 40 mg IV Solu-Medrol every 8 hours Continue Lantus insulin for blood sugar control, insulin drip if needed Continue oxygen supplementation to maintain saturation above 90%, currently on 3 L Awaiting final pathology. Recommended mediastinoscopy for tissue diagnosis if the biopsy results come back nondiagnostic. High suspicion for malignancy.
[2024-11-30 13:03] LABS: Glucose,Whole Blood 578 mg/dL (70-110)
[2024-11-30 14:03] LABS: Glucose,Whole Blood 393 mg/dL (70-110)
[2024-11-30 15:01] LABS: Glucose,Whole Blood 265 mg/dL (70-110)
[2024-11-30] MEDS: methylPREDNISolone SOD SUCCI 40 MG/ML 1 ML VIAL IV SCH (15:12)
[2024-11-30 16:06] LABS: Glucose,Whole Blood 175 mg/dL (70-110)
[2024-11-30 17:13] LABS: Glucose,Whole Blood 149 mg/dL (70-110)
[2024-11-30 18:07] LABS: Glucose,Whole Blood 151 mg/dL (70-110)
[2024-11-30 19:09] LABS: Glucose,Whole Blood 136 mg/dL (70-110)
[2024-11-30 20:06] LABS: Glucose,Whole Blood 155 mg/dL (70-110)
[2024-11-30] MEDS: ALBUTEROL NEBULIZED 2.5 MG/3 ML INHALATION PRN (20:07)
[2024-11-30 20:50] LABS: Glucose,Whole Blood 212 mg/dL (70-110)
[2024-11-30 22:01] LABS: Glucose,Whole Blood 269 mg/dL (70-110)
[2024-11-30 23:10] LABS: Glucose,Whole Blood 260 mg/dL (70-110)
[2024-11-30 23:55] LABS: Glucose,Whole Blood 250 mg/dL (70-110)
[2024-12-01 00:57] LABS: Glucose,Whole Blood 227 mg/dL (70-110)
[2024-12-01 02:13] LABS: Glucose,Whole Blood 196 mg/dL (70-110)
[2024-12-01 02:56] LABS: Glucose,Whole Blood 217 mg/dL (70-110)
[2024-12-01 03:58] LABS: Glucose,Whole Blood 224 mg/dL (70-110)
[2024-12-01 05:19] LABS: Glucose,Whole Blood 146 mg/dL (70-110)
[2024-12-01 06:01] LABS: Glucose,Whole Blood 117 mg/dL (70-110)
[2024-12-01 06:24] LABS: Basophils # (A) 0.02 10*3/uL (0.00-0.10); Basophils % (A) 0.2 %; Eosinophils # (A) 0.00 10*3/uL (0.04-0.35); Eosinophils % (A) 0.0 %; HCT 30.4 % (37.2-46.3); HGB 10.1 g/dL (12.0-15.0); Lymphocytes # (A) 0.51 10*3/uL (0.90-5.00); Lymphocytes % (A) 5.0 %; MCH 30.1 pg (27.0-32.0); MCHC 33.2 g/dL (32.0-37.0); MCV 90.7 fL (80.0-97.0); Monocytes # (A) 0.61 10*3/uL (0.20-1.00); Monocytes % (A) 5.9 %; Neutrophils # (A) 8.87 10*3/uL (1.80-7.70); Neutrophils % (A) 86.2 %; Platelet Count 433 10*3/uL (140-440); RBC 3.35 10*6/uL (4.10-5.20); RDW 14.0 % (11.5-14.5); WBC 10.29 10*3/uL (4.50-10.00)
[2024-12-01 06:56] LABS: Glucose,Whole Blood 124 mg/dL (70-110)
[2024-12-01 07:07] LABS: ALT 19 U/L (4-34); AST 23 U/L (14-36); African American GFR (CKD) 48 (>60 ml/min/1.73 sqM); Albumin 3.2 g/dL (3.5-5.0); Alkaline Phosphatase 185 U/L (38-126); Anion Gap 11 mmol/L; Blood Urea Nitrogen 32 mg/dL (7-17); Calcium 9.9 mg/dL (8.4-10.2); Carbon Dioxide 19 mmol/L (22-30); Chloride 110 mmol/L (98-107); Glucose 119 mg/dL (74-99); Non-African American GFR(CKD) 41 (>60 ml/min/1.73 sqM); Potassium 4.0 mmol/L (3.5-5.1); Sodium 140 mmol/L (137-145); Total Protein 6.3 g/dL (6.3-8.2)
[2024-12-01 08:07] LABS: Glucose,Whole Blood 199 mg/dL (70-110)
[2024-12-01 09:07] LABS: Glucose,Whole Blood 222 mg/dL (70-110)
--- NOTE | 2024-12-01 09:08 | P.PN ---
Subjective Progress Note Date: 12/01/24 HISTORY OF PRESENT ILLNESS: This is a 74-year-old female with a previous medical history signif icant for hypertension and hypertensive cardiovascular disease, mixed hyperlipidemia, diabetes mellitus type 2, insulin requiring, diabetic polyneuropathy, chronic kidney disease stage IIIa, has been under the care of nephrology, history of hypothyroidism, history of GERD with esophagitis, history of major depressive disorder, was last hospitalized at [facility] for urine in July 2024 after she was admitted for expressive aphasia with mental status changes, at that time she was discovered to have significant issue thickened esophagus with enlarged lymph node, at that time she underwent EGD with biopsy that was negative for any carcinoma at that time, patient ended up seen by hematology oncology at that admission, and flow cytometry was obtained, and the patient was sent to follow-up with hematology oncology as well as by pulmonary medicine because of the lymphadenopathy that she has underwent PET scan in September 2024 that was positive for lymphadenopathy, then underwent EBUS with and a biopsy was nondiagnostic at that time, patient was brought into the emergency department yesterday because of increased shortness of breath, not feeling well, her D-dimer was elevated, she ended up going for CT angiography of the chest that was negative for pulm embolism but did show perihilar mass of 6.9 x 3.8 cm with mediastinal lymphadenopathy and a 9 mm nodule in the right lower lobe, with bilateral neck lymphadenopathy suggestive of malignancy, she was admitted to the hospital with hematology oncology consultation as well as pulmonary consultation. 11/28: Patient is scheduled to go for EBUS with Dr. Landrum today to obtain tissue pathology because of the soft tissue mass that is pressing against the right mainstem bronchus, with the lymphadenopathy that she has intermittent st anding, rule out sarcoidosis this time, rule out malignancy at this point in time, patient is being on nothing per mouth at this point in time, follow-up with the patient very closely, she continues to be hyperglycemic, she did receive Lantus last night, will continue that continue with a sliding scale insulin for now, follow-up with the patient very closely, further recommendations to follow the sustainable design consultant recommendations. 11/30: Patient sitting up in bed she continues to be on 3 L nasal cannula, her blood glucose levels were 443, I adjusted her insulin yesterday, decrease her Solu-Medrol to 40 mg IV push every 8 hours, if her blood glucose is not coming down in 2 hours, patient will be started on insulin drip, discontinue lisinopril, due to her hypertensive urgency, start the patient on losartan 100/12.5 mg once every day, also hydralazine 10 mg IV push every 4 hours as needed for systolic greater than 160, follow-up with the patient very closely, patient is to stay in the hospital because of the risk of respiratory failure due to the mass pushing against the right mainstem bronchus that could lead to a respiratory failure, await the final result of the biopsy, repeat labs today, follow-up with the patient very closely. 12/01: Patient was started on insulin drip yesterday and she was moved to 3 S., she is sitting up in bed she is currently on 3 L nasal cannula she continues to be somewhat short of breath, awaiting the final result of the pathology, continue Solu-Medrol 40 mg IV push every 8 hours, continue nebulized treatment, continue other treatment plan, increase activity as tolerated. REVIEW OF SYSTEMS: Constitutional: No documented fever, no chills, no night sweats. No weight change. No weakness, fatigue or lethargy. No daytime sleepiness. EENT: No headache. No blurred vision or double vision, no loss of vision. No loss of Hearing, no ringing in the ears, no dizziness. No nasal drainage or congestion. No epistaxis. No sore throat. Lungs: Positive for shortness of breath, cough, no sputum production. No wheezing. Reports dyspnea with activity. Cardiovascular: No chest pain, no lower extremity edema. No palpitations. No paroxysmal nocturnal dyspnea. No orthopnea. No lightheadedness or dizziness. No syncopal episodes. Abdominal: Reports no abdominal pain. No nausea, vomiting. No diarrhea. No constipation. No bloody or tarry stools reports loss of appetite. Genitourinary: No dysuria, increased frequency, urgency. No urinary retention. Musculoskeletal: No myalgias. No muscle weakness, no gait dysfunction, no frequent falls. No back pain. No neck pain. Integumentary: No wounds, no lesions. No rash or pruritus. No unusual b ruising. No change in hair or nails. Neurologic: No aphasia. No facial droop. positive for change in mentation. No head injury. No headache. No paralysis. No paresthesia. Psychiatric: positive for depression. positive for anxiety. No mood swings. Endocrine: No abnormal blood sugars. No weight change. PHYSICAL EXAMINATION: General: 73-year-old female laying down in bed in no apparent distress HEENT: Head is atraumatic, normocephalic, pupils were equal round reactive to light and recommendation, extraocular muscle movement were intact, sclera nonicteric, conjunctivae were pale, mucous membranes of the mouth are somewhat dry. Neck: Supple, no JVP, normal carotid upstroke bilaterally, bilateral cervical lymphadenopathy Chest: Decreased breath sounds at the bases, few rhonchi, no expiratory wheezes, no chest wall tenderness, no intercostal retractions. Heart: First heart sound is normal, second heart sounds normal there are systolic ejection murmur 2/6 located left sternal border Abdomen: Soft, nontender, nondistended, positive bowel sounds. Extremities: There is no edema no calf tenderness DP +2 bilaterally. Neurologic examination: Patient is awake alert and oriented x1, cranial nerves II-12 appear grossly intact, muscle power were 4 out of 5 in upper extremities and 4 out of 5 in bilateral lower extremities, deep tendon reflexes normal bilaterally, Babinski's were flexor bilaterally. [id number] and [id number] could not be performed as the patient is not able to follow much commands. ASSESSMENT AND PLAN: 1. Perihilar mass 6.9 x 3.8 cm with mediastinal lymphadenopathy suggestive of malignancy. Point in time for further plan of action, patient did have a recent pet scan as well as EBUS with biopsy that was nondiagnostic. We will consult hematology oncology along with pulmonary medicine, she is scheduled for EBUS today and await the final result of the pathology, likely the patient will stay in the hospital due to the fact that the soft tissue mass is pressing against the right mainstem bronchus, continue Solu-Medrol to 40 mg IV push every 8 hours, await the result of ODELL level. Await the result of the biopsy. 2. Hypertension and hypertensive cardiovascular disease with accelerated hypertension. discontinue lisinopril, start the patient on losartan 100/12.5 mg once every day, start hydralazine 20 mg IV push every 4 hours as needed for systolic greater than 160. Monitor the patient blood pressure very closely. 3. Mixed hyperlipidemia. Continue patient on atorvastatin 80 mg once every day, monitor lipid panel, keep LDL 55-70. 4. Diabetes mellitus type 2 with steroid-induced hyperglycemia continue insulin drip for now. Monitor blood glucose level every hour. 5. Hypothyroidism. Continue patient on levothyroxine 88 mcg orally once every day, 6. GERD with esophagitis and Wooten esophagus Continue patient on pantoprazole 40 mg orally once every day.Last EGD 07/2024 7. Moderate right ICA disease. Vascular surgery consultation continue Plavix 75 mg po daily atorvastatin 80 mg once every day, keep LDL 55-70. 8. DVT prophylaxis. Lovenox 40 mg subcutaneous every 24 hours. 9. GI prophylaxis. Continue patient on Protonix 40 mg orally once every day 10. Prognosis is very guarded. Objective - Vital Signs Vital signs: Vital Signs Temp 97.8 F 11/30/24 20:44 Pulse 66 11/30/24 23:35 Resp 16 11/30/24 23:35 BP 159/76 11/30/24 23:35 Pulse Ox 96 11/30/24 23:35 FiO2 Intake & Output 11/30/24 11/30/24 12/01/24 06:59 18:59 06:59 Intake Total 300 840.225 64.301 Balance 300 840.225 64.301 Intake: Intake, IV Titration 60.225 64.301 Amount Insulin Regular 100 unit 60.225 64.301 In Sodium Chloride 0.9% 100 ml @ Titrate IV .Q0M [facility] Rx#:[id number] Oral 300 780 Other: Voiding Method Toilet Toilet Toilet # Voids 2 1 - Labs CBC & Chem 7: 11/30/24 04:22 11/30/24 10:23 Labs: Abnormal Lab Results - Last 24 Hours (Table) 11/30/24 11/30/24 11/30/24 Range/Units 04:22 04:22 07:07 WBC 10.55 H (4.50-10.00) X 10*3/uL RBC 3.31 L (4.10-5.20) X 10*6/uL Hgb 9.8 L (12.0-15.0) g/dL Hct 30.7 L (37.2-46.3) % MCHC 31.9 L (32.0-37.0) g/dL Immature Gran # 0.14 H (0.00-0.04) X 10*3/uL Neutrophils # 9.74 H (1.80-7.70) X 10*3/uL Lymphocytes # 0.43 L (0.90-5.00) X 10*3/uL Eosinophils # 0 L (0.04-0.35) X 10*3/uL Sodium 133 L (135-145) mmol/L Carbon Dioxide 18.2 L (21.6-31.8) mmol/L BUN 29.1 H (9.0-27.0) mg/dL Creatinine (0.52-1.04) mg/dL Est GFR (CKD-EPI) 37 L (>=60) Glucose 532 A* (70-110) mg/dL POC Glucose (mg/dL) 464 H (70-110) mg/dL Hemoglobin A1c (<=6.0) % Total Bilirubin 0.2 L (0.3-1.2) mg/dL Alkaline Phosphatase 160 H (41-126) U/L Total Protein 5.9 L (6.2-8.2) g/dL Albumin 3.2 L (3.8-4.9) g/dL Albumin/Globulin Ratio 1.19 L (1.60-3.17) Ratio 11/30/24 11/30/24 11/30/24 Range/Units 08:59 10:23 10:23 WBC (4.50-10.00) X 10*3/uL RBC (4.10-5.20) X 10*6/uL Hgb (12.0-15.0) g/dL Hct (37.2-46.3) % MCHC (32.0-37.0) g/dL Immature Gran # (0.00-0.04) X 10*3/uL Neutrophils # (1.80-7.70) X 10*3/uL Lymphocytes # (0.90-5.00) X 10*3/uL Eosinophils # (0.04-0.35) X 10*3/uL Sodium 131 L (135-145) mmol/L Carbon Dioxide 12 L (21.6-31.8) mmol/L BUN 28 H (9.0-27.0) mg/dL Creatinine 1.19 H (0.52-1.04) mg/dL Est GFR (CKD-EPI) (>=60) Glucose 569 H* (70-110) mg/dL POC Glucose (mg/dL) 535 H* (70-110) mg/dL Hemoglobin A1c 13.2 H (<=6.0) % Total Bilirubin (0.3-1.2) mg/dL Alkaline Phosphatase (41-126) U/L Total Protein (6.2-8.2) g/dL Albumin (3.8-4.9) g/dL Albumin/Globulin Ratio (1.60-3.17) Ratio 11/30/24 11/30/24 11/30/24 Range/Units 11:58 13:02 14:02 WBC (4.50-10.00) X 10*3/uL RBC (4.10-5.20) X 10*6/uL Hgb (12.0-15.0) g/dL Hct (37.2-46.3) % MCHC (32.0-37.0) g/dL Immature Gran # (0.00-0.04) X 10*3/uL Neutrophils # (1.80-7.70) X 10*3/uL Lymphocytes # (0.90-5.00) X 10*3/uL Eosinophils # (0.04-0.35) X 10*3/uL Sodium (135-145) mmol/L Carbon Dioxide (21.6-31.8) mmol/L BUN (9.0-27.0) mg/dL Creatinine (0.52-1.04) mg/dL Est GFR (CKD-EPI) (>=60) Glucose (70-110) mg/dL POC Glucose (mg/dL) 534 H* 578 H* 393 H (70-110) mg/dL Hemoglobin A1c (<=6.0) % Total Bilirubin (0.3-1.2) mg/dL Alkaline Phosphatase (41-126) U/L Total Protein (6.2-8.2) g/dL Albumin (3.8-4.9) g/dL Albumin/Globulin Ratio (1.60-3.17) Ratio 11/30/24 11/30/24 11/30/24 Range/Units 15:00 16:04 17:10 WBC (4.50-10.00) X 10*3/uL RBC (4.10-5.20) X 10*6/uL Hgb (12.0-15.0) g/dL Hct (37.2-46.3) % MCHC (32.0-37.0) g/dL Immature Gran # (0.00-0.04) X 10*3/uL Neutrophils # (1.80-7.70) X 10*3/uL Lymphocytes # (0.90-5.00) X 10*3/uL Eosinophils # (0.04-0.35) X 10*3/uL Sodium (135-145) mmol/L Carbon Dioxide (21.6-31.8) mmol/L BUN (9.0-27.0) mg/dL Creatinine (0.52-1.04) mg/dL Est GFR (CKD-EPI) (>=60) Glucose (70-110) mg/dL POC Glucose (mg/dL) 265 H 175 H 149 H (70-110) mg/dL Hemoglobin A1c (<=6.0) % Total Bilirubin (0.3-1.2) mg/dL Alkaline Phosphatase (41-126) U/L Total Protein (6.2-8.2) g/dL Albumin (3.8-4.9) g/dL Albumin/Globulin Ratio (1.60-3.17) Ratio 11/30/24 11/30/24 11/30/24 Range/Units 18:04 19:08 20:05 WBC (4.50-10.00) X 10*3/uL RBC (4.10-5.20) X 10*6/uL Hgb (12.0-15.0) g/dL Hct (37.2-46.3) % MCHC (32.0-37.0) g/dL Immature Gran # (0.00-0.04) X 10*3/uL Neutrophils # (1.80-7.70) X 10*3/uL Lymphocytes # (0.90-5.00) X 10*3/uL Eosinophils # (0.04-0.35) X 10*3/uL Sodium (135-145) mmol/L Carbon Dioxide (21.6-31.8) mmol/L BUN (9.0-27.0) mg/dL Creatinine (0.52-1.04) mg/dL Est GFR (CKD-EPI) (>=60) Glucose (70-110) mg/dL POC Glucose (mg/dL) 151 H 136 H 155 H (70-110) mg/dL Hemoglobin A1c (<=6.0) % Total Bilirubin (0.3-1.2) mg/dL Alkaline Phosphatase (41-126) U/L Total Protein (6.2-8.2) g/dL Albumin (3.8-4.9) g/dL Albumin/Globulin Ratio (1.60-3.17) Ratio 11/30/24 11/30/24 11/30/24 Range/Units 20:49 22:00 23:09 WBC (4.50-10.00) X 10*3/uL RBC (4.10-5.20) X 10*6/uL Hgb (12.0-15.0) g/dL Hct (37.2-46.3) % MCHC (32.0-37.0) g/dL Immature Gran # (0.00-0.04) X 10*3/uL Neutrophils # (1.80-7.70) X 10*3/uL Lymphocytes # (0.90-5.00) X 10*3/uL Eosinophils # (0.04-0.35) X 10*3/uL Sodium (135-145) mmol/L Carbon Dioxide (21.6-31.8) mmol/L BUN (9.0-27.0) mg/dL Creatinine (0.52-1.04) mg/dL Est GFR (CKD-EPI) (>=60) Glucose (70-110) mg/dL POC Glucose (mg/dL) 212 H 269 H 260 H (70-110) mg/dL Hemoglobin A1c (<=6.0) % Total Bilirubin (0.3-1.2) mg/dL Alkaline Phosphatase (41-126) U/L Total Protein (6.2-8.2) g/dL Albumin (3.8-4.9) g/dL Albumin/Globulin Ratio (1.60-3.17) Ratio 11/30/24 12/01/24 12/01/24 Range/Units 23:53 00:55 02:12 WBC (4.50-10.00) X 10*3/uL RBC (4.10-5.20) X 10*6/uL Hgb (12.0-15.0) g/dL Hct (37.2-46.3) % MCHC (32.0-37.0) g/dL Immature Gran # (0.00-0.04) X 10*3/uL Neutrophils # (1.80-7.70) X 10*3/uL Lymphocytes # (0.90-5.00) X 10*3/uL Eosinophils # (0.04-0.35) X 10*3/uL Sodium (135-145) mmol/L Carbon Dioxide (21.6-31.8) mmol/L BUN (9.0-27.0) mg/dL Creatinine (0.52-1.04) mg/dL Est GFR (CKD-EPI) (>=60) Glucose (70-110) mg/dL POC Glucose (mg/dL) 250 H 227 H 196 H (70-110) mg/dL Hemoglobin A1c (<=6.0) % Total Bilirubin (0.3-1.2) mg/dL Alkaline Phosphatase (41-126) U/L Total Protein (6.2-8.2) g/dL Albumin (3.8-4.9) g/dL Albumin/Globulin Ratio (1.60-3.17) Ratio 12/01/24 12/01/24 12/01/24 Range/Units 02:55 03:56 05:18 WBC (4.50-10.00) X 10*3/uL RBC (4.10-5.20) X 10*6/uL Hgb (12.0-15.0) g/dL Hct (37.2-46.3) % MCHC (32.0-37.0) g/dL Immature Gran # (0.00-0.04) X 10*3/uL Neutrophils # (1.80-7.70) X 10*3/uL Lymphocytes # (0.90-5.00) X 10*3/uL Eosinophils # (0.04-0.35) X 10*3/uL Sodium (135-145) mmol/L Carbon Dioxide (21.6-31.8) mmol/L BUN (9.0-27.0) mg/dL Creatinine (0.52-1.04) mg/dL Est GFR (CKD-EPI) (>=60) Glucose (70-110) mg/dL POC Glucose (mg/dL) 217 H 224 H 146 H (70-110) mg/dL Hemoglobin A1c (<=6.0) % Total Bilirubin (0.3-1.2) mg/dL Alkaline Phosphatase (41-126) U/L Total Protein (6.2-8.2) g/dL Albumin (3.8-4.9) g/dL Albumin/Globulin Ratio (1.60-3.17) Ratio
[2024-12-01 09:59] LABS: Glucose,Whole Blood 246 mg/dL (70-110)
[2024-12-01 11:05] LABS: Glucose,Whole Blood 211 mg/dL (70-110)
[2024-12-01 11:57] LABS: Glucose,Whole Blood 208 mg/dL (70-110)
[2024-12-01] MEDS: hydrALAZINE HCL 20 MG/ML 1 ML VIAL IVP PRN (12:06)
--- NOTE | 2024-12-01 13:11 | P.PN ---
Subjective Progress Note Date: 12/01/24 Patient is a 74-year-old female with past medical history significant for hypertension, hyperlipidemia, CVA/TIA, carotid artery stenosis, CAD, diabetes mellitus, chronic kidney disease, ABDULKADIR with CPAP, hiatal hernia, GERD and with esophagitis. Of note, did undergo EGD with biopsies July,, and pathology remarkable for benign squamaglandular mucosa with focal acute esophagitis and mucosal reactive changes. No intestinal metaplasia. More recently, worked up on outpatient basis for mediastinal lymphadenopathy. PET scan done Sep, 2024 showing scattered FDG avid lymphadenopathy. Intense uptake within the esophagus, mediastinal lymph nodes, and abdominal lymph nodes. Did undergo EBUS and transbronchial needle aspiration of station 7 and 10 lymph nodes on 10/09/[address] Ta. Pathology nondiagnostic for neoplasm or other pathological process. Patient presented to emergency room last night complaining of shortness of breath, cough, chest discomfort. Workup in the including an elevated CT angiogram which did not show any evidence of pulmonary embolism. There is right perihilar soft tissue mass measuring 6.9 x 3.8 cm in the subcarinal region with lymphadenopathy throughout the mediastinum. Additional, right lower lobe posterior costophrenic angle pulmonary nodule measuring 9 mm indeterminant bing hepatis lymph node measuring 12 mm. Small hiatal hernia. CBC unremarkable. CMP sodium 133, potassium 4.2, chloride 103, serum bicarb 14, BUN 37, creatinine 1.1, glucose 371. Troponin less than 0.012. She is being evaluated the on the fifth floor. on room air. Resting comfortably, in no respiratory distress. States that she has had ongoing issues since her bronchoscopy. Nonproductive cough, substernal chest discomfort with inhalation, and feels like she cannot take a deep breath. She was treated outpatient basis with Z-Leo and prednisone burst taper. Persistent nonproductive cough without any improvement. She denies any sputum production, hemoptysis. Denies any fevers or chills. She did have a 70 pound weight loss over the last year, she was on Mounjaro. Denies any dysphagia or odynophagia. Never tobacco smoker. Denies any personal history of malignancy. She has a significant family history of cancer including her mother and sister having lung cancer. Her brother of colon cancer. Her other brother had neck cancer. One of her remaining sisters has sarcoidosis. Vital signs: Temperature 98.5 F, rate 57 bpm, blood pressure 166/88 mmHg, nontachypneic, SpO2 recorded 96% on room air. on today's evaluation of 11/28/2024, the patient continues to be short of breath and she is having frequent coughing episodes. She is on 3 L of oxygen by nasal cannula with pulse ox of 90%. The plan is to proceed with a bronchoscopy today as planned including an endobronchial ultrasound and rapid onsite cytologic evaluation will be done at the time of the procedure. The white cell count is 5.3 with a hemoglobin of 10.4 and platelet count of 375. BUN is 18 with a creatinine of 1.2. Sodium is at 137. No other complaints otherwise for now. The patient remains on normal saline at rate of 75 cc an hour. Rest of the home medication resumed. Plavix is currently on hold. On 11/29/2024, the patient is post bronchoscopy. Endobronchial biopsies of the bronchus the medial treatment was done and the patient also had transbronchial needle aspirate of subcarinal lymph node. Pathology still pending for now. The patient remains on liters of oxygen by nasal cannula. Continues to be short of breath and continues to have cough and congestion. No hemoptysis at this point in time. The patient is feeling short of breath and she continues to have f requent coughing episodes. Started on IV Solu-Medrol. Sodium is at 131, potassium is at 4.4, serum bicarb is at 15, BUN is 21 with a creatinine of 1.4. Patient is currently on Lantus insulin 23 units nightly and NovoLog 7 units with meals + scale coverage for blood sugar control. The patient is also on Farxiga. Rest of the medications remain unchanged. 11/30/2024, the patient is being seen for a follow-up. Bronchoscopy and endobronchial ultrasound was completed. Please refer to the full report. Awaiting final pathology. Meanwhile, the patient got transferred to telemetry as the patient has developed significant hyperglycemia while being on steroids. Blood sugar was in the 500 range and t the patient was accordingly was transferred to telemetry for blood sugar management. She continues to have a congested cough. Unable to bring up any sputum. Remains on IV Solu-Medrol. Rest of the medications are essentially unchanged. Currently on Lantus insulin. Follow-up chest x-ray from this morning shows right basilar patchy airspace disease with volume loss probably related to the underlying mediastinal mass and the significant obstruction noted in the bronchus intermedius. Oxygenation is stable and the patient is currently on 3 L of oxygen by nasal cannula with pulse ox of 97%. The patient is seen today December 01, 2024 and follow-up on the regular medical floor. She is currently sitting up in bed. Awake and alert in no acute distress. Maintaining O2 saturations in the high 90s on room air oxygen. She has been afebrile. Hemodynamically stable. Glucose 208. She is continued on IV Solu-Medrol, albuterol, Tessalon Perles. Lovenox for DVT prophylaxis. Continued on Lantus and Humalog sliding scale. Bronchial wash cultures and pathology pending. Objective - Vital Signs Vital signs: Vital Signs Temp 97.8 F 12/01/24 09:15 Pulse 64 12/01/24 09:32 Resp 18 12/01/24 09:15 BP 150/64 12/01/24 04:00 Pulse Ox 97 12/01/24 09:17 FiO2 Intake & Output 11/30/24 12/01/24 12/01/24 18:59 06:59 18:59 Intake Total 840.225 67.997 16.133 Balance 840.225 67.997 16.133 Weight 82 kg Intake: Intake, IV Titration 60.225 67.997 16.133 Amount Insulin Regular 100 unit 60.225 67.997 16.133 In Sodium Chloride 0.9% 100 ml @ Titrate IV .Q0M [facility] Rx#:[id number] Oral 780 Other: Voiding Method Toilet Toilet Toilet # Voids 1 1 - Exam GENERAL EXAM: Alert, pleasant 74-year-old female, on room air oxygen, comfortable in no apparent distress. HEAD: Normocephalic. EYES: Normal reaction of pupils, equal size. NOSE: Clear with pink turbinates. THROAT: No erythema or exudates. NECK: No masses, no JVD. CHEST: No chest wall deformity. LUNGS: Equal air entry with few scattered rhonchi. CVS: S1 and S2 normal with no audible murmur, regular rhythm. ABDOMEN: No hepatosplenomegaly, normal bowel sounds, no guarding or rigidity. SPINE: No scoliosis or deformity SKIN: No rashes CENTRAL NERVOUS SYSTEM: No focal deficits, tone is normal in all 4 extremities. EXTREMITIES: There is no peripheral edema. No clubbing, no cyanosis. Peripheral pulses are intact. - Labs CBC & Chem 7: 12/01/24 05:38 12/01/24 05:38 Labs: Abnormal Lab Results - Last 24 Hours (Table) 11/26/24 11/30/24 11/30/24 Range/Units 19:17 10:23 13:02 WBC (4.50-10.00) 10*3/uL RBC (4.10-5.20) 10*6/uL Hgb (12.0-15.0) g/dL Hct (37.2-46.3) % Immature Gran # (0.00-0.04) 10*3/uL Neutrophils # (1.80-7.70) 10*3/uL Lymphocytes # (0.90-5.00) 10*3/uL Eosinophils # (0.04-0.35) 10*3/uL Chloride (98-107) mmol/L Carbon Dioxide (22-30) mmol/L BUN (7-17) mg/dL Creatinine (0.52-1.04) mg/dL Glucose (74-99) mg/dL POC Glucose (mg/dL) 578 H* (70-110) mg/dL Hemoglobin A1c 13.2 H (<=6.0) % Alkaline Phosphatase (38-126) U/L Albumin (3.5-5.0) g/dL Angiotensin Convert Enz 3 L (8-52) U/L 11/30/24 11/30/24 11/30/24 Range/Units 14:02 15:00 16:04 WBC (4.50-10.00) 10*3/uL RBC (4.10-5.20) 10*6/uL Hgb (12.0-15.0) g/dL Hct (37.2-46.3) % Immature Gran # (0.00-0.04) 10*3/uL Neutrophils # (1.80-7.70) 10*3/uL Lymphocytes # (0.90-5.00) 10*3/uL Eosinophils # (0.04-0.35) 10*3/uL Chloride (98-107) mmol/L Carbon Dioxide (22-30) mmol/L BUN (7-17) mg/dL Creatinine (0.52-1.04) mg/dL Glucose (74-99) mg/dL POC Glucose (mg/dL) 393 H 265 H 175 H (70-110) mg/dL Hemoglobin A1c (<=6.0) % Alkaline Phosphatase (38-126) U/L Albumin (3.5-5.0) g/dL Angiotensin Convert Enz (8-52) U/L 11/30/24 11/30/24 11/30/24 Range/Units 17:10 18:04 19:08 WBC (4.50-10.00) 10*3/uL RBC (4.10-5.20) 10*6/uL Hgb (12.0-15.0) g/dL Hct (37.2-46.3) % Immature Gran # (0.00-0.04) 10*3/uL Neutrophils # (1.80-7.70) 10*3/uL Lymphocytes # (0.90-5.00) 10*3/uL Eosinophils # (0.04-0.35) 10*3/uL Chloride (98-107) mmol/L Carbon Dioxide (22-30) mmol/L BUN (7-17) mg/dL Creatinine (0.52-1.04) mg/dL Glucose (74-99) mg/dL POC Glucose (mg/dL) 149 H 151 H 136 H (70-110) mg/dL Hemoglobin A1c (<=6.0) % Alkaline Phosphatase (38-126) U/L Albumin (3.5-5.0) g/dL Angiotensin Convert Enz (8-52) U/L 11/30/24 11/30/24 11/30/24 Range/Units 20:05 20:49 22:00 WBC (4.50-10.00) 10*3/uL RBC (4.10-5.20) 10*6/uL Hgb (12.0-15.0) g/dL Hct (37.2-46.3) % Immature Gran # (0.00-0.04) 10*3/uL Neutrophils # (1.80-7.70) 10*3/uL Lymphocytes # (0.90-5.00) 10*3/uL Eosinophils # (0.04-0.35) 10*3/uL Chloride (98-107) mmol/L Carbon Dioxide (22-30) mmol/L BUN (7-17) mg/dL Creatinine (0.52-1.04) mg/dL Glucose (74-99) mg/dL POC Glucose (mg/dL) 155 H 212 H 269 H (70-110) mg/dL Hemoglobin A1c (<=6.0) % Alkaline Phosphatase (38-126) U/L Albumin (3.5-5.0) g/dL Angiotensin Convert Enz (8-52) U/L 11/30/24 11/30/24 12/01/24 Range/Units 23:09 23:53 00:55 WBC (4.50-10.00) 10*3/uL RBC (4.10-5.20) 10*6/uL Hgb (12.0-15.0) g/dL Hct (37.2-46.3) % Immature Gran # (0.00-0.04) 10*3/uL Neutrophils # (1.80-7.70) 10*3/uL Lymphocytes # (0.90-5.00) 10*3/uL Eosinophils # (0.04-0.35) 10*3/uL Chloride (98-107) mmol/L Carbon Dioxide (22-30) mmol/L BUN (7-17) mg/dL Creatinine (0.52-1.04) mg/dL Glucose (74-99) mg/dL POC Glucose (mg/dL) 260 H 250 H 227 H (70-110) mg/dL Hemoglobin A1c (<=6.0) % Alkaline Phosphatase (38-126) U/L Albumin (3.5-5.0) g/dL Angiotensin Convert Enz (8-52) U/L 12/01/24 12/01/24 12/01/24 Range/Units 02:12 02:55 03:56 WBC (4.50-10.00) 10*3/uL RBC (4.10-5.20) 10*6/uL Hgb (12.0-15.0) g/dL Hct (37.2-46.3) % Immature Gran # (0.00-0.04) 10*3/uL Neutrophils # (1.80-7.70) 10*3/uL Lymphocytes # (0.90-5.00) 10*3/uL Eosinophils # (0.04-0.35) 10*3/uL Chloride (98-107) mmol/L Carbon Dioxide (22-30) mmol/L BUN (7-17) mg/dL Creatinine (0.52-1.04) mg/dL Glucose (74-99) mg/dL POC Glucose (mg/dL) 196 H 217 H 224 H (70-110) mg/dL Hemoglobin A1c (<=6.0) % Alkaline Phosphatase (38-126) U/L Albumin (3.5-5.0) g/dL Angiotensin Convert Enz (8-52) U/L 12/01/24 12/01/24 12/01/24 Range/Units 05:18 05:38 05:38 WBC 10.29 H (4.50-10.00) 10*3/uL RBC 3.35 L (4.10-5.20) 10*6/uL Hgb 10.1 L (12.0-15.0) g/dL Hct 30.4 L (37.2-46.3) % Immature Gran # 0.28 H (0.00-0.04) 10*3/uL Neutrophils # 8.87 H (1.80-7.70) 10*3/uL Lymphocytes # 0.51 L (0.90-5.00) 10*3/uL Eosinophils # 0.00 L (0.04-0.35) 10*3/uL Chloride 110 H (98-107) mmol/L Carbon Dioxide 19 L (22-30) mmol/L BUN 32 H (7-17) mg/dL Creatinine 1.30 H (0.52-1.04) mg/dL Glucose 119 H (74-99) mg/dL POC Glucose (mg/dL) 146 H (70-110) mg/dL Hemoglobin A1c (<=6.0) % Alkaline Phosphatase 185 H (38-126) U/L Albumin 3.2 L (3.5-5.0) g/dL Angiotensin Convert Enz (8-52) U/L 12/01/24 12/01/24 12/01/24 Range/Units 06:00 06:54 08:05 WBC (4.50-10.00) 10*3/uL RBC (4.10-5.20) 10*6/uL Hgb (12.0-15.0) g/dL Hct (37.2-46.3) % Immature Gran # (0.00-0.04) 10*3/uL Neutrophils # (1.80-7.70) 10*3/uL Lymphocytes # (0.90-5.00) 10*3/uL Eosinophils # (0.04-0.35) 10*3/uL Chloride (98-107) mmol/L Carbon Dioxide (22-30) mmol/L BUN (7-17) mg/dL Creatinine (0.52-1.04) mg/dL Glucose (74-99) mg/dL POC Glucose (mg/dL) 117 H 124 H 199 H (70-110) mg/dL Hemoglobin A1c (<=6.0) % Alkaline Phosphatase (38-126) U/L Albumin (3.5-5.0) g/dL Angiotensin Convert Enz (8-52) U/L 12/01/24 12/01/24 12/01/24 Range/Units 09:06 09:55 11:03 WBC (4.50-10.00) 10*3/uL RBC (4.10-5.20) 10*6/uL Hgb (12.0-15.0) g/dL Hct (37.2-46.3) % Immature Gran # (0.00-0.04) 10*3/uL Neutrophils # (1.80-7.70) 10*3/uL Lymphocytes # (0.90-5.00) 10*3/uL Eosinophils # (0.04-0.35) 10*3/uL Chloride (98-107) mmol/L Carbon Dioxide (22-30) mmol/L BUN (7-17) mg/dL Creatinine (0.52-1.04) mg/dL Glucose (74-99) mg/dL POC Glucose (mg/dL) 222 H 246 H 211 H (70-110) mg/dL Hemoglobin A1c (<=6.0) % Alkaline Phosphatase (38-126) U/L Albumin (3.5-5.0) g/dL Angiotensin Convert Enz (8-52) U/L 12/01/24 Range/Units 11:54 WBC (4.50-10.00) 10*3/uL RBC (4.10-5.20) 10*6/uL Hgb (12.0-15.0) g/dL Hct (37.2-46.3) % Immature Gran # (0.00-0.04) 10*3/uL Neutrophils # (1.80-7.70) 10*3/uL Lymphocytes # (0.90-5.00) 10*3/uL Eosinophils # (0.04-0.35) 10*3/uL Chloride (98-107) mmol/L Carbon Dioxide (22-30) mmol/L BUN (7-17) mg/dL Creatinine (0.52-1.04) mg/dL Glucose (74-99) mg/dL POC Glucose (mg/dL) 208 H (70-110) mg/dL Hemoglobin A1c (<=6.0) % Alkaline Phosphatase (38-126) U/L Albumin (3.5-5.0) g/dL Angiotensin Convert Enz (8-52) U/L Assessment and Plan Assessment: Bulky mediastinal lymphadenopathy measuring 6.9 x 3.8 cm in size in addition to several other smaller lymph nodes in the AP window, paratracheal area and some abdominal lymph nodes as stated on the CAT scan of the chest on previous PET/CT. The patient has significant narrowing of the bronchus intermedius. 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 Noted the airways involved with endobronchial tumor and and 16 compression. Biopsies of the right mainstem endobronchial lesion was performed. Patient also underwent endobronchial ultrasound and transbronchial needle aspirate of the subcarinal mass. Pathology pending Mediastinal lymphadenopathy, PET scan done Sep, 2024 showing scattered FDG avid lymphadenopathy. Intense uptake within the esophagus, mediastinal lymph nodes, and abdominal lymph nodes. Did undergo EBUS and transbronchial needle aspiration of stations 7 and 10 lymph nodes on 10/09/2024. Pathology nondiagnostic for neoplasm or other pathological process Right basilar pulmonary atelectatic changes related to the endobronchial tumor and the bronchus intermedius Acute hypoxic respiratory failure recovered and currently on room air oxygen History of GERD with esophagitis, EGD with biopsies performed on July,, pathology remarkable for benign squamaglandular mucosa with focal acute esophagitis and mucosal reactive changes. No significant intestinal metaplasia History of hiatal hernia Right posterior costophrenic 9 mm pulmonary nodule Obstructive sleep apnea with home CPAP Anion gap metabolic acidosis Chronic kidney disease stage IIIa Diabetes mellitus type 2, with hyperglycemia related to steroids Hypertension History of hyperlipidemia Sinus bradycardia with sinus arrhythmia History of carotid artery disease History of CVA/TIA Obesity, with a BMI of 33.1 kg/m, on Mounjaro Plan: The patient was seen and evaluated Labs and medications were reviewed Continue albuterol as needed Continue Tessalon Perles as needed Continue Solu-Medrol Stable and on room air oxygen We will see the patient on an as needed basis To follow-up in the office 1 week post discharge I have personally seen and examined the patient, performed the documentation and the assessment and plan as written. Number of minutes spent on the visit: 10 Dictation was produced using [employer] dictation software. Please excuse any gr ammatical, word or spelling errors.
[2024-12-01 13:19] LABS: Glucose,Whole Blood 242 mg/dL (70-110)
[2024-12-01 13:57] LABS: Glucose,Whole Blood 242 mg/dL (70-110)
[2024-12-01 15:04] LABS: Glucose,Whole Blood 261 mg/dL (70-110)
[2024-12-01 16:01] LABS: Glucose,Whole Blood 225 mg/dL (70-110)
[2024-12-01 17:18] LABS: Glucose,Whole Blood 181 mg/dL (70-110)
[2024-12-01 17:57] LABS: Glucose,Whole Blood 218 mg/dL (70-110)
[2024-12-01 19:11] LABS: Glucose,Whole Blood 196 mg/dL (70-110)
[2024-12-01 20:17] LABS: Glucose,Whole Blood 130 mg/dL (70-110)
[2024-12-01 21:26] LABS: Glucose,Whole Blood 89 mg/dL (70-110)
[2024-12-02 06:01] LABS: Glucose,Whole Blood 347 mg/dL (70-110)
--- NOTE | 2024-12-02 10:41 | P.GSCN ---
History of Present Illness Consult date: 12/02/24 Reason for Consult: Mediastinal mass, evaluate for mediastinoscopy Requesting physician: Deng Church History of present illness: This is a 74-year-old female patient who follows on an outpatient basis with Dr. Church for her primary care and with Dr. Ta for her pulmonary care. She has a past medical history significant for recent incidental finding of a perihilar mass, mediastinal lymphadenopathy suggestive of malignancy status post recent PET scan as well as EBUS with biopsy that was nondiagnostic, hyperten jarred, hyperlipidemia, diabetes mellitus type 2, hypothyroidism, obstructive sleep apnea with home CPAP use, GERD with esophagitis and Wooten's esophagus, moderate right internal carotid artery disease 50 to 60% per CT angio head/neck, history of TIA, myocardial infarction in 2007, coronary artery disease, obesity with a BMI of 32.7 kg/m, chronic back pain, hiatal hernia, depression and is a lifetime non-smoker. On November 26, 2024 the patient presented to the emergency department here at [facility] with complaints of persistent cough, shortness of breath and discomfort in her chest. She denies any recent fever, chills, nausea, vomiting, headache, hoarseness, dizziness, lower extremity edema, constipation, diarrhea, difficulty swallowing, visual disturbances, hematemesis or hemoptysis. In July 2024 the patient presented to the emergency department here at [facility] for complaints of confusion, and some expressive aphasia postop cataract surgery to her left eye. Due to her presenting symptoms at that time a CT angio head/neck was completed which showed an approximately 50 to 69% stenosis of the right proximal internal carotid artery due to calcified plaque, no evidence of flow-limiting stenosis in the left common carotid artery or internal carotid artery, no evidence of intracranial high-grade stenosis or intracranial aneurysm, and an incidental finding of a partially visualized bulky mediastinal and hilar lymphadenopathy with wall thickening of the thoracic esophagus highly suspicious for malignancy. Subsequently due to the findings on the CT scan of the neck/head a consult was placed to general surgery and subsequently the patient underwent an EGD with biopsy. The esophagus biopsy showed benign squama glandular mucosa showing foc al acute esophagitis and mucosal reactive changes, negative for intestinal metaplasia. For further evaluation in September 2024 the patient underwent a PET scan which showed scattered FDG avid lymphadenopathy, intense up take within the esophagus, mediastinal lymph nodes and abdominal lymph nodes. Dr. Ta from pulmonary medicine was consulted and the patient underwent an EBUS and transbronchial needle aspiration of station 7 and 10 lymph nodes on October 09, 2024. The pathology was nondiagnostic for neoplasm or other pathological process. Since the bronchoscopy and EBUS, the patient reports she has had a persistent cough and complaints of shortness of breath. The patient also reports she had a course of antibiotics and steroid treatment, which the patient reports she had no relief from her symptoms. A chest x-ray was completed which showed no acute cardiopulmonary disease/process. On November 26, [address] chest angio for PE was completed which showed no evidence of pulmonary embolism, a right perihilar mass soft tissue mass with large soft tissue mass measuring 6.9 x 3.8 cm in the subcarinal region and lymphadenopathy throughout the mediastinum. Additional right lower lobe posterior costophrenic angle pulmonary nodule measuring 9 mm and bilateral neck lymph nodes present with findings compatible with malignancy. It also showed intermediate bing hepatis lymph node measuring 12 mm in short axis and a small hiatal hernia present. On November 28, 2024 due to the findings of a bulky mediastinal lymphadenopathy the patient underwent a flexible bronchoscopy, endobronchial biopsy of tumor noted in the bronchus intermedius along with bronchioloalveolar lavage, endobronchial ultrasound and transbronchial needle aspirate of subcarinal lymph node by Dr. Ta. The pathology of the right bronchus intermedius biopsy showed ulcerated bronchial mucosa with acute and chronic inflammation and focal squamous metaplasia, nondiagnostic of neoplasm. Subsequently, due to the nondiagnostic finding on the biopsy of the endobronchial tumor involving the left bronchus intermedius and subcarinal lymph node/mass a consult was placed to Dr. Shay Jackson from thoracic surgery for further evaluation and treatment recommendations including mediastinoscopy. Review of Systems A review of systems was completed and was negative except as mentioned in the HPI. Past Medical History Past Medical History: Coronary Artery Disease (CAD), CVA/TIA, Diabetes Mellitus, GERD/Reflux, Hyperlipidemia, Hypertension, Myocardial Infarction (CO), Osteoarthritis (OA), Sleep Apnea/CPAP/BIPAP, Thyroid Disorder Additional Past Medical History / Comment(s): CVA 2009, NO RESIDUAL EFFECTS, CPAP MACHINE, ARTHRITIS HIPS, ESOPHAGEAL AND DUODENAL ULCER, leg weakness and pain, urinary incontinence, ""enlarged lymph node between lungs" Last Myocardial Infarction Date:: 2007 History of Any Multi-Drug Resistant Organisms: None Reported Past Surgical History: Bariatric Surgery, Heart Catheterization, Hysterectomy, Orthopedic Surgery Additional Past Surgical History / Comment(s): Left ganglion cyst left wrist, lap band placed and removed, abdominoplasty, broken foot repair to left foot with pins, screws and plate, D&C, EGD, Pain Clinic Procedure. Past Anesthesia/Blood Transfusion Reactions: Previous Problems w/ Anesthesia Additional Past Anesthesia/Blood Transfusion Reaction / Comm: "Has stopped breathing after procedures"; reintubted once after procedure and SOB after surgery. Past Psychological History: Depression Smoking Status: Never smoker Past Alcohol Use History: None Reported Past Drug Use History: None Reported - Past Family History Father Family Medical History: Cancer Additional Family Medical History / Comment(s): Colon cancer. Mother Family Medical History: Cancer Additional Family Medical History / Comment(s): Small cell lung cancer. Brother(s) Family Medical History: Cancer Additional Family Medical History / Comment(s): Lung cancer spread to lymph nodes. Sister(s) Family Medical History: Cancer Additional Family Medical History / Comment(s): Small cell lung cancer. Medications and Allergies Home Medications Medication Instructions Recorded Confirmed Type Atorvastatin [Lipitor] 80 mg PO HS 11/21/21 11/27/24 History DULoxetine HCL [Cymbalta] 60 mg PO BID 11/21/21 11/27/24 History Dapagliflozin Propanediol [Farxiga] 10 mg PO DAILY 12/06/23 11/27/24 History Levothyroxine Sodium [Synthroid] 88 mcg PO DAILY 07/31/24 11/27/24 History Clopidogrel [Plavix] 75 mg PO DAILY #90 tab 08/04/24 11/27/24 Rx lisinopriL [Zestril] 20 mg PO BID #180 tab 08/04/24 11/27/24 Rx Biotin 6000mcg 1 tab PO DAILY 11/27/24 11/27/24 History Metoprolol Succinate (ER) [Toprol 25 mg PO DAILY 11/27/24 11/27/24 History Xl] Pantoprazole [Protonix] 40 mg PO AC-[id number] 11/27/24 11/27/24 History Allergies Allergy/AdvReac Type Severity Reaction Status Date / Time amoxicillin Allergy Rash/Hives Verified 11/27/24 08:29 Surgical - Exam Vital Signs Temp Pulse Resp BP Pulse Ox 98.1 F 61 18 172/98 98 11/26/24 17:47 11/26/24 17:47 11/26/24 17:47 11/26/24 17:47 11/26/24 17:47 - General well developed, well nourished, no distress, no pain, chronically ill, obese - Eyes PERRL, normal ocular movement, no pale, no icteric - ENT normal pinna, normal nares, normal mucosa, no hearing loss, no congestion - Neck Neck is supple, no lymphadenopathy. no masses, no bruits, trachea midline, no venous distension - Respiratory Lung sounds essentially clear throughout, diminished to her bilateral bases. No wheezes, rhonchi or crackles. No chest wall tenderness. Respirations are symmetrical and nonlabored. - Cardiovascular Regular rhythm and rate. S1 and S2 present, negative for S3, gallop or murmur. Soft systolic murmur 2/6 to her left sternal border. No peripheral edema. - Abdomen Abdomen is soft, nontender and nondistended. Active bowel sounds present to all 4 abdominal quadrants. No guarding or rigidity. No organomegaly appreciated. - Genitourinary Deferred - Rectum Deferred - Integumentary Skin is warm and dry. No clubbing or cyanosis is present. no rash, no growths, no abnormal pigmentation - Neurologic No focal deficits. - Musculoskeletal Moves all 4 extremities with equal strength bilateral. - Psychiatric oriented to time, oriented to person, oriented to place, speech is normal, memory intact Results - Labs 12/02/24 10:27 12/02/24 10:27 Abnormal Lab Results - Last 24 Hours (Table) 11/26/24 12/01/24 12/01/24 Range/Units 19:17 09:06 09:55 POC Glucose (mg/dL) 222 H 246 H (70-110) mg/dL Angiotensin Convert Enz 3 L (8-52) U/L 12/01/24 12/01/24 12/01/24 Range/Units 11:03 11:54 13:17 POC Glucose (mg/dL) 211 H 208 H 242 H (70-110) mg/dL Angiotensin Convert Enz (8-52) U/L 12/01/24 12/01/24 12/01/24 Range/Units 13:54 15:02 15:59 POC Glucose (mg/dL) 242 H 261 H 225 H (70-110) mg/dL Angiotensin Convert Enz (8-52) U/L 12/01/24 12/01/24 12/01/24 Range/Units 17:16 17:55 19:10 POC Glucose (mg/dL) 181 H 218 H 196 H (70-110) mg/dL Angiotensin Convert Enz (8-52) U/L 12/01/24 12/02/24 Range/Units 20:16 06:00 POC Glucose (mg/dL) 130 H 347 H (70-110) mg/dL Angiotensin Convert Enz (8-52) U/L - Imaging Chest x-ray: report reviewed, image reviewed CT scan - chest: report reviewed, image reviewed Assessment and Plan Assessment: Bulky mediastinal lymphadenopathy measuring 6.9 x 3.8 cm in size in addition to several other smaller lymph nodes in the AP window, paratracheal area and some abdominal lymph nodes as stated on the CAT scan of the chest on previous PET/CT. The patient has significant narrowing of the bronchus intermedius. Bronchoscopy was done by Dr. 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 Biopsies of the right mainstem endobronchial lesion was performed. Patient also underwent endobronchial ultrasound and transbronchial needle aspirate of the subcarinal mass, with the pathology showing nondiagnostic for neoplasm Mediastinal lymphadenopathy, PET scan done Sep, 2024 showing scattered FDG avid lymphadenopathy. Intense uptake within the esophagus, mediastinal lymph nodes, and abdominal lymph nodes. Did undergo EBUS and transbronchial needle aspiration of stations 7 and 10 lymph nodes on 10/09/[address] Ta. Pathology nondiagnostic for neoplasm or other pathological process Acute hypoxic respiratory failure, currently on 3 L of nasal cannula oxygen Hypertension Hyperlipidemia Diabetes mellitus type 2 Obstructive sleep apnea with home CPAP use Hypothyroidism GERD with esophagitis and Wooten's esophagus Moderate right internal carotid artery disease 50 to 60% per CT angio head/neck History of TIA Myocardial infarction in 2007 Coronary artery disease History of CVA in 2009 Obesity with a BMI of 32.7 kg/m Hiatal hernia Depression Lifetime non-smoker Plan: The patient was seen and examined at her bedside on the third floor cardiac stepdown unit. Her chart and diagnostics were reviewed. Her case was discussed in detail with Dr. Jackson from thoracic surgery. Dr. Jackson will also review her chart and diagnostics, and discussed treatment options with the patient. The patient is currently on Plavix which will need to be held for 5 to 7 days prior to any surgical procedure. An incentive spirometry has been ordered and we will encourage use 10 times every hour while awake. Medical management of other comorbidities per internal medicine and pulmonary care services. Once Dr. Jackson has met with the patient more recommendations to follow based on patient's clinical course. Thank you Dr. Church for this consult and will look forward to working with you in the care of this patient. I have personally seen and examined the patient, performed the documentation and the assessment and plan as written. Number of minutes spent on the visit: 30. ADENIKE Modi Attending Addendum: seen with Paramjit today. Resting comfortably on oxygen but endorses SOB with activity. 74F with new SOB, enlarged abdominal and mediastinal lymph nodes with a large subcarinal lymph node vs tumor, CTA also showed RLL basilar lung lesion that is round <1cm but of unclear significance, bronch with biopsyx2 showed necrosis but not enough viable cells to make a diagnosis, differential is broad from lymphoma to malignant esophageal cancer, the story initially sounds like lymphoma but there is bronchus intermedius invasion, and my first instincts when looking at imaging that this could be esophageal cancer, I'm not sure what this is. Discussed with Dr. Church about holding plavix in preparation for a procedure to get more tissue. Will discuss with my partner Dr. Galdamez, but mediastinoscopy with EGD and bronch could be best approach. She did have a negative EGD a few months ago which is obviously not consistent with esophageal cancer so the scenario is odd. The lung lesion may be useful, if we do go after it, then VATS biopsies would make more sense than mediastinoscopy, but will discuss with partners for additional input. Thank you.
[2024-12-02 11:22] LABS: Basophils # (A) 0.05 10*3/uL (0.00-0.10); Basophils % (A) 0.5 %; Eosinophils # (A) 0.00 10*3/uL (0.04-0.35); Eosinophils % (A) 0.0 %; HCT 31.7 % (37.2-46.3); HGB 10.5 g/dL (12.0-15.0); Lymphocytes # (A) 0.61 10*3/uL (0.90-5.00); Lymphocytes % (A) 5.6 %; MCH 30.1 pg (27.0-32.0); MCHC 33.1 g/dL (32.0-37.0); MCV 90.8 fL (80.0-97.0); Monocytes # (A) 0.87 10*3/uL (0.20-1.00); Monocytes % (A) 8.0 %; Neutrophils # (A) 9.12 10*3/uL (1.80-7.70); Neutrophils % (A) 83.4 %; Platelet Count 459 10*3/uL (140-440); RBC 3.49 10*6/uL (4.10-5.20); RDW 14.5 % (11.5-14.5); WBC 10.92 10*3/uL (4.50-10.00)
[2024-12-02 11:30] LABS: Glucose,Whole Blood 323 mg/dL (70-110)
[2024-12-02 11:42] LABS: ALT 20 U/L (4-34); AST 25 U/L (14-36); African American GFR (CKD) 44 (>60 ml/min/1.73 sqM); Albumin 3.3 g/dL (3.5-5.0); Alkaline Phosphatase 246 U/L (38-126); Anion Gap 13 mmol/L; Blood Urea Nitrogen 39 mg/dL (7-17); Calcium 10.2 mg/dL (8.4-10.2); Carbon Dioxide 18 mmol/L (22-30); Chloride 100 mmol/L (98-107); Glucose 329 mg/dL (74-99); Non-African American GFR(CKD) 38 (>60 ml/min/1.73 sqM); Potassium 4.1 mmol/L (3.5-5.1); Sodium 131 mmol/L (137-145); Total Protein 6.4 g/dL (6.3-8.2)
[2024-12-02] MEDS: INSULIN LISPRO (HumaLOG) 100 UNIT/ML 10 mL VL SQ SCH (12:20)
--- NOTE | 2024-12-02 13:17 | P.PN ---
Subjective Progress Note Date: 12/02/24 HISTORY OF PRESENT ILLNESS: This is a 74-year-old female with a previous medical history signif icant for hypertension and hypertensive cardiovascular disease, mixed hyperlipidemia, diabetes mellitus type 2, insulin requiring, diabetic polyneuropathy, chronic kidney disease stage IIIa, has been under the care of nephrology, history of hypothyroidism, history of GERD with esophagitis, history of major depressive disorder, was last hospitalized at [facility] for urine in July 2024 after she was admitted for expressive aphasia with mental status changes, at that time she was discovered to have significant issue thickened esophagus with enlarged lymph node, at that time she underwent EGD with biopsy that was negative for any carcinoma at that time, patient ended up seen by hematology oncology at that admission, and flow cytometry was obtained, and the patient was sent to follow-up with hematology oncology as well as by pulmonary medicine because of the lymphadenopathy that she has underwent PET scan in September 2024 that was positive for lymphadenopathy, then underwent EBUS with and a biopsy was nondiagnostic at that time, patient was brought into the emergency department yesterday because of increased shortness of breath, not feeling well, her D-dimer was elevated, she ended up going for CT angiography of the chest that was negative for pulm embolism but did show perihilar mass of 6.9 x 3.8 cm with mediastinal lymphadenopathy and a 9 mm nodule in the right lower lobe, with bilateral neck lymphadenopathy suggestive of malignancy, she was admitted to the hospital with hematology oncology consultation as well as pulmonary consultation. 11/28: Patient is scheduled to go for EBUS with Dr. Landrum today to obtain tissue pathology because of the soft tissue mass that is pressing against the right mainstem bronchus, with the lymphadenopathy that she has intermittent st anding, rule out sarcoidosis this time, rule out malignancy at this point in time, patient is being on nothing per mouth at this point in time, follow-up with the patient very closely, she continues to be hyperglycemic, she did receive Lantus last night, will continue that continue with a sliding scale insulin for now, follow-up with the patient very closely, further recommendations to follow the [employer] product consultant recommendations. 11/30: Patient sitting up in bed she continues to be on 3 L nasal cannula, her blood glucose levels were 443, I adjusted her insulin yesterday, decrease her Solu-Medrol to 40 mg IV push every 8 hours, if her blood glucose is not coming down in 2 hours, patient will be started on insulin drip, discontinue lisinopril, due to her hypertensive urgency, start the patient on losartan 100/12.5 mg once every day, also hydralazine 10 mg IV push every 4 hours as needed for systolic greater than 160, follow-up with the patient very closely, patient is to stay in the hospital because of the risk of respiratory failure due to the mass pushing against the right mainstem bronchus that could lead to a respiratory failure, await the final result of the biopsy, repeat labs today, follow-up with the patient very closely. 12/01: Patient was started on insulin drip yesterday and she was moved to 3 S., she is sitting up in bed she is currently on 3 L nasal cannula she continues to be somewhat short of breath, awaiting the final result of the pathology, continue Solu-Medrol 40 mg IV push every 8 hours, continue nebulized treatment, continue other treatment plan, increase activity as tolerated. 12/02: Patient is supposed to be seen by thoracic surgery for possible mediastinoscopy and biopsy of the soft tissue mass, she continues to be on Lantus however her last BGM is quite elevated, we will adjust her Lantus to 28 units at bedtime along with increasing her Humalog to 8 units plus the sliding scale, continue to follow-up with the patient very closely further recommendat ion is to follow the patient progression, decrease her Solu-Medrol to 40 mg IV push every 12 hours, likely the patient will be discharged home in the next 24 hours, follow-up as an outpatient for mediastinoscopy and possible EGD. REVIEW OF SYSTEMS: Constitutional: No documented fever, no chills, no night sweats. No weight change. No weakness, fatigue or lethargy. No daytime sleepiness. EENT: No headache. No blurred vision or double vision, no loss of vision. No loss of Hearing, no ringing in the ears, no dizziness. No nasal drainage or congestion. No epistaxis. No sore throat. Lungs: Positive for shortness of breath, cough, no sputum production. No wheezing. Reports dyspnea with activity. Cardiovascular: No chest pain, no lower extremity edema. No palpitations. No paroxysmal nocturnal dyspnea. No orthopnea. No lightheadedness or dizziness. No syncopal episodes. Abdominal: Reports no abdominal pain. No nausea, vomiting. No diarrhea. No constipation. No bloody or tarry stools reports loss of appetite. Genitourinary: No dysuria, increased frequency, urgency. No urinary retention. Musculoskeletal: No myalgias. No muscle weakness, no gait dysfunction, no frequent falls. No back pain. No neck pain. Integumentary: No wounds, no lesions. No rash or pruritus. No unusual bruising. No change in hair or nails. Neurologic: No aphasia. No facial droop. positive for change in mentation. No head injury. No headache. No paralysis. No paresthesia. Psychiatric: positive for depression. positive for anxiety. No mood swings. Endocrine: No abnormal blood sugars. No weight change. PHYSICAL EXAMINATION: General: 73-year-old female laying down in bed in no apparent distress HEENT: Head is atraumatic, normocephalic, pupils were equal round reactive to light and recommendation, extraocular muscle movement were intact, sclera nonicteric, conjunctivae were pale, mucous membranes of the mouth are somewhat dry. Neck: Supple, no JVP, normal carotid upstroke bilaterally, bilateral cervical lymphadenopathy Chest: Decreased breath sounds at the bases, few rhonchi, no expiratory wheezes, no chest wall tenderness, no intercostal retractions. Heart: First heart sound is normal, second heart sounds normal there are systolic ejection murmur 2/6 located left sternal border Abdomen: Soft, nontender, nondistended, positive bowel sounds. Extremities: There is no edema no calf tenderness DP +2 bilaterally. Neurologic examination: Patient is awake alert and oriented x1, cranial nerves II-12 appear grossly intact, muscle power were 4 out of 5 in upper extremities and 4 out of 5 in bilateral lower extremities, deep tendon reflexes normal bilaterally, Babinski's were flexor bilaterally. [id number] and [id number] could not be performed as the patient is not able to follow much commands. ASSESSMENT AND PLAN: 1. Perihilar mass 6.9 x 3.8 cm with mediastinal lymphadenopathy suggestive of malignancy. Point in time for further plan of action, patient did have a recent pet scan as well as EBUS with biopsy that was nondiagnostic. We will consult hematology oncology along with pulmonary medicine, she is scheduled for EBUS today and await the final result of the pathology, likely the patient will stay in the hospital due to the fact that the soft tissue mass is pressing against the right mainstem bronchus, continue Solu-Medrol to 40 mg IV push every 12 hours, await the result of ODELL level. Biopsy report is not nondiagnostic at thi s point, consulted thoracic surgery for possible mediastinoscopy and obtaining better biopsy, and hopefully this will be done sometimes next week. 2. Hypertension and hypertensive cardiovascular disease with accelerated hypertension. discontinue lisinopril, start the patient on losartan 100/12.5 mg once every day, start hydralazine 20 mg IV push every 4 hours as needed for systolic greater than 160. Monitor the patient blood pressure very closely. 3. Mixed hyperlipidemia. Continue patient on atorvastatin 80 mg once every day, monitor lipid panel, keep LDL 55-70. 4. Diabetes mellitus type 2 with steroid-induced hyperglycemia continue Lantus 28 units at bedtime along with the Humalog 8 units before each meal plus the sliding scale insulin. 5. Hypothyroidism. Continue patient on levothyroxine 88 mcg orally once every day, 6. GERD with esophagitis and Wooten esophagus Continue patient on pantoprazole 40 mg orally once every day.Last EGD 07/2024 7. Carotid artery disease continue patient on atorvastatin as well as Plavix for now. 8. DVT prophylaxis. Lovenox 40 mg subcutaneous every 24 hours. 9. GI prophylaxis. Continue patient on Protonix 40 mg orally once every day 10. Prognosis is very guarded. Objective - Vital Signs Vital signs: Vital Signs Temp 98.0 F 12/02/24 08:10 Pulse 66 12/02/24 09:11 Resp 20 12/02/24 08:10 BP 159/68 12/02/24 08:10 Pulse Ox 98 12/02/24 08:57 FiO2 Intake & Output 12/01/24 12/02/24 12/02/24 18:59 06:59 18:59 Intake Total 409.331 540 Balance 409.331 540 Weight 81.1 kg Intake: Intake, IV Titration 69.331 Amount Insulin Regular 100 unit 69.331 In Sodium Chloride 0.9% 100 ml @ Titrate IV .Q0M REBECCA Rx#:[id number] Oral 340 540 Other: Voiding Method Toilet Toilet Toilet Diaper # Voids 2 - Labs CBC & Chem 7: 12/02/24 10:27 07/22/25 10:27 Labs: Abnormal Lab Results - Last 24 Hours (Table) 11/26/24 12/01/24 12/01/24 Range/Units 19:17 09:55 11:03 POC Glucose (mg/dL) 246 H 211 H (70-110) mg/dL Angiotensin Convert Enz 3 L (8-52) U/L 12/01/24 12/01/24 12/01/24 Range/Units 11:54 13:17 13:54 POC Glucose (mg/dL) 208 H 242 H 242 H (70-110) mg/dL Angiotensin Convert Enz (8-52) U/L 12/01/24 12/01/24 12/01/24 Range/Units 15:02 15:59 17:16 POC Glucose (mg/dL) 261 H 225 H 181 H (70-110) mg/dL Angiotensin Convert Enz (8-52) U/L 12/01/24 12/01/24 12/01/24 Range/Units 17:55 19:10 20:16 POC Glucose (mg/dL) 218 H 196 H 130 H (70-110) mg/dL Angiotensin Convert Enz (8-52) U/L 12/02/24 Range/Units 06:00 POC Glucose (mg/dL) 347 H (70-110) mg/dL Angiotensin Convert Enz (8-52) U/L
[2024-12-02 15:46] LABS: Glucose,Whole Blood 274 mg/dL (70-110)
[2024-12-02 19:59] LABS: Glucose,Whole Blood 275 mg/dL (70-110)
[2024-12-02] MEDS: methylPREDNISolone SOD SUCCI 40 MG/ML 1 ML VIAL IV SCH (21:30)
[2024-12-02] MEDS: INSULIN GLARGINE (LANTUS) 100 UNIT/ML SYR SQ SCH (21:31)
[2024-12-03 05:38] LABS: Glucose,Whole Blood 246 mg/dL (70-110)
--- NOTE | 2024-12-03 09:34 | P.PN ---
Subjective Progress Note Date: 12/03/24 Principal diagnosis: Mediastinal mass. Past medical history significant for recent incidental finding of a perihilar mass, mediastinal lymphadenopathy suggestive of malignancy status post recent PET scan as well as EBUS with biopsy that was nondiagnostic, hypertension, hyperlipidemia, diabetes mellitus type 2, hypothyroidism, obstructive sleep apnea with home CPAP use, GERD with esophagitis and Wooten's esophagus, moderate right internal carotid artery disease 50 to 60% per CT angio head/neck, history of TIA, myocardial infarction in 2007, coronary artery disease, obesity with a BMI of 32.7 kg/m, chronic back pain, hiatal hernia, depression and is a lifetime non-smoker. The patient was seen and examined in follow-up today December 03, 2024 at her bedside on the third floor cardiac stepdown unit. She is currently laying in bed, is awake, alert, oriented x 3 and is in no acute apparent distress. She remains complaining of some episodes of shortness of breath and persistent dry cough, denies any complaints of pain at this time. Dr. Jackson from thoracic surgery met with the patient yesterday, discussed treatment options including mediastinoscopy procedure. Risks and benefits of the surgery were discussed with the patient and knowing and understanding the risks the patient wished to proceed with the surgical option. She has been on Plavix which was held yes terday and will need to be held for 5 to 7 days prior to any surgical procedure. She understands the holding of the Plavix. Dr. Jackson also discussed with Dr. Church and Dr. Cote from pulmonary medicine and they are both in agreement with the plan. Oxygen saturations 97% on 2 L nasal cannula. Remote telemetry showing normal sinus rhythm heart rate 64 bpm. Objective - Vital Signs Vital signs: Vital Signs Temp 98.9 F 12/03/24 04:00 Pulse 63 12/03/24 04:00 Resp 16 12/03/24 04:00 BP 145/80 12/03/24 04:00 Pulse Ox 97 12/03/24 04:00 FiO2 Intake & Output 12/02/24 12/03/24 12/03/24 18:59 06:59 18:59 Intake Total 720 180 Balance 720 180 Weight 79.9 kg Intake: Oral 720 180 Other: Voiding Method Toilet Toilet Diaper # Voids 1 1 - Exam CONSTITUTIONAL: Appears comfortable, cooperative, no acute distress RESPIRATORY: Lungs sounds diminished bilaterally to her bases with few scattered rhonchi. Respirations symmetrical, nonlabored. Currently on 2 L nasal cannula with oxygen saturation 97%. Strong dry cough. CARDIOVASCULAR: S1, S2 present. Regular rate and rhythm, sinus rhythm on telemetry. Palpable peripheral pulses bilaterally. No edema present. No calf pain or tenderness noted. SCDs present. GASTROINTESTINAL: Abdomen soft, nontender, nondistended. Active bowel sounds present 4 quadrants. Tolerating diet. GENITOURINARY: Continues to void. INTEGUMENTARY: Skin is warm and dry with no clubbing or cyanosis present. NEUROLOGIC: Cranial nerves II through XII intact. No focal deficit. MUSKULOSKELETAL: Able to move all extremities, strength equal bilaterally, gait normal PSYCHIATRIC: Alert and oriented to person place and time, appropriate affect, intact judgment and insight - Allied health notes Allied health notes reviewed: nursing - Labs CBC & Chem 7: 12/03/24 10:05 12/03/24 10:05 Labs: Abnormal Lab Results - Last 24 Hours (Table) 12/02/24 12/02/24 12/02/24 Range/Units 10:27 10:27 11:28 WBC 10.92 H (4.50-10.00) 10*3/uL RBC 3.49 L (4.10-5.20) 10*6/uL Hgb 10.5 L (12.0-15.0) g/dL Hct 31.7 L (37.2-46.3) % Plt Count 459 H (140-440) 10*3/uL Immature Gran # 0.27 H (0.00-0.04) 10*3/uL Neutrophils # 9.12 H (1.80-7.70) 10*3/uL Lymphocytes # 0.61 L (0.90-5.00) 10*3/uL Eosinophils # 0.00 L (0.04-0.35) 10*3/uL Sodium 131 L (137-145) mmol/L Carbon Dioxide 18 L (22-30) mmol/L BUN 39 H (7-17) mg/dL Creatinine 1.38 H (0.52-1.04) mg/dL Glucose 329 H (74-99) mg/dL POC Glucose (mg/dL) 323 H (70-110) mg/dL Alkaline Phosphatase 246 H (38-126) U/L Albumin 3.3 L (3.5-5.0) g/dL 12/02/24 12/02/24 12/03/24 Range/Units 15:43 19:57 05:37 WBC (4.50-10.00) 10*3/uL RBC (4.10-5.20) 10*6/uL Hgb (12.0-15.0) g/dL Hct (37.2-46.3) % Plt Count (140-440) 10*3/uL Immature Gran # (0.00-0.04) 10*3/uL Neutrophils # (1.80-7.70) 10*3/uL Lymphocytes # (0.90-5.00) 10*3/uL Eosinophils # (0.04-0.35) 10*3/uL Sodium (137-145) mmol/L Carbon Dioxide (22-30) mmol/L BUN (7-17) mg/dL Creatinine (0.52-1.04) mg/dL Glucose (74-99) mg/dL POC Glucose (mg/dL) 274 H 275 H 246 H (70-110) mg/dL Alkaline Phosphatase (38-126) U/L Albumin (3.5-5.0) g/dL - Imaging and Cardiology Chest x-ray: report reviewed, image reviewed Assessment and Plan Assessment: Bulky mediastinal lymphadenopathy measuring 6.9 x 3.8 cm in size in addition to several other smaller lymph nodes in the AP window, paratracheal area and some abdominal lymph nodes as stated on the CAT scan of the chest on previous PET/CT. The patient has significant narrowing of the bronchus intermedius. Bronch oscopy was done by Dr. 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 Biopsies of the right mainstem endobronchial lesion was performed. Patient also underwent endobronchial ultrasound and transbronchial needle aspirate of the subcarinal mass, with the pathology showing nondiagnostic for neoplasm Mediastinal lymphadenopathy, PET scan done Sep, 2024 showing scattered FDG avid lymphadenopathy. Intense uptake within the esophagus, mediastinal lymph nodes, and abdominal lymph nodes. Did undergo EBUS and transbronchial needle aspiration of stations 7 and 10 lymph nodes on 10/09/[address] Ta. Pathology nondiagnostic for neoplasm or other pathological process Acute hypoxic respiratory failure, currently on 3 L of nasal cannula oxygen Hypertension Hyperlipidemia Diabetes mellitus type 2 Obstructive sleep apnea with home CPAP use Hypothyroidism GERD with esophagitis and Wooten's esophagus Moderate right internal carotid artery disease 50 to 60% per CT angio head/neck History of TIA Myocardial infarction in 2007 Coronary artery disease History of CVA in 2009 Obesity with a BMI of 32.7 kg/m Hiatal hernia Depression Lifetime non-smoker Plan: Encourage use of incentive spirometry 10 times every hour while awake. Continue to hold Plavix in anticipation for mediastinoscopy procedure next week as discussed with the patient by Dr. Jackson. Medical management of other comorbidities per internal medicine and pulmonary/critical care medicine. Encourage ambulation, increase activity as tolerated. Out of bed for all meals. Wean oxygen as tolerated. Bronchodilator management per pulmonary/critical care medicine recommendations. More recommendations to follow based on patient's clinical course. Attending Addendum: discussing still with Dr. Galdamez best approach, looking at CT, there is a RLL lesion, she will need an EGD and bronch and either vats or mediastinoscopy. Date TBD soon. Thank you for your patience Time with Patient: Less than 30
[2024-12-03 10:34] LABS: Basophils # (A) 0.03 10*3/uL (0.00-0.10); Basophils % (A) 0.3 %; Eosinophils # (A) 0.06 10*3/uL (0.04-0.35); Eosinophils % (A) 0.6 %; HCT 32.2 % (37.2-46.3); HGB 10.7 g/dL (12.0-15.0); Lymphocytes # (A) 1.36 10*3/uL (0.90-5.00); Lymphocytes % (A) 14.0 %; MCH 30.1 pg (27.0-32.0); MCHC 33.2 g/dL (32.0-37.0); MCV 90.7 fL (80.0-97.0); Monocytes # (A) 0.78 10*3/uL (0.20-1.00); Monocytes % (A) 8.0 %; Neutrophils # (A) 7.09 10*3/uL (1.80-7.70); Neutrophils % (A) 73.2 %; Platelet Count 434 10*3/uL (140-440); RBC 3.55 10*6/uL (4.10-5.20); RDW 14.4 % (11.5-14.5); WBC 9.70 10*3/uL (4.50-10.00)
[2024-12-03 11:04] LABS: ALT 20 U/L (4-34); AST 25 U/L (14-36); African American GFR (CKD) 47 (>60 ml/min/1.73 sqM); Albumin 3.0 g/dL (3.5-5.0); Alkaline Phosphatase 186 U/L (38-126); Anion Gap 9 mmol/L; Blood Urea Nitrogen 38 mg/dL (7-17); Calcium 9.6 mg/dL (8.4-10.2); Carbon Dioxide 22 mmol/L (22-30); Chloride 106 mmol/L (98-107); Glucose 100 mg/dL (74-99); Non-African American GFR(CKD) 40 (>60 ml/min/1.73 sqM); Potassium 3.6 mmol/L (3.5-5.1); Sodium 137 mmol/L (137-145); Total Protein 6.1 g/dL (6.3-8.2)
[2024-12-03 11:09] LABS: Glucose,Whole Blood 111 mg/dL (70-110)
--- NOTE | 2024-12-03 11:12 | P.PN ---
Subjective Progress Note Date: 12/03/24 HISTORY OF PRESENT ILLNESS: This is a 74-year-old female with a previous medical history signif icant for hypertension and hypertensive cardiovascular disease, mixed hyperlipidemia, diabetes mellitus type 2, insulin requiring, diabetic polyneuropathy, chronic kidney disease stage IIIa, has been under the care of nephrology, history of hypothyroidism, history of GERD with esophagitis, history of major depressive disorder, was last hospitalized at [facility] for urine in July 2024 after she was admitted for expressive aphasia with mental status changes, at that time she was discovered to have significant issue thickened esophagus with enlarged lymph node, at that time she underwent EGD with biopsy that was negative for any carcinoma at that time, patient ended up seen by hematology oncology at that admission, and flow cytometry was obtained, and the patient was sent to follow-up with hematology oncology as well as by pulmonary medicine because of the lymphadenopathy that she has underwent PET scan in September 2024 that was positive for lymphadenopathy, then underwent EBUS with and a biopsy was nondiagnostic at that time, patient was brought into the emergency department yesterday because of increased shortness of breath, not feeling well, her D-dimer was elevated, she ended up going for CT angiography of the chest that was negative for pulm embolism but did show perihilar mass of 6.9 x 3.8 cm with mediastinal lymphadenopathy and a 9 mm nodule in the right lower lobe, with bilateral neck lymphadenopathy suggestive of malignancy, she was admitted to the hospital with hematology oncology consultation as well as pulmonary consultation. 11/28: Patient is scheduled to go for EBUS with Dr. Landrum today to obtain tissue pathology because of the soft tissue mass that is pressing against the right mainstem bronchus, with the lymphadenopathy that she has intermittent st anding, rule out sarcoidosis this time, rule out malignancy at this point in time, patient is being on nothing per mouth at this point in time, follow-up with the patient very closely, she continues to be hyperglycemic, she did receive Lantus last night, will continue that continue with a sliding scale insulin for now, follow-up with the patient very closely, further recommendations to follow the home service consultant recommendations. 11/30: Patient sitting up in bed she continues to be on 3 L nasal cannula, her blood glucose levels were 443, I adjusted her insulin yesterday, decrease her Solu-Medrol to 40 mg IV push every 8 hours, if her blood glucose is not coming down in 2 hours, patient will be started on insulin drip, discontinue lisinopril, due to her hypertensive urgency, start the patient on losartan 100/12.5 mg once every day, also hydralazine 10 mg IV push every 4 hours as needed for systolic greater than 160, follow-up with the patient very closely, patient is to stay in the hospital because of the risk of respiratory failure due to the mass pushing against the right mainstem bronchus that could lead to a respiratory failure, await the final result of the biopsy, repeat labs today, follow-up with the patient very closely. 12/01: Patient was started on insulin drip yesterday and she was moved to 3 S., she is sitting up in bed she is currently on 3 L nasal cannula she continues to be somewhat short of breath, awaiting the final result of the pathology, continue Solu-Medrol 40 mg IV push every 8 hours, continue nebulized treatment, continue other treatment plan, increase activity as tolerated. 12/02: Patient is supposed to be seen by thoracic surgery for possible mediastinoscopy and biopsy of the soft tissue mass, she continues to be on Lantus however her last BGM is quite elevated, we will adjust her Lantus to 28 units at bedtime along with increasing her Humalog to 8 units plus the sliding scale, continue to follow-up with the patient very closely further recommendat ion is to follow the patient progression, decrease her Solu-Medrol to 40 mg IV push every 12 hours, likely the patient will be discharged home in the next 24 hours, follow-up as an outpatient for mediastinoscopy and possible EGD. 12/03: Patient sitting up in bed appears to be quite anxious today, I spoke with the patient about the possibility of going home hopefully in the next 24 hours, we will try to obtain an oxygen for home at 2 L nasal cannula, I have called her prescription to the pharmacy orally, the patient will stay in the hospital for another 24 hours, and hopefully she will be able to be discharged home tomorrow morning, and follow-up with the thoracic surgeon next week for EGD as well as mediastinoscopy to obtain better tissue for biopsy and sampling, and patient was in agreement for the proposed plan. REVIEW OF SYSTEMS: Constitutional: No documented fever, no chills, no night sweats. No weight change. No weakness, fatigue or lethargy. No daytime sleepiness. EENT: No headache. No blurred vision or double vision, no loss of vision. No loss of Hearing, no ringing in the ears, no dizziness. No nasal drainage or congestion. No epistaxis. No sore throat. Lungs: Positive for shortness of breath, occasional cough, no sputum production. No wheezing. Reports dyspnea with activity. Cardiovascular: No chest pain, no lower extremity edema. No palpitations. No paroxysmal nocturnal dyspnea. No orthopnea. No lightheadedness or dizziness. No syncopal episodes. Abdominal: Reports no abdominal pain. No nausea, vomiting. No diarrhea. No constipation. No bloody or tarry stools reports loss of appetite. Genitourinary: No dysuria, increased frequency, urgency. No urinary retention. Musculoskeletal: No myalgias. No muscle weakness, no gait dysfunction, no f requent falls. No back pain. No neck pain. Integumentary: No wounds, no lesions. No rash or pruritus. No unusual bruising. No change in hair or nails. Neurologic: No aphasia. No facial droop. positive for change in mentation. No head injury. No headache. No paralysis. No paresthesia. Psychiatric: positive for depression. positive for anxiety. No mood swings. Endocrine: Positive for abnormal blood sugars. No weight change. PHYSICAL EXAMINATION: General: 73-year-old female laying down in bed in no apparent distress HEENT: Head is atraumatic, normocephalic, pupils were equal round reactive to light and recommendation, extraocular muscle movement were intact, sclera no nicteric, conjunctivae were pale, mucous membranes of the mouth are somewhat dry. Neck: Supple, no JVP, normal carotid upstroke bilaterally, bilateral cervical lymphadenopathy Chest: Decreased breath sounds at the bases, few rhonchi, no expiratory wheezes, no chest wall tenderness, no intercostal retractions. Heart: First heart sound is normal, second heart sounds normal there are systolic ejection murmur 2/6 located left sternal border Abdomen: Soft, nontender, nondistended, positive bowel sounds. Extremities: There is no edema no calf tenderness DP +2 bilaterally. Neurologic examination: Patient is awake alert and oriented x1, cranial nerves II-12 appear grossly intact, muscle power were 4 out of 5 in upper extremities and 4 out of 5 in bilateral lower extremities, deep tendon reflexes normal bilaterally, Babinski's were flexor bilaterally. [id number] and [id number] could not be performed as the patient is not able to follow much commands. ASSESSMENT AND PLAN: 1. Perihilar mass 6.9 x 3.8 cm with mediastinal lymphadenopathy suggestive of malignancy. Point in time for further plan of action, patient did have a recent pet scan as well as EBUS with biopsy that was nondiagnostic. Patient is status post another EBUS with biopsy that was nondiagnostic as well, she was seen in consultation by thoracic surgery, who recommended for the patient to come off Plavix at this time, and have a mediastinoscopy as an outpatient along with EGD for the suspicion of possible esophageal malignancy that is invading the right main stem bronchus, discussed with pulmonary team the possibility of collapsing the right mainstem bronchus at this point in time is not happening but it may happen down the line therefore a definitive plan of treatment has to be done the soonest possible. 2. Hypertension and hypertensive cardiovascular disease with accelerated hypertension. Continue losartan 100/12.5 mg once every day, start hydralazine 20 mg IV push every 4 hours as needed for systolic greater than 160. Monitor the patient blood pressure very closely. 3. Mixed hyperlipidemia. Continue patient on atorvastatin 80 mg once every day, monitor lipid panel, keep LDL 55-70. 4. Diabetes mellitus type 2 with steroid-induced hyperglycemia continue Lantus 28 units at bedtime along with the Humalog 8 units before each meal plus the sliding scale insulin. 5. Hypothyroidism. Continue patient on levothyroxine 88 mcg orally once every day, 6. GERD with esophagitis and Wooten esophagus Continue patient on pantoprazole 40 mg orally once every day.Last EGD 07/2024 7. Carotid artery disease continue patient on atorvastatin, discontinue Plavix for now introversion for the upcoming procedure. 8. DVT prophylaxis. Lovenox 40 mg subcutaneous every 24 hours, increase activity level. 9. GI prophylaxis. Continue patient on Protonix 40 mg orally once every day 10. Obtain home O2, likely the patient will be discharged home either this afternoon or tomorrow morning. Objective - Vital Signs Vital signs: Vital Signs Temp 98.4 F 12/03/24 08:00 Pulse 70 12/03/24 08:00 Resp 18 12/03/24 08:00 BP 128/74 12/03/24 08:00 Pulse Ox 97 12/03/24 08:00 FiO2 Intake & Output 12/02/24 12/03/24 12/03/24 18:59 06:59 18:59 Intake Total 720 180 Balance 720 180 Weight 79.9 kg Intake: Oral 720 180 Other: Voiding Method Toilet Toilet Toilet Diaper # Voids 1 1 - Labs CBC & Chem 7: 12/03/24 10:05 12/03/24 10:05 Labs: Abnormal Lab Results - Last 24 Hours (Table) 12/02/24 12/02/24 12/02/24 Range/Units 10:27 10:27 11:28 WBC 10.92 H (4.50-10.00) 10*3/uL RBC 3.49 L (4.10-5.20) 10*6/uL Hgb 10.5 L (12.0-15.0) g/dL Hct 31.7 L (37.2-46.3) % Plt Count 459 H (140-440) 10*3/uL Immature Gran # 0.27 H (0.00-0.04) 10*3/uL Neutrophils # 9.12 H (1.80-7.70) 10*3/uL Lymphocytes # 0.61 L (0.90-5.00) 10*3/uL Eosinophils # 0.00 L (0.04-0.35) 10*3/uL Sodium 131 L (137-145) mmol/L Carbon Dioxide 18 L (22-30) mmol/L BUN 39 H (7-17) mg/dL Creatinine 1.38 H (0.52-1.04) mg/dL Glucose 329 H (74-99) mg/dL POC Glucose (mg/dL) 323 H (70-110) mg/dL Alkaline Phosphatase 246 H (38-126) U/L Total Protein (6.3-8.2) g/dL Albumin 3.3 L (3.5-5.0) g/dL 12/02/24 12/02/24 12/03/24 Range/Units 15:43 19:57 05:37 WBC (4.50-10.00) 10*3/uL RBC (4.10-5.20) 10*6/uL Hgb (12.0-15.0) g/dL Hct (37.2-46.3) % Plt Count (140-440) 10*3/uL Immature Gran # (0.00-0.04) 10*3/uL Neutrophils # (1.80-7.70) 10*3/uL Lymphocytes # (0.90-5.00) 10*3/uL Eosinophils # (0.04-0.35) 10*3/uL Sodium (137-145) mmol/L Carbon Dioxide (22-30) mmol/L BUN (7-17) mg/dL Creatinine (0.52-1.04) mg/dL Glucose (74-99) mg/dL POC Glucose (mg/dL) 274 H 275 H 246 H (70-110) mg/dL Alkaline Phosphatase (38-126) U/L Total Protein (6.3-8.2) g/dL Albumin (3.5-5.0) g/dL 12/03/24 12/03/24 Range/Units 10:05 10:05 WBC (4.50-10.00) 10*3/uL RBC 3.55 L (4.10-5.20) 10*6/uL Hgb 10.7 L (12.0-15.0) g/dL Hct 32.2 L (37.2-46.3) % Plt Count (140-440) 10*3/uL Immature Gran # 0.38 H (0.00-0.04) 10*3/uL Neutrophils # (1.80-7.70) 10*3/uL Lymphocytes # (0.90-5.00) 10*3/uL Eosinophils # (0.04-0.35) 10*3/uL Sodium (137-145) mmol/L Carbon Dioxide (22-30) mmol/L BUN 38 H (7-17) mg/dL Creatinine 1.32 H (0.52-1.04) mg/dL Glucose 100 H (74-99) mg/dL POC Glucose (mg/dL) (70-110) mg/dL Alkaline Phosphatase 186 H (38-126) U/L Total Protein 6.1 L (6.3-8.2) g/dL Albumin 3.0 L (3.5-5.0) g/dL
[2024-12-03] MEDS: ACETAMINOPHEN TAB 325 MG TAB PO PRN (14:33)
[2024-12-03 16:26] LABS: Glucose,Whole Blood 288 mg/dL (70-110)
--- NOTE | 2024-12-03 18:48 | P.PN ---
Subjective Progress Note Date: 12/03/24 Resting comfortably in bed at todays visit. Reporting SOB and headache today after showering. Objective - Vital Signs Vital signs: Vital Signs Temp 98.4 F 12/03/24 08:00 Pulse 70 12/03/24 08:00 Resp 18 12/03/24 08:00 BP 128/74 12/03/24 08:00 Pulse Ox 97 12/03/24 08:00 FiO2 Intake & Output 12/02/24 12/03/24 12/03/24 18:59 06:59 18:59 Intake Total 720 180 Balance 720 180 Weight 79.9 kg Intake: Oral 720 180 Other: Voiding Method Toilet Toilet Toilet Diaper # Voids 1 1 - Constitutional General appearance: Present: average body habitus, no acute distress - EENT Eyes: Present: anicteric sclerae, EOMI ENT: Present: hearing grossly normal - Respiratory Details: breathing is even and unlabored - Cardiovascular Details: skin warm and dry - Musculoskeletal Musculoskeletal: Present: strength equal bilaterally - Psychiatric Psychiatric: Present: A&O x's 3 - Labs CBC & Chem 7: 12/03/24 10:05 12/03/24 10:05 Labs: Abnormal Lab Results - Last 24 Hours (Table) 12/02/24 12/02/24 12/03/24 Range/Units 15:43 19:57 05:37 RBC (4.10-5.20) 10*6/uL Hgb (12.0-15.0) g/dL Hct (37.2-46.3) % Immature Gran # (0.00-0.04) 10*3/uL BUN (7-17) mg/dL Creatinine (0.52-1.04) mg/dL Glucose (74-99) mg/dL POC Glucose (mg/dL) 274 H 275 H 246 H (70-110) mg/dL Alkaline Phosphatase (38-126) U/L Total Protein (6.3-8.2) g/dL Albumin (3.5-5.0) g/dL 12/03/24 12/03/24 12/03/24 Range/Units 10:05 10:05 11:07 RBC 3.55 L (4.10-5.20) 10*6/uL Hgb 10.7 L (12.0-15.0) g/dL Hct 32.2 L (37.2-46.3) % Immature Gran # 0.38 H (0.00-0.04) 10*3/uL BUN 38 H (7-17) mg/dL Creatinine 1.32 H (0.52-1.04) mg/dL Glucose 100 H (74-99) mg/dL POC Glucose (mg/dL) 111 H (70-110) mg/dL Alkaline Phosphatase 186 H (38-126) U/L Total Protein 6.1 L (6.3-8.2) g/dL Albumin 3.0 L (3.5-5.0) g/dL Assessment and Plan (1) Lymphadenopathy Current Visit: Yes Status: Acute Priority: High Code(s): R59.1 - GENERALIZED ENLARGED LYMPH NODES SNOMED Code(s): 36275666 (2) Shortness of breath Current Visit: Yes Status: Acute Priority: High Code(s): R06.02 - SHORTNESS OF BREATH SNOMED Code(s): 801998329 Plan: Abnormal Lymphadenopathy: -History as dictated in the HPI. PET showed concerning intense uptake within medstinal nodes. Underwent EBUS on 10/09/[address] Ta, FNA of station 7 showed lymphoid tissues showed no malignancy, FNA of 10 R was non diagnostic. Plan was to have a follow up CT scan in 3 months. Of note, pt does report sister has history of sarcoidosis -CTA chest on admit revealed right perihilar mass with large soft tissue mass measuring 6.9 x 3.8 cm in the subcarinal region and lymphadenopathy throughout the mediastinum. Additional right lower lobe posterior costophrenic angle pulmonary nodule measuring 9 mm and known bilateral neck lymph nodes noted. Indeterminate bing hepatis lymph node measuring 12 mm. -Pulmonology is following. Pt underwent EBUS with BAL with Dr. Ta. Friable mass noted within bronchus intermedius. -Lung biopsy non-diagnostic for neoplasm. Cytology still pending -CTS consulted, considering mediastinoscopy to further eval/biopsy LAD.
[2024-12-03 20:06] LABS: Glucose,Whole Blood 198 mg/dL (70-110)
[2024-12-04 01:13] VITALS: RESP 16
[2024-12-04 06:31] LABS: Glucose,Whole Blood 99 mg/dL (70-110)
[2024-12-04 06:45] LABS: ALT 23 U/L (4-34); AST 29 U/L (14-36); African American GFR (CKD) 55 (>60 ml/min/1.73 sqM); Albumin 3.3 g/dL (3.5-5.0); Alkaline Phosphatase 172 U/L (38-126); Anion Gap 8 mmol/L; Blood Urea Nitrogen 42 mg/dL (7-17); Calcium 9.6 mg/dL (8.4-10.2); Carbon Dioxide 26 mmol/L (22-30); Chloride 104 mmol/L (98-107); Glucose 74 mg/dL (74-99); Non-African American GFR(CKD) 47 (>60 ml/min/1.73 sqM); Potassium 4.0 mmol/L (3.5-5.1); Sodium 138 mmol/L (137-145); Total Protein 6.5 g/dL (6.3-8.2)
--- NOTE | 2024-12-04 08:44 | P.DS ---
Providers Date of admission: 11/28/24 10:35 Expected date of discharge: 12/04/24 Attending physician: Deng Church Consults: 11/26/24 22:57 Consult Physician Routine Consulting Provider: Claudette Ta Consult Reason/Comments: post biopsy sxs Do you want consulting provider notified?: Yes, Notify in am Consult Physician Routine Consulting Provider: Melvin Lindsay Consult Reason/Comments: perihilar lymph, mass Do you want consulting provider notified?: Yes, Notify in am 12/01/24 13:09 Consult Physician Routine Consulting Provider: Shay Jackson Consult Reason/Comments: Mediastinal mass, mediastinoscopy Do you want consulting provider notified?: Yes Primary care physician: Deng Church Hospital Course: HISTORY OF PRESENT ILLNESS: This is a 74-year-old female with a previous medical history significant for hypertension and hypertensive cardiovascular disease, mixed hyperlipidemia, diabetes mellitus type 2, insulin requiring, diabetic polyneuropathy, chronic kidney disease stage IIIa, has been under the care of nephrology, history of hypothyroidism, history of GERD with esophagitis, history of major depressive disorder, was last hospitalized at [facility] for urine in July 2024 after she was admitted for expressive aphasia with mental status changes, at that time she was discovered to have significant issue thickened esophagus with enlarged lymph node, at that time she underwent EGD with biopsy that was negative for any carcinoma at that time, patient ended up seen by hematology oncology at that admission, and flow cytometry was obtained, and the patient was sent to follow-up with hematology oncology as well as by pulmonary medicine because of the lymphadenopathy that she has underwent PET scan in September 2024 that was positive for lymphadenopathy, then underwent EBUS with and a biopsy was nondiagnostic at that time, patient was brought into the emergency department yesterday because of increased shortness of breath, not fe eling well, her D-dimer was elevated, she ended up going for CT angiography of the chest that was negative for pulm embolism but did show perihilar mass of 6.9 x 3.8 cm with mediastinal lymphadenopathy and a 9 mm nodule in the right lower lobe, with bilateral neck lymphadenopathy suggestive of malignancy, she was admitted to the hospital with hematology oncology consultation as well as pulmonary consultation. 11/28: Patient is scheduled to go for EBUS with Dr. Artenian today to obtain tissue pathology because of the soft tissue mass that is pressing against the right mainstem bronchus, with the lymphadenopathy that she has intermittent standing, rule out sarcoidosis this time, rule out malignancy at this point in time, patient is being on nothing per mouth at this point in time, follow-up with the patient very closely, she continues to be hyperglycemic, she did receive Lantus last night, will continue that continue with a sliding scale insulin for now, follow-up with the patient very closely, further recommendations to follow the customs consultant recommendations. 11/29: Patient sitting up in bed she continues to be on 3 L nasal cannula, her blood glucose levels were 443, I adjusted her insulin yesterday, decrease her Solu-Medrol to 40 mg IV push every 8 hours, if her blood glucose is not coming down in 2 hours, patient will be started on insulin drip, discontinue lisinopril, due to her hypertensive urgency, start the patient on losartan 100/12.5 mg once every day, also hydralazine 10 mg IV push every 4 hours as needed for systolic greater than 160, follow-up with the patient very closely, patient is to stay in the hospital because of the risk of respiratory failure due to the mass pushing against the right mainstem bronchus that could lead to a respiratory failure, await the final result of the biopsy, repeat labs today, follow-up with the patient very closely. 11/30: Patient was started on insulin drip yesterday and she was moved to 3 S., she is sitting up in bed she is currently on 3 L nasal cannula she continues to be somewhat short of breath, awaiting the final result of the pathology, continue Solu-Medrol 40 mg IV push every 8 hours, continue nebulized treatment, continue other treatment plan, increase activity as tolerated. 12/01: Patient is supposed to be seen by thoracic surgery for possible mediastinoscopy and biopsy of the soft tissue mass, she continues to be on Lantus however her last BGM is quite elevated, we will adjust her Lantus to 28 units at bedtime along with increasing her Humalog to 8 units plus the sliding scale, continue to follow-up with the patient very closely further recommendation is to follow the patient progression, decrease her Solu-Medrol to 40 mg IV push every 12 hours, likely the patient will be discharged home in the next 24 hours, follow-up as an outpatient for mediastinoscopy and possible EGD. 12/02: Patient was seen in consultation by thoracic surgery yesterday was recommended for the patient to come off Plavix, she can be discharged home on oxygen, follow-up as an outpatient in the next week for mediastinoscopy and trying to obtain a biopsy along with an EGD as an outpatient, further treatment is relying on the final result of the EGD after this thoracic surgeon saw the film and he was suspicious for esophageal cancer that invades the bronchial tree, less likely to be a non-Hodgkin form at this point in time, the recent transbronchial biopsy nondiagnostic, therefore the patient will be able to be discharged home hopefully later on today, and follow-up with us as an outpatient, for mediastinoscopy and possible EGD as well. 12/03: Patient sitting up in bed appears to be quite anxious today, I spoke with the patient about the possibility of going home hopefully in the next 24 hours, we will try to obtain an oxygen for home at 2 L nasal cannula, I have called her prescription to the pharmacy orally, the patient will stay in the hospital for another 24 hours, and hopefully she will be able to be discharged home tomorrow morning, and follow-up with the thoracic surgeon next week for EGD as well as mediastinoscopy to obtain better tissue for biopsy and sampling, and patient was in agreement for the proposed plan. 12/04: Patient is sitting up in bed in no respiratory distress at this time, her oxygenation is 96% on room air, I will increase her activity today, I spoke with the patient about discharging him home today and follow-up with thoracic surgeon as an outpatient for mediastinoscopy as well as EGD for further evaluation recommendation, patient will be discharged today with home health care, I will see her in the office early next week. Discharge diagnoses: 1. Perihilar mass 6.9 x 3.8 cm with mediastinal lymphadenopathy suggestive of malignancy Status post EBUS with biopsiesnondiagnostic 2. Hypertension and hypertensive cardiovascular disease with accelerated hypertension. 3. Mixed hyperlipidemia. 4. Diabetes mellitus type 2 with steroid-induced hyperglycemia 5. Hypothyroidism. 6. GERD with esophagitis and Wooten esophagus 7. Carotid artery disease Patient Condition at Discharge: Stable Plan - Discharge Summary Discharge Rx Participant: Yes New Discharge Prescriptions: New Benzonatate [Tessalon Perles] 100 mg PO TID PRN #21 cap PRN Reason: Cough Insulin Lispro [humaLOG Kwikpen] 8 unit SQ TID #21.6 ml Insulin Glargine,Hum.rec.anlog [Insulin Glargine Solostar] 28 unit SQ HS #25.2 ml Pen Needle, Diabetic [Pen (Janneth) Needle 4mm 32G (BD)] 1 needle SQ QID 90 Days #400 each INSULIN LISPRO (HumaLOG) [HumaLOG] 3 unit SQ AC-TID each Losartan/Hydrochlorothiazide [Losartan-Hctz 100-12.5 mg Tab] 1 each PO DAILY #90 tab Insulin Glargine (Lantus) [Lantus Vial] 21 unit SQ HS each Continue Levothyroxine Sodium [Synthroid] 88 mcg PO DAILY Pantoprazole [Protonix] 40 mg PO AC-BRKFST Atorvastatin [Lipitor] 80 mg PO HS DULoxetine HCL [Cymbalta] 60 mg PO BID Dapagliflozin Propanediol [Farxiga] 10 mg PO DAILY Metoprolol Succinate (ER) [Toprol XL] 25 mg PO DAILY Biotin 6000mcg 1 tab PO DAILY Discontinued lisinopriL [Zestril] 20 mg PO BID #180 tab Clopidogrel [Plavix] 75 mg PO DAILY #90 tab Discharge Medication List Atorvastatin [Lipitor] 80 mg PO HS 11/21/21 [History] DULoxetine HCL [Cymbalta] 60 mg PO BID 11/21/21 [History] Dapagliflozin Propanediol [Farxiga] 10 mg PO DAILY 12/06/23 [History] Levothyroxine Sodium [Synthroid] 88 mcg PO DAILY 07/31/24 [History] Biotin 6000mcg 1 tab PO DAILY 11/27/24 [History] Metoprolol Succinate (ER) [Toprol XL] 25 mg PO DAILY 11/27/24 [History] Pantoprazole [Protonix] 40 mg PO AC-BRKFST 11/27/24 [History] Benzonatate [Tessalon Perles] 100 mg PO TID PRN #21 cap 12/03/24 [Rx] Insulin Glargine,Hum.rec.anlog [Insulin Glargine Solostar] 28 unit SQ HS #25.2 ml 12/03/24 [Rx] Insulin Lispro [humaLOG Kwikpen] 8 unit SQ TID #21.6 ml 12/03/24 [Rx] Losartan/Hydrochlorothiazide [Losartan-Hctz 100-12.5 mg Tab] 1 each PO DAILY #90 tab 12/03/24 [Rx] Pen Needle, Diabetic [Pen (Janneth) Needle 4mm 32G (BD)] 1 needle SQ QID 90 Days #400 each 12/03/24 [Rx] INSULIN LISPRO (HumaLOG) [HumaLOG] 3 unit SQ AC-TID each 12/04/24 [Rx] Insulin Glargine (Lantus) [Lantus Vial] 21 unit SQ HS each 12/04/24 [Rx] Follow up Appointment(s)/Referral(s): Deng Church MD [Primary Care Provider] - 1 Week Discharge Disposition: HOME WITH HOME HEALTH SERVICES
[2024-12-04 09:33] LABS: HCT 35.8 % (37.2-46.3); HGB 11.4 g/dL (12.0-15.0); MCH 29.9 pg (27.0-32.0); MCHC 31.8 g/dL (32.0-37.0); MCV 94.0 fL (80.0-97.0); Platelet Count 286 10*3/uL (140-440); RBC 3.81 10*6/uL (4.10-5.20); RDW 15.4 % (11.5-14.5); WBC 9.10 10*3/uL (4.50-10.00)
[2024-12-04 10:45] LABS: RBC Morphology Normal
[2024-12-04 10:47] LABS: Eosinophils # (M) 0.09 k/uL (0-0.7); Lymphocytes # (M) 2.09 k/uL (1.0-4.8); Metamyelocytes # (M) 0.09 k/uL (0); Monocytes # (M) 0.36 k/uL (0-1.0); Neutrophils # (M) 6.55 k/uL (1.3-7.7); Neutrophils % (M) 69 %; Total Cells Counted 200
[2024-12-04 11:12] LABS: Glucose,Whole Blood 152 mg/dL (70-110)
[2024-12-04] MEDS: INSULIN LISPRO (HumaLOG) 100 UNIT/ML 10 mL VL SQ SCH (12:18)
[2024-12-04 14:30] VITALS: BP 175/85; PULSE 80; TEMP 98.2
[2024-12-04] MEDS ORDERED: INSULIN GLARGINE (LANTUS) 100 UNIT/ML SYR SQ SCH (21:00)
== END 2024-12-04 14:02 | disposition home health service (06) | DRG 814 ==
LOC: EC 17:46 → 5NMEDONC 23:40 → OBSVTOIN 11-28 10:35 → 3SCARD 11-30 10:27
PROVIDERS: ADMIT Internal Medicine; ATTEND Internal Medicine
PROC: 07D78ZX Extraction of Thorax Lymphatic, Via Natural or Artificial Opening Endoscopic, Diagnostic (ICD-10-PCS; principal; 2024-11-28 08:35)
PROC: 0B9K8ZX Drainage of Right Lung, Via Natural or Artificial Opening Endoscopic, Diagnostic (ICD-10-PCS; 2024-11-28 08:35)
PROC: 0B938ZZ Drainage of Right Main Bronchus, Via Natural or Artificial Opening Endoscopic (ICD-10-PCS; 2024-11-28 08:35)
DX: R59.0 Localized enlarged lymph nodes (principal); J96.01 Acute respiratory failure with hypoxia; E87.20 Acidosis, unspecified; Z99.81 Dependence on supplemental oxygen; E11.42 Type 2 diabetes mellitus with diabetic polyneuropathy; N18.31 Chronic kidney disease, stage 3a; I13.10 Hypertensive heart and chronic kidney disease without heart failure, with stage 1 through stage 4 chronic kidney disease, or unspecified chronic kidney disease; E03.9 Hypothyroidism, unspecified; F32.9 Major depressive disorder, single episode, unspecified; E66.9 Obesity, unspecified; I65.21 Occlusion and stenosis of right carotid artery; E11.65 Type 2 diabetes mellitus with hyperglycemia; E11.22 Type 2 diabetes mellitus with diabetic chronic kidney disease; I16.0 Hypertensive urgency; J98.09 Other diseases of bronchus, not elsewhere classified; E78.2 Mixed hyperlipidemia; K21.00 Gastro-esophageal reflux disease with esophagitis, without bleeding; K22.70 Barrett's esophagus without dysplasia; T38.0X5A Adverse effect of glucocorticoids and synthetic analogues, initial encounter; R91.1 Solitary pulmonary nodule; G47.33 Obstructive sleep apnea (adult) (pediatric); R00.1 Bradycardia, unspecified; I25.10 Atherosclerotic heart disease of native coronary artery without angina pectoris; K44.9 Diaphragmatic hernia without obstruction or gangrene; Z68.33 Body mass index [BMI] 33.0-33.9, adult; Z79.02 Long term (current) use of antithrombotics/antiplatelets; Z79.890 Hormone replacement therapy; Z79.84 Long term (current) use of oral hypoglycemic drugs; Z86.73 Personal history of transient ischemic attack (TIA), and cerebral infarction without residual deficits; Z79.899 Other long term (current) drug therapy; Z82.49 Family history of ischemic heart disease and other diseases of the circulatory system; I25.2 Old myocardial infarction; Z98.84 Bariatric surgery status; Z90.711 Acquired absence of uterus with remaining cervical stump; Z80.8 Family history of malignant neoplasm of other organs or systems; Z80.1 Family history of malignant neoplasm of trachea, bronchus and lung; Z80.0 Family history of malignant neoplasm of digestive organs
CPT/HCPCS: 31624; 31625; 31633; 31652; 36415; 71045; 71046; 71275; 80048; 80053; 82009; 82164; 83036; 84484; 85025; 85379; 85610; 85730; 86850; 86900; 86901; 88108; 88305; 88341; 88342; 93005; 94640; 94760; 96360; 96361; 99285